=== PATIENT | female | born 1965 | race Caucasian/White ===

== ENCOUNTER → 2020-01-15 15:13 | Outpatient (CLI) | payer OTHER, BC, SELFPAY ==
--- NOTE | 2020-01-15 15:19 | CT_ITS ---
STUDY: CT ABDOMEN AND PELVIS WITHOUT CONTRAST REASON FOR EXAM: Female, 54 years old. LT FLANK PAIN, NAUSEA, HEMATURIA LAST WEEK RADIATION DOSAGE (If Supplied By Facility): CTDIvol = ( 9.90 ) mGy, DLP = ( 459.87 ) mGycm TECHNIQUE: Transaxial images were obtained from the dome of the diaphragm to the symphysis pubis without oral contrast, and without intravenous contrast. Sagittal and coronal images were reconstructed. Individualized dose optimization techniques were used for this CT. COMPARISON: 07/27/2010 FINDINGS: The visualized lung bases are unremarkable. The visualized portions of the heart are within normal limits. Normal liver. The gallbladder is contracted. Normal spleen. Normal pancreas. Normal bilateral adrenal glands. Normal right kidney. 4 mm nonobstructing stone in the midsection of the left kidney. No hydronephrosis, ureteral stone, or ureteral dilatation. Normal visualized stomach. Normal small intestine. Normal colon. The appendix is visualized and appears normal. Normal abdominal aorta. Normal inferior vena cava. Normal retroperitoneum. Normal urinary bladder. Intrauterine device within the uterus. There is a small umbilical hernia containing fat. Dextroscoliosis of the thoracolumbar spine with degenerative disc disease. CT/Abdomen/Pelvis without Cont IMPRESSION: 4 mm nonobstructing stone in the midsection the left kidney. Electronically Signed: Jonh Garduno MD at 16:56 EST Tel , Service support ,
== END ==
PROVIDERS: PCP Internal Medicine; Referring Provider Urology; Visit Provider Urology
DX: R10.9 Unspecified abdominal pain (principal); R11.0 Nausea; Z87.442 Personal history of urinary calculi
CPT/HCPCS: 74176

== ENCOUNTER 2021-02-04 11:11 | Outpatient (RCR) | payer OTHER, BC, SELFPAY ==
[2021-02-04] MEDS: COVID-19 VACC, MRNA(PFIZER)/PF 30 MCG/0.3 ML SYRINGE IM (11:57)
[2021-02-25] MEDS: COVID-19 VACC, MRNA(PFIZER)/PF 30 MCG/0.3 ML SYRINGE IM (12:00)
== END 2021-02-04 23:59 ==
LOC: IMMUN 11:11
PROVIDERS: PCP Internal Medicine; Visit Provider Family Medicine
DX: Z23 Encounter for immunization (principal)
CPT/HCPCS: 0001A; 0002A; 91300

== ENCOUNTER 2024-01-11 18:00 | Outpatient (RCR) | payer OTHER, BC, SELFPAY ==
--- NOTE | 2023-11-07 18:41 | HP.PTEVAL ---
Patient's Visit Information Visit Information Visit Information: LINDA TOWNSEND is a 58 year old F referred to Physical Therapy by SARITA Olmstead with a diagnosis of R knee OA /pain. Date of Evaluation: 11/07/23 Physical Therapist: Basim Friedman, JOET, OCS, CSCS Visit Plan Frequency: 2-3x /Week Duration: 4-6 Weeks Plan: 2-3x/week for 4 weeks for 1. please get I with LE machines for hip and knees, calves, core and postural UE to an I membership. 2. monitor quad stretch she should do on own TENS and ice if needed, Give list for I when able Subjective Subjective: R knee bone spurs patella and OA. It has hurt for 3-4 months now, insidious onset. Pain is anterior up to 5/10 this week, worse with standing, OK WITH SITTING. No regular exercise right now. Was doing PT at [facility] but hours changed. Was dong bike, LE strength, leg press, hip strength. Was doing really well and only feeling it at night which has bothered her. Wakes her up at night. No HEP. 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 Worse after work if moving alot. Hobbies: cleaning. Basic ADLs OK Stopped a weekand a half ago and worsening. Pain anterior R knee: Pain Intensity (Out of 10): 0 Pain Intensity Range: 0 and 5 Objective Objective: [place] R limp first couple steps up from chair then it smooths out to i and no gait deviations. No pain with ambulation. January and heel/toe walk without a problem, butt kicks hurt on R. [facility] chair and bed I without pain. Steps reciprocal without rail but pain descending with R slightly and transiently. R knee AROM 0-108, L knee 0-115, pain end range R knee flexiona dn extension with OP. mod tightness R quad> L, other muscles are OK. hip and ankle AROM WFL. weakness in core and hips with hip flexion testing, 4- hip flexion, 3+ abd and extension, 4- R knee ext and flexion and 4/5 L knee. ankles 4+/5 reflexes 2/3 patella and achilles sensation B LE wnl to gross light touch. - ant drawer adn post sag, + R scour, slight positive bounce home. Balance/Special Test Scores Lower Extremity Functional Score: 33 Goals Goal 1:: Pain in R knee abolished for 3 days Goal Time Frame: 4-6 Weeks Goal 2:: I appropriate HEP for Leg and core strength adn quad stretch to minimize future problems(gym member) Goal Time Frame: 4-6 Weeks Goal 3:: LEFS score 55 Goal Time Frame: 4-6 Weeks Goal 4:: Pain at home 90% decreased with normal activity Goal Time Frame: 4-6 Weeks Rehabilitation Potential Physical Therapy Diagnosis: Limited comfort with walking and gait in R knee pain activity. Rehabilitation Potential: Good Anticipated Interventions Patient/Client Instruction: Educate patient on: Condition and Plan of Care For the Purpose of:: To decrease pain, To increase ROM, To improve nutrient delivery to tissue, To improve muscle performance and motor function, To increase tolerance to activity/condition/position, To improve ability of physical actions for home/community/work/leisure and To improve gait and locomotor functions Therapeutic Exercise to Include: Strength training, Flexibilty training, Passive ROM and Active ROM For the Purpose of:: To decrease pain, To increase ROM, To improve nutrient delivery to tissue, To improve muscle performance and motor function, To improve ability of physical actions for home/community/work/leisure and To improve gait and locomotor functions TENS: Yes Cryotherapy (ice pack, ice massage): Yes For the Purpose of:: To decrease pain and To decrease swelling/inflammation Text: Thank you for the opportunity to evaluate your patient. For Medicare and Medicare HMO plans, please review the plan of care and approve it. It will need to be FAXED BACK to us at [phone] for Medicare purposes. For Medicare only, by signing this I certify the plan of care. Please let me know if there are questions or concerns regarding this plan of care. Physician Signature: Date:
--- NOTE | 2023-12-15 07:51 | HP.PTREVAL ---
Re-Evaluation Intro: SARITA Olmstead, It has been my pleasure to treat LINDA TOWNSEND over the last 9 visits for R knee OA /pain. Please see the progress note below for an update on the physical therapy plan of care! Subjective Subjective: Doing much better. Not as much pain getting up or walking. If on feet alot. Sleep is up a couple times at night to resituate. Stim really helps. Wants to try on her own but hesitant for d/c. Activities:close to normal. Not walking around block at home. Will try. Objective Objective/Function: Walking without pain or antalgia today. Steps reciprocal without rail without pain or antalgia. Good understanding of exercises and weaning process. Appropriate for I trail and f/u in 3 weeks as needed. Plan Plan Plan: f/u 3 weeks as needed to check goals and d/c if doing well. goal is to continue improvements without consistent therapy. Good prognosis with compliance. Balance/Gait/Functional tests Balance/Special Test Scores Lower Extremity Functional Score: 67 Goals Goals Goal 1:: Pain in R knee abolished for 3 days Goal Time Frame: 4-6 Weeks Goal Progress: Progressing Goal 2:: I appropriate HEP for Leg and core strength adn quad stretch to minimize future problems(gym member) Goal Time Frame: 4-6 Weeks Goal Progress: Goal Met Goal 3:: LEFS score 55 Goal Time Frame: 4-6 Weeks Goal Progress: Goal Met Goal 4:: Pain at home 90% decreased with normal activity Goal Time Frame: 4-6 Weeks Goal Progress: Goal Met Anticipated Interventions Anticipated Interventions Patient/Client Instruction: Educate patient on: Condition and Plan of Care For the Purpose of:: To decrease pain, To increase ROM, To improve nutrient delivery to tissue, To improve muscle performance and motor function, To increase tolerance to activity/condition/position, To improve ability of physical actions for home/community/work/leisure and To improve gait and locomotor functions Therapeutic Exercise to Include: Strength training, Flexibilty training, Passive ROM and Active ROM For the Purpose of:: To decrease pain, To increase ROM, To improve nutrient delivery to tissue, To improve muscle performance and motor function, To improve ability of physical actions for home/community/work/leisure and To improve gait and locomotor functions TENS: Yes Cryotherapy (ice pack, ice massage): Yes For the Purpose of:: To decrease pain and To decrease swelling/inflammation Re-Evaluation Ending Re-evaluation ending: Please do not hesitate to contact me at [phone] by phone or if you have questions or concerns regarding this new plan of care! Sincerely, Basim Friedman, DPT, OCS, CSCS
--- NOTE | 2024-01-11 18:14 | HP.PTDCSUM_ITS ---
Discharge Summary D/C summary: It has been my pleasure to treat LINDA TOWNSEND referred by SARITA Olmstead, with the diagnosis of R knee OA /pain for a total of 10 visit(s). Discharge Date: 01/11/24 Please see the following information for a summary of their discharge status. Subjective Subjective: Doing really well and only pain if stretches in middle of night subconscoiously or first 10 steos in am. otherwise doing great. Pain anterior R knee: Pain Intensity (Out of 10): 0 Overall Improvement % Improvement: 95 Objective Objective/Function: Full aROM without pain today, walking normal without antalgia and steps reciprocal without pain or rail. Goals Goal 1:: Pain in R knee abolished for 3 days Goal Progress: Goal Met Goal 2:: I appropriate HEP for Leg and core strength adn quad stretch to mi nimize future problems(gym member) Goal Progress: Goal Met Goal 3:: LEFS score 55 Goal Progress: Goal Met Goal 4:: Pain at home 90% decreased with normal activity Goal Progress: Goal Met Plan Plan: d/c to gym ex. D/C Information Discharge Comments: Will continue with gym exercises adn home management. d/c sentence: If there are questions or concerns regarding this patient's physical therapy, please feel free to call me at [phone]. Thank you for the referral of this patient. Sincerely, Basim Friedman, DPT, OCS, CSCS Balance/Gait/Functional tests Balance/Special Test Scores Lower Extremity Functional Score: 66 Improvement % Improvement: 95
== END 2024-01-11 19:00 | disposition home or self-care (01) ==
LOC: PT 18:00
PROVIDERS: PCP Internal Medicine; Referring Provider Physician Assistant Surgical; Visit Provider Physician Assistant Surgical
DX: M17.11 Unilateral primary osteoarthritis, right knee (principal); M25.561 Pain in right knee
CPT/HCPCS: 97014; 97110; 97161; 97530; G0283

== ENCOUNTER 2024-09-12 05:53 | Day surgery (SDC) | payer OTHER, BC, SELFPAY ==
--- NOTE | 2024-08-28 13:34 | PCM.HP.BLA ---
History and Physical Date of Admission: 09/12/24 HPI: The patient is a 59 year old female presenting for pre-operative visit. She is scheduled for Hysteroscopy D&C, and polyp resection for PMB and endometrial polyp on 09/12/24. Procedure discussed along with risks, benefits and complications. Other alternatives discussed for management. Consent form signed? Yes. PAST MEDICAL HISTORY PAST MEDICAL HISTORY Diagnosis Date ? Abnormal coagulation profile 2 miss carriages ABNORMAL COAGULATION STUDY ? Adjustment disorder with depressed mood ? Dizziness and giddiness ? Dyslipidemia ? Dysmetabolic syndrome X ? Generalized anxiety disorder ? Irritable bowel syndrome ? IUD (intrauterine device) in place 10/31/2013 ? Lab test positive for detection of COVID-19 virus 09/2020 ? Mitral valve disorders ? Myopia with astigmatism and presbyopia 09/03/2018 ? Ocular hypertension 09/03/2018 ? Other abnormal heart sounds ? Other psoriasis ? Premenstrual tension syndromes ? 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 Urinary calculus, unspecified 2009 Renal stones PAST SURGICAL HISTORY PAST SURGICAL HISTORY Procedure Laterality Date ? BREAST BX NEEDLE CORE LEFT 10/2017 benign ? DELIVERY ONLY 08/12/2003 , low cervical ? COLONOSCOPY FLX DX W/COLLJ SPEC WHEN PFRMD 11/03/2016 Colonoscopy ? COLONOSCOPY W/BIOPSY SINGLE/MULTIPLE 06/05/09 Normal appearing colon ? CYSTOURETHROSCOPY renal stones ? KIDNEY SURGERY HX ? TONSILLECTOMY PRIMARY/SECONDARY <AGE 13 Tonsillectomy CURRENT MEDICATIONS Current Outpatient Medications Medication Sig Dispense Refill ? ketoconazole (NIZORAL) 2 % shampoo WASH THE SCALP 3 DAYS A WEEK. MASSAGE INTO SCALP AND LET SIT FOR 5 MINUTES BEFORE RINSING. ? ENSTILAR 0.005-0.064 % foam APPLY TO THE RIGHT TOE NAIL ONCE A DAY FOR 4 WEEKS ? ammonium lactate (LAC-HYDRIN) 12 % cream APPLY TO THE FEET AND LEGS 1-2 TIMES DAILY TOLERATED ? fsjences-xnyqvewjd-aadlkxsxbvcbhm (CORTISPORIN) otic solution APPLY 4 DROP INTO BOTH EARS THREE TIMES A DAY ? rosuvastatin (CRESTOR) 10 mg tablet Take 1 tablet by mouth once daily. 90 tablet 3 ? busPIRone (BUSPAR) 5 mg tablet Take 1 tablet by mouth three times a day as needed. 90 tablet 3 ? clobetasol (TEMOVATE) 0.05 % ointment Apply 1 application to affected area as directed. to affected twice weekly. May use BID for 1-2 weeks prn flares for up to 2 weeks 60 g 1 ? buPROPion XL (WELLBUTRIN XL) 150 mg 24 hr tablet take 1 tablet once daily 90 tablet 3 ? tiZANidine (ZANAFLEX) 2 mg tablet Take 1 tablet by mouth every 8 hours as needed (muscle spasms). 30 tablet 0 ? fluticasone (FLONASE) 50 mcg/actuation nasal spray Use 2 Sprays in each nostril once daily. Rinse mouth after use. 1 Each 3 ? naproxen (NAPROSYN) 500 mg tablet Take 1 tablet by mouth twice daily as needed (for pain/inflammation). Take with food. 15 tablet 0 ? hydrOXYzine HCl (ATARAX) 10 mg tablet Take 1 tablet by mouth three times daily as needed. 30 tablet 0 ? Mometasone (ELOCON) 0.1 % solution Apply 1 application to affected area once daily. for scalp as needed 60 mL 11 ? Aspirin 81 mg Tab Take 1 tablet by mouth once daily. Take with food. ? MULTIVITAMIN TAB Take one(1) tablet daily. 0 No current facility-administered medications for this visit. ALLERGIES: Latex and Penicillins PERSONAL HISTORY: SOCIAL HISTORY Social History Tobacco Use ? Smoking status: Never ? Smokeless tobacco: Never Vaping Use ? Vaping status: Never Used Substance Use Topics ? Alcohol use: Yes Comment: 1x per year ? Drug use: No FAMILY HISTORY: FAMILY HISTORY FAMILY HISTORY Problem Relation Age of Onset ? Diabetes Maternal Grandmother ? Diabetes Maternal Aunt ? Diabetes Maternal Uncle ? Breast Cancer Sister age 39 , now with mets (including to colon) REVIEW OF SYMPTOMS: GENERAL: denies fevers or chills ENDOCRINOLOGY: has not been on steroids Cardiology : denies palpitations or chest pain Respiratory: denies SOB or cough Hematology: denies history of prolonged bleeding or easy bruising or VTE Allergy: Denies history of personal or family history of allergy to anesthesia PHYSICAL EXAMINATION: VITALS: Blood pressure 118/72, pulse 90, height 157.5 cm (5' 2 ), weight 85.7 kg (189 lb), last menstrual period 06/22/2020, SpO2 98%. GENERAL: The patient is well nourished, well hydrated in no acute distress. , The patient is oriented to time, place, and person. NECK: Supple. No lynphadenopathy, normal thyroid, no thyromegaly. LUNGS: Clear to auscultation bilaterally. no wheezes, rhonchi or rales HEART: Regular rate and rhythm, Normal heart sounds, and No murmurs or gallops Pelvic US on 07/18/24 Indication Postmenopausal bleeding- spotting Impression Anteverted fibroid uterus that measures 81 mm x 31 mm x 45 mm. The largest fibroids are described below. Endometrium is heterogeneous and measures 6 mm, which is abnormally thickened in menopause. Both ovaries are visualized and appear normal. No adnexal masses were observed. There is no free fluid visualized in the peritoneal cavity. Recent endometrial biopsy demonstrated presence of an endometrial polyp. Recommendations Recommend hysteroscopic evaluation as clinically indicated. History Medical History Surgery: section x 1 MIDDLE OR [employer] History Other: recent endo bx, pt still having spotting Menstrual History LMP on 11/20/2018 Method Transabdominal, transvaginal, 3D ultrasound examination, Color Doppler examination. View: Adequate visualization Uterus Uterus: Visualized Uterus position: anteverted Description of uterine malformations: none Myometrium: heterogeneous Endometrium: thickened Cervix details: normal Uterus length 81 mm Uterus width 45 mm Uterus height 31 mm Uterus Vol 58.6 cm? Endometrial thickness, total 6.0 mm Uterine fibroid D1 6 mm Uterine fibroid D2 8 mm Uterine fibroid D3 56 mm Uterine fibroid mean 23.5 mm Uterine fibroid vol 1.501 cm? Uterine fibroids findings: Right lateral posterior wall. intramural Right Ovary Rt ovary: Visualized Rt ovary morphology: postmenopausal atrophic Rt ovary D1 21 mm Rt ovary D2 29 mm Rt ovary D3 12 mm Rt ovary Vol 3.9 cm? Left Ovary Lt ovary: Visualized Lt ovary morphology: postmenopausal atrophic Lt ovary D1 16 mm Lt ovary D2 19 mm Lt ovary D3 13 mm Lt ovary Vol 2.0 cm? Cul de Sac Visualized. no free fluid visualized EMB 06/2024 fragment of polyp and atrophic endometrium IMPRESSION: PMB, endometrial polyp PLAN: The risks/benefits/alternatives and personal involved for the planned hysteroscopy D&C with polyp resection were reviewed with the patient. Her questions were answered to her satisfaction and she desires to proceed. Consent was signed. I reviewed with her postop instructions and expectations. I have reviewed and updated past medical and surgical history, medications and allergies Assessment & Plan Assessment/Plan (1) PMB (postmenopausal bleeding): (2) Endometrial polyp:
[2024-09-12] VITALS (8 sets, daily range): BP systolic 111–138; BP diastolic 54–82; PULSE 73–84; RESP 14–16; TEMP 36.2–36.5; O2SAT 90–100; BMI 33.3
--- OUTSIDE RECORDS SUMMARY | 2024-09-12 05:59 | XMS RPT_ITS | CCD ---
Author Organization [facility] Care Team Providers Care Deck Steward Name Role Phone BEN ADAMS Unavailable Unavailable FARID, FLORES S Unavailable Unavailable REFERRED, SELF Unavailable Unavailable NO PRIMARY CARE, Unavailable Unavailable REFERRED, SELF Unavailable Unavailable REFERRED, SELF Unavailable Unavailable NO PRIMARY CARE, Unavailable Unavailable Alejandro TAYLOR, Ben Primary Care Provider Alejandro TAYLOR, Ben Primary Care Provider Ben Adams MD Primary Care Provider Torey Villasenor MD Unavailable Ben Adams MD Primary Care Provider [phone] Jacklyn TAYLOR Torey Unavailable Alejandro TAYLOR, Ben Primary Care Provider GANTA, BEN Primary Care Unavailable POSTLETHWAITCAITLIN Attending Unava ilable VINCENT QUIROS Referring Unavailable GANTA, BEN Primary Care Unavailable GANTA, BEN Primary Care Unavailable HAURY, VINCENT Referring Unavailable HAIVONNE DURANILY Attending Unavailable GANTA, BEN Primary Care Unavailable GANTA, BEN Primary Care Unavailable ASHLEY TURKY Attending Unavailable GANTA, BEN Primary Care Unavailable SELF Referring Unavailable LAURO MAHMOOD Attending Unavailable DEDE KAPLAN Attending Unavailable GANTA, BEN Primary Care Unavailable POSTLETAkiWAITCAITLIN Referring Unavailabl e GANTA, BEN Primary Care Unavailable GANTA, BEN Primary Care Unavailable SARRASACHIN, TOREY Referring Unavailable Allergies Allergy Classification Reported Allergen(s) Allergy Type Date of Onset Reaction(s) Facility (20 sources) Latex; Translations: [LATEX] Propensity to adverse reactions (disorder) 5 [facility] Other [facility] (20 sources) Penicillins; Translations: [PENICILLINS] Propensity to adverse reactions to drug (disorder) 5 [facility] Other [facility] Medications Current Medications Medication Drug Class(es) Dates Sig (Normalized) Sig (Original) aspirin 81 mg oral tablet (20 sources) Platelet Aggregation Inhibitor, Nonsteroidal Anti-inflammatory Drug Start: 02-13-2007 take 1 tablet by mouth once daily at mealtime Aspirin 81 mg Tab Take 1 tablet by mouth once daily. Take with food. 02/13/2007 Active Comment on above: Take 1 tablet by roge th once daily. Take with food. betamethasone dipropionate 0.643 mg/ml / calcipotriene 0.05 mg/ml topical foam (3 sources) Corticosteroid, Vitamin D Analog Start: 07-31-2024 ENSTILAR 0.005-0.064 % foam APPLY TO THE RIGHT TOE NAIL ONCE A DAY FOR 4 WEEKS 07/31/2024 Active 24 hr buPROPion hydrochloride 150 mg extended release oral tablet (20 sources) Aminoketone Start: 10-25-2021 End: 09-25-2023 buPROPion XL (WELLBUTRIN XL) 150 mg 24 hr tablet Indications: Generalized anxiety disorder take 1 tablet once daily 90 tablet 3 09/25/2023 Active Comment on above: Take 1 tablet by roge once daily. TAKE 1 TABLET ONCE D AILY busPIRone hydrochloride 5 mg oral tablet (20 sources) Start: 07-28-2021 End: 01-24-2024 take 1 tablet by mouth three times daily as needed busPIRone (BUSPAR) 5 mg tablet Indications: Generalized anxiety disorder Take 1 tablet by mouth three times a day as needed. 90 tablet 3 01/24/2024 Active Comment on above: Take 1 tablet by roge th three times daily as needed. Take 1 tablet by roge th three times a day as needed. cefdinir 300 mg oral capsule (1 source) Cephalosporin Antibacterial Start: 03-15-2023 End: 03-22-2023 take 1 capsule by mouth twice daily cefdinir (OMNICEF) 300 mg capsule Take 1 capsule by mouth twice daily for 7 days. 14 capsule 0 03/15/2023 03/22/2023 Active Comment on above: Take 1 capsule by mo [facility] twice daily for 7 days. cephalexin 500 mg oral capsule (13 sources) Cephalosporin Antibacterial Start: 05-13-2023 End: 05-20-2023 take 1 capsule by mouth three times daily cephALEXin (KEFLEX) 500 mg capsule Take 1 capsule by mouth three times daily for 7 days. 21 capsule 0 05/13/2023 05/20/2023 Active Start: 09-05-2022 End: 12-26-2022 KEFLEX 500 mg capsule TAKE 1 CAPSULE 3 TIMES A DAY FOR 7 DAYS. 21 capsule 09/05/2022 12/26/2022 Discontinued (Other) Comment on above: Take 1 capsule by [facility] three times daily for 7 days. TAKE 1 CAPSULE 3 JOHNY ES A DAY FOR 7 DAYS. clobetasol propionate 0.0005 mg/mg topical ointment (20 sources) Corticosteroid Start: End: clobetasol (TEMOVATE) 0.05 % ointment Apply 1 application to affected area as directed. to affected twice weekly. May use BID for 1-2 weeks prn flares for up to 2 weeks 60 g 1 01/24/2024 Active Comment on above: Apply 1 application to affected area as directed. to affected twice weekly. May use BID for 1-2 weeks prn flares for up to 2 weeks fluticasone propionate 0.05 mg/actuat metered dose nasal spray (20 sources) Corticosteroid Start: take 2 spray(s) by mouth once daily fluticasone (FLONASE) 50 mcg/actuation nasal spray Use 2 Sprays in each nostril once daily. Rinse mouth after use. 1 Each 3 03/15/2023 Active Comment on above: Use 2 Sprays in each nostril once daily. Rinse mouth after use. hydrocortisone 10 mg/ml / neomycin 3.5 mg/ml / polymyxin b [id number] unt/ml otic solution (3 sources) Aminoglycoside Antibacterial, Polymyxin-class Antibacterial, Corticosteroid Start: [id number]-kcynkqqhe-ri drocortisone (CORTISPORIN) otic solution APPLY 4 DROP INTO BOTH EARS THREE TIMES A DAY 07/18/2024 Active hydrOXYzine hydrochloride 10 mg oral tablet (20 sources) Antihistamine Start: End: take 1 tablet by mouth three times daily as needed hydrOXYzine HCl (ATARAX) 10 mg tablet Indications: Generalized anxiety disorder Take 1 tablet by mouth three times daily as needed. 30 tablet 07/19/2022 Active Comment on above: Take 1 tablet by roge th three times daily as needed. iv contrast (will be provided with radiology test) (2 sources) Start: End: iv contrast (will be provided with radiology test) Indications: Hematuria, unspecified type CT Urogram WO/W Inject, intravenously, once for 1 dose.No IV access, insert saline lock prior to the beginning of sedation, infusion, injection of imaging exam. Discontinue saline lock post exam. If Pt. has a central line or IVAD, may access for administration according to line specific nursing protocol. Once exam is complete flush line and de-access according to line specific nursing protocol in the CT contrast administration guidelines link. 1 Each 07/25/2024 07/26/2024 Active ketoconazole 20 mg/ml medicated shampoo (3 sources) Azole Antifungal Start: ketoconazole (NIZORAL) 2 % shampoo WASH THE SCALP 3 DAYS A WEEK. MASSAGE INTO SCALP AND LET SIT FOR 5 MINUTES BEFORE RINSING. 07/31/2024 Active ammonium lactate 120 mg/ml topical cream (3 sources) Start: ammonium lactate (LAC-HYDRIN) 12 % cream APPLY TO THE FEET AND LEGS 1-2 TIMES DAILY TOLERATED 07/31/2024 Active miSOPROStol 0.2 mg oral tablet (1 source) Prostaglandin E1 Analog Start: End: miSOPROStol (CYTOTEC) 200 mcg tablet Use 2 tablets vaginally one time only for [address] 2 tablets vaginally the morning before surgery. 2 tablet 08/28/2024 08/28/2024 Active mometasone furoate 1 mg/ml topical lotion (20 sources) Corticosteroid Start: End: Mometasone (ELOCON) 0.1 % solution Apply 1 application to affected area once daily. for scalp as needed 60 mL 11 07/19/2022 Active Comment on above: Apply 1 application to affected area once daily. for scalp as needed MULTIVITAMIN TAB (20 sources) Start: MULTIVITAMIN TAB Take one(1) tablet daily. 0 10/25/2005 Active Comment on above: Take one(1) tablet d aily. naproxen 500 mg oral tablet (20 sources) Nonsteroidal Anti-inflammatory Drug Start: take 1 tablet by mouth every twelve hours as needed naproxen (NAPROSYN) 500 mg tablet Take 1 tablet by mouth twice daily as needed (for pain/inflammation). Take with food. 15 tablet 08/19/2022 Active Comment on above: Take 1 tablet by [facility] twice daily as needed (for pain/inflammation). Take with food. nitrofurantoin, macrocrystals 25 mg / nitrofurantoin, monohydrate 75 mg oral capsule (1 source) Nitrofuran Antibacterial Start: End: take 1 capsule by mouth twice daily at mealtime nitrofurantoin monohydrate and macrocrystal (MACROBID) 100 mg capsule Take 1 capsule by mouth twice daily with meals for 5 days. 10 capsule 0 08/19/2022 08/24/2022 Active Comment on above: Take 1 capsule by [facility] twice daily with meals for 5 days. ondansetron 8 mg oral tablet (20 sources) Serotonin-3 Receptor Antagonist Start: End: take 1 tablet by mouth every eight hours as needed ondansetron (ZOFRAN) 8 mg tablet Take 1 tablet by mouth every 8 hours as needed for nausea/vomiting. 30 tablet 0 11/23/2022 12/23/2022 Active Start: 09-27-2022 End: 07-19-2023 take 1 tablet by mouth every eight hours as needed ondansetron (ZOFRAN) 4 mg tablet Take 1 tablet by mouth every 8 hours as needed for nausea/vomiting. 9 tablet 09/27/2022 07/19/2023 Discontinued (Discontinued by Patient) Start: 08-19-2022 End: 03-15-2023 take 1 tablet by mouth every six hours as needed ondansetron orally disintegrating (ZOFRAN ODT) 4 mg disintegrating tablet Take 1 tablet by mouth every 6 hours as needed for nausea/vomiting. 20 tablet 08/19/2022 03/15/2023 Discontinued (Duplicate Entry) Comment on above: Take 1 tablet by roge th every 6 hours as needed for nausea/vomiting. Take 1 tablet by roge th every 8 hours as needed for nausea/vomiting. rosuvastatin calcium 10 mg oral tablet (20 sources) HMG-CoA Reductase Inhibitor Start: End: take 1 tablet by mouth once daily rosuvastatin (CRESTOR) 10 mg tablet Take 1 tablet by mouth once daily. 90 tablet 3 01/24/2024 Active Comment on above: Take 1 tablet by roge th once daily. 1000 ml sodium chloride 9 mg/ml injection (1 source) Start: End: 0.9 % sodium chloride (NACL 0.9%) infusion Indications: Hematuria, unspecified type Administer at rate defined per CT contrast administration specifications. To be provided with radiology test. 150 mL 07/25/2024 07/25/2024 Active tiZANidine 2 mg oral tablet (17 sources) Central alpha-2 Adrenergic Agonist Start: take 1 tablet by mouth every eight hours as needed tiZANidine (ZANAFLEX) 2 mg tablet Take 1 tablet by mouth every 8 hours as needed (muscle spasms). 30 tablet 07/19/2023 Active Comment on above: Take 1 tablet by roge th every 8 hours as needed (muscle spasms). Completed/Discontinued Medications Medication Drug Class(es) Dates Sig (Normalized) Sig (Original) acetaminophen 325 mg / oxyCODONE hydrochloride 5 mg oral tablet (11 sources) Opioid Agonist Start: 09-27-2022 End: 03-15-2023 take 1 tablet by mouth every six hours as needed for pain oxyCODONE-acetamino phen (PERCOCET) 5-325 mg tablet Indications: Renal calculi Take 1 tablet by mouth every 6 hours as needed for pain. 12 tablet 09/27/2022 03/15/2023 Discontinued (Discontinued by Patient) Comment on above: Take 1 tablet by roge th every 6 hours as needed for pain. benzonatate 100 mg oral capsule (20 sources) Non-narcotic Antitussive Start: 09-22-2020 End: 03-15-2023 take 100-200 mg by mouth every eight hours as needed benzonatate (TESSALON PERLES) 100 mg capsule Take 1-2 capsules by mouth three times daily as needed for Cough. 30 capsule 09/22/2020 03/15/2023 Discontinued Comment on above: Take 1-2 capsules by mouth three times daily as needed for Cough. phenazopyridine hydrochloride 200 mg oral tablet (17 sources) Start: 09-27-2022 End: 07-19-2023 take 1 tablet by mouth every eight hours as needed phenazopyridine (PYRIDIUM) 200 mg tablet Take 1 tablet by mouth three times daily as needed. 9 tablet 09/27/2022 07/19/2023 Discontinued Comment on above: Take 1 tablet by roge th three times daily as needed. sulfamethoxazole 800 mg / trimethoprim 160 mg oral tablet (2 sources) Dihydrofolate Reductase Inhibitor Antibacterial, Sulfonamide Antimicrobial Start: 05-12-2023 End: 05-17-2023 take 1 tablet by mouth twice daily sulfamethoxazole-tr imethoprim (BACTRIM DS) 800-160 mg per tablet Take 1 tablet by mouth twice daily for 5 days. 6 tablet 0 05/12/2023 05/13/2023 Discontinued Comment on above: Take 1 tablet by roge twice daily for 5 days. tamsulosin hydrochloride 0.4 mg oral capsule (20 sources) alpha-Adrenergic Spencer Start: 09-27-2022 End: 07-19-2023 take 1 capsule by mouth once daily at bedtime tamsulosin (FLOMAX) 0.4 mg Take 1 capsule by mouth daily at bedtime. 30 capsule 09/27/2022 07/19/2023 Discontinued Start: 08-19-2022 take 1 capsule by mo ut once daily at bedtime tamsulosin (FLOMAX) 0.4 mg Take 1 capsule by mouth daily at bedtime. 30 capsule 0 08/19/2022 Active Comment on above: Take 1 capsule by mo uth daily at bedtime. Problems Active Problems Problem Classification Problem Date Documented Da te Episodic/Chronic Anxiety disorders (20 sources) Generalized anxiety disorder; Translations: [Generalized anxiety disorder] 08-04-2009 Chronic Cancer of cervix (10 sources) Atypical squamous cells of undetermined significance on cervical Papanicolaou smear; Translations: [Atypical squamous cells of undetermined significance on cytologic smear of cervix (ASC-US)] Onset: 07-18-2024 07-18-2024 Episodic Cardiac dysrhythmias (3 sources) Sinus bradycardia; Translations: [Bradycardia, unspecified] Episodic Conditions associated with dizziness or vertigo (1 source) Lightheadedness; Translations: [Dizziness and giddiness] Episodic Diabetes mellitus without complication (3 sources) Hyperglycemia; Translations: [Hyperglycemia, unspecified] Episodic Disorders of lipid metabolism (20 sources) Hyperlipidemia; Translations: [Hyperlipidemia, unspecified] Onset: 09-27-2007 04-25-2009 Chronic Genitourinary symptoms and ill-defined conditions (6 sources) Scalding pain on urination ; Translations: [Dysuria] Onset: 07-25-2024 Episodic Heart valve disorders (20 sources) Rheumatic mitral valve disease, unspecified; Translations: [Mitral valve disorders] 10-25-2005 Chronic Immunizations and screening for infectious disease (1 source) Viral screening status; Translations: [Encounter for screening for other viral diseases] Episodic Menopausal disorders (4 sources) Postmenopausal bleeding; Translations: [Postmenopausal bleeding] Onset: 07-18-2024 07-10-2024 Chronic Nonspecific chest pain (1 source) Chest pain, unspecified; Translations: [Chest pain, unspecified] Onset: 05-16-2018 Episodic Other bone disease and musculoskeletal deformities (20 sources) Adolescent idiopathic scoliosis of thoracolumbar spine; Translations: [Adolescent idiopathic scoliosis, thoracolumbar region] Onset: 10-27-2015 10-27-2015 Chronic Other connective tissue disease (2 sources) Swelling of lower limb; Translations: [Other specified soft tissue disorders] Episodic Other diseases of kidney and ureters (1 source) Abnormal renal function; Translations: [Disorder of kidney and ureter, unspecified] 07-25-2024 Episodic Other diseases of kidney and ureters (1 source) Disorder of kidney and ureter, unspecified; Translations: [Function kidney decreased] Onset: 07-25-2024 Episodic Other female genital disorders (1 source) Vaginal odor; Translations: [Other specified noninflammatory disorders of vagina] 07-10-2024 Episodic Other female genital disorders (1 source) Polyp of corpus uteri; Translations: [Polyp of corpus uteri] 08-28-2024 Episodic Other gastrointestinal disorders (20 sources) Irritable bowel syndrome; Translations: [Irritable bowel syndrome without diarrhea] 04-28-2009 Chronic Other inflammatory condition of skin (20 sources) Psoriasis; Translations: [Other psoriasis] 09-27-2007 Chronic Other lower respiratory disease (1 source) Dyspnea on exertion; Translations: [Other forms of dyspnea] Episodic Other lower respiratory disease (1 source) Cough; Translations: [Acute cough] Episodic Other lower respiratory disease (1 source) Wheezing; Translations: [Wheezing] Episodic Other nutritional; endocrine; and metabolic disorders (20 sources) Metabolic syndrome X; Translations: [Metabolic syndrome] 04-27-2009 Chronic Other nutritional; endocrine; and metabolic disorders (20 sources) Obese class I; Translations: [Obesity, unspecified] Onset: 12-26-2022 Chronic Other nutritional; endocrine; and metabolic disorders (1 source) Body mass index 30+ - obesity; Translations: [Body mass index (BMI) 33.0-33.9, adult] Chronic Other screening for suspected conditions (not mental disorders or infectious disease) (11 sources) Patient encounter status; Translations: [Encounter for screening for lipoid disorders] Episodic Other skin disorders (1 source) Skin lesion; Translations: [Disorder of the skin and subcutaneous tissue, unspecified] Episodic Other skin disorders (1 source) Loss of hair; Translations: [Nonscarring hair loss, unspecified] Episodic Other upper respiratory infections (1 source) Acute sinusitis; Translations: [Acute sinusitis, unspecified] Episodic Past or Other Problems Problem Classification Problem Date Documented Date Episodic/Chronic Abdominal hernia (13 sources) Umbilical hernia; Translations: [Umbilical hernia without obstruction or gangrene] Onset: 8 Resolved: 9 12-25-2018 Episodic Abdominal pain (20 sources) Abdominal pain; Translations: [Unspecified abdominal pain] Onset: 9 07-16-2009 Episodic Calculus of urinary tract (20 sources) History of calculus of kidney; Translations: [Personal history of urinary calculi] Onset: 0 Resolved: 2 Episodic Coagulation and hemorrhagic disorders (13 sources) Hypercoagulability state; Translations: [Other primary thrombophilia] Onset: 7 Resolved: 9 05-30-2024 Chronic Other nutritional; endocrine; and metabolic disorders (20 sources) Overweight; Translations: [Overweight] Onset: 7 06-02-2008 Episodic Residual codes; unclassified (20 sources) Disturbance in sleep behavior; Translations: [Sleep disorder, unspecified] Onset: 8 06-02-2008 Episodic Spondylosis; intervertebral disc disorders; other back problems (20 sources) Neck pain; Translations: [Cervicalgia] Onset: 2 Resolved: 2 03-19-2012 Episodic Results Test Name Value Interpretation Reference Range Facil ity ALBUMIN/CREATININE RATIO, UR INEon 08-30-2024 Albumin DL <= 20 mg/L (U) [Mass/Vol] 46.3 mg/L Normal [facility] Comment on above: Order Comment: Speci men Type: URINE SPECIMENOrdering Facility: [facility] Address: [address] [place] [address] Performed By: #### 2 890-2, UACR ####[facility] LABCLIA [id number] [place] [address] [place] Albumin/Creatinine (U) [Mass ratio] 24 mg/g Normal <30 [facility] Comment on above: Order Comment: Speci men Type: URINE SPECIMENOrdering Facility: [facility] Address: [address] [place] [address] Result Comment: Adul t Male and Female Nephrotic Criteria: <30 mg/g is considered normal to mildly increased 30-300 mg/g is considered moderately increased >300 mg/g is considered severely increased KDIGO. (2013). KDIGO 2012 Clinical Practice Guideline for the Evaluation and Management of Chronic Kidney Disease. Official Journal of the International Society of Nephrology, 3(1), 1-150. Performed By: #### 2 890-2, UACR ####[facility] LABCLIA [id number] [place] [id number] [place] Bacteria Ur Culton 4 Bacteria identified Cx Nom (U) ORGANISM ID: 1 10,000 -<50,000 CFU/ml Normal urogenital maegan Normal [facility] Comment on above: Performed By: #### 6 30-4 ####[facility] LABCLIA [id number] [place] [address] [place] CNOVon 08-30-2024 CNOV Office Visit ([facility] ) VIVIANA TOWNSEND ([id number]) 1965 F Date Time Provider Department 08/30/24 1:00 PM LAURO MAHMOOD [facility] During your visit today, we recorded the following information about you: Lauro Mahmood DO 08/30/2024 2:08 PM Signed NEPHROLOGY CLINIC INITIAL VISIT PATIENT NAME: Viviana Townsend Consultation requested by self for an opinion regarding ckd. My final recommendations will be communicated back to the requesting physician by way of shared Medical record or letter to requesting physician via [place] mail. ASSESSMENT/PLAN 1.Hematuria with x2 small left stones and lower abdominal cramping/flank pain ongoing for months -most recent microscopic urine on 07/25 with + epi's/wbc/Rbc and no proteinuoria in the setting of a ? UTI symptoms somewhat vague (back/flank,Lower abdomen cramp) So hematuria cannot be interpreted. We'll repeat the urine culture today and offer trial of abx indicative, request to avoid penicillin -? If sx persiste speculated dx of IC, defer to urology/ob 2. Elevated Cr not rising to the level of CKD -repeat with cystatin c, Cr stable at 1 for many years. No helen edema today in le 3. Nephrolithiasis -litholink 2 year ago, high urine calcium -continue medical / dietary management as she is. Check pth, vit d. Thiazide theortically could help, but recent trial in [facility] doesn't support this RTC 1 year or sooner if needed SUBJECTIVE chief complaint HPI: 59 year hx of stones 2009, ESWL in 2021, est with urology last month at [facility]. Has received shock wave in the past. Has existing left kidney stones, this was worked up for hematuria - as below the CT showed at least 2 stones, 3mm, left kidney. Overweight, hld, psorias, anxiety, planning for Hysteroscopy DANDC, and polyp resection for PMB and endometrial polyp on 09/12/24 as she's had post menopausal bleeding and follows obgyn closely, still having flank pain and lower abdomen pain that hasn't been clarified as to why Sees or at least has seen cardiology for HLD, due to swelling a pr/cr ratio was checked at that time and found negative. Today she has +le, wbc, protein in urine. RENAL HX Imaging Kidneys and urinary tract: Right: There are no renal calculi or masses. The opacified calices, renal pelvis and ureter are normal without dilation, filling defect, or stricture. Left: At least 2 nonobstructing stones measure up to 0.3 cm. There are no renal solid/enhancing masses. The opacified calices, renal pelvis and ureter are normal without dilation, filling defect, or stricture. Urine Current Outpatient Medications Medication Instructions Aspirin 81 mg, ORAL, DAILY, Take with food. buPROPion XL (WELLBUTRIN XL) 150 mg, ORAL, EVERY AFTERNOON busPIRone (BUSPAR) 5 mg, ORAL, 3 TIMES DAILY NEEDED clobetasol (TEMOVATE) 0.05 % ointment 1 application , TOPICAL, DIRECTED, to affected twice weekly. May use BID for 1-2 weeks prn flares for up to 2 weeks fluticasone (FLONASE) 50 mcg/actuation nasal spray 2 Sprays, EACH NOSTRIL, DAILY, Rinse mouth after use. hydrOXYzine HCl (ATARAX) 10 mg, ORAL, 3 TIMES DAILY NEEDED Mometasone (ELOCON) 0.1 % solution 1 application , TOPICAL, DAILY, for scalp as needed MULTIVITAMIN TAB Take one(1) tablet daily. naproxen (NAPROSYN) 500 mg, ORAL, 2 TIMES DAILY NEEDED, Take with food. rosuvastatin (CRESTOR) 10 mg, ORAL, DAILY tiZANidine (ZANAFLEX) 2 mg, ORAL, EVERY 8 HOURS NEEDED Social History Tobacco Use Smoking status: Never Smokeless tobacco: Never Vaping Use Vaping status: Never Used Substance Use Topics Alcohol use: Yes Comment: 1x per year Drug use: No FAMILY HISTORY Problem Relation Age of Onset Diabetes Maternal Grandmother Diabetes Maternal Aunt Diabetes Maternal Uncle Breast Cancer Sister age 39 , now with mets (including to colon) PAST SURGICAL HISTORY Procedure Laterality Date BREAST BX NEEDLE CORE LEFT 10/2017 benign DELIVERY ONLY 08/12/2003 , low cervical COLONOSCOPY FLX DX W/COLLJ SPEC WHEN PFRMD 11/03/2016 Colonoscopy COLONOSCOPY W/BIOPSY SINGLE/MULTIPLE 06/05/09 Normal appearing colon CYSTOURETHROSCOPY renal stones KIDNEY SURGERY HX TONSILLECTOMY PRIMARY/SECONDARY Tonsillectomy OBJECTIVE PHYSICAL EXAM: BP - standardized method Pulse 1 BP #1: 130/83 Pulse #1: 79 beats/min 2 BP #2 : 121/79 Pulse #2 : 79 beats/min 3 BP #3 : 128/81 Pulse #3 : 78 beats/min Average Average BP: 126/81 Average Pulse: 78 beats/min Orthostatic vitals Supine Sitting Standing BP cuff location BP cuff size Comments for BP values First BP (right) First BP (left) Intake/Output None GENERAL: no distress EXTREMITIES:No edema DATA: Diagnostic tests reviewed for today's visit: Most recent labs and imaging results. CBC, Coags, BMP, Mg, Phos Liver Function, Amylase, AN (more content not included)... Normal [facility] Prot/Creat Uron 08-30-2024 Creatinine (U) [Mass/Vol] 191.3 mg/dL Normal 20.0-300.0 [facility] Comment on above: Order Comment: Speci men Type: URINE SPECIMENOrdering Facility: [facility] Address: [address] [place] [address] Performed By: #### 2 890-2, UACR ####[facility] LABCLIA [id number] [facility] [id number] [address] [place] Protein/Creatinine (U) [Mass ratio] 0.09 mg/mg Normal <0.15 [facility] Comment on above: Order Comment: Speci men Type: URINE SPECIMENOrdering Facility: [facility] Address: [address] [place] [address] Result Comment: Adul t Proteinuria Categories: <0.15 mg/mg is considered normal to mildly increased 0.15 - 0.50 mg/mg is considered moderately increased >0.50 mg/mg is considered severely increased KDIGO. (2013). KDIGO 2012 Clinical Practice Guideline for the Evaluation and Management of Chronic Kidney Disease. Official Journal of the International Society of Nephrology, 3(1), 1-150. Performed By: #### 2 890-2, UACR ####[facility] LABCLIA [id number] [place] [address] [place] Protein/Creatinine (U) [Mass ratio]on 08-30-2024 Protein (U) [Mass/Vol] 18 mg/dL Normal 0-20 [facility] Comment on above: Order Comment: Speci men Type: URINE SPECIMENOrdering Facility: [facility] Address: [address] [place] [address] Performed By: #### 2 890-2, UACR ####[facility] LABCLIA [id number] [address] [place] UA DIP, URINE (POC)on 2023 BILIRUBIN UA (POCT) Negative Negative Gerard [facility] CLARITY UA (POCT) Clear [facility] COLOR UA (POCT) Yellow [facility] GLUCOSE UA (POCT) Negative Negative mg/dL [facility] Hemoglobin Ql (U) Small Abnormal Negative [facility] Interpretation and review of laboratory results Abnormal [facility] KETONE UA (POCT) 15 mg/dL Abnormal Negative [facility] LEUKOCYTES UA (POCT) Moderate Abnormal Negative [facility] NITRITE UA (POCT) Negative Negative [facility] PH UA (POCT) 7.0 4.5 - 8.0 [facility] Protein Ql (U) Negative Negative mg/dL [facility] SPECIFIC GRAVITY UA (POCT) 1.025 1.005 - 1.030 [facility] UROBILINOGEN UA (POCT) 0.2 Normal E.U./dL [facility] Location:[facility], [address], [place], [address] [facility] POINT OF CARE [facility] URINALYSIS, REFLEX MICROSCOP ICon 08-30-2024 Bacteria LM.HPF (Urine sed) [#/Area] Negative Normal Negative [facility] Comment on above: Order Comment: Speci men Type: URINE SPECIMENOrdering Facility: [facility] Address: [address] [place] [address] Performed By: #### L [id number] ####[facility] LABCLIA [id number] [place] [address] [place] Bilirubin Ql (U) Negative Normal Negative [facility] Comment on above: Order Comment: Speci men Type: URINE SPECIMENOrdering Facility: [facility] Address: [address] [place] [address] Performed By: #### L [id number] ####[facility] LABCLIA [id number] [place] [address] [place] Clarity (Unsp spec) Clear Normal Clear [facility] Comment on above: Order Comment: Speci men Type: URINE SPECIMENOrdering Facility: [facility] Address: [address] [place] [address] Performed By: #### L [id number] ####[facility] LABCLIA [id number] [place] [address] [place] Color (U) Yellow Normal Yellow [facility] Comment on above: Order Comment: Speci men Type: URINE SPECIMENOrdering Facility: [facility] Address: [address] [place] [address] Performed By: #### L [id number] ####[facility] LABCLIA [id number] [place] [address] [place] Epithelial cells LM.HPF (Urine sed) [#/Area] Few Normal [facility] Comment on above: Order Comment: Speci men Type: URINE SPECIMENOrdering Facility: [facility] Address: [address] [place] [address] Result Comment: Few Performed By: #### L [id number] ####[facility] LABCLIA [id number] [place] [address] [place] Glucose Test strip (U) [Mass/Vol] Negative Normal Negative [facility] Comment on above: Order Comment: Speci men Type: URINE SPECIMENOrdering Facility: [facility] Address: [address] [place] [address] Performed By: #### L [id number] ####[facility] LABCLIA [id number] [place] [address] [place] Hemoglobin Ql (U) 1+ Abnormal Negative [facility] Comment on above: Order Comment: Speci men Type: URINE SPECIMENOrdering Facility: [facility] Address: [address] [place] [address] Performed By: #### L [id number] ####[facility] LABCLIA [id number] [place] [address] [place] Hyaline casts (Urine sed) [#/Area] 0 /[LPF] Normal 0 /LPF [facility] Comment on above: Order Comment: Speci men Type: URINE SPECIMENOrdering Facility: [facility] Address: [address] [place] [address] Performed By: #### L [id number] ####[facility] LABCLIA [id number] [place] [address] [place] Ketones Ql (U) 1+ Abnormal Negative [facility] Comment on above: Order Comment: Speci men Type: URINE SPECIMENOrdering Facility: [facility] Address: [address] [place] [address] Performed By: #### L [id number] ####[facility] LABCLIA [id number] [place] [address] [place] Leukocyte esterase Test strip Ql (U) 2+ Abnormal Negative [facility] Comment on above: Order Comment: Speci men Type: URINE SPECIMENOrdering Facility: [facility] Address: [address] [place] [address] Performed By: #### L [id number] ####[facility] LABCLIA [id number] [place] [address] [place] Nitrite Ql (U) Negative Normal Negative [facility] Comment on above: Order Comment: Speci men Type: URINE SPECIMENOrdering Facility: [facility] Address: [address] [place] [address] Performed By: #### L [id number] ####[facility] LABIA [id number] [place] [address] [place] pH (U) 7.0 [pH] Normal <8.5 [facility] Comment on above: Order Comment: Speci men Type: URINE SPECIMENOrdering Facility: [facility] Address: [address] [place] [address] Performed By: #### L [id number] ####[facility] LABIA [id number] [place] [address] [place] Protein (U) [Mass/Vol] Trace Abnormal Negative [facility] Comment on above: Order Comment: Speci men Type: URINE SPECIMENOrdering Facility: [facility] Address: [address] [place] [address] Performed By: #### L [id number] ####[facility] LABIA [id number] [place] [address] [place] RBC LM.HPF (Urine sed) [#/Area] 11-20 /HPF Abnormal 0-2 /HPF [facility] Comment on above: Order Comment: Speci men Type: URINE SPECIMENOrdering Facility: [facility] Address: [address] [place] [address] Performed By: #### L [id number] ####[facility] LABIA [id number] [place] [address] [place] Specific gravity (U) [Rel density] 1.023 Normal 1.005-1.030 [facility] Comment on above: Order Comment: Speci men Type: URINE SPECIMENOrdering Facility: [facility] Address: [address] [place] [address] Performed By: #### L [id number] ####[facility] LABIA [id number] [place] [address] [place] Urobilinogen Ql (U) 0.2 EU/dL Normal 0.2-1.0 EU/dL [facility] Comment on above: Order Comment: Speci men Type: URINE SPECIMENOrdering Facility: [facility] Address: [address] [place] [address] Performed By: #### L [id number] ####[facility] LABIA [id number] [place] [address] [place] WBC LM.HPF (Urine sed) [#/Area] /[HPF] Abnormal 0-5 /HPF [facility] Comment on above: Order Comment: Speci men Type: URINE SPECIMENOrdering Facility: [facility] Address: [address] [place] [address] Performed By: #### L [id number] ####[facility] LABIA [id number] [place] [address] [place] CNOVon 08-28-2024 CNOV Office Visit (OBGYWM ) VIVIANA TOWNSEND ([id number]) 1965 F Date Time Provider Department 08/28/24 8:30 AM DEDE KAPLAN OBGYWM During your visit today, we recorded the following information about you: Pulse Blood pressure Weight Height 90/minute 118/72 85.7 kg 1.575 m Dede Kaplan MD 08/28/2024 1:34 PM Signed Pre-Op History and Physical HPI: The patient is a 59 year old female presenting for pre-operative visit. She is scheduled for Hysteroscopy DANWY, and polyp resection for PMB and endometrial polyp on 09/12/24. Procedure discussed along with risks, benefits and complications. Other alternatives discussed for management. Consent form signed? Yes. 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 MASSAGE INTO SCALP AND LET SIT FOR 5 MINUTES BEFORE RINSING. ENSTILAR 0.005-0.064 % foam APPLY TO THE RIGHT TOE NAIL ONCE A DAY FOR 4 WEEKS ammonium lactate (LAC-HYDRIN) 12 % cream APPLY TO THE FEET AND LEGS 1-2 TIMES DAILY TOLERATED ewtfjpor-jrxmdphrr-dj drocortisone (CORTISPORIN) otic solution APPLY 4 DROP INTO BOTH EARS THREE TIMES A DAY rosuvastatin (CRESTOR) 10 mg tablet Take 1 tablet by mouth once daily. 90 tablet 3 busPIRone (BUSPAR) 5 mg tablet Take 1 tablet by mouth three times a day as needed. 90 tablet 3 clobetasol (TEMOVATE) 0.05 % ointment Apply 1 application to affected area as directed. to affected twice weekly. May use BID for 1-2 weeks prn flares for up to 2 weeks 60 g 1 buPROPion XL (WELLBUTRIN XL) 150 mg 24 hr tablet take 1 tablet once daily 90 tablet 3 tiZANidine (ZANAFLEX) 2 mg tablet Take 1 tablet by mouth every 8 hours as needed (muscle spasms). 30 tablet 0 fluticasone (FLONASE) 50 mcg/actuation nasal spray Use 2 Sprays in each nostril once daily. Rinse mouth after use. 1 Each 3 naproxen (NAPROSYN) 500 mg tablet Take 1 tablet by mouth twice daily as needed (for pain/inflammation). Take with food. 15 tablet 0 hydrOXYzine HCl (ATARAX) 10 mg tablet Take 1 tablet by mouth three times daily as needed. 30 tablet 0 Mometasone (ELOCON) 0.1 % solution Apply 1 application to affected area once daily. for scalp as needed 60 mL 11 Aspirin 81 mg Tab Take 1 tablet by mouth once daily. Take with food. MULTIVITAMIN TAB Take one(1) tablet daily. 0 No current facility-administered medications for this visit. ALLERGIES: Latex and Penicillins PERSONAL HISTORY: Social History Tobacco Use Smoking status: Never Smokeless tobacco: Never Vaping Use Vaping status: Never Used Substance Use Topics Alcohol use: Yes Comment: 1x per year Drug use: No FAMILY HISTORY: FAMILY HISTORY Problem Relation Age of Onset Diabetes Maternal Grandmother Diabetes Maternal Aunt Diabetes Maternal Uncle Breast Cancer Sister age 39 , now with mets (including to colon) REVIEW OF SYMPTOMS: GENERAL: denies fevers or chills ENDOCRINOLOGY: has not been on steroids Cardiology : denies palpitations or chest pain Respiratory: denies SOB or cough Hematology: denies history of prolonged bleeding or easy bruising or VTE Allergy: Denies history of personal or family history of allergy to anesthesia PHYSICAL EXAMINATION: VITALS: Blood pressure 118/72, pulse 90, height 157.5 cm (5' 2 ), weight 85.7 kg (189 lb), last menstrual period 06/22/2020, SpO2 98%. GENERAL: The patient is well nourished, well hydrated in no acute distress. , The patient is oriented to time, place, and person. NECK: Supple. No lynphadenopathy, normal thyroid, no thyromegaly. LUNGS: Clear to auscultation bilaterally. no wheezes, rhonchi or rales HEART: Regular rate and rhythm, Normal heart sounds, and No murmurs or gallops Pelvic US on 07/18/24 Indication Postmenopa (more content not included)... Normal [facility] HISTORY PHYSICALon 4 HISTORY PHYSICAL HNO ID: [id number] Author: DEDE KAPLAN MD Service: ? Author Type: Physician Type: H&P Filed: 08/28/2024 13:34 Note Text: Pre-Op History and Physical HPI: The patient is a 59 year old female presenting for pre-operative visit. She is scheduled for Hysteroscopy DANWY, and polyp resection for PMB and endometrial polyp on 09/12/24. Procedure discussed along with risks, benefits and complications. Other alternatives discussed for management. Consent form signed? Yes. 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 MASSAGE INTO SCALP AND LET SIT FOR 5 MINUTES BEFORE RINSING. ENSTILAR 0.005-0.064 % foam APPLY TO THE RIGHT TOE NAIL ONCE A DAY FOR 4 WEEKS ammonium lactate (LAC-HYDRIN) 12 % cream APPLY TO THE FEET AND LEGS 1-2 TIMES DAILY TOLERATED zjyxibwn-agtgzaakh-tt drocortisone (CORTISPORIN) otic solution APPLY 4 DROP INTO BOTH EARS THREE TIMES A DAY rosuvastatin (CRESTOR) 10 mg tablet Take 1 tablet by mouth once daily. 90 tablet 3 busPIRone (BUSPAR) 5 mg tablet Take 1 tablet by mouth three times a day as needed. 90 tablet 3 clobetasol (TEMOVATE) 0.05 % ointment Apply 1 application to affected area as directed. to affected twice weekly. May use BID for 1-2 weeks prn flares for up to 2 weeks 60 g 1 buPROPion XL (WELLBUTRIN XL) 150 mg 24 hr tablet take 1 tablet once daily 90 tablet 3 tiZANidine (ZANAFLEX) 2 mg tablet Take 1 tablet by mouth every 8 hours as needed (muscle spasms). 30 tablet 0 fluticasone (FLONASE) 50 mcg/actuation nasal spray Use 2 Sprays in each nostril once daily. Rinse mouth after use. 1 Each 3 naproxen (NAPROSYN) 500 mg tablet Take 1 tablet by mouth twice daily as needed (for pain/inflammation). Take with food. 15 tablet 0 hydrOXYzine HCl (ATARAX) 10 mg tablet Take 1 tablet by mouth three times daily as needed. 30 tablet 0 Mometasone (ELOCON) 0.1 % solution Apply 1 application to affected area once daily. for scalp as needed 60 mL 11 Aspirin 81 mg Tab Take 1 tablet by mouth once daily. Take with food. MULTIVITAMIN TAB Take one(1) tablet daily. 0 No current facility-administered medications for this visit. ALLERGIES: Latex and Penicillins PERSONAL HISTORY: Social History Tobacco Use Smoking status: Never Smokeless tobacco: Never Vaping Use Vaping status: Never Used Substance Use Topics Alcohol use: Yes Comment: 1x per year Drug use: No FAMILY HISTORY: FAMILY HISTORY Problem Relation Age of Onset Diabetes Maternal Grandmother Diabetes Maternal Aunt Diabetes Maternal Uncle Breast Cancer Sister age 39 , now with mets (including to colon) REVIEW OF SYMPTOMS: GENERAL: denies fevers or chills ENDOCRINOLOGY: has not been on steroids Cardiology : denies palpitations or chest pain Respiratory: denies SOB or cough Hematology: denies history of prolonged bleeding or easy bruising or VTE Allergy: Denies history of personal or family history of allergy to anesthesia PHYSICAL EXAMINATION: VITALS: Blood pressure 118/72, pulse 90, height 157.5 cm (5' 2 ), weight 85.7 kg (189 lb), last menstrual period 06/22/2020, SpO2 98%. GENERAL: The patient is well nourished, well hydrated in no acute distress. , The patient is oriented to time, place, and person. NECK: Supple. No lynphadenopathy, normal thyroid, no thyromegaly. LUNGS: Clear to auscultation bilaterally. no wheezes, rhonchi or rales HEART: Regular rate and rhythm, Normal heart sounds, and No murmurs or gallops Pelvic US on 07/18/24 Indication Postmenopausal bleeding- spotting Impression Anteverted fibroid uterus that measures 81 mm x 31 mm x 45 mm. The largest fibroids are described below. Endometrium is heterogeneous and measures 6 mm, which is abnormally thickened in menopause. Both ovaries are visualized and appear n (more content not included)... Normal [facility] CNPNon 08-16-2024 [employer] [facility] [facility] VIVIANA TOWNSEND ([id number]) 1965 F Date Time Provider Department 08/16/24 CAITLIN PRADHAN During your visit today, we recorded the following information about you: Mei Thompson MA 08/16/2024 1:50 PM Signed ----- Message from Caitlin Pradhan APRN.[employer] sent at 08/16/2024 1:33 PM EDT ----- Please advise patient that her CTU showed stable left non-obstructing kidney stones. No masses, lesions, or hydronephrosis noted. Mei Thompson MA 08/16/2024 1:50 PM Signed Left message notifying pt of results and informed them to call back with any further questions. Mei Thompson MA Allergies As of Date: 08/16/2024 Noted Allergy Reaction LATEX 10/25/2005 PENICILLINS 10/25/2005 Date Reviewed: 08/16/2024 Reviewed by: Krys Soto RT(R) - Fully Assessed Reason for Visit: Results [95] Prescriptions as of 08/16/2024 - rosuvastatin (CRESTOR) 10 mg tablet Take 1 tablet by mouth once daily. - busPIRone (BUSPAR) 5 mg tablet Take 1 tablet by mouth three times a day as needed. - clobetasol (TEMOVATE) 0.05 % ointment Apply 1 application to affected area as directed. to affected twice weekly. May use BID for 1-2 weeks prn flares for up to 2 weeks - buPROPion XL (WELLBUTRIN XL) 150 mg 24 hr tablet take 1 tablet once daily - tiZANidine (ZANAFLEX) 2 mg tablet Take 1 tablet by mouth every 8 hours as needed (muscle spasms). - fluticasone (FLONASE) 50 mcg/actuation nasal spray Use 2 Sprays in each nostril once daily. Rinse mouth after use. - naproxen (NAPROSYN) 500 mg tablet Take 1 tablet by mouth twice daily as needed (for pain/inflammation). Take with food. - hydrOXYzine HCl (ATARAX) 10 mg tablet Take 1 tablet by mouth three times daily as needed. - Mometasone (ELOCON) 0.1 % solution Apply 1 application to affected area once daily. for scalp as needed - Aspirin 81 mg Tab Take 1 tablet by mouth once daily. Take with food. - MULTIVITAMIN TAB Take one(1) tablet daily. Problem List As Of Date 08/16/2024 Noted Resolved IRRITABLE COLON [K58.9] Generalized Anxiety Disorder [F41.1] OTHER PSORIASIS [L40.8] MITRAL VALVE DISORDER [I05.9] DYSMETABOLIC SYNDROME X [E88.810] HYPERLIPIDEMIA NEC/NOS [E78.5] 09/27/2007 OVERWEIGHT [E66.3] 09/27/2007 Primary hypercoagulable state (HCC) [D68.59] 10/01/2007 12/25/2018 Routine general medical examination at [facility]*10/01/2007 09/17/2012 SLEEP DISTURBANCE NOS [G47.9] 06/02/2008 Umbilical hernia without mention of obstruction* 8 12/25/2018 Abdominal Pain, Other Specified Site [R10.9] 05/18/2009 Ureteral stone [N20.1] 08/04/2010 09/17/2012 Cervicalgia [M54.2] 03/19/2012 Lumbago [M54.50] 03/19/2012 09/17/2012 Adolescent idiopathic scoliosis of thoracolumba*10/27/20 15 Obesity, Class I, BMI 30-34.9 [E66.9] 12/26/2022 Atypical squamous cells of undetermined signifi*07/18/2024 Encounter Status:Closed by MEI THOMPSON on 08/16/24 Normal [facility] CT Kidney WO and W contrast Hang 08-16-2024 IMPRESSION: Left nephrolithiasis No ureterolithiasis, gross obstructive uropathy or suspicious renal lesion Help Desk Representative: GEMMA Transcribe Date/Time: Aug 16 2024 12:32P Dictated by : NEETA MUHAMMAD MD This examination was interpreted and the report reviewed and electronically signed by: NEETA MUHAMMAD MD on Aug 16 2024 1:19PM [facility] * * *Final Report* * * DATE OF EXAM: Aug 16 2024 9:42AM [facility] 0560 - CT UROGRAM WO/W IVCON / PROCEDURE REASON: Hematuria, unspecified type * * * * Physician Interpretation * * * * EXAMINATION: CT ABDOMEN AND PELVIS WITHOUT AND WITH IV CONTRAST, INCLUDING EXCRETORY PHASE IMAGING (CT UROGRAM) 3D RECONSTRUCTIONS CLINICAL HISTORY: Hematuria. TECHNIQUE: CT urogram protocol including unenhanced, renal parenchymal phase and excretory phase renal imaging was obtained following IV contrast. Normal saline was also administered IV. No oral contrast was given. 3D image post-processing was performed and archived at the request of the referring physician, on the CT scanner workstation without concurrent physician supervision. MQ: CTU_2 Contrast: IV: 125 ml of Omnipaque 350 IV Saline: 100 ml of 0.9% NACL Solution Oral Contrast: None CT Radiation dose: Integrated dose-length product (DLP) for this visit = 1733 mGy*cm. CT Dose Reduction Employed: Automated exposure control(AEC) and iterative recon COMPARISON: CT scans of 11/23/2022. RESULT: Kidneys and urinary tract: Right: There are no renal calculi or masses. The opacified calices, renal pelvis and ureter are normal without dilation, filling defect, or stricture. Left: At least 2 nonobstructing stones measure up to 0.3 cm. There are no renal solid/enhancing masses. The opacified calices, renal pelvis and ureter are normal without dilation, filling defect, or stricture. Bladder: No filling defect, calculus, focal or diffuse wall thickening. Abdomen and Pelvis: Liver: No mass. Biliary: No bile duct dilation. The gallbladder is unremarkable Spleen: No mass. No splenomegaly. Pancreas: No mass or duct dilation. Adrenals: No mass. GI tract: No dilation or wall thickening. The appendix appears normal Lymph nodes: No abdominal or pelvic lymphadenopathy. Mesentery/Peritoneum: No ascites or mass. Retroperitoneum: No mass. Vasculature: - Abdominal aorta and iliac arteries: No aneurysm. - Celiac and SMA: Patent without stenosis. - Portal venous system (SMV, splenic vein, portal vein and branches): Patent. - Hepatic veins: Patent. Pelvis: No mass, ascites or fluid collection. Bones and Soft Tissues: No significant finding. Small fat-containing umbilical hernia Lower thorax: Unremarkable. Localizer images: No additional findings. DIVISION OF RADIOLOGY Provider, [facility] - 08/16/2024 * * *Final Report* * * DATE OF EXAM: Aug 16 2024 9:42AM [facility] 0560 - CT UROGRAM WO/W IVCON / PROCEDURE REASON: Hematuria, unspecified type * * * * Physician Interpretation * * * * EXAMINATION: CT ABDOMEN AND PELVIS WITHOUT AND WITH IV CONTRAST, INCLUDING EXCRETORY PHASE IMAGING (CT UROGRAM) 3D RECONSTRUCTIONS CLINICAL HISTORY: Hematuria. TECHNIQUE: CT urogram protocol including unenhanced, renal parenchymal phase and excretory phase renal imaging was obtained following IV contrast. Normal saline was also administered IV. No oral contrast was given. 3D image post-processing was performed and archived at the request of the referring physician, on the CT scanner workstation without concurrent physician supervision. MQ: CTU_2 Contrast: IV: 125 ml of Omnipaque 350 IV Saline: 100 ml of 0.9% NACL Solution Oral Contrast: None CT Radiation dose: Integrated dose-length product (DLP) for this visit = 1733 mGy*cm. CT Dose Reduction Employed: Automated exposure control(AEC) and iterative recon COMPARISON: CT scans of 11/23/2022. RESULT: Kidneys and urinary tract: Right: There are no renal calculi or masses. The opacified calices, renal pelvis and ureter are normal without dilation, filling defect, or stricture. Left: At least 2 nonobstructing stones measure up to 0.3 cm. There are no renal solid/enhancing masses. The opacified calices, renal pelvis and ureter are normal without dilation, filling defect, or stricture. Bladder: No filling defect, calculus, focal or diffuse wall thickening. Abdomen and Pelvis: Liver: No mass. Biliary: No bile duct dilation. The gallbladder is unremarkable Spleen: No mass. No splenomegaly. Pancreas: No mass or duct dilation. Adrenals: No mass. GI tract: No dilation or wall thickening. The appendix appears normal Lymph nodes: No abdominal or pelvic lymphadenopathy. Mesentery/Peritoneum: No ascites or mass. Retroperitoneum: No mass. Vasculature: - Abdominal aorta and iliac arteries: No aneurysm. - Celiac and SMA: Patent without stenosis. - Portal venous system (SMV, splenic vein, portal vein and branches): Patent. - Hepatic veins: Patent. Pelvis: No mass, ascites or fluid collection. Bones and Soft Tissues: No significant finding. Small fat-containing umbilical hernia Lower thorax: Unremarkable. Localizer images: No additional findings. IMPRESSION IMPRESSION: Left nephrolithiasis No ureterolithiasis, gross obstructive uropathy or suspicious renal lesion Help Desk Representative: [facility] Transcribe Date/Time: Aug 16 2024 12:32P Dictated by : NEETA MUHAMMAD MD This examination was interpreted and the report reviewed and electronically signed by: NEETA MUHAMMAD MD on Aug 16 2024 1:19PM EST [facility] Radiology Study observation (narrative) [facility] CT Kidney WO and W contrast IVOrdered By: Ccf Provider on 08-16-2024 [facility] CT UROGRAM WO/W IVCONon 07-22 CT UROGRAM WO/W IVCON * * *Final Report* * * DATE OF EXAM: Aug 16 2024 9:42AM [facility] 0560 - CT UROGRAM WO/W IVCON / PROCEDURE REASON: Hematuria, unspecified type * * * * Physician Interpretation * * * * EXAMINATION: CT ABDOMEN AND PELVIS WITHOUT AND WITH IV CONTRAST, INCLUDING EXCRETORY PHASE IMAGING (CT UROGRAM) 3D RECONSTRUCTIONS CLINICAL HISTORY: Hematuria. TECHNIQUE: CT urogram protocol including unenhanced, renal parenchymal phase and excretory phase renal imaging was obtained following IV contrast. Normal saline was also administered IV. No oral contrast was given. 3D image post-processing was performed and archived at the request of the referring physician, on the CT scanner workstation without concurrent physician supervision. MQ: CTU_2 Contrast: IV: 125 ml of Omnipaque 350 IV Saline: 100 ml of 0.9% NACL Solution Oral Contrast: None CT Radiation dose: Integrated dose-length product (DLP) for this visit = 1733 mGy*cm. CT Dose Reduction Employed: Automated exposure control(AEC) and iterative recon COMPARISON: CT scans of 11/23/2022. RESULT: Kidneys and urinary tract: Right: There are no renal calculi or masses. The opacified calices, renal pelvis and ureter are normal without dilation, filling defect, or stricture. Left: At least 2 nonobstructing stones measure up to 0.3 cm. There are no renal solid/enhancing masses. The opacified calices, renal pelvis and ureter are normal without dilation, filling defect, or stricture. Bladder: No filling defect, calculus, focal or diffuse wall thickening. Abdomen and Pelvis: Liver: No mass. Biliary: No bile duct dilation. The gallbladder is unremarkable Spleen: No mass. No splenomegaly. Pancreas: No mass or duct dilation. Adrenals: No mass. GI tract: No dilation or wall thickening. The appendix appears normal Lymph nodes: No abdominal or pelvic lymphadenopathy. Mesentery/Peritoneum: No ascites or mass. Retroperitoneum: No mass. Vasculature: - Abdominal aorta and iliac arteries: No aneurysm. - Celiac and SMA: Patent without stenosis. - Portal venous system (SMV, splenic vein, portal vein and branches): Patent. - Hepatic veins: Patent. Pelvis: No mass, ascites or fluid collection. Bones and Soft Tissues: No significant finding. Small fat-containing umbilical hernia Lower thorax: Unremarkable. Localizer images: No additional findings. IMPRESSION: Left nephrolithiasis No ureterolithiasis, gross obstructive uropathy or suspicious renal lesion Help Desk Representative: GEMMA Transcribe Date/Time: Aug 16 2024 12:32P Dictated by : NEETA MUHAMMAD MD This examination was interpreted and the report reviewed and electronically signed by: NEETA MUHAMMAD MD on Aug 16 2024 1:19PM EST [id number] Normal [facility] Lipid 1996 panelon 4 Cholesterol [Mass/Vol] 151 mg/dL Normal <200 [facility] Comment on above: Order Comment: Speci men Type: BLOOD SPECIMENOrdering Facility: [facility] Address: [address] [place], [place] [id number] Result Comment: <200 mg/dL, Desirable 200-239 mg/dL, Borderline high >239 mg/dL, High Performed By: #### 2 4331-1 ####[facility] LABCLIA [id number] [address] [place] [facility] Cholesterol in HDL [Mass/Vol] 58 mg/dL Normal >39 [facility] Comment on above: Order Comment: Speci men Type: BLOOD SPECIMENOrdering Facility: [facility] Address: [address] [place] [address] Result Comment: 40-5 9 mg/dL, Acceptable >59 mg/dL, High: Negative risk factor for coronary heart disease <40 mg/dL, Low: Positive risk factor for coronary heart disease Performed By: #### 2 4331-1 ####[facility] LABIA [id number] [address] [place] [facility] Cholesterol in LDL [Mass/Vol] 72 mg/dL Normal <100 [facility] Comment on above: Order Comment: Iram gilliland Type: BLOOD SPECIMENOrdering Facility: [facility] Address: [address] [place] [address] Result Comment: <100 mg/dL, Optimal 100-129 mg/dL, Near optimal/above optimal 130-159 mg/dL, Borderline high 160-189 mg/dL, High >189 mg/dL, Very high Secondary prevention optimal LDL Cholesterol levels are recommended to be < 70 mg/dL Performed By: #### 2 4331-1 ####[facility] LABIA [id number] [address] [place] [facility] Cholesterol in LDL/Cholesterol in HDL [Mass ratio] 1.24 {ratio} Normal <2.54 [facility] Comment on above: Order Comment: Jyotii men Type: BLOOD SPECIMENOrdering Facility: [facility] Address: [address] [place] [address] Result Comment: Refe rence: 1. National Cholesterol Education Program ATP III Guideline At-A-Glance Quick Desk Reference: National Heart, Lung, and Blood [place]. National Institutes of Health. 2001: NIH Publication No. 01-3305. 2. An International Atherosclerosis Society position paper: global recommendations for the management of dyslipidemia: executive summary, Atherosclerosis. 2014: 232(2):410-413. Performed By: #### 2 4331-1 ####[facility] LABCLIA [id number] [place] [address] [place] Cholesterol in VLDL [Mass/Vol] 21 mg/dL Normal <30 [facility] Comment on above: Order Comment: Speci men Type: BLOOD SPECIMENOrdering Facility: [facility] Address: [address] [place] [address] Performed By: #### 2 4331-1 ####[facility] LABCLIA [id number] [address] [place] Cholesterol non HDL [Mass/Vol] 93 mg/dL Normal <130 [facility] Comment on above: Order Comment: Iram gilliland Type: BLOOD SPECIMENOrdering Facility: [facility] Address: [address] [place] [address] Result Comment: <130 mg/dL, Optimal 130-159 mg/dL, Near optimal/above optimal 160-189 mg/dL, Borderline high 190-219 mg/dL, High >219 mg/dL, Very high Secondary prevention optimal non HDL Cholesterol levels are recommended to be <100 mg/dL Performed By: #### 2 4331-1 ####[facility] LABCLIA [id number] [place] [address] [place] Cholesterol.total/C holesterol in HDL [Mass ratio] 2.60 {ratio} Normal <5.10 [facility] Comment on above: Order Comment: Iram men Type: BLOOD SPECIMENOrdering Facility: [facility] Address: [address] [place] [address] Performed By: #### 2 4331-1 ####[facility] LABCLIA [id number] [place] [address] [place] FASTING TIME 15 hrs Normal [facility] Comment on above: Order Comment: Speci men Type: BLOOD SPECIMENOrdering Facility: [facility] Address: [address] [place] [address] Performed By: #### 2 4331-1 ####[facility] LABCLIA [id number] [place] [address] [place] Triglyceride [Mass/Vol] 103 mg/dL Normal <150 [facility] Comment on above: Order Comment: Speci men Type: BLOOD SPECIMENOrdering Facility: [facility] Address: [address] [place] [address] Result Comment: <150 mg/dL, Normal 150-199 mg/dL, Borderline high 200-499 mg/dL, High >499 mg/dL, Very high Performed By: #### 2 4331-1 ####[facility] LABCLIA [id number] [address] [place] DAVIDNon 07-26-2024 DAVIDN Telephone (EDOUARDURFJamal) VIVIANA TOWNSEND ([id number]) 1965 F Date Time Provider Department 07/26/24 CAITLIN PRADHAN During your visit today, we recorded the following information about you: Anca Correa MA 07/26/2024 12:52 PM Signed ----- Message from Caitlin Pradhan APRN.STEAM TUNNEL FEEDER sent at 07/26/2024 12:50 PM EDT ----- Please notify patient that their cytology came back negative for high-grade urothelial carcinoma. This is great news! Anca Correa MA 07/26/2024 12:53 PM Signed Patient 's Liam advised-cytology came back negative for high-grade urothelial carcinoma. This is great news! Patient agreed, and verbalized understanding. Anca Correa MA Allergies As of Date: 07/26/2024 Noted Allergy Reaction LATEX 10/25/2005 PENICILLINS 10/25/2005 Date Reviewed: 07/25/2024 Reviewed by: Caitlin Pradhan APRN.STEAM TUNNEL FEEDER - Fully Assessed Prescriptions as of 07/26/2024 - iv contrast (will be provided with radiology test) CT Urogram WO/W Inject, intravenously, once for 1 dose.No IV access, insert saline lock prior to the beginning of sedation, infusion, injection of imaging exam. Discontinue saline lock post exam. If Pt. has a central line or IVAD, may access for administration according to line specific nursing protocol. Once exam is complete flush line and de-access according to line specific nursing protocol in the CT contrast administration guidelines link. - rosuvastatin (CRESTOR) 10 mg tablet Take 1 tablet by mouth once daily. - busPIRone (BUSPAR) 5 mg tablet Take 1 tablet by mouth three times a day as needed. - clobetasol (TEMOVATE) 0.05 % ointment Apply 1 application to affected area as directed. to affected twice weekly. May use BID for 1-2 weeks prn flares for up to 2 weeks - buPROPion XL (WELLBUTRIN XL) 150 mg 24 hr tablet take 1 tablet once daily - tiZANidine (ZANAFLEX) 2 mg tablet Take 1 tablet by mouth every 8 hours as needed (muscle spasms). - fluticasone (FLONASE) 50 mcg/actuation nasal spray Use 2 Sprays in each nostril once daily. Rinse mouth after use. - naproxen (NAPROSYN) 500 mg tablet Take 1 tablet by mouth twice daily as needed (for pain/inflammation). Take with food. - hydrOXYzine HCl (ATARAX) 10 mg tablet Take 1 tablet by mouth three times daily as needed. - Mometasone (ELOCON) 0.1 % solution Apply 1 application to affected area once daily. for scalp as needed - Aspirin 81 mg Tab Take 1 tablet by mouth once daily. Take with food. - MULTIVITAMIN TAB Take one(1) tablet daily. Problem List As Of Date 07/26/2024 Noted Resolved IRRITABLE COLON [K58.9] Generalized Anxiety Disorder [F41.1] OTHER PSORIASIS [L40.8] MITRAL VALVE DISORDER [I05.9] DYSMETABOLIC SYNDROME X [E88.810] HYPERLIPIDEMIA NEC/NOS [E78.5] 09/27/2007 OVERWEIGHT [E66.3] 09/27/2007 Primary hypercoagulable state (HCC) [D68.59] 10/01/2007 12/25/2018 Routine general medical examination at [facility]*10/01/2007 09/17/2012 SLEEP DISTURBANCE NOS [G47.9] 06/02/2008 Umbilical hernia without mention of obstruction* 8 12/25/2018 Abdominal Pain, Other Specified Site [R10.9] 05/18/2009 Ureteral stone [N20.1] 08/04/2010 09/17/2012 Cervicalgia [M54.2] 03/19/2012 Lumbago [M54.50] 03/19/2012 09/17/2012 Adolescent idiopathic scoliosis of thoracolumba*10/27/20 15 Obesity, Class I, BMI 30-34.9 [E66.9] 12/26/2022 Atypical squamous cells of undetermined signifi*07/18/2024 Encounter Status:Closed by ANCA CORREA on 07/26/24 Normal [facility] Bacteria Ur Culton 4 Bacteria identified Cx Nom (U) ORGANISM ID: 1 >=100,000 CFU/ml Streptococcus agalactiae (group b streptococcus) Susceptibility testing not performed on beta hemolytic streptococci due to predictable susceptibility to penicillin and other beta lactams. For testing, call Microbiology within 72 hours. ORGANISM ID: 2 50,000-<100,000 CFU/ml Normal urogenital maegan Normal [facility] Comment on above: Performed By: #### 6 30-4 #### [facility] CLIA [id number] [address] OF [facility] CNOVon 07-25-2024 CNOV Office Visit (AKURFL ) VIVIANA TOWNSEND ([id number]) 1965 F Date Time Provider Department 07/25/24 8:15 AM CAITLIN PRADHAN During your visit today, we recorded the following information about you: Pulse Blood pressure Height 71/minute 120/70 1.575 m Caitlin Pradhan APRN.STEAM TUNNEL FEEDER 07/25/2024 8:42 AM Signed [facility] [place] [facility] Karli UROJamal [facility] ESTABLISHED UROLOGY VISIT 07/25/2024 8:17 AM PATIENT NAME: Viviana Townsend DATE OF : 1965 TODAY'S DATE: 07/25/2024 Referring Provider: No referring provider defined for this encounter. Chief Complaint: Patient presents with: Hematuria History of Present Illness: Ms. Townsend is a 59 year old female who presents to the office regarding nephrolithiasis. Patient with a history of kidney stones. Last seen in office on 11/23/2022. CT flank completed at that time showing non-obstructing stones within the left kidney, no hydro. Today patient c/o bleeding since the beginning of 2023. Recently was seen by OBGYN regarding this. Patient is most-menopausal. Pelvic exam on 07/10/2024 was negative. Endometrial specimen sent at that time were benign. PAP showed ASC-US, negative HPV. Pelvic US showed endometrial polyp which patient is having surgery to remove. Patient unsure if blood when she is wiping is coming from urine. Last stone passage: Unknown Familial history of kidney stones or kidney disease: Dysuria: Occasionally Flank pain: Occasionally Fluid intake: Drinks some water Never a smoker. Prior surgical interventions for kidney stones - 2021- ESWL with Dr. Montes Patient also concerned about kidney function gradually worsening. Cr- 1.03 GFR- 63. Patient states she does not really have PCP. She also reports swelling of her lower limbs but states her research geologist does not attribute it to the heart. No on any diuretics. Review of Systems Constitutional: Negative for chills and fever. Genitourinary: Negative for difficulty urinating, frequency and urgency. See HPI Past Medical History: PAST MEDICAL HISTORY 2 miss carriages : Abnormal coagulation profile Comment: ABNORMAL COAGULATION STUDY No date: Adjustment disorder with depressed mood No date: Dizziness and giddiness No date: Dyslipidemia No date: Dysmetabolic syndrome X No date: Generalized anxiety disorder No date: Irritable bowel syndrome 10/31/2013: IUD (intrauterine device) in place 09/2020: Lab test positive for detection of COVID-19 virus No date: Mitral valve disorders 09/03/2018: Myopia with astigmatism and presbyopia 09/03/2018: Ocular hypertension No date: Other abnormal heart sounds No date: Other psoriasis No date: Premenstrual tension syndromes 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 2009: Urinary calculus, unspecified Comment: Renal stones Past Surgical History: PAST SURGICAL HISTORY 10/2017: BREAST BX NEEDLE CORE LEFT Comment: benign 08/12/2003: DELIVERY ONLY Comment: , low cervical 11/03/2016: COLONOSCOPY FLX DX W/COLLJ SPEC WHEN PFRMD Comment: Colonoscopy 06/05/09: COLONOSCOPY W/BIOPSY SINGLE/MULTIPLE Comment: Normal appearing colon No date: CYSTOURETHROSCOPY Comment: renal stones No date: KIDNEY SURGERY HX No date: TONSILLECTOMY PRIMARY/SECONDARY Comment: Tonsillectomy Social History: Social History Tobacco Use Smoking status: Never Smokeless tobacco: Never Vaping Use Vaping status: Never Used Substance Use Topics Alcohol use: Yes Comment: 1x per year Drug use: No Medications: Prior to Admission medications : Medication rosuvastatin (CRESTOR) 10 mg tablet, Sig Take 1 tablet by mouth once daily., Start Date 01/24/24, End Date , Taking? , Authorizing Provider Delma Turk APRN.STEAM TUNNEL FEEDER Medication busPIRone (BUSPAR) 5 mg tablet, Sig Take 1 tablet by mouth three times a day as needed., Start Date 01/24/24, End Date , Taking? , Authorizing Provider Delma Turk APRN.STEAM TUNNEL FEEDER Medication clobetasol (TEMOVATE) 0.05 % ointment, Sig Apply 1 application to affected area as directed. to affected twice weekly. May use BID for 1-2 weeks prn flares for up to 2 weeks, Start Date 01/24/24, End Date , Taking? , Authorizing Provider Delma Turk APRN.STEAM TUNNEL FEEDER Medication buPROPion XL (WELLBUTRIN XL) 150 mg 24 hr tablet, Sig take 1 tablet once daily, Start Date 09/25/23, End Date , Taking? , Authorizing Provider Jackie Rivera PA-C Medication tiZANidine (ZANAFLEX) 2 mg tablet, Sig Take 1 tablet by mouth every 8 hours as needed (muscle spasms)., Start Date 07/19/23, End Date , Taking? , Authorizing Provider Delma Turk APRN.STEAM TUNNEL FEEDER Medication fluticasone (FLONASE) 50 mcg/actuation nasal spray, Sig Use 2 Sprays in each nostril once daily. Rinse mouth after use., Start Date 03/15/23, End Date , Taking? , Authorizing Provider Delma Turk, (more content not included)... Normal [facility] CYTOLOGY NON-GYNon CASE REPORT Normal [facility] Comment on above: Order Comment: Speci men Type: URINE SPECIMEN [facility] Address: [address] [place] [address] Result Comment: [facility] Cytology Report Case: [id number] Authorizing Provider: Caitlin Pradhan Collected: 07/25/2024 08:34 AM APRN. J LuisSTEAM TUNNEL FEEDER Ordering Location: [facility] Received: 07/26/2024 05:02 AM Pathologist: Zhane Pena MD Specimen: Urine, Midstream Performed By: #### C YTONON #### [facility] CLIA [id number] [address] CLINICAL HISTORY hematuria Normal [facility] Comment on above: Order Comment: Speci men Type: URINE SPECIMEN [facility] Address: [address] [place] [address] Performed By: #### C YTONON #### [facility] CLIA [id number] [address] FINAL DIAGNOSIS Normal [facility] Comment on above: Order Comment: Speci men Type: URINE SPECIMEN [facility] Address: [address] [place] [address] Result Comment: A - Urine, Midstream, Urine Negative for high-grade urothelial carcinoma. Performed By: #### C YTONON #### [facility] CLIA [id number] [address] FINAL PERFORMING LAB Normal [facility] Comment on above: Order Comment: Speci men Type: URINE SPECIMEN [facility] Address: [address] [place] [address] Result Comment: Tech nical component, boring machine operator production screening performed at [facility], [address] [place] [address] CLIA# [id number] Diagnostic interpretation performed at [facility], [address] [place] [address] CLIA# [id number] Transition Program Manager: Basim Arias M.D. Performed By: #### C YTONON #### [facility] CLIA [id number] [address] GROSS DESCRIPTION Normal [facility] Comment on above: Order Comment: Speci men Type: URINE SPECIMEN [facility] Address: [address] [place] [address] Result Comment: A. U rine, Midstream 50 cc clear yellow fluid. ThinPrep prepared. Performed By: #### C YTONON #### [facility] CLIA [id number] [address] [place] UA DIP, URINE (POC)on 2023 BILIRUBIN UA (POCT) Negative Negative [facility] CLARITY UA (POCT) Clear [facility] COLOR UA (POCT) Yellow [facility] GLUCOSE UA (POCT) Negative Negative mg/dL [facility] Hemoglobin Ql (U) Small Abnormal Negative [facility] Interpretation and review of laboratory results Abnormal [facility] KETONE UA (POCT) Negative Negative mg/dL [facility] LEUKOCYTES UA (POCT) Small Abnormal Negative [facility] NITRITE UA (POCT) Negative [facility] (POCT) 7.5 4.5 - 8.0 [facility] Protein Ql (U) Negative Negative mg/dL [facility] SPECIFIC GRAVITY UA (POCT) 1.020 1.005 - 1.030 [facility] UROBILINOGEN UA (POCT) 0.2 Normal E.U./dL [facility] Location:[facility], [address] [place] [address], [address] [place] [address] POINT OF CARE [facility] Urinalysis complete panel (U )on 07-25-2024 Bilirubin Ql (U) Negative Normal Negative [facility] Comment on above: Order Comment: Speci men Type: URINE SPECIMEN [facility] Address: [address] [place] [address] Performed By: #### 2 4356-8 #### [facility] CLIA [id number] [address] [place] Clarity (Unsp spec) Clear Normal Clear [facility] Comment on above: Order Comment: Speci men Type: URINE SPECIMEN [facility] Address: [address] [place] [address] Performed By: #### 2 4356-8 #### [facility] CLIA [id number] [address] [place] Color (U) Light Yellow Normal yellow [facility] Comment on above: Order Comment: Speci men Type: URINE SPECIMEN [facility] Address: [address] [place] [address] Performed By: #### 2 4356-8 #### [facility] CLIA [id number] [address] [place] Epithelial cells LM.HPF (Urine sed) [#/Area] Few Abnormal None [facility]en [facility] [facility] Comment on above: Order Comment: Speci men Type: URINE SPECIMEN [facility]ing Facility[facility] Address: [address] [place] [address] Performed By: #### 2 4356-8 #### [facility] CLIA [id number] [address] [place] Glucose Test strip (U) [Mass/Vol] Negative Normal Trace, Negative [facility] Comment on above: Order Comment: Speci men Type: URINE SPECIMEN Ordering Facility: [facility] Address: [address] [place] [address] Performed By: #### 2 4356-8 #### [facility] CLIA [id number] [address] [place] Hemoglobin Ql (U) 1+ Abnormal Negative, Trace [facility] Comment on above: Order Comment: Speci men Type: URINE SPECIMEN Ordering Facility[facility] Address: [address] [place] [address] Performed By: #### 2 4356-8 #### [facility] CLIA [id number] [address] Ketones Ql (U) Negative Normal Negative, Trace [facility] Comment on above: Order Comment: Speci men Type: URINE SPECIMEN [facility]ing Facility[facility] Address: [address] [place] [address] Performed By: #### 2 4356-8 #### [facility] CLIA [id number] [address] [place] Leukocyte esterase Test strip Ql (U) 500 Chen/uL Abnormal Negative, 25 Chen/uL [facility] Comment on above: Order Comment: Speci men Type: URINE SPECIMEN [facility]ing Facility[facility] Address: [address] [place] [address] Performed By: #### 2 4356-8 #### [facility] CLIA [id number] [address] [place] Nitrite Ql (U) Negative Normal Negative [facility] Comment on above: Order Comment: Speci men Type: URINE SPECIMEN [facility]ing Facility[facility] Address: [address] [place] [address] Performed By: #### 2 4356-8 #### [facility] CLIA [id number] [address] [place] pH (U) 7.0 [pH] Normal 5.0-8.0 [facility] Comment on above: Order Comment: Speci men Type: URINE SPECIMEN [facility]ing [facility] Address: [address] [place] [address] Performed By: #### 2 4356-8 #### [facility] CLIA [id number] [address] Protein (U) [Mass/Vol] Negative Normal Trace, Negative [facility] Comment on above: Order Comment: Speci men Type: URINE SPECIMEN [facility]ing [facility] Address: [address] [place] [address] Performed By: #### 2 4356-8 #### [facility] CLIA [id number] [address] RBC LM.HPF (Urine sed) [#/Area] 11-25 /HPF Abnormal 0-3 /HPF [facility] Comment on above: Order Comment: Speci men Type: URINE SPECIMEN [facility] Address: [address] [place] [address] Performed By: #### 2 4356-8 #### [facility] CLIA [id number] [address] Specific gravity (U) [Rel density] 1.015 Normal 1.005-1.030 [facility] Comment on above: Order Comment: Speci men Type: URINE SPECIMEN Ordering Facility[facility] Address: [address] [place] [address] Performed By: #### 2 4356-8 #### [facility] CLIA [id number] [address] Urobilinogen Ql (U) Normal Normal Normal [facility] Comment on above: Order Comment: Speci men Type: URINE SPECIMEN Ordering Facility[facility] Address: [address] [place] [address] Performed By: #### 2 4356-8 #### [facility] CLIA [id number] [address] WBC LM.HPF (Urine sed) [#/Area] 11-25 /HPF Abnormal 0-5 /HPF [facility] Comment on above: Order Comment: Speci men Type: URINE SPECIMEN Ordering Facility: [facility] Address: [address], [place] [address] Performed By: #### 2 4356-8 #### [facility] CLIA [id number] 1 [place] [address] [place] US Pelvison 07-20-2024 Indication Postmenopausal bleeding- spotting Impression Anteverted fibroid uterus that measures 81 mm x 31 mm x 45 mm. The largest fibroids are described below. Endometrium is heterogeneous and measures 6 mm, which is abnormally thickened in menopause. Both ovaries are visualized and appear normal. No adnexal masses were observed. There is no free fluid visualized in the peritoneal cavity. Recent endometrial biopsy demonstrated presence of an endometrial polyp. Recommendations Recommend hysteroscopic evaluation as clinically indicated. 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 View: Adequate visualization Uterus Uterus: Visualized Uterus position: anteverted Description of uterine malformations: none Myometrium: heterogeneous Endometrium: thickened Cervix details: normal Uterus length 81 mm Uterus width 45 mm Uterus height 31 mm Uterus Vol 58.6 cm Endometrial thickness, total 6.0 mm Uterine fibroid D1 6 mm Uterine fibroid D2 8 mm Uterine fibroid D3 56 mm Uterine fibroid mean 23.5 mm Uterine fibroid vol 1.501 cm Uterine fibroids findings: Right lateral posterior wall. intramural Right Ovary Rt ovary: Visualized Rt ovary morphology: postmenopausal atrophic Rt ovary D1 21 mm Rt ovary D2 29 mm Rt ovary D3 12 mm Rt ovary Vol 3.9 cm Left Ovary Lt ovary: Visualized Lt ovary morphology: postmenopausal atrophic Lt ovary D1 16 mm Lt ovary D2 19 mm Lt ovary D3 13 mm Lt ovary Vol 2.0 cm Cul de Sac Visualized. no free fluid visualized Performed By: Larissa Montiel RDMS Read By: Viviana Smith M.D. MATERNAL MEDICINE [facility] CNCOon 07-18-2024 CNCO Letter Text Normal [facility] US Pelvison 07-18-2024 Radiology Study observation (narrative) [facility] CNPNon 07-12-2024 CNPN Telephone (OBGYWM) VIVIANA TOWNSEND ([id number]) 1965 F Date Time Provider Department 07/12/24 VINCENT QUIROS During your visit today, we recorded the following information about you: Vincent Quiros APRN.DAVID 07/12/2024 12:28 PM Signed Called patient to review benign EMB and labs. Continue to plan for ultrasound. Recommend follow up with operations technician about kidney function noted on CMP. Recommend follow up with PCP about fasting glucose. Viviana verbalizes understanding. Vincent Quiros APRN.DAVID Allergies As of Date: 07/12/2024 Noted Allergy Reaction LATEX 10/25/2005 PENICILLINS 10/25/2005 Date Reviewed: 07/10/2024 Reviewed by: Vincent Quiros APRN.DAVID - Fully Assessed Prescriptions as of 07/12/2024 - rosuvastatin (CRESTOR) 10 mg tablet Take 1 tablet by mouth once daily. - busPIRone (BUSPAR) 5 mg tablet Take 1 tablet by mouth three times a day as needed. - clobetasol (TEMOVATE) 0.05 % ointment Apply 1 application to affected area as directed. to affected twice weekly. May use BID for 1-2 weeks prn flares for up to 2 weeks - buPROPion XL (WELLBUTRIN XL) 150 mg 24 hr tablet take 1 tablet once daily - tiZANidine (ZANAFLEX) 2 mg tablet Take 1 tablet by mouth every 8 hours as needed (muscle spasms). - fluticasone (FLONASE) 50 mcg/actuation nasal spray Use 2 Sprays in each nostril once daily. Rinse mouth after use. - naproxen (NAPROSYN) 500 mg tablet Take 1 tablet by mouth twice daily as needed (for pain/inflammation). Take with food. - hydrOXYzine HCl (ATARAX) 10 mg tablet Take 1 tablet by mouth three times daily as needed. - Mometasone (ELOCON) 0.1 % solution Apply 1 application to affected area once daily. for scalp as needed - Aspirin 81 mg Tab Take 1 tablet by mouth once daily. Take with food. - MULTIVITAMIN TAB Take one(1) tablet daily. Problem List As Of Date 07/12/2024 Noted Resolved IRRITABLE COLON [K58.9] Generalized Anxiety Disorder [F41.1] OTHER PSORIASIS [L40.8] MITRAL VALVE DISORDER [I05.9] DYSMETABOLIC SYNDROME X [E88.810] HYPERLIPIDEMIA NEC/NOS [E78.5] 09/27/2007 OVERWEIGHT [E66.3] 09/27/2007 Primary hypercoagulable state (HCC) [D68.59] 10/01/2007 12/25/2018 Routine general medical examination at [facility]*10/01/2007 09/17/2012 SLEEP DISTURBANCE NOS [G47.9] 06/02/2008 Umbilical hernia without mention of obstruction* 8 12/25/2018 Abdominal Pain, Other Specified Site [R10.9] 05/18/2009 Ureteral stone [N20.1] 08/04/2010 09/17/2012 Cervicalgia [M54.2] 03/19/2012 Lumbago [M54.50] 03/19/2012 09/17/2012 Adolescent idiopathic scoliosis of thoracolumba*10/27/20 15 Obesity, Class I, BMI 30-34.9 [E66.9] 12/26/2022 Encounter Status:Closed by VINCENT QUIROS on 07/12/24 Normal [facility] BACTERIAL VAGINOSIS NAATon 0 07-10-2024 Lactobacillus crispatus+gasseri+j ensenii + Gardnerella vaginalis + Atopobium vaginae rRNA GABRIELE+probe Ql (Vag fld) Negative Normal Negative for bacterial vaginosis [facility] Comment on above: Order Comment: Speci men Type: SWABOrdering Facility: [facility] Address: [address] [place] [address] [place] [address] Performed By: #### C VTV, BVAMP ####[facility] [id number] [facility] [id number] [address] [place] DENIA/TRICHOMONAS NAATon 0 07-10-2024 C. glabrata RNA GABRIELE+probe Ql (Vag fld) Negative Normal Negative for Denia glabrata [facility] Comment on above: Order Comment: Speci men Type: SWABOrdering Facility: [facility] Address: [address] [place] [address] Performed By: #### C VTV, BVAMP ####[facility] [id number] [place] [address] [place] Denia sp DNA GABRIELE+probe Ql (Vag fld) Negative Normal Negative for Denia species [facility] Comment on above: Order Comment: Speci men Type: SWABOrdering Facility: [facility] Address: [address] [place] [address] Performed By: #### C VTV, BVAMP ####[facility] [id number] [address] [place] T. vaginalis DNA GABRIELE+probe Ql (Unsp spec) Negative Normal Negative for Trichomonas vaginalis by amplification [facility] Comment on above: Order Comment: Speci men Type: SWABOrdering Facility: [facility] Address: [address] [place] [address] Performed By: #### C VTV, BVAMP ####[facility] LABCLIA [id number] [place] [address] [place] CBC panel Auto (Bld)on 07-10 Erythrocyte distribution width (RBC) [Ratio] 12.2 % 11.5 - 15.0 % [facility] Hematocrit (Bld) [Volume fraction] 43.6 % 36.0 - 46.0 % [facility] Hemoglobin (Bld) [Mass/Vol] 14.8 g/dL 11.5 - 15.5 g/dL [facility] Interpretation and review of laboratory results Normal [facility] MCH (RBC) [Entitic mass] 31.0 pg 26.0 - 34.0 pg [facility] MCHC (RBC) [Mass/Vol] 33.9 g/dL 30.5 - 36.0 g/dL [facility] MCV (RBC) [Entitic vol] 91.2 fL 80.0 - 100.0 fL [facility] Nucleated RBC (Bld) [#/Vol] NINF [facility] Platelet mean volume (Bld) [Entitic vol] 10.4 fL 9.0 - 12.7 fL [facility] Platelets (Bld) [#/Vol] 262 10*3/uL [facility] RBC (Bld) [#/Vol] 4.78 10*6/uL 3.90 - 5.20 m/uL [facility] WBC (Bld) [#/Vol] 6.90 10*3/uL [facility] Erythrocyte distribution width (RBC) [Ratio] 12.2 % Normal 11.5-15.0 [facility] Comment on above: Order Comment: Speci men Type: BLOOD SPECIMENOrdering Facility: [facility] Address: [address] [place] [address] Performed By: #### 5 8410-2 ####[facility] MARYEZEQUIELCortez [id number] [place] Hematocrit (Bld) [Volume fraction] 43.6 % Normal 36.0-46.0 [facility] Comment on above: Order Comment: Speci men Type: BLOOD SPECIMENOrdering Facility: [facility] Address: [address] [place] [address] Performed By: #### 5 8410-2 ####[facility] MARYASTRID [id number] [place] [address] [place] Hemoglobin (Bld) [Mass/Vol] 14.8 g/dL Normal 11.5-15.5 [facility] Comment on above: Order Comment: Speci men Type: BLOOD SPECIMENOrdering Facility: [facility] Address: [address] [place] [address] Performed By: #### 5 8410-2 ####[facility] MARYNCLI [id number] [place] [address] [place] MCH (RBC) [Entitic mass] 31.0 pg Normal 26.0-34.0 [facility] Comment on above: Order Comment: Speci men Type: BLOOD SPECIMENOrdering Facility: [facility] Address: [address] [place] [address] Performed By: #### 5 8410-2 ####[facility] [id number] [place] [address] [place] MCHC (RBC) [Mass/Vol] 33.9 g/dL Normal 30.5-36.0 [facility] Comment on above: Order Comment: Speci men Type: BLOOD SPECIMENOrdering Facility: [facility] Address: [address] [place] [address] Performed By: #### 5 8410-2 ####[facility] [id number] [place] [address] [place] MCV (RBC) [Entitic vol] 91.2 fL Normal 80.0-100.0 [facility] Comment on above: Order Comment: Speci men Type: BLOOD SPECIMENOrdering Facility: [facility] Address: [address] [place] [address] Performed By: #### 5 8410-2 ####[facility] [id number] [place] [address] [place] Nucleated RBC (Bld) [#/Vol] 10*3/uL Normal <0.01 [facility] Comment on above: Order Comment: Speci men Type: BLOOD SPECIMENOrdering Facility: [facility] Address: [address] [place] [address] Performed By: #### 5 8410-2 ####[facility] [id number] [place] [address] [place] Platelet mean volume (Bld) [Entitic vol] 10.4 fL Normal 9.0-12.7 [facility] Comment on above: Order Comment: Speci men Type: BLOOD SPECIMENOrdering Facility: [facility] Address: [address] [place] [address] Performed By: #### 5 8410-2 ####[facility] KACI JACYNCDMA [id number] [place] [address] [place] [facility] [place] Platelets (Bld) [#/Vol] 262 10*3/uL Normal 150-400 [facility] Comment on above: Order Comment: Speci men Type: BLOOD SPECIMENOrdering Facility: [facility] Address: [address] [place] [address] Performed By: #### 5 8410-2 ####[facility] LAURIEBetiNCLIA [id number] [place] [address] [place] [facility] RBC (Bld) [#/Vol] 4.78 10*6/uL Normal 3.90-5.20 [facility] Comment on above: Order Comment: Speci men Type: BLOOD SPECIMENOrdering Facility: [facility] Address: [address] [place] [address] Performed By: #### 5 8410-2 ####[facility] MARYNCLIA [id number] [place] [address] [place] WBC (Bld) [#/Vol] 6.90 10*3/uL Normal 3.70-11.00 [facility] Comment on above: Order Comment: Speci men Type: BLOOD SPECIMENOrdering Facility: [facility] Address: [address] [place] [address] Performed By: #### 5 8410-2 ####[facility] MARYNCLIA [id number] [address] [facility] CNOVon 07-10-2024 CNOV Office Visit (OBGYWM ) VIVIANA TOWNSEND ([id number]) 1965 F Date Time Provider Department 07/10/24 7:15 AM VINCENT QUIROS During your visit today, we recorded the following information about you: Blood pressure Weight 180/80 86.2 kg Vincent Quiros APRN.CNP 07/10/2024 8:21 AM Addendum Track Watchman offered: Patient declines. Viviana has had postmenopausal bleeding since December. Notices it when she wipes. Has also noted a 15 pound weight gain, nausea, and vaginal odor. LMP 2018. Viviana is a 59 year old who presents today for an endometrial biopsy for post menopausal bleeding. test: n/a UNIVERSAL PROTOCOL / SAFETY CHECKLIST Procedure to be Performed: Endometrial Biopsy Sign In: A Moment of CARE was completed. Personnel directly involved with the procedure wore the appropriate PPE (Personal Protective Equipment). Patient/Surrogate Stated/Verified: PATIENT VERIFIED(optional for EMERGENT procedures): Patient name, Date of , Relevant allergies, and The intended procedure Time Out Communication: Intended patient and procedure match the source documents. Consent documented and matches the intended procedure. Sign Out: SIGN OUT (optional for EMERGENT procedures): All specimen containers correctly labeled. All instruments, equipment, possible retained foreign bodies accounted for. Post-procedure follow-up management communicated and Plan of Care Visit completed when applicable. PROCEDURE: EXTERNAL GENITALIA: Normal in appearance without lesions VAGINA: Normal in appearance without lesions BIOPSY: Speculum placed into the vagina with excellent visualization of the cervix. Cervix cleaned with betadine. Anterior lip of cervix grasped with single toothed tenaculum. Uterus sounded to 8 cm. Pipelle inserted into the uterus without difficulty and endometrial biopsy obtained. Specimen labeled and sent to pathology. Procedure Summary: Patient tolerated procedure well. ASSESSMENT: post menopausal bleeding PLAN: Specimens labeled and sent to Pathology. Will notify patient of results in 1-2 weeks. Post-procedure instructions reviewed and written material given to the patient. BP elevated after procedure. Patient uncomfortable due to procedure. BP usually WNL. ADRIANE Lee [place], MA 07/10/2024 7:19 AM Signed YOUR RECOVERY After your biopsy you may have: Vaginal bleeding (less than a normal menstrual period) Mild cramping Do NOT put anything in the vagina for 1 week after your endometrial biopsy. This includes: tampons douches and refraining from having sexual intercourse If you have any discomfort, you may take an over the counter pain medication (motrin, advil, ibuprofen, tylenol, etc). If this does not relieve your discomfort, contact the office. It is okay to wear a sanitary pad until the discharge and spotting stops. RISKS Although problems seldom occur with endometrial biopsies, there can be some complications. You may feel faint during and shortly after the procedure as well as have some bleeding after the procedure. There is also a risk of infection after the procedure. These complications are rare and can be easily treated. You should contact you doctor is you have any of the following: Heavy bleeding (more than your normal period) Bleeding with clots Severe abdominal pain Fever (more than 100.4F) Foul smelling vaginal discharge RESULTS We will have the results of your biopsy in 1-2 weeks. If you do not hear the results of your biopsy after 2 weeks, please contact the office for the results. If you have any additional questions or concerns please do not hesitate to contact the office. Referring Provider: VINCENT QUIROS [[id number]] Allergies As of Date: 07/10/2024 Noted Allergy Reaction LATEX 10/25/2005 PENICILLINS 10/25/2005 Date Reviewed: 07/10/2024 Reviewed by: Vincent Quiros APRN.STEAM TUNNEL FEEDER - Fully Assessed Reason for Visit: Endometrial Biopsy [7501] Primary Visit Diagnosis:Postmenopau inga bleeding [N95.0] Other Visit Diagnoses:Screening for cervical cancer [Z12.4] Vaginal odor [N89.8] Order(s):ENDOMETRIAL BIOPSY [7000979] Order #: [id number] SURGICAL PATHOLOGY [OLF7659] Order #: [id number]. #:[id number] PAP TEST [[id number]] Order #: [id number]. #:[id number] THYROID STIMULATING HORMONE [SQTSH] Order #: [id number] FUTURE T4 FREE/FREE THYROXINE [SQFT4] Order #: [id number] FUTURE COMPLETE BLOOD COUNT [SQCBC] Order #: [id number] FUTURE COMPREHENSIVE METABOLIC PANEL [SQCMP] Order #: [id number] FUTURE HEMOGLOBIN A1C [RTBCX8L] Order #: [id number] FUTURE FOLLICLE STIMULATING HORMONE [SQFSH] Order #: [id number] FUTURE ESTRADIOL-17B BLD [SQE2] Order #: [id number] FUTURE DENIA/TRICHOMONAS NAAT [SQCVTV] Order #: [id number]. #:[id number] BACTERIAL VAGINOSIS NAAT [SQBVAMP] Order #: [id number] (more content not included)... Normal [facility] metabolic 2000 panelOrdered By: Ree Rutherford on 07-10-2024 Albumin [Mass/Vol] 4.5 g/dL 3.9 - 4.9 g/dL [facility] ALP [Catalytic activity/Vol] 52 U/L 34 - 123 U/L [facility] ALT [Catalytic activity/Vol] 23 U/L 7 - 38 U/L [facility] Anion gap [Moles/Vol] 10 mmol/L 8 - 15 mmol/L [facility] AST [Catalytic activity/Vol] 18 U/L 13 - 35 U/L [facility] Bilirubin [Mass/Vol] 0.4 mg/dL 0.2 - 1.3 mg/dL [facility] Calcium [Mass/Vol] 9.5 mg/dL 8.5 - 10.2 mg/dL [facility] Chloride [Moles/Vol] 105 mmol/L 98 - 107 mmol/L [facility] CO2 [Moles/Vol] 23 mmol/L 22 - 30 mmol/L [facility] Creatinine [Mass/Vol] 1.03 mg/dL High 0.58 - 0.96 mg/dL [facility] GFR/1.73 sq M.predicted among non-blacks MDRD (S/P/Bld) [Vol rate/Area] 63 mL/min/{1.73_m2} - PINF [facility] Comment on above: Estimated Glomerular Filtration Rate (eGFR) is calculated using the 2020 CKD-EPI creatinine equation. This equation utilizes serum creatinine, sex, and age as parameters. The creatinine assay has traceable calibration to isotope dilution-mass spectrometry. Refer to KDIGO guidelines for clinical interpretation. In patients with unstable renal function, e.g. those with acute kidney injury, the eGFR may not accurately reflect actual GFR. Glucose [Mass/Vol] 108 mg/dL High 74 - 99 mg/dL [facility] Comment on above: The [place] Diab[employer] s Association (ADA) provides guidance for cutoff values for fasting glucose and random glucose. The ADA defines fasting as no caloric intake for at least 8 hours. Fasting plasma glucose results between 100 to 125 mg/dL indicate increased risk for diabetes (prediabetes). Fasting plasma glucose results greater than or equal to 126 mg/dL meet the criteria for diagnosis of diabetes. In the absence of unequivocal hyperglycemia, results should be confirmed by repeat testing. In a patient with classic symptoms of hyperglycemia or hyperglycemic crisis, random plasma glucose results greater than or equal to 200 mg/dL meet the criteria for diagnosis of diabetes. Reference: Standards of Medical Care in Diabetes 2016, [place] [employer] Association. Diabetes Care. 2016.39(Suppl 1). Interpretation and review of laboratory results Abnormal [facility] Potassium [Moles/Vol] 4.2 mmol/L 3.7 - 5.1 mmol/L [facility] Protein [Mass/Vol] 7.1 g/dL 6.3 - 8.0 g/dL [facility] Sodium [Moles/Vol] 138 mmol/L 136 - 144 mmol/L [facility] Urea nitrogen [Mass/Vol] 14 mg/dL 7 - 21 mg/dL [facility] Comprehensive metabolic 2000 panelon 07-10-2024 Albumin [Mass/Vol] 4.5 g/dL Normal 3.9-4.9 [facility] Comment on above: Order Comment: Speci men Type: BLOOD SPECIMENOrdering Facility: [facility] Address: [address] [place] [address] Performed By: #### 2 4323-8 ####[facility] [id number] [place] [address] [place] ALP [Catalytic activity/Vol] 52 U/L Normal 34-123 [facility] Comment on above: Order Comment: Speci men Type: BLOOD SPECIMENOrdering Facility: [facility] Address: [address] [place] [address] Performed By: #### 2 4323-8 ####[facility]AMPUSLIA [id number] [place] [address] [place] ALT [Catalytic activity/Vol] 23 U/L Normal 7-38 [facility] Comment on above: Order Comment: Speci men Type: BLOOD SPECIMENOrdering Facility: [facility] Address: [address] [place] [address] Performed By: #### 2 4323-8 ####[facility] KACI MILLWNCLIA [id number] [place] [address] [place] Anion gap [Moles/Vol] 10 mmol/L Normal 8-15 [facility] Comment on above: Order Comment: Speci men Type: BLOOD SPECIMENOrdering Facility: [facility] Address: [address] [place] [address] Performed By: #### 2 4323-8 ####[facility] CAMPUSLIA [id number] [place] [address] [place] AST [Catalytic activity/Vol] 18 U/L Normal 13-35 [facility] Comment on above: Order Comment: Speci men Type: BLOOD SPECIMENOrdering Facility: [facility] Address: [address] [place] [address] Performed By: #### 2 4323-8 ####[facility]AMPUSLIA [id number] [place] [address] [place] Bilirubin [Mass/Vol] 0.4 mg/dL Normal 0.2-1.3 [facility] Comment on above: Order Comment: Speci men Type: BLOOD SPECIMENOrdering Facility: [facility] Address: [address] [place] [address] Performed By: #### 2 4323-8 ####[facility] MARYNCLIA [id number] [place] [address] [place] Calcium [Mass/Vol] 9.5 mg/dL Normal 8.5-10.2 [facility] Comment on above: Order Comment: Speci men Type: BLOOD SPECIMENOrdering Facility: [facility] Address: [address] [place] [address] Performed By: #### 2 4323-8 ####[facility] MARYNCLIA [id number] [place] [address] [place] Chloride [Moles/Vol] 105 mmol/L Normal 98-107 [facility] Comment on above: Order Comment: Speci men Type: BLOOD SPECIMENOrdering Facility: [facility] Address: [address] [place] [address] Performed By: #### 2 4323-8 ####[facility]ARYNCBRIGHAM [facility] [id number] [place] [address] [place] CO2 [Moles/Vol] 23 mmol/L Normal 22-30 [facility] Comment on above: Order Comment: Speci men Type: BLOOD SPECIMENOrdering Facility: [facility] Address: [address] [place] [address] Performed By: #### 2 4323-8 ####[facility] MARYNCLIA [id number] [place] [address] [place] Creatinine [Mass/Vol] 1.03 mg/dL High 0.58-0.96 [facility] Comment on above: Order Comment: Speci men Type: BLOOD SPECIMENOrdering Facility: [facility] Address: [address] [place] [address] Performed By: #### 2 4323-8 ####[facility] MARYNCLIA [id number] [place] [address] [place] Creatinine and Glomerular filtration rate.predicted panel (S/P/Bld) 63 mL/min/1.73m??? Normal >=60 [facility] Comment on above: Order Comment: Speci men Type: BLOOD SPECIMENOrdering Facility: [facility] Address: [address] [place] [address] Result Comment: Sadie mated Glomerular Filtration Rate (eGFR) is calculated using the 2020 CKD-EPI creatinine equation. This equation utilizes serum creatinine, sex, and age as parameters. The creatinine assay has traceable calibration to isotope dilution-mass spectrometry. Refer to KDIGO guidelines for clinical interpretation. In patients with unstable renal function, e.g. those with acute kidney injury, the eGFR may not accurately reflect actual GFR. Performed By: #### 2 4323-8 ####[facility] MARYASTRID [id number] [place] [address] [place] Glucose [Mass/Vol] 108 mg/dL High 74-99 [facility] Comment on above: Order Comment: Iram gilliland Type: BLOOD SPECIMENOrdering Facility: [facility] Address: [address] [place] [address] Result Comment: The [place] Diabetes Association (ADA) provides guidance for cutoff values for fasting glucose and random glucose. The ADA defines fasting as no caloric intake for at least 8 hours. Fasting plasma glucose results between 100 to 125 mg/dL indicate increased risk for diabetes (prediabetes). Fasting plasma glucose results greater than or equal to 126 mg/dL meet the criteria for diagnosis of diabetes. In the absence of unequivocal hyperglycemia, results should be confirmed by repeat testing. In a patient with classic symptoms of hyperglycemia or hyperglycemic crisis, random plasma glucose results greater than or equal to 200 mg/dL meet the criteria for diagnosis of diabetes. Reference: Standards of Medical Care in Diabetes 2016, [place] Diabetes Association. Diabetes Care. 2016.39(Suppl 1). Performed By: #### 2 4323-8 ####[facility]PITALA [id number] [place] [address] [place] Potassium [Moles/Vol] 4.2 mmol/L Normal 3.7-5.1 [facility] Comment on above: Order Comment: Iram gilliland Type: BLOOD SPECIMENOrdering Facility: [facility] Address: [address] [place] [address] Performed By: #### 2 4323-8 ####[facility] MARYASTRID [id number] [place] [address] [place] Protein [Mass/Vol] 7.1 g/dL Normal 6.3-8.0 [facility] Comment on above: Order Comment: Speci men Type: BLOOD SPECIMENOrdering Facility: [facility] Address: [address] [place] [address] Performed By: #### 2 4323-8 ####[facility] KACI MILLTOWNCLIA [id number] [place] [address] [place] Sodium [Moles/Vol] 138 mmol/L Normal 136-144 [facility] Comment on above: Order Comment: Speci men Type: BLOOD SPECIMENOrdering Facility: [facility] Address: [address] [place] [address] Performed By: #### 2 4323-8 ####[facility] MILLWNCLIA [id number] [place] [address] [place] Urea nitrogen [Mass/Vol] 14 mg/dL Normal 7-21 [facility] Comment on above: Order Comment: Speci men Type: BLOOD SPECIMENOrdering Facility: [facility] Address: [address] [place] [address] Performed By: #### 2 4323-8 ####[facility] MARYNCLIA [id number] [place] [address] [place] Estradiol [facility]on [facility]10 E2 [Mass/Vol] pg/mL Normal [facility] Comment on above: Order Comment: Speci men Type: BLOOD SPECIMENOrdering Facility: [facility] Address: [address] [place] [address] Result Comment: This test is not suitable for patients receiving treatment with the drug Fulvestrant (Faslodex). The drug causes an interference leading to falsely elevated estradiol results. Menstrual cycle Estradiol reference ranges: Follicular : < 234 pg/mL Ovulation : 41 to 398 pg/mL Luteal : < 342 pg/mL Estradiol reference ranges vary by gestational period: First trimester : 154 to 3243 pg/mL Second trimester : 1561 to 83219 pg/mL Third trimester : 8285 to >12612 pg/mL Post-menopausal Estradiol reference range: < 41 pg/mL Reference: 1. Estradiol - E2 (Estradiol III) [package insert V 3.0 Austrian]. [facility], [place], [place], April 2016. Performed By: #### 1 5067-2, 3024-7, 2243-4, 3016-3 ####[facility] LABCLIA [id number] [place] [address] [place] FSH SerPl-aCncon 07-10-2024 Follitropin Qn 113.5 m[IU]/mL Normal See comment [facility] Comment on above: Order Comment: Speci men Type: BLOOD SPECIMENOrdering Facility: [facility] Address: [address] [place] [address] Result Comment: Refe rence range: Follicular: 3.5-12.5 mIU/mL Ovulation: 4.7-21.5 mIU/mL Luteal: 1.7-7.7 mIU/mL Postmenopausal: 25.8-134.8 mIU/mL Performed By: #### 1 5067-2, 3024-7, 2243-4, 3016-3 ####[facility] LABCLIA [id number] [address] [place] HIGH RISK HUMAN PAPILLOMA SEE (HPV), PCR FOR DETECTION AND GENOTYPINGon 07-10-2024 HPV 16 Ag Ql (Unsp spec) Not detected Normal Not detected [facility] Comment on above: Order Comment: Speci men Type: FLUID SPECIMENOrdering Facility: [facility] Address: [address] [place] [address] Performed By: #### L [id number] ####[facility]ORYCLIA [id number] [place] [address] [place] AMERICAOH[facility] LABCLIA [id number] [place] [address] [place]#### HPVHRT ####[facility] LABCLIA [id number] [place] [address] [place] HPV 18 Ag Ql (Unsp spec) Not detected Normal Not detected [facility] Comment on above: Order Comment: Speci men Type: FLUID SPECIMENOrdering Facility: [facility] Address: [address] [place] [address] Performed By: #### L [id number] ####[facility]ORATORYCLIA [id number] [place] [address] [place] [facility] LABCLIA [id number] [place] [address] [place]#### HPVHRT ####[facility] LABIA [id number] [place] [address] [place] HPV 31+33+35+39+45+51+5 2+56+58+59+66+68 DNA GABRIELE+probe Ql (Cvx) Not detected Normal Not detected [facility] Comment on above: Order Comment: Speci men Type: FLUID SPECIMENOrdering Facility: [facility] Address: [address] [place] [address] Result Comment: High Risk HPV Other Type includes HPV types 31, 33, 35, 39, 45, 51, 52, 56, 58, 59, 66 and 68. Performed By: #### L [id number] ####[facility] LABORATORYCLIA [id number] [place] [address] [place] [facility] LABCLIA [id number] [place] [address] [place]#### HPVHRT ####[facility] LABIA [id number] [place] [address] [place] HbA1c (Bld)on 07-10-2024 Average glucose Estimated from glycated hemoglobin (Bld) [Mass/Vol] 111 mg/dL Normal [facility] Comment on above: Order Comment: Speci men Type: BLOOD SPECIMENOrdering Facility: [facility] Address: [address] [place] [address] Result Comment: eAG: (Estimated average glucose) is a calculated value from HgbA1c and is agency service representative of the average blood glucose level in the last 2-3 month period. Performed By: #### 5 5454-3 ####[facility] LABCLIA [id number] [place] [address] [place] HbA1c (Bld) [Mass fraction] 5.5 % Normal 4.3-5.6 [facility] Comment on above: Order Comment: Speci men Type: BLOOD SPECIMENOrdering Facility: [facility] Address: [address] [place] [address] Result Comment: [place] Diabetes Association guidelines indicate that patients with HgbA1c in the range 5.7-6.4% are at increased risk for development of diabetes, and intervention by lifestyle modification may be beneficial. HgbA1c greater or equal to 6.5% is considered diagnostic of diabetes. Performed By: #### 5 5454-3 ####[facility] LABCLIA [id number] [place] [address] [place] PAP TESTon 07-10-2024 ADEQUACY Satisfactory for interpretation. Normal [facility] Comment on above: Order Comment: Speci men Type: FLUID SPECIMENOrdering Facility: [facility] Address: [address] [place] [address] Performed By: #### L [id number] ####[facility]ATORYCLIA [id number] [place] [address] [place] [facility] LABCLIA [id number] [place] [address] [place]#### HPVHRT ####[facility] LABCLIA [id number] [place] [address] [place] CASE REPORT Normal [facility] Comment on above: Order Comment: Speci men Type: FLUID SPECIMENOrdering Facility: [facility] Address: [address] [place] [address] Result Comment: Gyne cologic Cytology Report Case: [id number] Authorizing Provider: Vincent Quiros APRN.STEAM TUNNEL FEEDER Collected: 07/10/2024 07:51 AM Ordering Location: OB/Gynecology Received: 07/10/2024 12:09 PM First Screen: Laverne Pimentel, CT, ASCP Pathologist: Anna Chavira MD Specimen: Pap Test, ThinPrep, Cervix Performed By: #### L [id number] ####[facility]ATORYCLIA [id number] [address] STATES OF [facility] LABCLIA [id number] [place] [address] [place]#### HPVHRT ####[facility] LABCLIA [id number] [place] [address] [place] Order Comment: Speci men Type: TISSUE SPECIMENOrdering Facility: [facility] Address: [address] [place] [address] Result Comment: Surg [facility] Pathology Report Case: [id number] Authorizing Provider: Vincent Quiros APRN.STEAM TUNNEL FEEDER Collected: 07/10/2024 07:51 AM Ordering Location: OB/Gynecology Received: 07/10/2024 12:07 PM Pathologist: Rain Sánchez MD Specimen: Endometrium, Biopsy Performed By: #### S ####[facility] LABCLIA [id number] [place] [address] [place] CLINICAL HISTORY, CYTOLOGY, PERCUSSION INSTRUMENT TUNER Post Menopausal Normal [facility] Comment on above: Order Comment: Speci men Type: FLUID SPECIMENOrdering Facility: [facility] Address: [address] [place] [address] Performed By: #### L [id number] ####[facility]ORATORYCLIA [id number] [address] STATES [facility] LABCLIA [id number] [place] [address] [place]#### HPVHRT ####[facility] LABCLIA [id number] [address] [address] [place] FINAL PERFORMING LAB Normal [facility] Comment on above: Order Comment: Speci men Type: FLUID SPECIMENOrdering Facility: [facility] Address: [address] [place], [place] [address] Result Comment: Tech nical component, boring machine operator production screening performed at [facility], [address], [place] [address] CLIA# [id number] Diagnostic interpretation performed at [facility], [address], [place] [address] CLIA# [id number] Transition Program Manager: Kiana Le M.D. Performed By: #### L [id number] ####[facility] LABORATORYCLIA [id number] [place] [address] [place] [facility] LABCLIA [id number] [place] [address] [place]#### HPVHRT ####[facility] LABCLIA [id number] [place] [address] [place] Order Comment: Speci men Type: TISSUE SPECIMENOrdering Facility: [facility] Address: [address] [place], [place] [address] Result Comment: Diag nostic interpretation performed at [facility], [address] [place], [place] [address] CLIA# [id number] Transition Program Manager: Librado Hermosillo M.D. Performed By: #### S ####[facility] LABCLIA [id number] [place] [address] [place] HPV REFLEX Yes HPV Normal [facility] Comment on above: Order Comment: Speci men Type: FLUID SPECIMENOrdering Facility: [facility] Address: [address] [place], [place] [address] Performed By: #### L [id number] ####[facility] LABORATORYCLIA [id number] [place] [address] [place] [facility] LABCLIA [id number] [place] [address] [place]#### HPVHRT ####[facility] LABCLIA [id number] [place] [address] [place] INTERPRETATION, CYTOLOGY, PERCUSSION INSTRUMENT TUNER Abnormal [facility] Comment on above: Order Comment: Speci men Type: FLUID SPECIMENOrdering Facility: [facility] Address: [address] [place] [address] Result Comment: Atyp ical squamous cells of undetermined significance (ASC-US). Performed By: #### L [id number] ####[facility]ORATORYCLIA [id number] [address] STATES [facility] LABCLIA [id number] [place] [address] [place]#### HPVHRT ####[facility] LABCLIA [id number] [place] [address] [place] PAP DISCLAIMER COMMENT The Pap Smear is a screening test for cervical cancer. False negative results occur with all screening tests, emphasizing the need for rescreening at recommended intervals, and clinical correlation. Normal [facility] Comment on above: Order Comment: Speci men Type: FLUID SPECIMENOrdering Facility: [facility] Address: [address] [place] [address] Performed By: #### L [id number] ####[facility]ORATORYCLIA [id number] [address] STATES OF [facility] LABCLIA [id number] [place] [address] [place]#### HPVHRT ####[facility] LABCLIA [id number] [place] [address] [place] PAP GENERAL CATEGORIZATION Epithelial Cell Abnormality Normal [facility] Comment on above: Order Comment: Speci men Type: FLUID SPECIMENOrdering Facility: [facility] Address: [address] [place] [address] Performed By: #### L [id number] ####[facility] LABORATORYCLIA [id number] [address] STATES OF [facility] LABCLIA [id number] [place] [address] [place]#### HPVHRT ####[facility] LABCLIA [id number] [place] [address] [place] PAP HAMMER REPAIRER COMMENT This specimen has been analyzed by the ThinPrep Imaging System, an automated imaging and review system, which assists the laboratory in evaluating cells on ThinPrep Pap tests. Following automated imaging, selected teran from every slide are reviewed by a boring machine operator production. Normal [facility] Comment on above: Order Comment: Speci men Type: FLUID SPECIMENOrdering Facility: [facility] Address: [address] [place] [address] Performed By: #### L [id number] ####[facility] LABORATORYCLIA [id number] [place] [address] [place] [facility] LABCLIA [id number] [place] [address] [place]#### HPVHRT ####[facility] LABCLIA [id number] [place] [address] [place] SURGICAL PATHOLOGYon 024 CLINICAL HISTORY postmenopausal bleeding Normal [facility] Comment on above: Order Comment: Speci men Type: TISSUE SPECIMENOrdering Facility: [facility] Address: [address] [place] [address] Performed By: #### S ####[facility] LABCLIA [id number] [place] [address] [place] FINAL DIAGNOSIS Normal [facility] Comment on above: Order Comment: Speci men Type: TISSUE SPECIMENOrdering Facility: [facility] Address: [address] [place] [address] Result Comment: A. E ndometrium, biopsy: - Fragments of endometrial polyp(s) with hemorrhage/necrosis, in a background of atrophic endometrium - Background benign squamous and endocervical mucosa Performed By: #### S ####[facility] LABCLIA [id number] [address] [place] GROSS DESCRIPTION Normal [facility] Comment on above: Order Comment: Speci men Type: TISSUE SPECIMENOrdering Facility: [facility] Address: [address] [place] [address] Result Comment: A. E ndometrium, Biopsy Received in formalin are multiple singletary-brown, soft feathery segments of tissue admixed with mucinous material aggregating to 2.0 x 0.9 x 0.2 cm. Totally submitted in one cassette. K July 10, 2024 6:55 PM Gross examination performed at [facility], [address] [place] [address] Performed By: #### S ####[facility] LABIA [id number] [place] [address] [place] T4 Free SerPl-mCncon 024 Free T4 [Mass/Vol] 1.0 ng/dL Normal 0.9-1.7 [facility] Comment on above: Order Comment: Speci men Type: BLOOD SPECIMENOrdering Facility: [facility] Address: [address] [place] [address] Performed By: #### 1 5067-2, 3024-7, 2243-4, 3016-3 ####[facility] LABIA [id number] [place] [address] [place] TSH SerPl-aCncon 07-10-2024 TSH Qn 1.850 m[IU]/L Normal 0.270-4.200 [facility] Comment on above: Order Comment: Speci men Type: BLOOD SPECIMENOrdering Facility: [facility] Address: [address] [place] [address] Performed By: #### 1 5067-2, 3024-7, 2243-4, 3016-3 ####[facility] LABCLIA [id number] [id number] [facility] CNOVon 01-24-[facility]24 CNOV Office Visit (INTMWS ) VIVIANA TOWNSEND ([id number]) 1965 F Date Time Provider Department 01/24/24 7:40 AM DELMA TURK INTBEKAH During your visit today, we recorded the following information about you: Pulse Respiration Blood pressure Weight 84/minute 16/minute 118/66 84.8 kg Delma Truk APRN.CNP 01/24/2024 8:09 AM Signed CC: Patient presents with: Recheck: 6 month follow up HPI Viviana Townsend is a 58 year old female who presents today for follow up and annual exam. Anxiety: Controlled with current treatment Sleep: is described as normal Alcohol use: does not drink any alcohol Drug use: No Appetite: good Stresses: under a lot of personal stress Suicidal Thoughts: No suicidal ideation, intent or plan HLD: Takes medication as ordered. Goes to the gym at least twice a week and tries to maintain a healthy diet most of the time and is working on portion control. Denies chest pain, shortness of breath, or exercise intolerance. Did have increased creatinine levels last year. Drinks an average of 40 ounces of water daily, avoids caffeine, and tries to rarely use and over the counter anti-inflammatories. REVIEW OF SYSTEMS General: no fevers, no chills, no night sweats, no recurrent infections, no change in appetite, no change in energy, and no significant changes in weight Respiratory: no cough, no wheezing, no shortness of breath, no hemoptysis Cardiovascular: no chest pain, no chest pressure, no palpitations, and no swelling GI: No nausea, vomiting, or diarrhea : No history of dysuria, frequency or incontinence Psych: PHQ2 is 0 Endocrine: no fatigue, no cold intolerance, no heat intolerance, no polyuria, no polyphagia, and no polydipsia Neurologic: No headache, weakness,dizziness, memory loss, syncope. 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 Urinary calculus, unspecified 2010 Renal stones PAST SURGICAL HISTORY Procedure Laterality Date BREAST BX NEEDLE CORE LEFT 10/2017 benign DELIVERY ONLY 08/12/2003 , low cervical COLONOSCOPY FLX DX W/COLLJ SPEC WHEN PFRMD 11/03/2016 Colonoscopy COLONOSCOPY W/BIOPSY SINGLE/MULTIPLE 06/05/09 Normal appearing colon CYSTOURETHROSCOPY renal stones KIDNEY SURGERY HX TONSILLECTOMY PRIMARY/SECONDARY Tonsillectomy ALLERGIES Latex and Penicillins MEDICATIONS buPROPion XL (WELLBUTRIN XL) 150 mg 24 hr tablet take 1 tablet once daily tiZANidine (ZANAFLEX) 2 mg tablet Take 1 tablet by mouth every 8 hours as needed (muscle spasms). busPIRone (BUSPAR) 5 mg tablet Take 1 tablet by mouth three times daily as needed. fluticasone (FLONASE) 50 mcg/actuation nasal spray Use 2 Sprays in each nostril once daily. Rinse mouth after use. rosuvastatin (CRESTOR) 10 mg tablet Take 1 tablet by mouth once daily. clobetasol (TEMOVATE) 0.05 % ointment Apply 1 application to affected area as directed. to affected twice weekly. May use BID for 1-2 weeks prn flares for up to 2 weeks naproxen (NAPROSYN) 500 mg tablet Take 1 tablet by mouth twice daily as needed (for pain/inflammation). Take with food. hydrOXYzine HCl (ATARAX) 10 mg tablet Take 1 tablet by mouth three times daily as needed. Mometasone (ELOCON) 0.1 % solution Apply 1 application to affected area once daily. for scalp as needed Aspirin 81 mg Tab Take 1 tablet by mouth once daily. Take with food. MULTIVITAMIN TAB Take one(1) tablet daily. FAMILY HISTORY Problem Relation Age of Onset Diabetes Maternal Grandmother Diabetes Maternal Aunt Diabetes Maternal Uncle Breast Cancer Sister age 39 , now with mets (including to colon) Social History Tobacco Use Smoking status: Never Smokeless tobacco: Never Vaping Use Vaping Use: Never used Substance Use Topics Alcohol use: Yes Comment: 1x per year Drug use: No PHYSICAL EXAM BP 118/66 Pulse 84 Resp 16 Wt 84.8 kg (187 lb) LMP 06/22/2020 (Exact Date) SpO2 98% BMI 34.19 kg/m? General Appearance: well appearing, in no acute distress, alert Pysch: mood and affect broad and appropriate Skin: Skin color, texture, turgor normal for age; Eyes: conjunctiva pink and moist, no icterus, sclera white, non-injected Neck: Thyroid normal size and symmetric without palpable nodules, Neck supple, No adenopathy Lymph nodes: No cer (more content not included)... Normal [facility] MELINA SCREENING W TOMOon 07-28 [facility] UA DIP, URINE (POC)on 2022 BILIRUBIN UA (POCT) Negative Negative [facility] CLARITY UA (POCT) Slightly Cloudy Cl [facility] COLOR UA (POCT) Yellow [facility] GLUCOSE UA (POCT) Negative Negative mg/dL [facility] HEMOGLOBIN/BLOOD UA (POCT) Moderate Abnormal Negative [facility] KETONE UA (POCT) Negative Negative mg/dL [facility] LEUKOCYTES UA (POCT) Trace Abnormal Negative [facility] NITRITE UA (POCT) Negative Negative [facility] PH UA (POCT) 5.5 4.5 - 8.0 [facility] Protein Ql (U) Negative Negative mg/dL [facility] SPECIFIC GRAVITY UA (POCT) 1.025 1.005 - 1.030 [facility] UROBILINOGEN UA (POCT) 0.2 E.U./dL Normal E.U./dL [facility] EXERCISE STRESS ECG (WITHOUT IMAGING)on 02-28-2023 [facility] Lipid 1996 panelon 3 Cholesterol [Mass/Vol] 235 mg/dL High <200 mg/dL [facility] Cholesterol in HDL [Mass/Vol] 51 mg/dL >39 mg/dL [facility] Cholesterol in LDL [Mass/Vol] 135 mg/dL High <100 mg/dL [facility] Cholesterol in LDL/Cholesterol in HDL [Mass ratio] 2.65 {ratio} High <2.54 [facility] Cholesterol in VLDL [Mass/Vol] 49 mg/dL High <30 mg/dL [facility] Cholesterol non HDL [Mass/Vol] 184 mg/dL High <130 mg/dL [facility] Cholesterol.total/C holesterol in HDL [Mass ratio] 4.61 {ratio} <5.10 [facility] Fasting Time 3 hrs [facility] Triglyceride [Mass/Vol] 246 mg/dL High <150 mg/dL [facility] NT PRO BNPon 02-21-2023 Natriuretic peptide.B prohormone N-Terminal [Mass/Vol] <125 pg/mL [facility] PROTEIN CREATININE RATIOon 0 02-21-2023 Protein/Creatinine (U) [Mass ratio] 0.10 mg/mg <0.15 mg/mg [facility] Protein/Creatinine (U) [Mass ratio]on 02-21-2023 Creatinine (U) [Mass/Vol] 158.2 mg/dL 20.0 - 300.0 mg/dL [facility] Protein (U) [Mass/Vol] 16 mg/dL 0 - 20 mg/dL [facility] CT FLANK WO IVCONon 11-23-19 23 [facility] UA DIP, URINE (POC)on 2022 BILIRUBIN UA (POCT) Negative Negative [facility] CLARITY UA (POCT) Clear [facility] COLOR UA (POCT) Yellow [facility] GLUCOSE UA (POCT) Negative Negative mg/dL [facility] HEMOGLOBIN/BLOOD UA (POCT) Trace-intact Abnormal Negative [facility] KETONE UA (POCT) Negative Negative mg/dL [facility] LEUKOCYTES UA (POCT) Small Abnormal Negative [facility] NITRITE UA (POCT) Negative Negative [facility] PH UA (POCT) 7.5 4.5 - 8.0 [facility] Protein Ql (U) Negative Negative mg/dL [facility] SPECIFIC GRAVITY UA (POCT) 1.015 1.005 - 1.030 [facility] UROBILINOGEN UA (POCT) 0.2 E.U./dL Normal E.U./dL [facility] XR Abdomen Supine and Uprigh ton 11-01-2022 IMPRESSION: Findings are suggestive of left renal calculi. Help Desk Representative: PSCB Transcribe Date/Time: Nov 01 2022 12:05P Dictated by : NICKI JONES MD This examination was interpreted and the report reviewed and electronically signed by: NICKI JONES MD on Nov 01 2022 12:07PM [facility] * * *Final Report* * * DATE OF EXAM: Oct 31 2022 1:01PM WOX [id number] - XR ABDOMEN 1V SUPINE / PROCEDURE REASON: Renal calculi * * * * Physician Interpretation * * * * EXAM TITLE: XR ABDOMEN 1V SUPINE EXAM DATE/TIME: 10/31/2022 1:01 PM COMPARISON: None. CLINICAL INDICATION/HISTORY: Bilateral flank pain TECHNIQUE: AP views of the abdomen are presented. FINDINGS: No abnormally dilated bowel loops identified. There are 1-3 mm radiopaque opacities overlying the lower pole of the left kidney. No definite radiopaque opacities projecting over the right kidney. There are no abnormal calcifications in the pelvis. The spine shows right-sided curvature. DIVISION OF RADIOLOGY Provider, [facility] - 11/01/2022 * * *Final Report* * * DATE OF EXAM: Oct 31 2022 1:01PM WOX [id number] - XR ABDOMEN 1V SUPINE / PROCEDURE REASON: Renal calculi * * * * Physician Interpretation * * * * EXAM TITLE: XR ABDOMEN 1V SUPINE EXAM DATE/TIME: 10/31/2022 1:01 PM COMPARISON: None. CLINICAL INDICATION/HISTORY: Bilateral flank pain TECHNIQUE: AP views of the abdomen are presented. FINDINGS: No abnormally dilated bowel loops identified. There are 1-3 mm radiopaque opacities overlying the lower pole of the left kidney. No definite radiopaque opacities projecting over the right kidney. There are no abnormal calcifications in the pelvis. The spine shows right-sided curvature. IMPRESSION IMPRESSION: Findings are suggestive of left renal calculi. Help Desk Representative: PSCB Transcribe Date/Time: Nov 01 2022 12:05P Dictated by : NICKI JONES MD This examination was interpreted and the report reviewed and electronically signed by: NICKI JONES MD on Nov 01 2022 12:07PM EST [facility] XR Abdomen Supine and Uprigh tOrdered By: [facility] Provider on 11-01-2022 [facility] XR Abdomen Supine and Uprigh ton 10-31-2022 Radiology Study observation (narrative) [facility] UA DIP, URINE (POC)on 2021 BILIRUBIN UA (POCT) Negative Negative [facility] CLARITY UA (POCT) Clear [facility] COLOR UA (POCT) Yellow [facility] GLUCOSE UA (POCT) Negative Negative mg/dL [facility] HEMOGLOBIN/BLOOD UA (POCT) Small Abnormal Negative [facility] KETONE UA (POCT) Negative Negative mg/dL [facility] LEUKOC[facility]TES UA (POCT) Moderate Abnormal Negative [facility] NITRITE UA (POCT) Negative Negative [facility] PH UA (POCT) 6.5 4.5 - 8.0 [facility] Protein Ql (U) Negative Negative mg/dL [facility] SPECIFIC GRAVITY UA (POCT) 1.010 1.005 - 1.030 [facility] UROBILINOGEN UA (POCT) 0.2 E.U./dL Normal E.U./dL [facility] MELINA SCREENING W TOMOon 08-29 [facility] No Panel Informationon 08-18 [facility] UA DIP, URINE (POC)on 2021 BILIRUBIN UA (POCT) Negative Negative [facility] CLARITY UA (POCT) Clear [facility] COLOR UA (POCT) Yellow [facility] GLUCOSE UA (POCT) Negative Negative mg/dL [facility] HEMOGLOBIN/BLOOD UA (POCT) Negative Negative [facility] KETONE UA (POCT) Negative Negative mg/dL [facility] LEUKOCYTES UA (POCT) Small Abnormal Negative [facility] NITRITE UA (POCT) Negative Negative [facility] PH UA (POCT) 8.5 Abnormal 4.5 - 8.0 [facility] Protein Ql (U) Negative Negative mg/dL [facility] SPECIFIC GRAVITY UA (POCT) 1.020 1.005 - 1.030 [facility] UROBILINOGEN UA (POCT) 0.2 E.U./dL Normal E.U./dL [facility] PROCEDUREon 05-16-2018 PROCEDURE HNO ID: [id number]: Sally Floreservice: Cardiovascular MedicineAuthor Type: PhysicianType: ProceduresFiled: 05/17/2018 2:57 PMNote Text:[facility]- Stress TestVIVIANA TOWNSEND ADOB: 1965 AGE: 52 SEX: FMRN: [id number] ACCTNUM: [id number] SVC: LOCATION:ATTENDING PHYSICIAN:DATE OF STUDY: 05/16/2018STRESS EXERCISE REPORTINDICATION: Chest pain, headache, heartburn. The patient has borderlinehyperlipide mari. Also, mitral valve prolapse was suspected in her 20s.REPORT: Resting blood pressure was 112/74 mmHg. The patient had chestpressure or pain before starting the stress test. It was of mildintensity, 3/10 in severity. Her heart rate was 64 beats per minute withsinus mechanism seen on the EKG. The patient exercised on standard Bruceprotocol for 10 minutes, achieving a maximum heart rate of 171 beats perminute, which is equal to 101% of her maximum predicted for age. Sheachieved a MET level of 11.7. There was no ST-segment depression. Thechest pain resolved during exercise. The patient had shortness of breathfor which exercise was terminated. There was no arrhythmia noted duringthis walking stress test or in the recovery.CONCLUSION:1 . The patient has good exercise capacity and achieved 101% maximumpredicted heart rate without chest pressure or ST-segment depression. 2. Herblood pressure response was normal with blood pressure of 140/82 mmHg recorded with exercise.3. The patient has Lyles treadmill score of +10, which gives her goodprognosis and low probability of coronary artery disease.Sally Cárdenas M.D.CardiologyQS:[id number]: 05/16/2018 16:24:41T: 05/17/2018 02:25:29Job #: [id number] Normal [facility] STRESS TEST (EXERCISE) MOLLYAD Fina 05-16-2018 STRESS TEST (EXERCISE) TREADMILL NAME : VIVIANA TOWNSENDMARISOLD : [id number] : 1965 Gender : FemaleRace : ORD : [id number] Procedure Date : May 16 2018 10:23:11Edit Date : May 22 2018 13:15:44 Protocol Name : BUCKY Time In Exercise Phase : 00:10:00 Max. Systolic BP : 140 mmHgMax Diastolic BP : 82 mmHgMax Heart Rate : 171 BPMMax Predicted Heart Rate : 169 BPMRecovery ECG Response (OLD) : Reason For Termination : Target Heart Rate Achieved Test Reason : HCS Location :[facility] Overread By : MD Avi,QarabEdited By : Laith Jonesferred By : BEN ADAMSAcquired by : GAURI DUKE [facility] 05-15-2018 [facility] Telephone (CDLBME) ----CARYVIVIANA ANGEL ([id number]) 1965 FDate Time Provider Department05/15/18 KEYA MARTINEZ (RN) CDLBME During your visit today, we recorded the following information about you:Keya Martinez RN, RN 05/15/2018 2:58 PM SignedLeft message regarding reminder for stress test tomorrow and given instructionsAllergies As of Date: 05/15/2018 Noted Allergy ReactionLATEX 10/25/2005PENICILLINS 10/25/2005Date Reviewed: 05/02/2018Reviewed by: Hanane Salmeron Ma - Fully AssessedReason for Visit: Reminder Call [[id number]]Prescriptions as of 05/15/2018 Sig: BUSPIRONE 5 MG TABLET Take 1 tablet by mouth three * BUPROPION XL 150 MG TAB Take 1 tablet by mouth once d* CLOBETASOL 0.05 % TOPICAL OIN* Apply 1 application to affect* BENZONATATE 100 MG CAPSULE Take 1 capsule by mouth three* TRIAMCINOLONE ACETONIDE 0.025* Apply 1 application to affect* MOMETASONE 0.1 % TOPICAL SOLU* Apply 1 application to affect* PROMETHAZINE 25 MG TABLET Take 1 tablet by mouth every * HYDROCORTISONE 2.5 % TOPICAL * 1 application by RECTAL route* LEVONORGESTREL 20 MCG/24 HR (* 1 Each by INTRAUTERINE route * ASPIRIN 81 MG TABLET Take 1 tablet by mouth once d* * MULTIVITAMIN TABLET Take one(1) tablet daily.Problem List As Of Date 05/15/2018 Noted Resolved IRRITABLE COLON [K58.9] More... Generalized Anxiety Disorder [F41.1] More... OTHER PSORIASIS [L40.8] More... MITRAL VALVE DISORDER [I05.9] DYSMETABOLIC SYNDROME X [E88.81] More... HYPERLIPIDEMIA NEC/NOS [E78.5] INVALID FOR* More... OVERWEIGHT [E66.3] INVALID FOR* More... Primary hypercoagulable state [D68.59] INVALID FOR* More... Routine general medical examination at a health*INVALID FOR*09/17/2012 More... SLEEP DISTURBANCE NOS [G47.9] INVALID FOR* More... UMBILICAL HERNIA [K42.9] INVALID FOR* More... Abdominal Pain, Other Specified Site [R10.9] INVALID FOR* More... Ureteral stone [N20.1] INVALID FOR*09/17/2012 Cervicalgia [M54.2] INVALID FOR* Lumbago [M54.5] INVALID FOR*09/17/2012 Adolescent idiopathic scoliosis of thoracolumba*INVALID FOR* Status:Closed by KEYA MARTINEZ on 05/15/18 [facility] Vital Signs Date Time Vital Sign Value Performing Clinician Remigio canseco 08-28-2024 08:31-0400 Body height 157.5 cm Dede Kaplan MD Work Phone: [facility] 08-28-2024 08:31-0400 Body mass index (BMI) [Ratio] 34.57 kg/m2 Dede Kaplan MD Work Phone: [facility] 08-28-2024 08:31-0400 Body weight 85.73 kg Dede Kaplan MD Work Phone: [facility] 08-28-2024 08:31-0400 Diastolic blood pressure 72 mm[Hg] Dede Kaplan MD Work Phone: [facility] 08-28-2024 08:31-0400 Heart rate 90 /min Dede Kaplan MD Work Phone: [facility] 08-28-2024 08:31-0400 SaO2% (BldA) [Mass fraction] 98 % Dede Kaplan MD Work Phone: [facility] 08-28-2024 08:31-0400 Systolic blood pressure 118 mm[Hg] Dede Kaplan MD Work Phone: [facility] 07-25-2024 08:15-0400 Body height 157.5 cm Caitlin Postlethwait MANAGER TRAINING.STEAM T[employer]NEL [employer]EDER Work Phone: [facility] 07-25-2024 08:15-0400 Diastolic blood pressure 70 mm[Hg] Caitlin Postlethwait MANAGER TRAINING.STEAM TUNNEL FEEDER Work Phone: [facility] 07-25-2024 08:15-0400 Heart rate 71 /min Caitlin Postlethwait MANAGER TRAINING.STEAM TUNNEL FEEDER Work Phone: [facility] 07-25-2024 08:15-0400 SaO2% (BldA) [Mass fraction] 99 % Caitlin Postlethwait MANAGER TRAINING.STEAM TUNNEL FEEDER Work Phone: [facility] 07-25-2024 08:15-0400 Systolic blood pressure 120 mm[Hg] Caitlin Postlethwait MANAGER TRAINING.STEAM TUNNEL FEEDER Work Phone: [facility] 07-10-2024 07:51-0400 Diastolic blood pressure 80 mm[Hg] Vincent Haury MANAGER TRAINING.STEAM TUNNEL FEEDER Work Phone: [facility] 07-10-2024 07:51-0400 Systolic blood pressure 180 mm[Hg] Vincent Haury MANAGER TRAINING.STEAM TUNNEL FEEDER Work Phone: [facility] 07-10-2024 07:19-0400 Body mass index (BMI) [Ratio] 34.74 kg/m2 Vincent Haury MANAGER TRAINING.STEAM TUNNEL FEEDER Work Phone: [facility] 07-10-2024 07:19-0400 Body weight 86.18 kg Vincent Quiros MANAGER TRAINING.STEAM T[employer]NEL FEEDER Work Phone: [facility] 01-24-2024 07:31-0500 Body weight 84.82 kg Delma Older MANAGER TRAINING.STEAM TUNNEL FEEDER Work Phone: [facility] 01-24-2024 07:31-0500 Diastolic blood pressure 66 mm[Hg] Delma Older MANAGER TRAINING.STEAM TUNNEL FEEDER Work Phone: [facility] 01-24-2024 07:31-0500 Heart rate 84 /min Delma Older MANAGER TRAINING.STEAM TUNNEL FEEDER Work Phone: [facility] 01-24-2024 07:31-0500 Respiratory rate 16 /min Delma Older MANAGER TRAINING.STEAM TUNNEL FEEDER Work Phone: [facility] 01-24-2024 07:31-0500 SaO2% (BldA) [Mass fraction] 98 % Delma Older MANAGER TRAINING.STEAM TUNNEL FEEDER Work Phone: [facility] 01-24-2024 07:31-0500 Systolic blood pressure 118 mm[Hg] Delma Older MANAGER TRAINING.STEAM T[employer]NEL FEEDER Work Phone: [facility] 05-12-2023 07:12-0400 Body temperature 97.81 [degF] Sita Athy PA-C Work Phone: [facility] 05-12-2023 07:12-0400 Body weight 83.46 kg Sita Athy PA-C Work Phone: [facility] 05-12-2023 07:12-0400 Diastolic blood pressure 76 mm[Hg] Sita Athy PA-C Work Phone: [facility] 05-12-2023 07:12-0400 Heart rate 102 /min Sita Athy PA-C Work Phone: [facility] 05-12-2023 07:12-0400 Respiratory rate 18 /min Sita Athy PA-C Work Phone: [facility] 05-12-2023 07:12-0400 SaO2% (BldA) [Mass fraction] 98 % Sita STEIN-Rylee Work Phone: [facility] 05-12-2023 07:12-0400 Systolic blood pressure 122 mm[Hg] Sita STEIN-C Work Phone: [facility] 03-15-2023 11:59-0400 Body temperature 99.19 [degF] Delma Older MANAGER TRAINING.STEAM TUNNEL FEEDER Work Phone: [facility] 03-15-2023 11:59-0400 Body weight 82.1 kg Delma Older MANAGER TRAINING.STEAM TUNNEL FEEDER Work Phone: [facility] 03-15-2023 11:59-0400 Diastolic blood pressure 78 mm[Hg] Delma Older MANAGER TRAINING.STEAM TUNNEL FEEDER Work Phone: [facility] 03-15-2023 11:59-0400 Heart rate 102 /min Delma Older MANAGER TRAINING.STEAM TUNNEL FEEDER Work Phone: [facility] 03-15-2023 11:59-0400 Respiratory rate 16 /min Delma Older MANAGER TRAINING.STEAM TUNNEL FEEDER Work Phone: [facility] 03-15-2023 11:59-0400 SaO2% (BldA) [Mass fraction] 97 % Delma Older MANAGER TRAINING.STEAM TUNNEL FEEDER Work Phone: [facility] 03-15-2023 11:59-0400 Systolic blood pressure 128 mm[Hg] Delma Older MANAGER TRAINING.STEAM TUNNEL FEEDER Work Phone: [facility] 02-28-2023 12:47-0400 Body height 157.5 cm [facility] Work Phone: [facility] 02-28-2023 12:47-0400 Body weight 82.78 kg [facility] Work Phone: [facility] 02-28-2023 12:47-0400 Diastolic blood pressure 68 mm[Hg] [facility] Work Phone: [facility] 02-28-2023 12:47-0400 Heart rate 76 /min [facility] Work Phone: [facility] 02-28-2023 12:47-0400 Systolic blood pressure 110 mm[Hg] [facility] Work Phone: [facility] 02-21-2023 08:00-0400 Diastolic blood pressure 68 mm[Hg] Torey Villasenor MD Work Phone: [facility] 02-21-2023 08:00-0400 Heart rate 83 /min Torey Villasenor MD Work Phone: [facility] 02-21-2023 08:00-0400 Systolic blood pressure 117 mm[Hg] Torey Villasenor MD Work Phone: [facility] 02-21-2023 07:58-0400 Body height 157.5 cm Torey Villasenor MD Work Phone: [facility] 02-21-2023 07:58-0400 Body weight 81.83 kg Torey Villasenor MD Work Phone: [facility] 12-26-2022 13:33-0500 Body height 157.5 cm Dede Kaplan MD Work Phone: [facility] 12-26-2022 13:33-0500 Body weight 83.46 kg Dede Kaplan MD Work Phone: [facility] 12-26-2022 13:33-0500 Diastolic blood pressure 68 mm[Hg] Dede Kaplan MD Work Phone: [facility] 12-26-2022 13:33-0500 Systolic blood pressure 110 mm[Hg] Dede Kaplan MD Work Phone: [facility] 11-23-2022 12:20-0500 Body height 158 cm María Kopipehik PA-C Work Phone: [facility] 11-23-2022 12:20-0500 Body weight 83.01 kg María Downeyhik PA-C Work Phone: [facility] 11-23-2022 12:20-0500 Diastolic blood pressure 70 mm[Hg] María Downeyhik PA-C Work Phone: [facility] 11-23-2022 12:20-0500 Systolic blood pressure 120 mm[Hg] María Kovachik PA-C Work Phone: [facility] 09-05-2022 07:56-0400 Body height 158 cm María Kovachik PA-C Work Phone: [facility] 09-05-2022 07:56-0400 Body weight 83.01 kg María Kovachik PA-C Work Phone: [facility] 09-05-2022 07:56-0400 Diastolic blood pressure 80 mm[Hg] María Kovachik PA-C Work Phone: [facility] 09-05-2022 07:56-0400 Systolic blood pressure 130 mm[Hg] María Kovachik PA-C Work Phone: [facility] 08-18-2022 11:43-0400 Body weight 83.01 kg Delma Older MANAGER TRAINING.STEAM TUNNEL FEEDER Work Phone: [facility] 08-18-2022 11:43-0400 Diastolic blood pressure 86 mm[Hg] Delma Older MANAGER TRAINING.STEAM TUNNEL FEEDER Work Phone: [facility] 08-18-2022 11:43-0400 Heart rate 80 /min Delma Older MANAGER TRAINING.STEAM TUNNEL FEEDER Work Phone: [facility] 08-18-2022 11:43-0400 Respiratory rate 16 /min Delma Older MANAGER TRAINING.STEAM TUNNEL FEEDER Work Phone: [facility] 08-18-2022 11:43-0400 Systolic blood pressure 124 mm[Hg] Delma Older MANAGER TRAINING.STEAM TUNNEL FEEDER Work Phone: [facility] 07-19-2022 13:06-0400 Body height 158 cm Ben Adams MD Work Phone: [facility] 07-19-2022 13:06-0400 Body temperature 97.7 [degF] Ben Adams MD Work Phone: [facility] 07-19-2022 13:06-0400 Body weight 82.1 kg Ben Adams MD Work Phone: [facility] 07-19-2022 13:06-0400 Diastolic blood pressure 78 mm[Hg] Ben Adams MD Work Phone: [facility] 07-19-2022 13:06-0400 Heart rate 80 /min Ben Adams MD Work Phone: [facility] 07-19-2022 13:06-0400 Respiratory rate 16 /min Ben Adams MD Work Phone: [facility] 07-19-2022 13:06-0400 Systolic blood pressure 120 mm[Hg] Ben Adams MD Work Phone: [facility] Encounters Encounter Date Encounter Type Care Provider Facility Start: 08-30-2024 End: 08-30-2024 ambulatory BEN ADAMS Facility:[facility] Start: 08-30-2024 End: 08-30-2024 Office outpatient new 60 minutes Lauro Mahmood DO Work Phone: Kidney Medicine [facility] Comment on above: Microscopic hematuri a (Primary Dx); Nephrolithiasis; Flank pain Start: 08-28-2024 End: 09-02-2024 ambulatory DEDE KAPLAN Facility:[facility] Start: 08-28-2024 End: 08-28-2024 Patient encounter procedure Dede Kaplan MD Work Phone: OB/Gynecology Comment on above: Endometrial polyp (P rimary Dx); PMB (postmenopausal bleeding) Start: 08-16-2024 End: 08-16-2024 Telephone encounter Caitlin Pradhan APRN.CNP Work Phone: [facility] Comment on above: Results Start: 08-16-2024 End: 08-16-2024 ambulatory CAITLIN PRADHAN Facility:[facility] Start: 08-16-2024 End: 08-16-2024 Subsequent hospital visit by physician [facility] (I-Stat) Work Phone: Cat Scan Comment on above: Hematuria, unspecifi ed type [R31.9] Start: 08-08-2024 End: 08-15-2024 E-mail encounter from caregiver Dede Kaplan MD Work Phone: OB/Gynecology Start: 08-08-2024 End: 08-15-2024 Patient encounter procedure Dede Kaplan MD Work Phone: OB/Gynecology Comment on above: Appointment Request Start: 07-27-2024 End: 07-27-2024 [facility] Facility:[facility] Start: 07-26-2024 End: 07-26-2024 Telephone encounter Caitlin Pradhan MANAGER TRAINING.STEAM TUNNEL FEEDER Work Phone: [facility] Start: 07-25-2024 End: 07-25-2024 Patient encounter procedure Caitlin Pradhan MANAGER TRAINING.STEAM TUNNEL FEEDER Work Phone: [facility] Comment on above: Hematuria, unspecifi ed type (Primary Dx); Function kidney decreased Start: 07-25-2024 End: 07-25-2024 [facility] Start: 07-24-2024 End: 08-15-2024 ambulatory Dede Kaplan MD Work Phone: OB/Gynecology Comment on above: Results from tests Start: 07-18-2024 End: 07-18-2024 ambulatory VINCENT QUIROS OB/Gynecology Start: 07-18-2024 End: 07-18-2024 Patient encounter procedure [employer] 1 Privacy Compliance Manager [employer] OB/Gynecology Start: 07-12-2024 End: 07-12-2024 Telephone encounter Vincent Quiros APRN.STEAM TUNNEL FEEDER Work Phone: OB/Gynecology Start: 07-10-2024 End: 07-10-2024 [facility] Facility:[facility] Start: 07-10-2024 End: 07-10-2024 Patient encounter procedure Vincent Quiros MANAGER TRAINING.STEAM TUNNEL FEEDER Work Phone: OB/Gynecology Comment on above: Postmenopausal bleed ing (Primary Dx); Screening for cervical cancer; Vaginal odor Start: 01-24-2024 End: 01-24-2024 [facility] Facility:[facility] Start: 01-24-2024 End: 01-24-2024 Patient encounter procedure Delma Older MANAGER TRAINING.STEAM TUNNEL FEEDER Work Phone: [facility] Comment on above: Annual physical exam (Primary Dx); Hyperlipidemia, unspecified hyperlipidemia type; Generalized anxiety disorder; Elevated serum creatinine Start: 01-03-2024 ambulatory Delma Older MANAGER TRAINING .STEAM TUNNEL FEEDER Work Phone: [facility] Medicine [place] Comment on above: Up coming appt prepa ration Start: 09-25-2023 Refill Delma Older MANAGER TRAINING .STEAM TUNNEL FEEDER Work Phone: [facility] Medicine [place] Comment on above: Refill Request Start: 08-19-2023 End: 08-19-2023 ambulatory Immun[facility] Nurse [facility] Work Phone: Family [facility] Start: 07-28-2023 End: 07-28-2023 Subsequent hospital visit by physician Screen Mammo [facility] Mammogram Comment on above: Breast cancer screen ing by mammogram [Z12.31] Start: 07-17-2023 Refill Dede willams MD Work Phone: OB/Gynecology Comment on above: Refill Request Start: 06-02-2023 End: 06-02-2023 ambulatory Torey Villasenor MD Work Phone: [facility] Comment on above: Hyperlipidemia, unsp ecified hyperlipidemia type (Primary Dx) Start: 06-02-2023 End: 06-02-2023 Telemedicine consultation with patient Torey Villasenor MD Work Phone: [facility] Start: 05-26-2023 Telephone encounter Delma Turk APRN.STEAM TUNNEL FEEDER Work Phone: Internal Medicine [place] Comment on above: Orders Start: 05-13-2023 Telephone encounter Sita llanes PA-C Work Phone: [facility] Comment on above: Results Start: 05-12-2023 End: 05-12-2023 Patient encounter procedure Sita Farley PA-C Work Phone: [facility] Comment on above: Burning with urinati on (Primary Dx) Start: 04-25-2023 ambulatory Torey Villasenor MD Work Phone: [facility]iology Comment on above: Blood work Start: 03-15-2023 End: 03-15-2023 Patient encounter procedure Delma Rosalee VILLAREAL.STEAM TUNNEL FEEDER Work Phone: Internal Medicine [facility] Comment on above: Acute non-recurrent sinusitis, unspecified location (Primary Dx); Acute cough; Wheezing; Hyperlipidemia, unspecified hyperlipidemia type; Annual physical exam; Elevated blood sugar Start: 02-28-2023 End: 02-28-2023 Patient encounter procedure Marlin Flores MANAGER TRAINING.STEAM TUNNEL FEEDER Work Phone: [facility]iology Comment on above: Hyperlipidemia, unsp ecified hyperlipidemia type (Primary Dx); Exercise counseling; Sinus bradycardia; BMI 33.0-33.9,adult; DECKER (dyspnea on exertion); Lightheadedness Start: 02-24-2023 Telephone encounter Torey pacheco MD Work Phone: Prevent[facility] Cardiology Comment on above: Opened In Error Start: 02-21-2023 End: 02-21-2023 ambulatory Arrhythmia [facility] Work Phone: Cardiology Comment on above: Event (Zio patch) Start: 02-21-2023 End: 02-21-2023 Patient encounter procedure Torey Villasenor MD Work Phone: [facility] Comment on above: Hyperlipidemia, unsp ecified hyperlipidemia type (Primary Dx); Sinus bradycardia; Leg swelling Start: 12-26-2022 End: 12-26-2022 Patient encounter procedure Dede Kaplan MD Work Phone: OB/Gynecology Comment on above: Encounter for gyneco logical examination (general) (routine) without abnormal findings (Primary Dx); Encounter for screening mammogram for breast cancer; Obesity, Class I, BMI 30-34.9; Generalized anxiety disorder Start: 12-26-2022 End: 12-26-2022 Patient encounter status Dede Kaplan MD Work Phone: OB/Gynecology Start: 11-23-2022 End: 11-23-2022 Patient encounter procedure María Wilson PA-C Work Phone: [facility] Comment on above: Flank pain, acute (P rimary Dx); Kidney stone Start: 10-31-2022 End: 10-31-2022 Subsequent hospital visit by physician [facility] Work Phone: Radiology Comment on above: Renal calculi [N20.0 ] Start: 10-07-2022 Refill Delma Older MANAGER TRAINING .STEAM TUNNEL FEEDER Work Phone: [facility] Comment on above: Refill Request Start: 09-28-2022 Patient encounter procedure [facility] Provider [facility] Department Start: 09-23-2022 Refill Delma Older MANAGER TRAINING .STEAM TUNNEL FEEDER Work Phone: [facility] Comment on above: Refill Request Start: 09-14-2022 Refill Delma Older MANAGER TRAINING .STEAM TUNNEL FEEDER Work Phone: [facility] Comment on above: Refill Request Start: 09-14-2022 Telephone encounter Kd Montes MD Work Phone: [facility] Comment on above: Patient Update Start: 09-08-2022 Telephone encounter Kd Montes MD Work Phone: [facility] Comment on above: Surgery Scheduled Start: 09-05-2022 Refill María Wilson PA-C Work Phone: [facility] Comment on above: Med Change Request Start: 09-05-2022 Telephone encounter María reyes PA-C Work Phone: [facility] Comment on above: Results Start: 09-05-2022 End: 09-05-2022 Patient encounter procedure María Casillask PA-C Work Phone: [facility] Comment on above: Left flank pain (Jasmyne ladonna Dx); Kidney stone Start: 08-29-2022 Documentation procedure Mammog yuval Coordinator [facility] Start: 08-29-2022 Letter encounter Mammography Coordinator [facility] Department Start: 08-29-2022 End: 08-29-2022 Patient encounter status Screen Wstr Mammogram Start: 08-29-2022 End: 08-29-2022 Subsequent hospital visit by physician Screen Mammo [facility] Mammogram Comment on above: Encounter for gyneco logical examination (general) (routine) without abnormal findings [Z01.419] Start: 08-19-2022 Telephone encounter Delma Turk APRN.CNP Work Phone: [facility] Comment on above: Results - Ct Start: 08-18-2022 ambulatory Ben Israel Work Phone: Internal Medicine [place] Comment on above: intermittent back pa in Start: 08-18-2022 End: 08-18-2022 Subsequent hospital visit by physician Ct [facility] (I-Stat) Work Phone: Cat Scan Comment on above: Right flank pain [R1 0.9] Start: 08-18-2022 End: 08-18-2022 Patient encounter procedure Delma Turk APRN.STEAM TUNNEL FEEDER Work Phone: [facility] Comment on above: Right flank pain (Pr imary Dx); Inguinal pain, unspecified laterality; History of kidney stones; Hair loss Start: 07-19-2022 End: 07-19-2022 Patient encounter procedure Ben Adams MD Work Phone: [facility] Comment on above: Annual physical exam (Primary Dx); Generalized anxiety disorder; Skin lesion; Breast cancer screening by mammogram; Special screening examination for viral disease; Screening for HIV (human immunodeficiency virus) Start: 06-02-2022 Patient encounter procedure Ben Adams MD Work Phone: [facility] Medicine [place] Start: 06-02-2022 Telephone encounter Ben wang MD Work Phone: [facility] [place] Comment on above: Lab Orders Start: 09-30-2018 End: 10-01-2018 Patient encounter procedure SELF REFERRED [facility] Start: 09-22-2018 End: 09-23-2018 Patient encounter procedure SANDRA PARHAMID [facility] Start: 05-16-2018 Ambulatory BEN means Start: 10-01-2007 End: 09-17-2012 Patient encounter status Vincent Quiros APRN.STEAM TUNNEL FEEDER Work Phone: [facility] Procedures Date Procedure Procedure Detail Performing Clinician Start: 08-30-2024 Urnls dip stick/tabl et rgnt auto w/o microscopy Lauro Mahmood DO Work Phone: Start: 08-16-2024 Ct abdomen & pelvis w/o contrst 1/> body re Caitlin Dietz [place] MANAGER TRAINING.STEAM TUNNEL FEEDER Work Phone: Start: 07-27-2024 Lipid 1996 panel - S tatiana or Plasma Xr [place] Work Phone: Start: 07-25-2024 Urnls dip stick/tabl et rgnt auto w/o microscopy Caitlin Dietz [place] MANAGER TRAINING.STEAM TUNNEL FEEDER Work Phone: Start: 07-18-2024 Us pelvic nonobstetr ic real-time image complete Vincent Quiros MANAGER TRAINING.STEAM TUNNEL FEEDER Work Phone: Start: 08-19-2023 INFLUENZA VACCINE, A GE 6 MO - 64 YR, QUADRIVALENT (AFLURIA, FLULAVAL, FLUZONE) Shilo Santiago MD Work Phone: Start: 07-28-2023 Screening digital br east tomosynthesis bi Ben Adams MD Work Phone: Start: 07-01-2023 Lipid 1996 panel - S tatiana or Plasma Immunization [facility] Work Phone: Start: 05-12-2023 Urnls dip stick/tabl et rgnt auto w/o microscopy Sita Farley PA-C Work Phone: Start: 02-28-2023 Cv strs tst xers&/or rx cont ecg trcg only Marlin Flores MANAGER TRAINING.STEAM TUNNEL FEEDER Work Phone: Start: 11-23-2022 Culture bacterial quanttative colony count urine María Wilson PA-C Work Phone: Start: 11-23-2022 Urnls dip stick/tabl et rgnt auto w/o microscopy María Wilson PA-C Work Phone: Start: 10-31-2022 Radiologic exam abdo men 1 view Kd Montes MD Work Phone: Start: 09-05-2022 Urnls dip stick/tabl et rgnt auto w/o microscopy María Wilson PA-C Work Phone: Start: 08-29-2022 MELINA SCREENING W IBIS Crystal Kaplan MD Work Phone: Start: 08-29-2022 Mammography Screen Wst r Start: 08-18-2022 Ct abdomen & pelvis w/o contrast material Delma Older MANAGER TRAINING.STEAM TUNNEL FEEDER Work Phone: Start: 08-18-2022 Urnls dip stick/tabl et rgnt auto w/o microscopy Delma Older MANAGER TRAINING.STEAM TUNNEL FEEDER Work Phone: Start: 10-08-2021 Mammography Ben wang MD Work Phone: Start: 07-22-2021 Adult depression scr eening assessment Ben Adams MD Work Phone: Start: 11-04-2016 Colonoscopy Ben wang MD Work Phone: Plan of Treatment Date Care Activity Detail Author Start: 07-27-2029 Lipid panel Lipid Screening [facility] Start: 07-01-2028 Lipid 1996 panel - Serum or Plasma Lipid Screening [facility] Start: 07-01-2028 Lipid panel Lipid Screening [facility] Start: 07-01-2028 LIPID SCREEN LIPID SCREEN [facility] Start: 05-12-2028 LIPID SCREEN LIPID SCREEN [facility] Start: 02-22-2028 LIPID SCREEN LIPID SCREEN [facility] Start: 07-12-2027 LIPID SCREEN LIPID SCREEN [facility] Start: 07-10-2027 Diabetes Screening Diabetes Screenin [facility] Start: 11-04-2026 Colonoscopy COLONOSCOPY [facility] Start: 11-04-2026 COLORECTAL CANCER SCREENING COLORECTAL CANCER SCREENING [facility] Start: 11-04-2026 Screening for malign ant neoplasm of colon [facility] Start: 08-19-2026 Diabetes Screening Diabetes Screenin g [facility] Start: 07-23-2026 LIPID SCREEN LIPID SCREEN [facility] Start: 07-01-2026 DIABETES SCREEN DIABETES SCREEN [facility] Start: 07-01-2026 Diabetes Screening Diabetes Screenin g [facility] Start: 05-26-2026 DIABETES SCREEN DIABETES SCREEN [facility] Start: 09-02-2025 End: 09-02-2025 Patient encounter procedure 09/02/2025 4:40 PM EDT Office Visit Kidney [facility] [address] [place] [address] [place] [address] [place] [address] F/U Kidney Medicine [facility] Comment on above: F/U Start: 07-12-2025 DIABETES SCREEN DIABETES SCREEN [facility] Start: 07-10-2025 Screening for malign ant neoplasm of cervix Cervical Cancer Screening [facility] Start: 01-01-2025 HPV TESTING HPV TESTING [facility] Start: 01-01-2025 PAP TESTING PAP TESTING [facility] Start: 01-01-2025 Screening for malign ant neoplasm of cervix [facility] Start: 08-30-2024 End: 11-29-2024 25-hydroxyvitamin D3 [Mass/volume] in Serum or Plasma VITAMIN D 25 HYDROXY Lab Routine Nephrolithiasis Expected: 08/30/2024, Expires: 11/29/2024 [facility] Comment on above: Expected: 08/30/2024 , Expires: 11/29/2024 Start: 08-30-2024 End: 11-29-2024 Bacteria identified in Urine by Culture [facility] Comment on above: Expected: 08/30/2024 , Expires: 11/29/2024 Start: 08-30-2024 End: 11-29-2024 Calcium.ionized [Moles/volume] in Blood CALCIUM, IONIZED Lab Routine Nephrolithiasis Expected: 08/30/2024, Expires: 11/29/2024 [facility] Comment on above: Expected: 08/30/2024 , Expires: 11/29/2024 Start: 08-30-2024 End: 11-29-2024 CYSTATIN C CYSTATIN C Lab Routine Microscopic hematuria Expected: 08/30/2024, Expires: 11/29/2024 [facility] Comment on above: Expected: 08/30/2024 , Expires: 11/29/2024 Start: 08-30-2024 End: 11-29-2024 Microalbumin/Creatinine [Mass Ratio] in Urine [facility] Comment on above: Expected: 08/30/2024 , Expires: 11/29/2024 Start: 08-30-2024 End: 11-29-2024 Parathyrin.intact [Mass/volume] in Serum or Plasma PTH INTACT Lab Routine Nephrolithiasis Expected: 08/30/2024, Expires: 11/29/2024 [facility] Comment on above: Expected: 08/30/2024 , Expires: 11/29/2024 Start: 08-30-2024 End: 11-29-2024 Protein/Creatinine [Mass Ratio] in Urine [facility] Comment on above: Expected: 08/30/2024 , Expires: 11/29/2024 Start: 08-30-2024 End: 11-29-2024 URINALYSIS, REFLEX MICROSCOPIC [facility] Work Phone: Comment on above: Expected: 08/30/2024 , Expires: 11/29/2024 Start: 08-30-2024 End: 08-30-2024 Patient encounter procedure 08/30/2024 1:00 PM EDT Office Visit Kidney [facility] [address] [place] [address] [place] [address] [place] [address] Function kidney decreased [N28.9] Kidney Medicine [facility] Comment on above: Function kidney decr eased [N28.9] Start: 08-28-2024 End: 08-28-2024 Patient encounter procedure 08/28/2024 8:30 AM EDT Office Visit OB/Gynecology [address] [place] [id number] Dede Kaplan MD [address] [place] [id number] Surgery 09/12 @[facility] OB/Gynecology Comment on above: Surgery 09/12 @[facility] Start: 08-16-2024 End: 08-16-2024 Patient encounter procedure 08/16/2024 8:40 AM EDT Appointment Cat Scan [address] [place] [address] Hematuria, unspecified type [R31.9] Cat Scan Comment on above: Hematuria, unspecifi ed type [R31.9] Start: 07-28-2024 Mammography Mammogram Screening [facility] Start: 07-28-2024 Screening for malign ant neoplasm of breast Mammogram Screening [facility] Start: 07-27-2024 End: 07-27-2024 ambulatory 07/27/2024 10:15 AM EDT Results Only [facility] Draw Station [address] [address] [facility] Draw Station Start: 07-25-2024 End: 07-25-2024 Patient encounter procedure 07/25/2024 8:15 AM EDT Office Visit [facility] [address] [place] [id number] PostletCaitlin malone APRN.STEAM TUNNEL FEEDER [address] [place] [address] kidney issues [facility] Comment on above: kidney issues Start: 07-23-2024 DIABETES SCREEN DIABETES SCREEN [facility] Start: 07-21-2024 Influenza vaccination Influenza Vacc ine (#1) [facility] Start: 07-19-2024 Covid-19 Vaccine (5 - Pfizer series) Covid-19 Vaccine (5 - Pfizer series) [facility] Comment on above: Postponed from 04/23 (Declined at this time) Start: 07-19-2024 Hepatitis B Vaccine (1 of 3 - 19+ 3-dose series) Hepatitis B Vaccine (1 of 3 - 19+ 3-dose series) [facility] Comment on above: Postponed from 07/05 (Declined at this time) Start: 07-19-2024 Hepatitis B Vaccine (1 of 3 - 3-dose series) Hepatitis B Vaccine (1 of 3 - 3-dose series) [facility] Comment on above: Postponed from 07/05 (Declined at this time) Start: 07-19-2024 Hepatitis C Screening Hepatitis C [facility] Comment on above: Postponed from 07/05 (Declined at this time) Start: 07-19-2024 Hepatitis C screening Hepatitis C [facility] Comment on above: Postponed from 07/05 (Declined at this time) Start: 07-19-2024 HIV Screening HIV Screening [facility] Comment on above: Postponed from 07/05 (Declined at this time) Start: 07-19-2024 HIV screening HIV Screening [facility] Comment on above: Postponed from 07/05 (Declined at this time) Start: 07-19-2024 Shingrix Vaccine (1 of 2) Shingrix Vaccine (1 of 2) [facility] Comment on above: Postponed from 07/05 (Declined at this time) Start: 07-19-2024 Urine microalbumin profile DTaP,Tdap,Td Vaccine (2 - Td or Tdap) [facility] Comment on above: Postponed from 06/26 (Declined at this time) Start: 07-18-2024 End: 07-18-2024 Manual pelvic examination 07/18/2024 8:00 AM EDT Procedure OB/Gynecology [address] [place] [address] PELVIC / TRANSVAGINAL OB/Gynecology Comment on above: PELVIC / TRANSVAGINA L Start: 07-10-2024 End: 10-09-2024 Estradiol (E2) [Mass/volume] in Serum or Plasma [facility] Comment on above: Expected: 07/10/2024 , Expires: 10/09/2024 Start: 07-10-2024 End: 10-09-2024 Follitropin [Units/volume] in Serum or Plasma [facility] Comment on above: Expected: 07/10/2024 , Expires: 10/09/2024 Start: 07-10-2024 End: 10-09-2024 Hemoglobin A1c in Blood [facility] Comment on above: Expected: 07/10/2024 , Expires: 10/09/2024 Start: 07-10-2024 End: 11-20-2024 Thyrotropin [Units/volume] in Serum or Plasma [facility] Comment on above: Expected: 07/10/2024 , Expires: 10/09/2024 Start: 07-10-2024 End: 10-09-2024 Thyroxine (T4) free [Mass/volume] in Serum or Plasma [facility] Comment on above: Expected: 07/10/2024 , Expires: 10/09/2024 Start: 07-10-2024 End: 07-10-2025 US Pelvis PELVIC US [facility] Anc Imaging Routine Postmenopausal bleeding Expected: 07/10/2024, Expires: 07/10/2025 [facility] Comment on above: Expected: 07/10/2024 , Expires: 07/10/2025 Start: 06-02-2024 End: 08-02-2024 Lipid 1996 panel - Serum or Plasma LIPID PANEL BASIC Lab Routine Hyperlipidemia, unspecified hyperlipidemia type Expected: 06/02/2024, Expires: 08/02/2024 [facility] Work Phone: Comment on above: Expected: 06/02/2024 , Expires: 08/02/2024 Start: 01-24-2024 End: 04-24-2024 CBC panel - Blood by Automated count CBC Lab Routine Annual physical exam Expected: 01/24/2024, Expires: 04/24/2024 [facility] Work Phone: Comment on above: Expected: 01/24/2024 , Expires: 04/24/2024 Start: 01-24-2024 End: 04-24-2024 Comprehensive metabolic 2000 panel - Serum or Plasma COMP METABOLIC PANEL Lab Routine Elevated serum creatinine Hyperlipidemia, unspecified hyperlipidemia type Annual physical exam Expected: 01/24/2024, Expires: 04/24/2024 [facility] Work Phone: Comment on above: Expected: 01/24/2024 , Expires: 04/24/2024 Start: 01-24-2024 End: 04-24-2024 Lipid 1996 panel - Serum or Plasma LIPID PANEL BASIC Lab Routine Hyperlipidemia, unspecified hyperlipidemia type Annual physical exam Expected: 01/24/2024, Expires: 04/24/2024 [facility] Work Phone: Comment on above: Expected: 01/24/2024 , Expires: 04/24/2024 Start: 01-22-2024 End: 04-22-2024 Basic metabolic 2000 panel - Serum or Plasma BASIC METABOLIC PNL Lab Routine Elevated serum creatinine Expected: 01/22/2024, Expires: 04/22/2024 [facility] Work Phone: Comment on above: Expected: 01/22/2024 , Expires: 04/22/2024 Start: 11-20-2023 Depression Assessment Depression Ass essment [facility] Start: 08-29-2023 Mammography MAMMOGRAM [facility] Start: 07-21-2023 Covid-19 Vaccine () Covid-19 Vaccine () [facility] Start: 07-21-2023 Influenza vaccination INFLUENZA (#1) [facility] Start: 07-04-2023 End: 09-03-2023 CBC W Auto Differential panel - Blood CBC + DIFF Lab Routine Annual physical exam Expected: 07/04/2023 (Approximate), Expires: 09/03/2023 [facility] Work Phone: Comment on above: Expected: 07/04/2023 (Approximate), Expires: 09/03/2023 Start: 07-04-2023 End: 09-03-2023 Comprehensive metabolic 2000 panel - Serum or Plasma COMP METABOLIC PANEL Lab Routine Annual physical exam Hyperlipidemia, unspecified hyperlipidemia type Expected: 07/04/2023 (Approximate), Expires: 09/03/2023 [facility] Work Phone: Comment on above: Expected: 07/04/2023 (Approximate), Expires: 09/03/2023 Start: 07-04-2023 End: 09-03-2023 Lipid 1996 panel - Serum or Plasma LIPID PANEL BASIC Lab Routine Annual physical exam Hyperlipidemia, unspecified hyperlipidemia type Expected: 07/04/2023 (Approximate), Expires: 09/03/2023 [facility] Work Phone: Comment on above: Expected: 07/04/2023 (Approximate), Expires: 09/03/2023 Start: 06-26-2023 Urine microalbumin profile [facility] Start: 04-26-2023 End: 06-26-2023 Lipid 1996 panel - Serum or Plasma LIPID PANEL BASIC Lab Routine Hyperlipidemia, unspecified hyperlipidemia type Leg swelling Expected: 04/26/2023, Expires: 06/26/2023 [facility] Work Phone: Comment on above: Expected: 04/26/2023 , Expires: 06/26/2023 Start: 04-26-2023 End: 06-26-2023 Lipoprotein a [Mass/volume] in Serum or Plasma LIPOPROTEIN (A) Lab Routine Hyperlipidemia, unspecified hyperlipidemia type Leg swelling Expected: 04/26/2023, Expires: 06/26/2023 [facility] Work Phone: Comment on above: Expected: 04/26/2023 , Expires: 06/26/2023 Start: 03-15-2023 End: 05-15-2023 Hemoglobin A1c in Blood HGB A1C Lab Routine Annual physical exam Elevated blood sugar Expected: 03/15/2023, Expires: 05/15/2023 [facility] Work Phone: Comment on above: Expected: 03/15/2023 , Expires: 05/15/2023 Start: 11-20-2022 DEPRESSION ASSESSMENT DEPRESSION ASS ESSMENT [facility] Start: 10-08-2022 Mammography MAMMOGRAM [facility] Start: 07-22-2022 Adult depression screening assessment DEPRESSION SCREENING [facility] Start: 07-21-2022 Influenza vaccination INFLUENZA (#1) [facility] Start: 07-19-2022 End: 09-18-2022 Hepatitis C virus Ab [Presence] in Serum HEP C AB IA W/CONF SCRN Lab Routine Special screening examination for viral disease Expected: 07/19/2022, Expires: 09/18/2022 [facility] Work Phone: Comment on above: Expected: 07/19/2022 , Expires: 09/18/2022 Start: 07-19-2022 End: 09-18-2022 HIV 1+2 Ab [Presence] in Serum or Plasma by Immunoassay HIV 1 2 COMBO(AG/AB),WITH REFLEX TO DIFFERENTIATION Lab Routine Screening for HIV (human immunodeficiency virus) Expected: 07/19/2022, Expires: 09/18/2022 [facility] Work Phone: Comment on above: Expected: 07/19/2022 , Expires: 09/18/2022 Start: 06-02-2022 End: 08-02-2022 CBC W Auto Differential panel - Blood CBC + DIFF Lab Routine Annual physical exam Expected: 06/02/2022, Expires: 08/02/2022 [facility] Work Phone: Comment on above: Expected: 06/02/2022 , Expires: 08/02/2022 Start: 06-02-2022 End: 08-02-2022 Comprehensive metabolic 2000 panel - Serum or Plasma COMP METABOLIC PANEL Lab Routine Elevated blood sugar Lipid screening Annual physical exam Expected: 06/02/2022, Expires: 08/02/2022 [facility] Work Phone: Comment on above: Expected: 06/02/2022 , Expires: 08/02/2022 Start: 06-02-2022 End: 08-02-2022 Hemoglobin A1c in Blood HGB A1C Lab Routine Elevated blood sugar Expected: 06/02/2022, Expires: 08/02/2022 [facility] Work Phone: Comment on above: Expected: 06/02/2022 , Expires: 08/02/2022 Start: 06-02-2022 End: 08-02-2022 Lipid 1996 panel - Serum or Plasma LIPID PANEL BASIC Lab Routine Lipid screening Annual physical exam Expected: 06/02/2022, Expires: 08/02/2022 [facility] Work Phone: Comment on above: Expected: 06/02/2022 , Expires: 08/02/2022 Start: 04-23-2022 COVID-19 VACCINE (5 - Booster for Pfizer series) COVID-19 VACCINE (5 - Booster for Pfizer series) [facility] Start: 04-23-2022 COVID-19 VACCINE (5 - Pfizer series) COVID-19 VACCINE (5 - Pfizer series) [facility] Start: 11-20-2021 DEPRESSION ASSESSMENT DEPRESSION ASS ESSMENT [facility] Start: 2016 SHINGRIX VACCINE (1 of 2) SHINGRIX VACCINE (1 of 2) [facility] Start: 2011 COLOGUARD (FIT-DNA) COLOGUARD (FIT-D NA) [facility] Start: [address] COLONOGRAPHY [facility] Start: 2011 FECAL OCCULT BLOOD FECAL OCCULT BLOO D [facility] Start: 2011 Screening for malign ant neoplasm of colon [facility] Start: 2011 SIGMOIDOSCOPY SIGMOIDOSCOPY [facility] Start: 1985 Hepatitis B Vaccine (1 of 3 - 19+ 3-dose series) Hepatitis B Vaccine (1 of 3 - 19+ 3-dose series) [facility] Start: 1984 Depression Screening Depression Scre ening [facility] Start: 1984 HEPATITIS C SCREENING HEPATITIS C [facility] Start: 1984 Hepatitis C screening Hepatitis C [facility] Start: 1984 HIV SCREENING HIV SCREENING [facility] Start: 1984 HIV screening HIV Screening [facility] Start: 1966 HEPATITIS B (1 of 3 - 3-dose series) HEPATITIS B (1 of 3 - 3-dose series) [facility] Bacteria identified in Urine by Culture URINE CULTURE Microbiology Routine Right flank pain Inguinal pain, unspecified laterality History of kidney stones 08/18/2022 12:08 PM EDT [facility] Work Phone: Bacteria identified in Urine by Culture URINE CULTURE Microbiology Routine Kidney stone Left flank pain Ordered: 09/05/2022 [facility] Work Phone: Comment on above: Ordered: 09/05/2022 Bacteria identified in Urine by Culture URINE CULTURE Microbiology Routine Flank pain, acute 11/23/2022 12:44 PM EST [facility] Work Phone: Bacteria identified in Urine by Culture URINE CULTURE Microbiology Routine Burning with urination Ordered: 05/12/2023 [facility] Work Phone: Comment on above: Ordered: 05/12/2023 Bacteria identified in Urine by Culture URINE CULTURE Microbiology Routine Hematuria, unspecified type Ordered: 07/25/2024 [facility] Work Phone: Comment on above: Ordered: 07/25/2024 BACTERIAL VAGINOSIS NAAT BACTERIAL VAGINOSIS NAAT Lab Routine Vaginal odor 07/10/2024 7:51 AM EDT [facility] DENIA/TRICHOMONAS NAAT DENIA/TRICHOMONAS NAAT Lab Routine Vaginal odor 07/10/2024 7:51 AM EDT [facility] End: 08-24-2025 CT Kidney WO and W contrast IV CT UROGRAM WO/W IVCON Radiology Routine Hematuria, unspecified type 1 Occurrences starting 07/25/2024 until 08/24/2025 [facility] Comment on above: 1 Occurrences starti ng 07/25/2024 until 08/24/2025 CYTOLOGY NON-PERCUSSION INSTRUMENT TUNER CYTOLOGY NON-GY N Lab Routine Hematuria, unspecified type Ordered: 07/25/2024 [facility] Comment on above: Ordered: 07/25/2024 End: 09-27-2025 DBT Breast - bilateral screening MELINA SCREENING W IBIS Radiology Routine Encounter for screening mammogram for breast cancer 1 Occurrences starting 08/28/2024 until 09/27/2025 [facility] Work Phone: Comment on above: 1 Occurrences starti ng 08/28/2024 until 09/27/2025 Endometrial bx w/wo endocervix bx w/o dilat spx ENDOMETRIAL BIOPSY Procedures Routine Postmenopausal bleeding Ordered: 07/10/2024 [facility] Work Phone: Comment on above: Ordered: 07/10/2024 End: 08-18-2023 MELINA SCREENING W IBIS MELINA SCREENING W IBIS Radiology Routine Breast cancer screening by mammogram 1 Occurrences starting 07/19/2022 until 08/18/2023 [facility] Work Phone: Comment on above: 1 Occurrences starti ng 07/19/2022 until 08/18/2023 End: 01-25-2024 MELINA SCREENING W IBIS MELINA SCREENING W IBIS Radiology Routine Encounter for gynecological examination (general) (routine) without abnormal findings Encounter for screening mammogram for breast cancer 1 Occurrences starting 12/26/2022 until 01/25/2024 [facility] Work Phone: Comment on above: 1 Occurrences starti ng 12/26/2022 until 01/25/2024 OUTSIDE VENDOR CARDI AC OUTPATIENT EXTENDED RHYTHM RECORDING (WITHOUT TELEMETRY) OUTSIDE VENDOR CARDIAC OUTPATIENT EXTENDED RHYTHM RECORDING (WITHOUT TELEMETRY) Holter Routine Sinus bradycardia Ordered: 02/21/2023 [facility] Work Phone: Comment on above: Ordered: 02/21/2023 PAP TEST PAP TEST Lab Rou nelly Postmenopausal bleeding Screening for cervical cancer 07/10/2024 7:51 AM EDT [facility] SURGICAL PATHOLOGY SURGICAL PATH OLOGY Lab Routine Postmenopausal bleeding 07/10/2024 7:51 AM EDT [facility] Urinalysis complete panel - Urine URINALYSIS, WITH MICROSCOPIC Lab Routine Right flank pain Inguinal pain, unspecified laterality History of kidney stones 08/18/2022 12:08 PM EDT [facility] Work Phone: Urinalysis complete panel - Urine URINALYSIS, WITH MICROSCOPIC Lab Routine Kidney stone Left flank pain Ordered: 09/05/2022 [facility] Work Phone: Comment on above: Ordered: 09/05/2022 Urinalysis complete panel - Urine URINALYSIS, WITH MICROSCOPIC Lab Routine Hematuria, unspecified type Ordered: 07/25/2024 [facility] Comment on above: Ordered: 07/25/2024 [facility] Immunizations Immunization Date Immunization Notes Care Provider [facility] 08-19-2023 influenza, injectabl e, quadrivalent, contains preservative Immunization [place] Work Phone: [facility] 08-19-2023 influenza virus vaccine, unspecified formulation Vincent Quiros APRN.CNP Work Phone: [facility] 02-26-2022 COVID-19 vaccine, ag e 12+ yr ([employer]TotumNTEmida - PURPLE TOP) Ben Adams MD Work Phone: [facility] 09-25-2021 influenza, injectabl e, quadrivalent, contains preservative Ben Adams MD Work Phone: [facility] 09-13-2014 influenza, seasonal, injectable Ben Adams MD Work Phone: [facility] 06-26-2013 tetanus toxoid, reduced diphtheria toxoid, and acellular pertussis vaccine, adsorbed Ben Adams MD Work Phone: [facility] 08-18-2011 influenza virus vaccine, live, attenuated, for intranasal use Ben Adams MD Work Phone: [facility] Work Phone: 11-02-2009 novel [id number], all formulations Ben Adams MD Work Phone: [facility] Work Phone: 08-19-2009 influenza virus vaccine, live, attenuated, for intranasal use Ben Adams MD Work Phone: [facility] Work Phone: 09-27-2007 tetanus and diphther ia toxoids, adsorbed, preservative free, for adult use (2 Lf of tetanus toxoid and 2 Lf of diphtheria toxoid) Ben Adams MD Work Phone: [facility] 09-27-2005 influenza virus vaccine, unspecified formulation Ben Adams MD Work Phone: [facility] Work Phone: 09-08-2004 influenza virus vaccine, unspecified formulation Ben Adams MD Work Phone: [facility] Work Phone: Payers Date Payer Category Payer Unknown MMO MMO [employer] [id number] 2018-Present [phone] [address] [place] [address] PPO [id number] 2018 Unknown [id number] 2012 Unknown [employer] BLUE CARD PPO OOS [id number] 2012-Present [phone] [address] [place] [address] PPO [id number] 2012 Unknown [id number] 2012 Unknown [id number] Social History Date Type Detail Facility Start: 07-19-2022 [facility] Start: 12-21-2021 End: 09-27-2022 Alcohol intake Current non-drinker of alcohol (finding) [facility] Start: 09-22-2020 History SDOH Alcohol Std Drinks 98 [facility] Start: 09-22-2020 End: 07-23-2021 History SDOH Alcohol Binge 1 [facility] Start: 09-22-2020 History SDOH Social Connections Phone 5 [facility] Start: 09-22-2020 History SDOH Social Connections Living 3 [facility] Start: 09-22-2020 History SDOH Physica l Activity DPW 4 [facility] Start: 09-22-2020 End: 07-23-2021 History SDOH Physical Activity MPS 2 [facility] Start: 09-22-2020 Education 12 [facility] Start: 1965 Sex Assigned At Not on file [facility] Start: 05-23-2022 End: 09-27-2022 Exposure to SARS-CoV-2 (event) Not sure [facility] Start: 07-19-2022 Tobacco use and exposure Smoke less tobacco non-user [facility] Work Phone: Start: 02-28-2023 End: 08-28-2024 Alcohol intake Current drinker of alcohol (finding) [facility] Start: 02-28-2023 Alcohol Comment 1x per year [facility] Start: 09-22-2020 End: 06-02-2023 [facility] Start: 09-22-2020 End: 06-02-2023 Social connection and isolation panel [facility] Active Member of [facility] bs or Organizations Not on file [facility] Are you now , , , , never or living with a partner? [facility] How often do you hav e 6 or more drinks on 1 occasion? Never [facility] Do you feel stress - tense, restless, nervous, or anxious, or unable to sleep at night because your mind is troubled all the time - these days [OSQ] Only a little [facility] (I/We) worried wheth er (my/our) food would run out before (I/we) got money to buy more. Never true [facility] In the past 12 month s, was there a time when you were not able to pay the mortgage or rent on time? No [facility] Do you feel stress - tense, restless, nervous, or anxious, or unable to sleep at night because your mind is troubled all the time - these days [OSQ] To some extent [facility] Clinical Notes 03-19-2012 to 08-30-2024 Patient InstructionsLauro Mahmood DO - 08/30/2024 1:00 PM Dede Ragsdale MD - 08/28/2024 9:00 AM Dede Ragsdale MD - 08/28/2024 8:12 AM EDTPatient InstructionsPatient Instructions Note Date & Type Note Facility 08-30-2024 Instructions Lauro Mahmood DO - 08/30/2024 1:54 PM EDT The urine findings are very unlikely to be from the kidney itself. We can readdress however after you've sorted out things with OBGYN. We will test your urine for bacteria since there a vague symptoms of UTI we're not sure about, and prescribe a trial of antibiotic if needed. If still having issues with lower abdomen - I'd be curious about interstitial cystitis or bladder irritation but this often at the discretio of OB or Urology Can test Cystatin C to be more certain there is not a kidney problem (blood test) Come back in 1 year if needed. Door is always open documented in this encounter [facility] 08-30-2024 History of Presen t illness Narrative Images from the original note were not included. NEPHROLOGY CLINIC INITIAL VISIT PATIENT NAME: Viviana Townsend Consultation requested by self for an opinion regarding ckd. My final recommendations will be communicated back to the requesting physician by way of shared Medical record or letter to requesting physician via US mail. ASSESSMENT/PLAN 1.Hematuria with x2 small left stones and lower abdominal cramping/flank pain ongoing for months -most recent microscopic urine on 07/25 with + epi's/wbc/Rbc and no proteinuoria in the setting of a ? UTI symptoms somewhat vague (back/flank,Lower abdomen cramp) So hematuria cannot be interpreted. We'll repeat the urine culture today and offer trial of abx indicative, request to avoid penicillin -? If sx persiste speculated dx of IC, defer to urology/ob 2. Elevated Cr not rising to the level of CKD -repeat with cystatin c, Cr stable at 1 for many years. No helen edema today in le 3. Nephrolithiasis -litholink 2 year ago, high urine calcium -continue medical / dietary management as she is. Check pth, vit d. Thiazide theortically could help, but recent trial in [facility] doesn't support this RTC 1 year or sooner if needed SUBJECTIVE chief complaint HPI: 59 year hx of stones 2009, ESWL in 2021, est with urology last month at [facility]. Has received shock wave in the past. Has existing left kidney stones, this was worked up for hematuria - as below the CT showed at least 2 stones, 3mm, left kidney. Overweight, hld, psorias, anxiety, planning for Hysteroscopy D&C, and polyp resection for PMB and endometrial polyp on 09/12/24 as she's had post menopausal bleeding and follows obgyn closely, still having flank pain and lower abdomen pain that hasn't been clarified as to why Sees or at least has seen cardiology for HLD, due to swelling a pr/cr ratio was checked at that time and found negative. Today she has +le, wbc, protein in urine. RENAL HX Imaging Kidneys and urinary tract: Right: There are no renal calculi or masses. The opacified calices, renal pelvis and ureter are normal without dilation, filling defect, or stricture. Left: At least 2 nonobstructing stones measure up to 0.3 cm. There are no renal solid/enhancing masses. The opacified calices, renal pelvis and ureter are normal without dilation, filling defect, or stricture. Urine Current Outpatient Medications Medication Instructions Aspirin 81 mg, ORAL, DAILY, Take with food. buPROPion XL (WELLBUTRIN XL) 150 mg, ORAL, EVERY AFTERNOON busPIRone (BUSPAR) 5 mg, ORAL, 3 TIMES DAILY NEEDED clobetasol (TEMOVATE) 0.05 % ointment 1 application , TOPICAL, DIRECTED, to affected twice weekly. May use BID for 1-2 weeks prn flares for up to 2 weeks fluticasone (FLONASE) 50 mcg/actuation nasal spray 2 Sprays, EACH NOSTRIL, DAILY, Rinse mouth after use. hydrOXYzine HCl (ATARAX) 10 mg, ORAL, 3 TIMES DAILY NEEDED Mometasone (ELOCON) 0.1 % solution 1 application , TOPICAL, DAILY, for scalp as needed MULTIVITAMIN TAB Take one(1) tablet daily. naproxen (NAPROSYN) 500 mg, ORAL, 2 TIMES DAILY NEEDED, Take with food. rosuvastatin (CRESTOR) 10 mg, ORAL, DAILY tiZANidine (ZANAFLEX) 2 mg, ORAL, EVERY 8 HOURS NEEDED Social History Tobacco Use Smoking status: Never Smokeless tobacco: Never Vaping Use Vaping status: Never Used Substance Use Topics Alcohol use: Yes Comment: 1x per year Drug use: No FAMILY HISTORY Problem Relation Age of Onset Diabetes Maternal Grandmother Diabetes Maternal Aunt Diabetes Maternal Uncle Breast Cancer Sister age 39 , now with mets (including to colon) PAST SURGICAL HISTORY Procedure Laterality Date BREAST BX NEEDLE CORE LEFT 10/2017 benign DELIVERY ONLY 08/12/2003 , low cervical COLONOSCOPY FLX DX W/COLLJ SPEC WHEN PFRMD 11/03/2016 Colonoscopy COLONOSCOPY W/BIOPSY SINGLE/MULTIPLE 06/05/09 Normal appearing colon CYSTOURETHROSCOPY renal stones KIDNEY SURGERY HX TONSILLECTOMY PRIMARY/SECONDARY <AGE 12 Tonsillectomy OBJECTIVE PHYSICAL EXAM: BP - standardized method Pulse 1 BP #1: 130/83 Pulse #1: 79 beats/min 2 BP #2 : 121/79 Pulse #2 : 79 beats/min 3 BP #3 : 128/81 Pulse #3 : 78 beats/min Average Average BP: 126/81 Average Pulse: 78 beats/min Orthostatic vitals Supine Sitting Standing BP cuff location BP cuff size Comments for BP values First BP (right) First BP (left) Intake/Output None GENERAL: no distress EXTREMITIES:No edema DATA: Diagnostic tests reviewed for today's visit: Most recent labs and imaging results. CBC, Coags, BMP, Mg, Phos Liver Function, Amylase, & Lipase ABGs SIGNATURE: Lauro Mahmood DO DATE: August 27, 2024 TIME: 12:34 PM During this patient visit I have spent approximately 60 minutes out of 60 in counseling regarding medications, test results, and coordinating care and coordinating care. Medical Decision Making: Medical Decision Making Level: 1 - N/A Complexity: Low (1 stable chronic), moderate (2 stable chronic, 1 with exacerbation), High (severe exacerbation) Amount/Complexity of Data: limited (review prior notes & tests), moderate (review notes & tests or discussion MD/independent review/order test) Extensive (review notes & tests AND discussion MD/independent review/order test) Risk of complication :Moderate (Rx, procedure decision) High (intensive monitoring, immunosuppression, hospitalization,de-escalate care) documented in this encounter [facility] 08-30-2024 Note HNO ID: [id number] Author: LAURO MAHMOOD DO Service: ? Author Type: Physician Type: Progress Notes Filed: 08/30/2024 14:08 Note Text: NEPHROLOGY CLINIC INITIAL VISIT PATIENT NAME: Viviana Townsend Consultation requested by self for an opinion regarding ckd. My final recommendations will be communicated back to the requesting physician by way of shared Medical record or letter to requesting physician via US mail. ASSESSMENT/PLAN 1.Hematuria with x2 small left stones and lower abdominal cramping/flank pain ongoing for months -most recent microscopic urine on 07/25 with + epi's/wbc/Rbc and no proteinuoria in the setting of a ? UTI symptoms somewhat vague (back/flank,Lower abdomen cramp) So hematuria cannot be interpreted. We'll repeat the urine culture today and offer trial of abx indicative, request to avoid penicillin -? If sx persiste speculated dx of IC, defer to urology/ob 2. Elevated Cr not rising to the level of CKD -repeat with cystatin c, Cr stable at 1 for many years. No helen edema today in le 3. Nephrolithiasis -litholink 2 year ago, high urine calcium -continue medical / dietary management as she is. Check pth, vit d. Thiazide theortically could help, but recent trial in [facility] doesn't support this RTC 1 year or sooner if needed SUBJECTIVE chief complaint HPI: 59 year hx of stones 2009, ESWL in 2021, est with urology last month at [facility]. Has received shock wave in the past. Has existing left kidney stones, this was worked up for hematuria - as below the CT showed at least 2 stones, 3mm, left kidney. Overweight, hld, psorias, anxiety, planning for Hysteroscopy DANDC, and polyp resection for PMB and endometrial polyp on 09/12/24 as she's had post menopausal bleeding and follows obgyn closely, still having flank pain and lower abdomen pain that hasn't been clarified as to why Sees or at least has seen cardiology for HLD, due to swelling a pr/cr ratio was checked at that time and found negative. Today she has +le, wbc, protein in urine. RENAL HX Imaging Kidneys and urinary tract: Right: There are no renal calculi or masses. The opacified calices, renal pelvis and ureter are normal without dilation, filling defect, or stricture. Left: At least 2 nonobstructing stones measure up to 0.3 cm. There are no renal solid/enhancing masses. The opacified calices, renal pelvis and ureter are normal without dilation, filling defect, or stricture. Urine Current Outpatient Medications Medication Instructions Aspirin 81 mg, ORAL, DAILY, Take with food. buPROPion XL (WELLBUTRIN XL) 150 mg, ORAL, EVERY AFTERNOON busPIRone (BUSPAR) 5 mg, ORAL, 3 TIMES DAILY NEEDED clobetasol (TEMOVATE) 0.05 % ointment 1 application , TOPICAL, DIRECTED, to affected twice weekly. May use BID for 1-2 weeks prn flares for up to 2 weeks fluticasone (FLONASE) 50 mcg/actuation nasal spray 2 Sprays, EACH NOSTRIL, DAILY, Rinse mouth after use. hydrOXYzine HCl (ATARAX) 10 mg, ORAL, 3 TIMES DAILY NEEDED Mometasone (ELOCON) 0.1 % solution 1 application , TOPICAL, DAILY, for scalp as needed MULTIVITAMIN TAB Take one(1) tablet daily. naproxen (NAPROSYN) 500 mg, ORAL, 2 TIMES DAILY NEEDED, Take with food. rosuvastatin (CRESTOR) 10 mg, ORAL, DAILY tiZANidine (ZANAFLEX) 2 mg, ORAL, EVERY 8 HOURS NEEDED Social History Tobacco Use Smoking status: Never Smokeless tobacco: Never Vaping Use Vaping status: Never Used Substance Use Topics Alcohol use: Yes Comment: 1x per year Drug use: No FAMILY HISTORY Problem Relation Age of Onset Diabetes Maternal Grandmother Diabetes Maternal Aunt Diabetes Maternal Uncle Breast Cancer Sister age 39 , now with mets (including to colon) PAST SURGICAL HISTORY Procedure Laterality Date BREAST BX NEEDLE CORE LEFT 10/2017 benign DELIVERY ONLY 08/12/2003 , low cervical COLONOSCOPY FLX DX W/COLLJ SPEC WHEN PFRMD 11/03/2016 Colonoscopy COLONOSCOPY W/BIOPSY SINGLE/MULTIPLE 06/05/09 Normal appearing colon CYSTOURETHROSCOPY renal stones KIDNEY SURGERY HX TONSILLECTOMY PRIMARY/SECONDARY Tonsillectomy OBJECTIVE PHYSICAL EXAM: BP - standardized method Pulse 1 BP #1: 130/83 Pulse #1: 79 beats/min 2 BP #2 : 121/79 Pulse #2 : 79 beats/min 3 BP #3 : 128/81 Pulse #3 : 78 beats/min Average Average BP: 126/81 Average Pulse: 78 beats/min Orthostatic vitals Supine Sitting Standing BP cuff location BP cuff size Comments for BP values First BP (right) First BP (left) Intake/Output None GENERAL: no distress EXTREMITIES:No edema DATA: Diagnostic tests reviewed for today's visit: Most recent labs and imaging results. CBC, Coags, BMP, Mg, Phos Liver Function, Amylase, AND Lipase ABGs SIGNATURE: Lauro Mahmood DO DATE: August 27, 2024 TIME: 12:34 PM During this patient visit I have spent approximately 60 minutes out of 60 in counseling regarding medicat (more content not included)... [facility] 08-28-2024 Note HNO ID: [id number] Author: DEDE KAPLAN MD Service: ? Author Type: Physician Type: Progress Notes Filed: 08/28/2024 13:34 Note Text: Viviana Townsend is a 59 year old female who presents for problem visit for PMB. HPI: 59 YOF w/ PMB, continues w/ cramping and spotting since EMB. However, has kidney stones as well and being worked up for that so uncertain how much is from that. 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 History LMP: 06/22/2020 (Exact Date), Postmenopausal Age at Menarche: Age at First : Age at Menopause: Environmental Emergencies Planner History Comments: Sexual Activity: Yes; Male Contraception: No contraception data on record 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 Urinary calculus, unspecified 2010 Renal stones PAST SURGICAL HISTORY Procedure Laterality Date BREAST BX NEEDLE CORE LEFT 10/2017 benign DELIVERY ONLY 08/12/2003 , low cervical COLONOSCOPY FLX DX W/COLLJ SPEC WHEN PFRMD 11/03/2016 Colonoscopy COLONOSCOPY W/BIOPSY SINGLE/MULTIPLE 06/05/09 Normal appearing colon CYSTOURETHROSCOPY renal stones KIDNEY SURGERY HX TONSILLECTOMY PRIMARY/SECONDARY Tonsillectomy FAMILY HISTORY Problem Relation Age of Onset Diabetes Maternal Grandmother Diabetes Maternal Aunt Diabetes Maternal Uncle Breast Cancer Sister age 39 , now with mets (including to colon) Social History Tobacco Use Smoking status: Never Smokeless tobacco: Never Vaping Use Vaping status: Never Used Substance Use Topics Alcohol use: Yes Comment: 1x per year Drug use: No Current Outpatient Medications Medication Sig ketoconazole (NIZORAL) 2 % shampoo WASH THE SCALP 3 DAYS A WEEK. MASSAGE INTO SCALP AND LET SIT FOR 5 MINUTES BEFORE RINSING. ENSTILAR 0.005-0.064 % foam APPLY TO THE RIGHT TOE NAIL ONCE A DAY FOR 4 WEEKS ammonium lactate (LAC-HYDRIN) 12 % cream APPLY TO THE FEET AND LEGS 1-2 TIMES DAILY TOLERATED azluirmp-clqizwkhk-olrinsacvyhye e (CORTISPORIN) otic solution APPLY 4 DROP INTO BOTH EARS THREE TIMES A DAY rosuvastatin (CRESTOR) 10 mg tablet Take 1 tablet by mouth once daily. busPIRone (BUSPAR) 5 mg tablet Take 1 tablet by mouth three times a day as needed. clobetasol (TEMOVATE) 0.05 % ointment Apply 1 application to affected area as directed. to affected twice weekly. May use BID for 1-2 weeks prn flares for up to 2 weeks buPROPion XL (WELLBUTRIN XL) 150 mg 24 hr tablet take 1 tablet once daily tiZANidine (ZANAFLEX) 2 mg tablet Take 1 tablet by mouth every 8 hours as needed (muscle spasms). fluticasone (FLONASE) 50 mcg/actuation nasal spray Use 2 Sprays in each nostril once daily. Rinse mouth after use. naproxen (NAPROSYN) 500 mg tablet Take 1 tablet by mouth twice daily as needed (for pain/inflammation). Take with food. hydrOXYzine HCl (ATARAX) 10 mg tablet Take 1 tablet by mouth three times daily as needed. Mometasone (ELOCON) 0.1 % solution Apply 1 application to affected area once daily. for scalp as needed Aspirin 81 mg Tab Take 1 tablet by mouth once daily. Take with food. MULTIVITAMIN TAB Take one(1) tablet daily. miSOPROStol (CYTOTEC) 200 mcg tablet Use 2 tablets vaginally one time only for [address] 2 tablets vaginally the morning before surgery. No current facility-administered medications for this visit. Allergies As of Date: 08/28/2024 Allergen Noted Reaction LATEX 10/25/2005 PENICILLINS 10/25/2005 Fully Assessed 08/28/2024 Allergies and current medication updated:Yes SENSITIVE EXAM: Sensitive exam not performed. EXAM: BP 118/72 Pulse 90 Ht 5' 2 (1.58m) Wt 189 lb (85.7kg) SpO2 98% LMP 06/22/2020 BMI 34.56 kg/(m2). GENERAL: pleasant, female in no apparent distress HASSESSMENT AND PLAN: PMB< endometrial polyp on EMB. I reviewed pap/CBC/CMP and pelvic USand pap/hrhpv decision for surgery today. See HANDP Dede Kaplan MD [facility] 08-28-2024 History of Presen t illness Narrative Viviana Townsend is a 59 year old female who presents for problem visit for PMB. HPI: 59 YOF w/ PMB, continues w/ cramping and spotting since EMB. However, has kidney stones as well and being worked up for that so uncertain how much is from that. 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 History LMP: 06/22/2020 (Exact Date), Postmenopausal Age at Menarche: Age at First : Age at Menopause: Environmental Emergencies Planner History Comments: Sexual Activity: Yes; Male Contraception: No contraception data on record 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 Urinary calculus, unspecified 2010 Renal stones PAST SURGICAL HISTORY Procedure Laterality Date BREAST BX NEEDLE CORE LEFT 10/2017 benign DELIVERY ONLY 08/12/2003 , low cervical COLONOSCOPY FLX DX W/COLLJ SPEC WHEN PFRMD 11/03/2016 Colonoscopy COLONOSCOPY W/BIOPSY SINGLE/MULTIPLE 06/05/09 Normal appearing colon CYSTOURETHROSCOPY renal stones KIDNEY SURGERY HX TONSILLECTOMY PRIMARY/SECONDARY <AGE 13 Tonsillectomy FAMILY HISTORY Problem Relation Age of Onset Diabetes Maternal Grandmother Diabetes Maternal Aunt Diabetes Maternal Uncle Breast Cancer Sister age 39 , now with mets (including to colon) Social History Tobacco Use Smoking status: Never Smokeless tobacco: Never Vaping Use Vaping status: Never Used Substance Use Topics Alcohol use: Yes Comment: 1x per year Drug use: No Current Outpatient Medications Medication Sig ketoconazole (NIZORAL) 2 % shampoo WASH THE SCALP 3 DAYS A WEEK. MASSAGE INTO SCALP AND LET SIT FOR 5 MINUTES BEFORE RINSING. ENSTILAR 0.005-0.064 % foam APPLY TO THE RIGHT TOE NAIL ONCE A DAY FOR 4 WEEKS ammonium lactate (LAC-HYDRIN) 12 % cream APPLY TO THE FEET AND LEGS 1-2 TIMES DAILY TOLERATED ceuovenz-rkhhgdyfd-gzsjnhafqrsvr e (CORTISPORIN) otic solution APPLY 4 DROP INTO BOTH EARS THREE TIMES A DAY rosuvastatin (CRESTOR) 10 mg tablet Take 1 tablet by mouth once daily. busPIRone (BUSPAR) 5 mg tablet Take 1 tablet by mouth three times a day as needed. clobetasol (TEMOVATE) 0.05 % ointment Apply 1 application to affected area as directed. to affected twice weekly. May use BID for 1-2 weeks prn flares for up to 2 weeks buPROPion XL (WELLBUTRIN XL) 150 mg 24 hr tablet take 1 tablet once daily tiZANidine (ZANAFLEX) 2 mg tablet Take 1 tablet by mouth every 8 hours as needed (muscle spasms). fluticasone (FLONASE) 50 mcg/actuation nasal spray Use 2 Sprays in each nostril once daily. Rinse mouth after use. naproxen (NAPROSYN) 500 mg tablet Take 1 tablet by mouth twice daily as needed (for pain/inflammation). Take with food. hydrOXYzine HCl (ATARAX) 10 mg tablet Take 1 tablet by mouth three times daily as needed. Mometasone (ELOCON) 0.1 % solution Apply 1 application to affected area once daily. for scalp as needed Aspirin 81 mg Tab Take 1 tablet by mouth once daily. Take with food. MULTIVITAMIN TAB Take one(1) tablet daily. miSOPROStol (CYTOTEC) 200 mcg tablet Use 2 tablets vaginally one time only for [address] 2 tablets vaginally the morning before surgery. No current facility-administered medications for this visit. Allergies As of Date: 08/28/2024 Allergen Noted Reaction LATEX 10/25/2005 PENICILLINS 10/25/2005 Fully Assessed 08/28/2024 Allergies and current medication updated:Yes SENSITIVE EXAM: Sensitive exam not performed. EXAM: BP 118/72 Pulse 90 Ht 5' 2 (1.58m) Wt 189 lb (85.7kg) SpO2 98% LMP 06/22/2020 BMI 34.56 kg/(m^2). GENERAL: pleasant, female in no apparent distress HASSESSMENT AND PLAN: PMB< endometrial polyp on EMB. I reviewed pap/CBC/CMP and pelvic USand pap/hrhpv decision for surgery today. See H&P Dede Kaplan MD documented in this encounter [facility] 08-28-2024 History and physical note Pre-Op History and Physical HPI: The patient is a 59 year old female presenting for pre-operative visit. She is scheduled for Hysteroscopy D&C, and polyp resection for PMB and endometrial polyp on 09/12/24. Procedure discussed along with risks, benefits and complications. Other alternatives discussed for management. Consent form signed? Yes. 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 MASSAGE INTO SCALP AND LET SIT FOR 5 MINUTES BEFORE RINSING. ENSTILAR 0.005-0.064 % foam APPLY TO THE RIGHT TOE NAIL ONCE A DAY FOR 4 WEEKS ammonium lactate (LAC-HYDRIN) 12 % cream APPLY TO THE FEET AND LEGS 1-2 TIMES DAILY TOLERATED dqjlsokj-lywauweat-idueyarbnsvbo e (CORTISPORIN) otic solution APPLY 4 DROP INTO BOTH EARS THREE TIMES A DAY rosuvastatin (CRESTOR) 10 mg tablet Take 1 tablet by mouth once daily. 90 tablet 3 busPIRone (BUSPAR) 5 mg tablet Take 1 tablet by mouth three times a day as needed. 90 tablet 3 clobetasol (TEMOVATE) 0.05 % ointment Apply 1 application to affected area as directed. to affected twice weekly. May use BID for 1-2 weeks prn flares for up to 2 weeks 60 g 1 buPROPion XL (WELLBUTRIN XL) 150 mg 24 hr tablet take 1 tablet once daily 90 tablet 3 tiZANidine (ZANAFLEX) 2 mg tablet Take 1 tablet by mouth every 8 hours as needed (muscle spasms). 30 tablet 0 fluticasone (FLONASE) 50 mcg/actuation nasal spray Use 2 Sprays in each nostril once daily. Rinse mouth after use. 1 Each 3 naproxen (NAPROSYN) 500 mg tablet Take 1 tablet by mouth twice daily as needed (for pain/inflammation). Take with food. 15 tablet 0 hydrOXYzine HCl (ATARAX) 10 mg tablet Take 1 tablet by mouth three times daily as needed. 30 tablet 0 Mometasone (ELOCON) 0.1 % solution Apply 1 application to affected area once daily. for scalp as needed 60 mL 11 Aspirin 81 mg Tab Take 1 tablet by mouth once daily. Take with food. MULTIVITAMIN TAB Take one(1) tablet daily. 0 No current facility-administered medications for this visit. ALLERGIES: Latex and Penicillins PERSONAL HISTORY: Social History Tobacco Use Smoking status: Never Smokeless tobacco: Never Vaping Use Vaping status: Never Used Substance Use Topics Alcohol use: Yes Comment: 1x per year Drug use: No FAMILY HISTORY: FAMILY HISTORY Problem Relation Age of Onset Diabetes Maternal Grandmother Diabetes Maternal Aunt Diabetes Maternal Uncle Breast Cancer Sister age 39 , now with mets (including to colon) REVIEW OF SYMPTOMS: GENERAL: denies fevers or chills ENDOCRINOLOGY: has not been on steroids Cardiology : denies palpitations or chest pain Respiratory: denies SOB or cough Hematology: denies history of prolonged bleeding or easy bruising or VTE Allergy: Denies history of personal or family history of allergy to anesthesia PHYSICAL EXAMINATION: VITALS: Blood pressure 118/72, pulse 90, height 157.5 cm (5' 2 ), weight 85.7 kg (189 lb), last menstrual period 06/22/2020, SpO2 98%. GENERAL: The patient is well nourished, well hydrated in no acute distress. , The patient is oriented to time, place, and person. NECK: Supple. No lynphadenopathy, normal thyroid, no thyromegaly. LUNGS: Clear to auscultation bilaterally. no wheezes, rhonchi or rales HEART: Regular rate and rhythm, Normal heart sounds, and No murmurs or gallops Pelvic US on 07/18/24 Indication Postmenopausal bleeding- spotting Impression Anteverted fibroid uterus that measures 81 mm x 31 mm x 45 mm. The largest fibroids are described below. Endometrium is heterogeneous and measures 6 mm, which is abnormally thickened in menopause. Both ovaries are visualized and appear normal. No adnexal masses were observed. There is no free fluid visualized in the peritoneal cavity. Recent endometrial biopsy demonstrated presence of an endometrial polyp. Recommendations Recommend hysteroscopic evaluation as clinically indicated. 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 View: Adequate visualization Uterus Uterus: Visualized Uterus position: anteverted Description of uterine malformations: none Myometrium: heterogeneous Endometrium: thickened Cervix details: normal Uterus length 81 mm Uterus width 45 mm Uterus height 31 mm Uterus Vol 58.6 cm Endometrial thickness, total 6.0 mm Uterine fibroid D1 6 mm Uterine fibroid D2 8 mm Uterine fibroid D3 56 mm Uterine fibroid mean 23.5 mm Uterine fibroid vol 1.501 cm Uterine fibroids findings: Right lateral posterior wall. intramural Right Ovary Rt ovary: Visualized Rt ovary morphology: postmenopausal atrophic Rt ovary D1 21 mm Rt ovary D2 29 mm Rt ovary D3 12 mm Rt ovary Vol 3.9 cm Left Ovary Lt ovary: Visualized Lt ovary morphology: postmenopausal atrophic Lt ovary D1 16 mm Lt ovary D2 19 mm Lt ovary D3 13 mm Lt ovary Vol 2.0 cm Cul de Sac Visualized. no free fluid visualized EMB 06/2024 fragment of polyp and atrophic endometrium IMPRESSION: PMB, endometrial polyp PLAN: The risks/benefits/alternatives and personal involved for the planned hysteroscopy D&C with polyp resection were reviewed with the patient. Her questions were answered to her satisfaction and she desires to proceed. Consent was signed. I reviewed with her postop instructions and expectations. I have reviewed and updated past medical and surgical history, medications and allergies Dede Kaplan M.D. [facility] 08-28-2024 History and physical note Pre-Op History and Physical HPI: The patient is a 59 year old female presenting for pre-operative visit. She is scheduled for Hysteroscopy D&C, and polyp resection for PMB and endometrial polyp on 09/12/24. Procedure discussed along with risks, benefits and complications. Other alternatives discussed for management. Consent form signed? Yes. 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 MASSAGE INTO SCALP AND LET SIT FOR 5 MINUTES BEFORE RINSING. ENSTILAR 0.005-0.064 % foam APPLY TO THE RIGHT TOE NAIL ONCE A DAY FOR 4 WEEKS ammonium lactate (LAC-HYDRIN) 12 % cream APPLY TO THE FEET AND LEGS 1-2 TIMES DAILY TOLERATED yuhludtv-efgkuavsf-pncgjrgnvomun e (CORTISPORIN) otic solution APPLY 4 DROP INTO BOTH EARS THREE TIMES A DAY rosuvastatin (CRESTOR) 10 mg tablet Take 1 tablet by mouth once daily. 90 tablet 3 busPIRone (BUSPAR) 5 mg tablet Take 1 tablet by mouth three times a day as needed. 90 tablet 3 clobetasol (TEMOVATE) 0.05 % ointment Apply 1 application to affected area as directed. to affected twice weekly. May use BID for 1-2 weeks prn flares for up to 2 weeks 60 g 1 buPROPion XL (WELLBUTRIN XL) 150 mg 24 hr tablet take 1 tablet once daily 90 tablet 3 tiZANidine (ZANAFLEX) 2 mg tablet Take 1 tablet by mouth every 8 hours as needed (muscle spasms). 30 tablet 0 fluticasone (FLONASE) 50 mcg/actuation nasal spray Use 2 Sprays in each nostril once daily. Rinse mouth after use. 1 Each 3 naproxen (NAPROSYN) 500 mg tablet Take 1 tablet by mouth twice daily as needed (for pain/inflammation). Take with food. 15 tablet 0 hydrOXYzine HCl (ATARAX) 10 mg tablet Take 1 tablet by mouth three times daily as needed. 30 tablet 0 Mometasone (ELOCON) 0.1 % solution Apply 1 application to affected area once daily. for scalp as needed 60 mL 11 Aspirin 81 mg Tab Take 1 tablet by mouth once daily. Take with food. MULTIVITAMIN TAB Take one(1) tablet daily. 0 No current facility-administered medications for this visit. ALLERGIES: Latex and Penicillins PERSONAL HISTORY: Social History Tobacco Use Smoking status: Never Smokeless tobacco: Never Vaping Use Vaping status: Never Used Substance Use Topics Alcohol use: Yes Comment: 1x per year Drug use: No FAMILY HISTORY: FAMILY HISTORY Problem Relation Age of Onset Diabetes Maternal Grandmother Diabetes Maternal Aunt Diabetes Maternal Uncle Breast Cancer Sister age 39 , now with mets (including to colon) REVIEW OF SYMPTOMS: GENERAL: denies fevers or chills ENDOCRINOLOGY: has not been on steroids Cardiology : denies palpitations or chest pain Respiratory: denies SOB or cough Hematology: denies history of prolonged bleeding or easy bruising or VTE Allergy: Denies history of personal or family history of allergy to anesthesia PHYSICAL EXAMINATION: VITALS: Blood pressure 118/72, pulse 90, height 157.5 cm (5' 2 ), weight 85.7 kg (189 lb), last menstrual period 06/22/2020, SpO2 98%. GENERAL: The patient is well nourished, well hydrated in no acute distress. , The patient is oriented to time, place, and person. NECK: Supple. No lynphadenopathy, normal thyroid, no thyromegaly. LUNGS: Clear to auscultation bilaterally. no wheezes, rhonchi or rales HEART: Regular rate and rhythm, Normal heart sounds, and No murmurs or gallops Pelvic US on 07/18/24 Indication Postmenopausal bleeding- spotting Impression Anteverted fibroid uterus that measures 81 mm x 31 mm x 45 mm. The largest fibroids are described below. Endometrium is heterogeneous and measures 6 mm, which is abnormally thickened in menopause. Both ovaries are visualized and appear normal. No adnexal masses were observed. There is no free fluid visualized in the peritoneal cavity. Recent endometrial biopsy demonstrated presence of an endometrial polyp. Recommendations Recommend hysteroscopic evaluation as clinically indicated. 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 View: Adequate visualization Uterus Uterus: Visualized Uterus position: anteverted Description of uterine malformations: none Myometrium: heterogeneous Endometrium: thickened Cervix details: normal Uterus length 81 mm Uterus width 45 mm Uterus height 31 mm Uterus Vol 58.6 cm Endometrial thickness, total 6.0 mm Uterine fibroid D1 6 mm Uterine fibroid D2 8 mm Uterine fibroid D3 56 mm Uterine fibroid mean 23.5 mm Uterine fibroid vol 1.501 cm Uterine fibroids findings: Right lateral posterior wall. intramural Right Ovary Rt ovary: Visualized Rt ovary morphology: postmenopausal atrophic Rt ovary D1 21 mm Rt ovary D2 29 mm Rt ovary D3 12 mm Rt ovary Vol 3.9 cm Left Ovary Lt ovary: Visualized Lt ovary morphology: postmenopausal atrophic Lt ovary D1 16 mm Lt ovary D2 19 mm Lt ovary D3 13 mm Lt ovary Vol 2.0 cm Cul de Sac Visualized. no free fluid visualized EMB 06/2024 fragment of polyp and atrophic endometrium IMPRESSION: PMB, endometrial polyp PLAN: The risks/benefits/alternatives and personal involved for the planned hysteroscopy D&C with polyp resection were reviewed with the patient. Her questions were answered to her satisfaction and she desires to proceed. Consent was signed. I reviewed with her postop instructions and expectations. I have reviewed and updated past medical and surgical history, medications and allergies Dede Kaplan M.D. documented in this encounter [facility] 08-28-2024 Note Patient Outreach (IN [facility]) VIVIANA TOWNSEND Cortez ([id number]) 1965 F Date Time Provider Department 08/28/24 B[facility]AMS During your visit today, we recorded the following information about you: Allergies As of Date: 08/28/2024 Noted Allergy Reaction LATEX 10/25/2005 PENICILLINS 10/25/2005 Date Reviewed: 08/28/2024 Reviewed by: Dede Kaplan MD - Fully Assessed Visit Diagnosis:Encounter for screening mammogram for breast cancer [Z12.31] Order(s):MELINA SCREENING W IBIS [[id number]] Order #: [id number] FUTURE Prescriptions as of 09/02/2024 - ketoconazole (NIZORAL) 2 % shampoo WASH THE SCALP 3 DAYS A WEEK. MASSAGE INTO SCALP AND LET SIT FOR 5 MINUTES BEFORE RINSING. - ENSTILAR 0.005-0.064 % foam APPLY TO THE RIGHT TOE NAIL ONCE A DAY FOR 4 WEEKS - ammonium lactate (LAC-HYDRIN) 12 % cream APPLY TO THE FEET AND LEGS 1-2 TIMES DAILY TOLERATED - vqepgdss-oqxsqfpat-ujqqrhzkzcsxd e (CORTISPORIN) otic solution APPLY 4 DROP INTO BOTH EARS THREE TIMES A DAY - rosuvastatin (CRESTOR) 10 mg tablet Take 1 tablet by mouth once daily. - busPIRone (BUSPAR) 5 mg tablet Take 1 tablet by mouth three times a day as needed. - clobetasol (TEMOVATE) 0.05 % ointment Apply 1 application to affected area as directed. to affected twice weekly. May use BID for 1-2 weeks prn flares for up to 2 weeks - buPROPion XL (WELLBUTRIN XL) 150 mg 24 hr tablet take 1 tablet once daily - tiZANidine (ZANAFLEX) 2 mg tablet Take 1 tablet by mouth every 8 hours as needed (muscle spasms). - fluticasone (FLONASE) 50 mcg/actuation nasal spray Use 2 Sprays in each nostril once daily. Rinse mouth after use. - naproxen (NAPROSYN) 500 mg tablet Take 1 tablet by mouth twice daily as needed (for pain/inflammation). Take with food. - hydrOXYzine HCl (ATARAX) 10 mg tablet Take 1 tablet by mouth three times daily as needed. - Mometasone (ELOCON) 0.1 % solution Apply 1 application to affected area once daily. for scalp as needed - Aspirin 81 mg Tab Take 1 tablet by mouth once daily. Take with food. - MULTIVITAMIN TAB Take one(1) tablet daily. Problem List As Of Date 08/28/2024 Noted Resolved IRRITABLE COLON [K58.9] Generalized Anxiety Disorder [F41.1] OTHER PSORIASIS [L40.8] MITRAL VALVE DISORDER [I05.9] DYSMETABOLIC SYNDROME X [E88.810] HYPERLIPIDEMIA NEC/NOS [E78.5] 09/27/2007 OVERWEIGHT [E66.3] 09/27/2007 Primary hypercoagulable state (HCC) [D68.59] 10/01/2007 12/25/2018 Routine general medical examination at [facility]*10/01/2007 09/17/2012 SLEEP DISTURBANCE NOS [G47.9] 06/02/2008 Umbilical hernia without mention of obstruction*08/19/2008 12/25/2018 Abdominal Pain, Other Specified Site [R10.9] 05/18/2009 Ureteral stone [N20.1] 08/04/2010 09/17/2012 Cervicalgia [M54.2] 03/19/2012 Lumbago [M54.50] 03/19/2012 09/17/2012 Adolescent idiopathic scoliosis of thoracolumba*10/27/2015 Obesity, Class I, BMI 30-34.9 [E66.811] 12/26/2022 Atypical squamous cells of undetermined signifi*07/18/2024 Encounter Status:Closed by YANET HOOVER on 09/02/24 [facility] 08-16-2024 Telephone encounter Note Left message notifying pt of results and informed them to call back with any further questions. Mei Thompson MA [facility] 08-16-2024 Telephone encounter Note ----- Message from Caitlin Pradhan APRN.CNP sent at 08/16/2024 1:33 PM EDT ----- Please advise patient that her CTU showed stable left non-obstructing kidney stones. No masses, lesions, or hydronephrosis noted. [facility] 08-16-2024 Miscellaneous Notes Left message notifying pt of results and informed them to call back with any further questions. Mei Thompson MA ----- Message from Caitlin Pradhan APRN.STEAM TUNNEL FEEDER sent at 08/16/2024 1:33 PM EDT ----- Please advise patient that her CTU showed stable left non-obstructing kidney stones. No masses, lesions, or hydronephrosis noted. documented in this encounter [facility] 08-16-2024 History of Presen t illness Narrative Radiology Service Progress Note DATE OF SERVICE: August 16, 2024 TIME: 2:38 PM PATIENT IDENTITY VERIFICATION COMPLETED USING TWO (2) STANDARD IDENTIFIERS: Name and Date of confirmed by patient verbally. FALL SCREENING: Has the patient had 2 falls in the last year or 1 fall with injury or currently using an Ambulatory Assistive Device (Walker, Cane, Wheelchair, Crutches, etc.)? No PATIENT GENDER DATA: Female. status: : No status: NO. PATIENT RELEVANT IMPLANT DATA REVIEWED: Yes PATIENT PRESENTS WITH AN IMPLANTABLE OR ATTACHED EM PHYSICIAN: No ALLERGIES: Reviewed and unchanged CONTRAST ALLERGY: NO. EXAM: CT -CONTRAST INDUCED NEPHROPATHY RISK FACTORS: Not applicable CREATININE: Creatinine Date Value Ref Range Status 07/10/2024 1.03 (H) 0.58 - 0.96 mg/dL Final 08/19/2023 0.99 (H) 0.58 - 0.96 mg/dL Final 07/01/2023 1.06 (H) 0.58 - 0.96 mg/dL Final Estimated Glomerular Filtration Rate Date Value Ref Range Status 07/10/2024 63 >=60 mL/min/1.73m Final Comment: Estimated Glomerular Filtration Rate (eGFR) is calculated using the 2020 CKD-EPI creatinine equation. This equation utilizes serum creatinine, sex, and age as parameters. The creatinine assay has traceable calibration to isotope dilution-mass spectrometry. Refer to KDIGO guidelines for clinical interpretation. In patients with unstable renal function, e.g. those with acute kidney injury, the eGFR may not accurately reflect actual GFR. eGFR- Date Value Ref Range Status 07/23/2021 >60 Final P.O.C.T. RESULTS: POC done: Yes, See Lab Tab August 16, 2024 TREATMENT: N/A PERIPHERAL IV DATA: Ambulatory: A peripheral IV was started in the Left antecubital site with a Angio cath: 22 gauge. RADIOLOGY DEPARTMENT: CT; Exam(s) Completed: Urogram SIGNATURE: RT Andrew(Emilio) PATIENT NAME: Viviana Townsend DATE: August 16, 2024 TIME: 2:38 PM documented in this encounter [facility] 08-16-2024 Note HNO ID: [id number] Author: KRYS SOTO RT(R) Service: ? Author Type: Can Capper Type: Progress Notes Filed: 08/16/2024 14:38 Note Text: Radiology Service Progress Note DATE OF SERVICE: August 16, 2024 TIME: 2:38 PM PATIENT IDENTITY VERIFICATION COMPLETED USING TWO (2) STANDARD IDENTIFIERS: Name and Date of confirmed by patient verbally. FALL SCREENING: Has the patient had 2 falls in the last year or 1 fall with injury or currently using an Ambulatory Assistive Device (Walker, Cane, Wheelchair, Crutches, etc.)? No PATIENT GENDER DATA: Female. status: : No status: NO. PATIENT RELEVANT IMPLANT DATA REVIEWED: Yes PATIENT PRESENTS WITH AN IMPLANTABLE OR ATTACHED EM PHYSICIAN: No ALLERGIES: Reviewed and unchanged CONTRAST ALLERGY: NO. EXAM: CT -CONTRAST INDUCED NEPHROPATHY RISK FACTORS: Not applicable CREATININE: Creatinine Date Value Ref Range Status 07/10/2024 1.03 (H) 0.58 - 0.96 mg/dL Final 08/19/2023 0.99 (H) 0.58 - 0.96 mg/dL Final 07/01/2023 1.06 (H) 0.58 - 0.96 mg/dL Final Estimated Glomerular Filtration Rate Date Value Ref Range Status 07/10/2024 63 >=60 mL/min/1.73m? Final Comment: Estimated Glomerular Filtration Rate (eGFR) is calculated using the 2020 CKD-EPI creatinine equation. This equation utilizes serum creatinine, sex, and age as parameters. The creatinine assay has traceable calibration to isotope dilution-mass spectrometry. Refer to KDIGO guidelines for clinical interpretation. In patients with unstable renal function, e.g. those with acute kidney injury, the eGFR may not accurately reflect actual GFR. eGFR- Date Value Ref Range Status 07/23/2021 >60 Final P.O.C.T. RESULTS: POC done: Yes, See Lab Tab August 16, 2024 TREATMENT: N/A PERIPHERAL IV DATA: Ambulatory: A peripheral IV was started in the Left antecubital site with a Angio cath: 22 gauge. RADIOLOGY DEPARTMENT: CT; Exam(s) Completed: Urogram SIGNATURE: Krys Winchester RT(R) PATIENT NAME: Viviana Townsend DATE: August 16, 2024 TIME: 2:38 PM [facility] 07-26-2024 Telephone encounter Note Patient 's Liam advised-cytology came back negative for high-grade urothelial carcinoma. This is great news! Patient agreed, and verbalized understanding. Anca Correa MA [facility] 07-26-2024 Miscellaneous Notes Patient 's Liam advised-cytology came back negative for high-grade urothelial carcinoma. This is great news! Patient agreed, and verbalized understanding. Anca Correa MA ----- Message from Caitlin Pradhan APRN.CNP sent at 07/26/2024 12:50 PM EDT ----- Please notify patient that their cytology came back negative for high-grade urothelial carcinoma. This is great news! documented in this encounter [facility] 07-26-2024 Telephone encounter Note ----- Message from Caitlin Pradhan APRN.CNP sent at 07/26/2024 12:50 PM EDT ----- Please notify patient that their cytology came back negative for high-grade urothelial carcinoma. This is great news! [facility] 07-25-2024 History of Presen t illness Narrative Images from the original note were not included. [facility] [place] [facility] [place] [facility] VIS[facility] 07/25/2024 8:17 AM PATIENT NAME: Viviana Townsend DATE OF : 1965 TODAY'S DATE: 07/25/2024 Referring Provider: No referring provider defined for this encounter. Chief Complaint: Patient presents with: Hematuria History of Present Illness: Ms. Townsend is a 59 year old female who presents to the office regarding nephrolithiasis. Patient with a history of kidney stones. Last seen in office on 11/23/2022. CT flank completed at that time showing non-obstructing stones within the left kidney, no hydro. Today patient c/o bleeding since the beginning of 2023. Recently was seen by OBGYN regarding this. Patient is most-menopausal. Pelvic exam on 07/10/2024 was negative. Endometrial specimen sent at that time were benign. PAP showed ASC-US, negative HPV. Pelvic US showed endometrial polyp which patient is having surgery to remove. Patient unsure if blood when she is wiping is coming from urine. Last stone passage: Unknown Familial history of kidney stones or kidney disease: Dysuria: Occasionally Flank pain: Occasionally Fluid intake: Drinks some water Never a smoker. Prior surgical interventions for kidney stones - 2021- ESWL with Dr. Montes Patient also concerned about kidney function gradually worsening. Cr- 1.03 GFR- 63. Patient states she does not really have PCP. She also reports swelling of her lower limbs but states her research geologist does not attribute it to the heart. No on any diuretics. Review of Systems Constitutional: Negative for chills and fever. Genitourinary: Negative for difficulty urinating, frequency and urgency. See HPI Past Medical History: PAST MEDICAL HISTORY 2 miss carriages : Abnormal coagulation profile Comment: ABNORMAL COAGULATION STUDY No date: Adjustment disorder with depressed mood No date: Dizziness and giddiness No date: Dyslipidemia No date: Dysmetabolic syndrome X No date: Generalized anxiety disorder No date: Irritable bowel syndrome 10/31/2013: IUD (intrauterine device) in place 09/2020: Lab test positive for detection of COVID-19 virus No date: Mitral valve disorders 09/03/2018: Myopia with astigmatism and presbyopia 09/03/2018: Ocular hypertension No date: Other abnormal heart sounds No date: Other psoriasis No date: Premenstrual tension syndromes 2005: 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 2010: Urinary calculus, unspecified Comment: Renal stones Past Surgical History: PAST SURGICAL HISTORY 10/2017: BREAST BX NEEDLE CORE LEFT Comment: benign 08/12/2003: DELIVERY ONLY Comment: , low cervical 11/03/2016: COLONOSCOPY FLX DX W/COLLJ SPEC WHEN PFRMD Comment: Colonoscopy 06/05/09: COLONOSCOPY W/BIOPSY SINGLE/MULTIPLE Comment: Normal appearing colon No date: CYSTOURETHROSCOPY Comment: renal stones No date: KIDNEY SURGERY HX No date: TONSILLECTOMY PRIMARY/SECONDARY <AGE 13 Comment: Tonsillectomy Social History: Social History Tobacco Use Smoking status: Never Smokeless tobacco: Never Vaping Use Vaping status: Never Used Substance Use Topics Alcohol use: Yes Comment: 1x per year Drug use: No Medications: Prior to Admission medications : Medication rosuvastatin (CRESTOR) 10 mg tablet, Sig Take 1 tablet by mouth once daily., Start Date 01/24/24, End Date , Taking? , Authorizing Provider Delma Turk APRN.STEAM TUNNEL FEEDER Medication busPIRone (BUSPAR) 5 mg tablet, Sig Take 1 tablet by mouth three times a day as needed., Start Date 01/24/24, End Date , Taking? , Authorizing Provider Delma Turk APRN.STEAM TUNNEL FEEDER Medication clobetasol (TEMOVATE) 0.05 % ointment, Sig Apply 1 application to affected area as directed. to affected twice weekly. May use BID for 1-2 weeks prn flares for up to 2 weeks, Start Date 01/24/24, End Date , Taking? , Authorizing Provider Delma Turk APRN.STEAM TUNNEL FEEDER Medication buPROPion XL (WELLBUTRIN XL) 150 mg 24 hr tablet, Sig take 1 tablet once daily, Start Date 09/25/23, End Date , Taking? , Authorizing Provider Jackie Rivera PA-C Medication tiZANidine (ZANAFLEX) 2 mg tablet, Sig Take 1 tablet by mouth every 8 hours as needed (muscle spasms)., Start Date 07/19/23, End Date , Taking? , Authorizing Provider Delma Turk APRN.STEAM TUNNEL FEEDER Medication fluticasone (FLONASE) 50 mcg/actuation nasal spray, Sig Use 2 Sprays in each nostril once daily. Rinse mouth after use., Start Date 03/15/23, End Date , Taking? , Authorizing Provider Delma Turk APRN.STEAM TUNNEL FEEDER Medication naproxen (NAPROSYN) 500 mg tablet, Sig Take 1 tablet by mouth twice daily as needed (for pain/inflammation). Take with food., Start Date 08/19/22, End Date , Taking? , Authorizing Provider Delma Turk APRN.STEAM TUNNEL FEEDER Medication hydrOXYzine HCl (ATARAX) 10 mg tablet, Sig Take 1 tablet by mouth three times daily as needed., Start Date 07/19/22, End Date , Taking? , Authorizing Provider Ben Adams MD Medication Mometasone (ELOCON) 0.1 % solution, Sig Apply 1 application to affected area once daily. for scalp as needed, Start Date 07/19/22, End Date , Taking? , Authorizing Provider Ben Adams MD Medication Aspirin 81 mg Tab, Sig Take 1 tablet by mouth once daily. Take with food., Start Date 02/13/07, End Date , Taking? , Authorizing Provider Sariah Abdullahi MD Medication MULTIVITAMIN TAB, Sig Take one(1) tablet daily., Start Date 10/25/05, End Date , Taking? , Authorizing Provider Hans Taveras MD ALLERGIES Allergen Reactions Latex Penicillins Problem List Reviewed: Yes Prior Notes Reviewed: Yes Vitals: BP 120/70 Pulse 71 Ht 157.5 cm (5' 2 ) LMP 06/22/2020 (Exact Date) SpO2 99% BMI 34.75 kg/m Physical Exam Vitals reviewed. Constitutional: Appearance: Normal appearance. Skin: General: Skin is warm and dry. Neurological: Mental Status: She is alert and oriented to person, place, and time. Psychiatric: Mood and Affect: Mood normal. Behavior: Behavior normal. Labs: Creatinine Date Value Ref Range Status 07/10/2024 1.03 (H) 0.58 - 0.96 mg/dL Final Color (no units) Date Value 09/05/2022 Colorless Clarity (no units) Date Value 09/05/2022 Clear Glucose, Urine Date Value 09/05/2022 Negative 10/22/2015 neg mg/dL Bilirubin, Urine (no units) Date Value 09/05/2022 Negative 10/22/2015 neg Ketones, Urine (no units) Date Value 09/05/2022 Negative 10/22/2015 neg Specific [place], Ur (no units) Date Value 09/05/2022 1.007 10/22/2015 1.005 Hemoglobin/Blood,Ur (no units) Date Value 09/05/2022 Trace 10/22/2015 large pH, Urine (no units) Date Value 09/05/2022 6.5 10/22/2015 7.5 Protein, Urine Date Value 09/05/2022 Negative 10/22/2015 300 mg/dL Urobilinogen (no units) Date Value 09/05/2022 Normal Nitrites (no units) Date Value 09/05/2022 Negative 10/22/2015 neg Leuk Esterase (no units) Date Value 09/05/2022 500 Chen/mL URINE POC GLUCOSE UA (POCT) Negative 07/25/2024 BILIRUBIN UA (POCT) Negative 07/25/2024 KETONE UA (POCT) Negative 07/25/2024 SPECIFIC GRAVITY UA (POCT) 1.020 07/25/2024 HEMOGLOBIN/BLOOD UA (POCT) Small 07/25/2024 PH UA (POCT) 7.5 07/25/2024 PROTEIN UA (POCT) Negative 07/25/2024 UROBILINOGEN UA (POCT) 0.2 07/25/2024 NITRITE UA (POCT) Negative 07/25/2024 LEUKOCYTES UA (POCT) Small 07/25/2024 COLOR UA (POCT) Yellow 07/25/2024 CLARITY UA (POCT) Clear 07/25/2024 Radiology Review: PELVIC US [facility] - 07/18/2024 Indication Postmenopausal bleeding- spotting Impression Anteverted fibroid uterus that measures 81 mm x 31 mm x 45 mm. The largest fibroids are described below. Endometrium is heterogeneous and measures 6 mm, which is abnormally thickened in menopause. Both ovaries are visualized and appear normal. No adnexal masses were observed. There is no free fluid visualized in the peritoneal cavity. Recent endometrial biopsy demonstrated presence of an endometrial polyp. Procedure: N/A ASSESSMENT/PLAN: 1. Hematuria, unspecified type - ICD9: 599.70, ICD10: R31.9. - Patient unsure if she has post-menopausal bleeding vs gross hematuria - UA DIP, URINE (POC) - positive for blood and leuks, plan for culture and UA. - URINE CULTURE- notify with results - URINALYSIS, WITH MICROSCOPIC - notify with results - CT UROGRAM WO/W IVCON - notify with results - IV CONTRAST (RADIOLOGY PROCEDURE) - SODIUM CHLORIDE 0.9 % INTRAVENOUS SOLUTION - CYTOLOGY NON-PERCUSSION INSTRUMENT TUNER - notify with results - Plan to hold off on cystoscopy at this time due to likely gynecologic origin of bleeding. If CT urogram worrisome or UA positive for blood without presence of infection will proceed with cysto. - Call with results. 2. Function kidney decreased - ICD9: 593.9, ICD10: N28.9 - Patient with ongoing decreased kidney function. - Does not follow with a PCP or family medicine doctor. Was suggested by OBGYN to also follow-up regarding this. Patient also with fluid retention, negative cardiology workup. Plan for consult to nephrology. - CONSULT TO KIDNEY MEDICINE - Advised patient to elevate lower limbs to aid in swelling. Caitlin Pradhan APRN.STEAM TUNNEL FEEDER documented in this encounter [facility] 07-25-2024 Note HNO ID: [id number] Author: CAITLIN PRADHAN APRN.DAVID Service: ? Author Type: Nurse Practitioner Type: Progress Notes Filed: 07/25/2024 08:42 Note Text: [facility] [place] [facility] [place] [facility] ESTABLISHED UROLOGY VISIT 07/25/2024 8:17 AM PATIENT NAME: Viviana Townsend DATE OF : 1965 TODAY'S DATE: 07/25/2024 Referring Provider: No referring provider defined for this encounter. Chief Complaint: Patient presents with: Hematuria History of Present Illness: Ms. Townsend is a 59 year old female who presents to the office regarding nephrolithiasis. Patient with a history of kidney stones. Last seen in office on 11/23/2022. CT flank completed at that time showing non-obstructing stones within the left kidney, no hydro. Today patient c/o bleeding since the beginning of 2023. Recently was seen by OBGYN regarding this. Patient is most-menopausal. Pelvic exam on 07/10/2024 was negative. Endometrial specimen sent at that time were benign. PAP showed ASC-US, negative HPV. Pelvic US showed endometrial polyp which patient is having surgery to remove. Patient unsure if blood when she is wiping is coming from urine. Last stone passage: Unknown Familial history of kidney stones or kidney disease: Dysuria: Occasionally Flank pain: Occasionally Fluid intake: Drinks some water Never a smoker. Prior surgical interventions for kidney stones - 2021- ESWL with Dr. Montes Patient also concerned about kidney function gradually worsening. Cr- 1.03 GFR- 63. Patient states she does not really have PCP. She also reports swelling of her lower limbs but states her research geologist does not attribute it to the heart. No on any diuretics. Review of Systems Constitutional: Negative for chills and fever. Genitourinary: Negative for difficulty urinating, frequency and urgency. See HPI Past Medical History: PAST MEDICAL HISTORY 2 miss carriages : Abnormal coagulation profile Comment: ABNORMAL COAGULATION STUDY No date: Adjustment disorder with depressed mood No date: Dizziness and giddiness No date: Dyslipidemia No date: Dysmetabolic syndrome X No date: Generalized anxiety disorder No date: Irritable bowel syndrome 10/31/2013: IUD (intrauterine device) in place 09/2020: Lab test positive for detection of COVID-19 virus No date: Mitral valve disorders 09/03/2018: Myopia with astigmatism and presbyopia 09/03/2018: Ocular hypertension No date: Other abnormal heart sounds No date: Other psoriasis No date: Premenstrual tension syndromes 2005: 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 2010: Urinary calculus, unspecified Comment: Renal stones Past Surgical History: PAST SURGICAL HISTORY 10/2017: BREAST BX NEEDLE CORE LEFT Comment: benign 08/12/2003: DELIVERY ONLY Comment: , low cervical 11/03/2016: COLONOSCOPY FLX DX W/COLLJ SPEC WHEN PFRMD Comment: Colonoscopy 06/05/09: COLONOSCOPY W/BIOPSY SINGLE/MULTIPLE Comment: Normal appearing colon No date: CYSTOURETHROSCOPY Comment: renal stones No date: KIDNEY SURGERY HX No date: TONSILLECTOMY PRIMARY/SECONDARY Comment: Tonsillectomy Social History: Social History Tobacco Use Smoking status: Never Smokeless tobacco: Never Vaping Use Vaping status: Never Used Substance Use Topics Alcohol use: Yes Comment: 1x per year Drug use: No Medications: Prior to Admission medications : Medication rosuvastatin (CRESTOR) 10 mg tablet, Sig Take 1 tablet by mouth once daily., Start Date 01/24/24, End Date , Taking? , Authorizing Provider Delma Turk APRN.STEAM TUNNEL FEEDER Medication busPIRone (BUSPAR) 5 mg tablet, Sig Take 1 tablet by mouth three times a day as needed., Start Date 01/24/24, End Date , Taking? , Authorizing Provider Delma Turk APRN.STEAM TUNNEL FEEDER Medication clobetasol (TEMOVATE) 0.05 % ointment, Sig Apply 1 application to affected area as directed. to affected twice weekly. May use BID for 1-2 weeks prn flares for up to 2 weeks, Start Date 01/24/24, End Date , Taking? , Authorizing Provider Delma Turk APRN.STEAM TUNNEL FEEDER Medication buPROPion XL (WELLBUTRIN XL) 150 mg 24 hr tablet, Sig take 1 tablet once daily, Start Date 09/25/23, End Date , Taking? , Authorizing Provider Jackie Rivera PA-C Medication tiZANidine (ZANAFLEX) 2 mg tablet, Sig Take 1 tablet by mouth every 8 hours as needed (muscle spasms)., Start Date 07/19/23, End Date , Taking? , Authorizing Provider Delma Turk APRN.STEAM TUNNEL FEEDER Medication fluticasone (FLONASE) 50 mcg/actuation nasal spray, Sig Use 2 Sprays in each nostril once daily. Rinse mouth after use., Start Date 03/15/23, End Date , Taking? , Authorizing Provider Delma Turk APRN.STEAM TUNNEL FEEDER Medication naproxen (NAPROSYN) 500 mg tablet, Sig Take 1 tablet by mouth twice daily as needed (for pain/inflammation). Take with food., Start Date 08/19/22, End Date , Taking? , Authorizing Provider Delma Turk APRN.STEAM TUNNEL FEEDER Medication hydrOXY (more content not included)... [facility] 07-20-2024 Note HNO ID: [id number] Author: VIVIANA SMITH MD Service: ? Author Type: Physician Type: Progress Notes Filed: 07/20/2024 11:43 Note Text: Viviana Townsend is a 59 year old female who presented for obstetrician/gynecologist ultrasound today. Encounter Diagnosis ICD-10-CM 1. Postmenopausal bleeding N95.0 Please see report under imaging tab. Viviana Smith MD July 20, 2024 11:40 AM [facility] 07-20-2024 History of Presen t illness Narrative Viviana Townsend is a 59 year old female who presented for obstetrician/gynecologist ultrasound today. Encounter Diagnosis ICD-10-CM 1. Postmenopausal bleeding N95.0 Please see report under imaging tab. Viviana Smith MD July 20, 2024 11:40 AM documented in this encounter [facility] 07-12-2024 Telephone encounter Note Called patient to review benign EMB and labs. Continue to plan for ultrasound. Recommend follow up with operations technician about kidney function noted on CMP. Recommend follow up with PCP about fasting glucose. Viviana verbalizes understanding. Vincent Quiros APRN.STEAM TUNNEL FEEDER [facility] 07-12-2024 Miscellaneous Notes Called patient to review benign EMB and labs. Continue to plan for ultrasound. Recommend follow up with operations technician about kidney function noted on CMP. Recommend follow up with PCP about fasting glucose. Viviana verbalizes understanding. Vincent Quiros APRN.CNP documented in this encounter [facility] 07-10-2024 Instructions Serenity Yusuf MA - 07/10/2024 7:19 AM EDT YOUR RECOVERY After your biopsy you may have: Vaginal bleeding (less than a normal menstrual period) Mild cramping Do NOT put anything in the vagina for 1 week after your endometrial biopsy. This includes: tampons douches and refraining from having sexual intercourse If you have any discomfort, you may take an over the counter pain medication (motrin, advil, ibuprofen, tylenol, etc). If this does not relieve your discomfort, contact the office. It is okay to wear a sanitary pad until the discharge and spotting stops. RISKS Although problems seldom occur with endometrial biopsies, there can be some complications. You may feel faint during and shortly after the procedure as well as have some bleeding after the procedure. There is also a risk of infection after the procedure. These complications are rare and can be easily treated. You should contact you doctor is you have any of the following: Heavy bleeding (more than your normal period) Bleeding with clots Severe abdominal pain Fever (more than 100.4F) Foul smelling vaginal discharge RESULTS We will have the results of your biopsy in 1-2 weeks. If you do not hear the results of your biopsy after 2 weeks, please contact the office for the results. If you have any additional questions or concerns please do not hesitate to contact the office. documented in this encounter [facility] 07-10-2024 Note HNO ID: [id number] Author: VINCENT UQIROS APRN.DAVID Service: ? Author Type: Nurse Practitioner Type: Progress Notes Filed: 07/10/2024 08:21 Note Text: Track Watchman offered: Patient declines. Viviana has had postmenopausal bleeding since December. Notices it when she wipes. Has also noted a 15 pound weight gain, nausea, and vaginal odor. LMP 2019. Viviana is a 59 year old who presents today for an endometrial biopsy for post menopausal bleeding. test: n/a UNIVERSAL PROTOCOL / SAFETY CHECKLIST Procedure to be Performed: Endometrial Biopsy Sign In: A Moment of CARE was completed. Personnel directly involved with the procedure wore the appropriate PPE (Personal Protective Equipment). Patient/Surrogate Stated/Verified: PATIENT VERIFIED(optional for EMERGENT procedures): Patient name, Date of , Relevant allergies, and The intended procedure Time Out Communication: Intended patient and procedure match the source documents. Consent documented and matches the intended procedure. Sign Out: SIGN OUT (optional for EMERGENT procedures): All specimen containers correctly labeled. All instruments, equipment, possible retained foreign bodies accounted for. Post-procedure follow-up management communicated and Plan of Care Visit completed when applicable. PROCEDURE: EXTERNAL GENITALIA: Normal in appearance without lesions VAGINA: Normal in appearance without lesions BIOPSY: Speculum placed into the vagina with excellent visualization of the cervix. Cervix cleaned with betadine. Anterior lip of cervix grasped with single toothed tenaculum. Uterus sounded to 8 cm. Pipelle inserted into the uterus without difficulty and endometrial biopsy obtained. Specimen labeled and sent to pathology. Procedure Summary: Patient tolerated procedure well. ASSESSMENT: post menopausal bleeding PLAN: Specimens labeled and sent to Pathology. Will notify patient of results in 1-2 weeks. Post-procedure instructions reviewed and written material given to the patient. BP elevated after procedure. Patient uncomfortable due to procedure. BP usually WNL. Vincent Quiros APRN.DAVID [facility] 07-10-2024 History of Presen t illness Narrative Track Watchman offered: Patient declines. Viviana has had postmenopausal bleeding since December. Notices it when she wipes. Has also noted a 15 pound weight gain, nausea, and vaginal odor. LMP 2019. Viviana is a 59 year old who presents today for an endometrial biopsy for post menopausal bleeding. test: n/a UNIVERSAL PROTOCOL / SAFETY CHECKLIST Procedure to be Performed: Endometrial Biopsy Sign In: A Moment of CARE was completed. Personnel directly involved with the procedure wore the appropriate PPE (Personal Protective Equipment). Patient/Surrogate Stated/Verified: PATIENT VERIFIED(optional for EMERGENT procedures): Patient name, Date of , Relevant allergies, and The intended procedure Time Out Communication: Intended patient and procedure match the source documents. Consent documented and matches the intended procedure. Sign Out: SIGN OUT (optional for EMERGENT procedures): All specimen containers correctly labeled. All instruments, equipment, possible retained foreign bodies accounted for. Post-procedure follow-up management communicated and Plan of Care Visit completed when applicable. PROCEDURE: EXTERNAL GENITALIA: Normal in appearance without lesions VAGINA: Normal in appearance without lesions BIOPSY: Speculum placed into the vagina with excellent visualization of the cervix. Cervix cleaned with betadine. Anterior lip of cervix grasped with single toothed tenaculum. Uterus sounded to 8 cm. Pipelle inserted into the uterus without difficulty and endometrial biopsy obtained. Specimen labeled and sent to pathology. Procedure Summary: Patient tolerated procedure well. ASSESSMENT: post menopausal bleeding PLAN: Specimens labeled and sent to Pathology. Will notify patient of results in 1-2 weeks. Post-procedure instructions reviewed and written material given to the patient. BP elevated after procedure. Patient uncomfortable due to procedure. BP usually WNL. Vincent Quiros APRN.CNP documented in this encounter [facility] 01-24-2024 Instructions Delma Turk APRN.CNP - 01/24/2024 7:52 AM EST Diclofenac gel for any joint arthritic pain. documented in this encounter [facility] 01-24-2024 Note HNO ID: [id number] Author: DELMA TURK APRN.CNP Service: ? Author Type: Nurse Practitioner Type: Progress Notes Filed: 01/24/2024 08:09 Note Text: CC: Patient presents with: Recheck: 6 month follow up HPI Viviana Townsend is a 58 year old female who presents today for follow up and annual exam. Anxiety: Controlled with current treatment Sleep: is described as normal Alcohol use: does not drink any alcohol Drug use: No Appetite: good Stresses: under a lot of personal stress Suicidal Thoughts: No suicidal ideation, intent or plan HLD: Takes medication as ordered. Goes to the gym at least twice a week and tries to maintain a healthy diet most of the time and is working on portion control. Denies chest pain, shortness of breath, or exercise intolerance. Did have increased creatinine levels last year. Drinks an average of 40 ounces of water daily, avoids caffeine, and tries to rarely use and over the counter anti-inflammatories. REVIEW OF SYSTEMS General: no fevers, no chills, no night sweats, no recurrent infections, no change in appetite, no change in energy, and no significant changes in weight Respiratory: no cough, no wheezing, no shortness of breath, no hemoptysis Cardiovascular: no chest pain, no chest pressure, no palpitations, and no swelling GI: No nausea, vomiting, or diarrhea : No history of dysuria, frequency or incontinence Psych: PHQ2 is 0 Endocrine: no fatigue, no cold intolerance, no heat intolerance, no polyuria, no polyphagia, and no polydipsia Neurologic: No headache, weakness,dizziness, memory loss, syncope. 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 Urinary calculus, unspecified 2010 Renal stones PAST SURGICAL HISTORY Procedure Laterality Date BREAST BX NEEDLE CORE LEFT 10/2017 benign DELIVERY ONLY 08/12/2003 , low cervical COLONOSCOPY FLX DX W/COLLJ SPEC WHEN PFRMD 11/03/2016 Colonoscopy COLONOSCOPY W/BIOPSY SINGLE/MULTIPLE 06/05/09 Normal appearing colon CYSTOURETHROSCOPY renal stones KIDNEY SURGERY HX TONSILLECTOMY PRIMARY/SECONDARY Tonsillectomy ALLERGIES Latex and Penicillins MEDICATIONS buPROPion XL (WELLBUTRIN XL) 150 mg 24 hr tablet take 1 tablet once daily tiZANidine (ZANAFLEX) 2 mg tablet Take 1 tablet by mouth every 8 hours as needed (muscle spasms). busPIRone (BUSPAR) 5 mg tablet Take 1 tablet by mouth three times daily as needed. fluticasone (FLONASE) 50 mcg/actuation nasal spray Use 2 Sprays in each nostril once daily. Rinse mouth after use. rosuvastatin (CRESTOR) 10 mg tablet Take 1 tablet by mouth once daily. clobetasol (TEMOVATE) 0.05 % ointment Apply 1 application to affected area as directed. to affected twice weekly. May use BID for 1-2 weeks prn flares for up to 2 weeks naproxen (NAPROSYN) 500 mg tablet Take 1 tablet by mouth twice daily as needed (for pain/inflammation). Take with food. hydrOXYzine HCl (ATARAX) 10 mg tablet Take 1 tablet by mouth three times daily as needed. Mometasone (ELOCON) 0.1 % solution Apply 1 application to affected area once daily. for scalp as needed Aspirin 81 mg Tab Take 1 tablet by mouth once daily. Take with food. MULTIVITAMIN TAB Take one(1) tablet daily. FAMILY HISTORY Problem Relation Age of Onset Diabetes Maternal Grandmother Diabetes Maternal Aunt Diabetes Maternal Uncle Breast Cancer Sister age 39 , now with mets (including to colon) Social History Tobacco Use Smoking status: Never Smokeless tobacco: Never Vaping Use Vaping Use: Never used Substance Use Topics Alcohol use: Yes Comment: 1x per year Drug use: No PHYSICAL EXAM BP 118/66 Pulse 84 Resp 16 Wt 84.8 kg (187 lb) LMP 06/22/2020 (Exact Date) SpO2 98% BMI 34.19 kg/m? General Appearance: well appearing, in no acute distress, alert Pysch: mood and affect broad and appropriate Skin: Skin color, texture, turgor normal for age; Eyes: conjunctiva pink and moist, no icterus, sclera white, non-injected Neck: Thyroid normal size and symmetric without palpable nodules, Neck supple, No adenopathy Lymph nodes: No cervical lymphadenopathy and No supraclavicular lymphadenopathy Lungs: Lungs clear to auscultation. No wheezing, rhonchi, rales. Heart: RRR without murmur, gallop, or rubs. No ectopy Abdomen: Abdomen soft, non-tender. Bowel sounds normal. No masses, organo (more content not included)... [facility] 01-24-2024 History of Presen t illness Narrative CC: Patient presents with: Recheck: 6 month follow up HPI Viviana Townsend is a 58 year old female who presents today for follow up and annual exam. Anxiety: Controlled with current treatment Sleep: is described as normal Alcohol use: does not drink any alcohol Drug use: No Appetite: good Stresses: under a lot of personal stress Suicidal Thoughts: No suicidal ideation, intent or plan HLD: Takes medication as ordered. Goes to the gym at least twice a week and tries to maintain a healthy diet most of the time and is working on portion control. Denies chest pain, shortness of breath, or exercise intolerance. Did have increased creatinine levels last year. Drinks an average of 40 ounces of water daily, avoids caffeine, and tries to rarely use and over the counter anti-inflammatories. REVIEW OF SYSTEMS General: no fevers, no chills, no night sweats, no recurrent infections, no change in appetite, no change in energy, and no significant changes in weight Respiratory: no cough, no wheezing, no shortness of breath, no hemoptysis Cardiovascular: no chest pain, no chest pressure, no palpitations, and no swelling GI: No nausea, vomiting, or diarrhea : No history of dysuria, frequency or incontinence Psych: PHQ2 is 0 Endocrine: no fatigue, no cold intolerance, no heat intolerance, no polyuria, no polyphagia, and no polydipsia Neurologic: No headache, weakness,dizziness, memory loss, syncope. 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 Urinary calculus, unspecified 2010 Renal stones PAST SURGICAL HISTORY Procedure Laterality Date BREAST BX NEEDLE CORE LEFT 10/2017 benign DELIVERY ONLY 08/12/2003 , low cervical COLONOSCOPY FLX DX W/COLLJ SPEC WHEN PFRMD 11/03/2016 Colonoscopy COLONOSCOPY W/BIOPSY SINGLE/MULTIPLE 06/05/09 Normal appearing colon CYSTOURETHROSCOPY renal stones KIDNEY SURGERY HX TONSILLECTOMY PRIMARY/SECONDARY <AGE 12 Tonsillectomy ALLERGIES Latex and Penicillins MEDICATIONS buPROPion XL (WELLBUTRIN XL) 150 mg 24 hr tablet take 1 tablet once daily tiZANidine (ZANAFLEX) 2 mg tablet Take 1 tablet by mouth every 8 hours as needed (muscle spasms). busPIRone (BUSPAR) 5 mg tablet Take 1 tablet by mouth three times daily as needed. fluticasone (FLONASE) 50 mcg/actuation nasal spray Use 2 Sprays in each nostril once daily. Rinse mouth after use. rosuvastatin (CRESTOR) 10 mg tablet Take 1 tablet by mouth once daily. clobetasol (TEMOVATE) 0.05 % ointment Apply 1 application to affected area as directed. to affected twice weekly. May use BID for 1-2 weeks prn flares for up to 2 weeks naproxen (NAPROSYN) 500 mg tablet Take 1 tablet by mouth twice daily as needed (for pain/inflammation). Take with food. hydrOXYzine HCl (ATARAX) 10 mg tablet Take 1 tablet by mouth three times daily as needed. Mometasone (ELOCON) 0.1 % solution Apply 1 application to affected area once daily. for scalp as needed Aspirin 81 mg Tab Take 1 tablet by mouth once daily. Take with food. MULTIVITAMIN TAB Take one(1) tablet daily. FAMILY HISTORY Problem Relation Age of Onset Diabetes Maternal Grandmother Diabetes Maternal Aunt Diabetes Maternal Uncle Breast Cancer Sister age 39 , now with mets (including to colon) Social History Tobacco Use Smoking status: Never Smokeless tobacco: Never Vaping Use Vaping Use: Never used Substance Use Topics Alcohol use: Yes Comment: 1x per year Drug use: No PHYSICAL EXAM BP 118/66 Pulse 84 Resp 16 Wt 84.8 kg (187 lb) LMP 06/22/2020 (Exact Date) SpO2 98% BMI 34.19 kg/m General Appearance: well appearing, in no acute distress, alert Pysch: mood and affect broad and appropriate Skin: Skin color, texture, turgor normal for age; Eyes: conjunctiva pink and moist, no icterus, sclera white, non-injected Neck: Thyroid normal size and symmetric without palpable nodules, Neck supple, No adenopathy Lymph nodes: No cervical lymphadenopathy and No supraclavicular lymphadenopathy Lungs: Lungs clear to auscultation. No wheezing, rhonchi, rales. Heart: RRR without murmur, gallop, or rubs. No ectopy Abdomen: Abdomen soft, non-tender. Bowel sounds normal. No masses, organomegaly BUE Extremities: No deformities, edema, skin discoloration, clubbing or cyanosis. Good capillary refill. Health maintenance reviewed with patient: Covid-19 Vaccine(2022- season) due on 07/21/2023 Depression Assessment due on 11/20/2023 DTaP,Tdap,Td Vaccine(2 - Td or Tdap) due on 07/19/2024 Hepatitis B Vaccine(1 of 3 - 3-dose series) due on 07/19/2024 Hepatitis C Screening due on 07/19/2024 HIV Screening due on 07/19/2024 Shingrix Vaccine(1 of 2) due on 07/19/2024 Mammogram Screening due on 07/28/2024 Pap Testing due on 01/01/2025 HPV Testing due on 01/01/2025 Diabetes Screening due on 08/19/2026 Colorectal Cancer Screening due on 11/04/2026 Lipid Screening due on 07/01/2028 Influenza Vaccine Completed DATA REVIEWED: No new labs ASSESSMENT/PLAN: 1. Annual physical exam - ICD9: V70.0, ICD10: Z00.00 (primary diagnosis) - Counseled on healthy diet and regular exercise - Calcium intake with supplements or by diet of 1000 mg/day for under 50, 9562-9915 mg/day for 50+ - Discussed need and benefit for weight loss. BMI 34.19 kg/(m^2) - Depression screening tool completed and reviewed with patient. Based on score and interview, patient is already diagnosed with depression and recommended no further intervention at this time. - Follow up for annual exam in one year - COMP METABOLIC PANEL - LIPID PANEL BASIC - CBC 2. Hyperlipidemia, unspecified hyperlipidemia type - ICD9: 272.4, ICD10: E78.5 - Control undetermined, due for labs - Continue current medications - Counseled on healthy diet and regular exercise - Discussed need for and benefit of weight loss. BMI 34.19 kg/(m^2) - COMP METABOLIC PANEL - LIPID PANEL BASIC 3. Generalized anxiety disorder - ICD9: 300.02, ICD10: F41.1 Controlled at this time - BUSPIRONE 5 MG TABLET - Reviewed concept of neurochemical imbalance [facility] depression/anxiety, treatment options and benefits of counseling in combination with medication. Also reviewed benefits of sleep hygeine, diet and exercise - Instructed patient to contact office or [id number] after-hours promptly should condition worsen or any new symptoms appear. - Counseling Center [facility] and after hours crisis line 4. Elevated serum creatinine - ICD9: 790.99, ICD10: R79.89 - increase water intake to stay hydrated - avoid and anti-inflammatories - can use diclofenac gel if needed for any knee or other joint pain. - COMP METABOLIC PANEL Prescription instructions reviewed with patient as applicable. Potential red flag symptoms discussed with the patient. Reviewed appropriate action plan to take if red flag symptoms occur. Patient agreeable to treatment plan. Delma Turk APRN.CNP documented in this encounter [facility] 09-25-2023 Miscellaneous Notes Patient has been identified by name and date of : No Patient phones for refill(s): Requested Prescriptions Pending Prescriptions Disp Refills buPROPion XL (WELLBUTRIN XL) 150 mg 24 hr tablet [Pharmacy Med Name: BUPROP 24 XL TAB 150MG(W)] 90 tablet 3 Sig: take 1 tablet once daily Date of last office visit in primary care: 07/19/2023 Date of next office visit in primary care: 01/24/2024 Last 2 Encounter Wt Readings: Date: Wt: 07/19/2023 83.5 kg (184 lb) 05/12/2023 83.5 kg (184 lb) Previous labs/tests for medication: Not applicable Please advise. Thank you. Teresa Nieves. documented in this encounter [facility] 07-28-2023 History of Presen t illness Narrative Radiology Service Progress Note PATIENT NAME: Viviana Townsend DATE OF SERVICE: July 28, 2023 TIME: 8:03 AM PATIENT IDENTITY VERIFICATION COMPLETED USING TWO (2) IDENTIFIERS: Name and Date of confirmed by patient verbally. FALL SCREENING: Has the patient had 2 falls in the last year or 1 fall with injury or currently using an Ambulatory Assistive Device (Walker, Cane, Wheelchair, Crutches, etc.)? No PATIENT GENDER DATA: Female. status: : No status: NO. PATIENT RELEVANT IMPLANT DATA REVIEWED: Yes RADIOLOGY DEPARTMENT: Mammography PERIPHERAL IV DATA: Not applicable SIGNED BY: RT Amairani(R) July 28, 2023 8:03 AM documented in this encounter [facility] 07-28-2023 Miscellaneous Notes Negative, 1 year screening documented in this encounter [facility] 07-18-2023 Miscellaneous Notes See pt's mychart refill request below. Pt was last seen in the office 12/26/22. Please advise. Krys Baca LPN documented in this encounter [facility] 06-02-2023 History of Presen t illness Narrative Images from the original note were not included. Heart, Vascular, and Thoracic [place] Jul[facility] Dixon Department of Cardiovascular Medicine SECTION OF PREVENTIVE CARDIOLOGY I have communicated my name and active licensure. The patient's identity and physical location were verified at the time of this visit. Either the patient or their legal agency service representative has been informed of the risks and benefits of -- and alternatives to -- treatment through a remote evaluation and consents to proceed with the evaluation remotely. Viviana Townsend 06/02/23 CHIEF COMPLAINT: No chief complaint on file. HISTORY OF PRESENT CARDIOVASCULAR ILLNESS: Viviana Townsend is a 57 year old female with a PMH significant for hyperlipidemia, elevated BMI. Presents for evaluation of hyperlipidemia and preventive risk factors. In interim: -[place]an without significant arrhythmias or concerns -LDL has improved nicely on statins -Has lost 5 lbs since last time in February -NT pro Bnp normal Labs done locally 02/10/23: total chol 228, LDL 148, HDL 54, TG 127 BP 104/70 at that time BMI was 32.8 at that time Family History: Uncle - [place] in 70s Mother - cholesterol medicine at 79 years old Grandmother - [place], 52 years old Aunt - atrial fibrillation One other aunt may have had heart issues Exercise 3-4x/week, they last 45 minutes, cardio activities, goes to [facility] Also does [employer] classes Notes heart rate warning of HR in high 40s/low 50s daily, sometimes feel more tired than usual during these times Also has swelling in her ankles and legs at night. No PND, orthopnea. Resolves during day. Was told of blood clots causing miscarriage previously, on aspirin since. Upon cardiovascular review of systems the patient denies chest pain, SOB, palpitations, syncope, light-headednes, PND , orthopnea, intermittent claudication. CARDIAC RISK FACTORS: Dyslipidemia : Not specified Exercise: Three to five times per week Family History of CAD: Positive (male<55, female<65) 45 minutes cardio on treadmill or workout classes, 4-5 times per week Uncle - [place] in 70s Mother - cholesterol medicine at 79 years old Grandmother - OR, 52 years old Aunt - atrial fibrillation Avg. Sleep Hours Per Night?: 7.5 STATIN INTOLERANCE: Adverse Effect Current Statin Freq: None USE OF PCSK9 INHIBITORS: CARDIOVASCULAR DISEASE HISTORY: Atherosclerosis by ALT Imaging: Yes 11/23/22 Valve Disease: None Arrythmias: None HEART FAILURE/CARDIOMYOPATHY: None RELATED DISEASE HISTORY: Psychiatric Disease : CURRENT MEDS: Current Outpatient Medications Medication Sig benzonatate (TESSALON PERLES) 100 mg capsule Take 1-2 capsules by mouth three times daily as needed for cough. (Patient not taking: Reported on 05/12/2023) fluticasone (FLONASE) 50 mcg/actuation nasal spray Use 2 Sprays in each nostril once daily. Rinse mouth after use. rosuvastatin (CRESTOR) 10 mg tablet Take 1 tablet by mouth once daily. clobetasol (TEMOVATE) 0.05 % ointment Apply 1 application to affected area as directed. to affected twice weekly. May use BID for 1-2 weeks prn flares for up to 2 weeks busPIRone (BUSPAR) 5 mg tablet Take 1 tablet by mouth three times daily as needed. buPROPion XL (WELLBUTRIN XL) 150 mg 24 hr tablet TAKE 1 TABLET ONCE DAILY tamsulosin (FLOMAX) 0.4 mg Take 1 capsule by mouth daily at bedtime. phenazopyridine (PYRIDIUM) 200 mg tablet Take 1 tablet by mouth three times daily as needed. ondansetron (ZOFRAN) 4 mg tablet Take 1 tablet by mouth every 8 hours as needed for nausea/vomiting. naproxen (NAPROSYN) 500 mg tablet Take 1 tablet by mouth twice daily as needed (for pain/inflammation). Take with food. hydrOXYzine HCl (ATARAX) 10 mg tablet Take 1 tablet by mouth three times daily as needed. Mometasone (ELOCON) 0.1 % solution Apply 1 application to affected area once daily. for scalp as needed Aspirin 81 mg Tab Take 1 tablet by mouth once daily. Take with food. MULTIVITAMIN TAB Take one(1) tablet daily. No current facility-administered medications for this visit. ALLERGIES: ALLERGIES Allergen Reactions Latex Penicillins FAMILY AND SOCIAL HISTORY: Lifestyle Employer And Job Title: [employer] (No job title specified) Years Of Education Completed: Not specified Marital Status: to liam with 1 child Tobacco use in the last year: No Alcohol Use: Yes (1x per year) REVIEW OF SYSTEMS: CONSTITUTIONAL: No Changes. HEENT:Negative for frequent or significant headaches, No changes in hearing or vision, no nose bleeds or other nasal problems RESPIRATORY: Negative for cough, hemoptysis, wheezing, COPD, dyspnea or shortness of breath CARDIOVASCULAR: Negative for chest pain, leg swelling, hypertension, CHF or palpitations Otherwise not reviewed PHYSICAL EXAMINATION: Vital Signs and General Appearance [facility] 06/22/2020 (Exact Date) Average Blood Pressure: 117/68 No weight on file for this encounter. Well developed, well nourished, alert, active 57 year old female in no apparent distress. CLINICAL TESTING RESULTS: I have personally reviewed the following: Most recent ECG Tracing: which I independently visualized. Other recent cardiac testing: CT Flank 11/23/22 excerpt: Vasculature: Arterial atherosclerotic disease without aneurysm. Ziopatch; Brand Representative Patient had a min HR of 57 bpm, max HR of 184 bpm, and avg HR of 88 bpm. Predominant underlying rhythm was Sinus Rhythm. 2 non-sustained Supraventricular Tachycardia runs occurred, the run with the fastest interval lasting 4 beats with a max rate of 160 bpm, the longest lasting 8 beats with an avg rate of 127 bpm. Isolated SVEs were rare (<1.0%), SVE Couplets were rare (<1.0%), and no SVE Triplets were present. Isolated VEs were rare (<1.0%), VE Couplets were rare (<1.0%), and no VE Triplets were present. Symptoms correlate with sinus rhythm, sinus rhythm with SVEs. Independently reviewed and verified Obed Devries MD March 14, 2023 8:14 AM SVE = supraventricular ectopic (PAC) VE = ventricular ectopic (PVC) Patient Name: Viviana Townsend : 1965 Ordering Provider: TOREY VILLASENOR Indication: R00.1 Bradycardia, unspecified Type of Monitor: Extended Monitoring-Zio Patch Enrollment Dates: 02/21/2023-03/07/2023 ETT 02/28/23: Stress Observations: Resting HR: 70 bpm Peak HR: 184 bpm (113% MPHR) Resting BP: 104 / 78 mmHg Peak BP: 120 / 76 mmHg Total exercise time: 10 minutes 30 seconds METS achieved: 7.6 Chronotropic response index (CRI): 1.22 Heart rate recovery (HRR): 18 bpm Rate Pressure Product (RPP): 67866 Stress Exercise Observations: Reason for test termination: general fatigue, Symptoms during test: No symptoms provoked during stress, Heart rate response: Adequate heart rate response, Normal CRI (>0.8 Not on B Spencer) and Normal HRR (>12 or >[address]/EC), Blood pressure response: Normal BP response, ST segment and T wave changes: No ST changes, Lyles Treadmill Score: Normal Lyles Treadmill Score (>=5) and Arrhythmias: No arrhythmias LABS: Glucose (mg/dL) Date Value 07/12/2022 96 BUN (mg/dL) Date Value 07/12/2022 22 (H) Creatinine (mg/dL) Date Value 07/12/2022 0.96 Sodium (mmol/L) Date Value 07/12/2022 139 Potassium (mmol/L) Date Value 07/12/2022 3.8 Chloride (mmol/L) Date Value 07/12/2022 104 CO2 (mmol/L) Date Value 07/12/2022 23 Protein, Total (g/dL) Date Value 07/12/2022 6.6 Albumin (g/dL) Date Value 07/12/2022 4.3 Calcium, Total (mg/dL) Date Value 07/12/2022 8.8 Alkaline Phosphatase (U/L) Date Value 07/12/2022 51 Bilirubin, Total (mg/dL) Date Value 07/12/2022 0.5 AST (U/L) Date Value 07/12/2022 18 ALT (U/L) Date Value 07/12/2022 21 WBC (k/uL) Date Value 07/12/2022 7.01 RBC (m/uL) Date Value 07/12/2022 4.71 Hemoglobin (g/dL) Date Value 07/12/2022 14.7 Hematocrit (%) Date Value 07/12/2022 42.8 MCV (fL) Date Value 07/12/2022 90.9 MCH (pg) Date Value 07/12/2022 31.2 MCHC (g/dL) Date Value 07/12/2022 34.3 RDW-CV (%) Date Value 07/12/2022 12.0 Platelet Count (k/uL) Date Value 07/12/2022 270 MPV (fL) Date Value 07/12/2022 10.5 No results found for: INR Cholesterol, Total Date Value Ref Range Status 05/12/2023 143 <200 mg/dL Final Comment: <200 mg/dL, Desirable 200-239 mg/dL, Borderline high >239 mg/dL, High HDL Cholesterol Date Value Ref Range Status 05/12/2023 53 >39 mg/dL Final Comment: 40-59 mg/dL, Acceptable >59 mg/dL, High: Negative risk factor for coronary heart disease <40 mg/dL, Low: Positive risk factor for coronary heart disease LDL Cholesterol Date Value Ref Range Status 05/12/2023 69 <100 mg/dL Final Comment: <100 mg/dL, Optimal 100-129 mg/dL, Near optimal/above optimal 130-159 mg/dL, Borderline high 160-189 mg/dL, High >189 mg/dL, Very high Secondary prevention optimal LDL Cholesterol levels are recommended to be < 70 mg/dL Triglyceride Date Value Ref Range Status 05/12/2023 106 <150 mg/dL Final Comment: <150 mg/dL, Normal 150-199 mg/dL, Borderline high 200-499 mg/dL, High >499 mg/dL, Very high PATIENT ENTERED QUESTIONNAIRE SCORES PHQ-9 02/27/2023 Score 2 KYLE - 7 SCORES 02/27/2023 KYLE-7 Score 3 PROMIS Global Health - (T-Scores - the mean of general population = 50. Five points is a clinically meaningful difference.) 02/27/2023 11/20/2022 09/04/2022 Physical T-Score 57.7 47.7 42.3 Mental T-Score 56 45.8 48.3 This consultation was requested by Self for an opinion regarding hyperlipidemia , and my final recommendations will be communicated back to the requesting physician and primary care provider by way of shared medical record or letter summarizing my evaluation. ASSESSMENT AND PLAN: In addition to the above history and physical exam, the results of prior labs and testing, were reviewed. The following plans and goals have been established to address current medical problems and optimize control of cardiovascular risk factors to reduce the risk of future heart disease: Active Medical Problems: 1) Hyperlipidemia Report of aortic plaques on non-dedicated CT Flank 11/2022. Most ideal LDL-c goal is < 70 mg/dl and being on appropriate statin therapy and receiving associated risk reduction benefits is important as well LDL-c is at goal most recently, Lp (a) normal Continue current statin therapy, rosuvastatin 10 mg daily Lifestyle modification as below 2) Obesity Janitor referral to discuss dietary approaches, completed, on mediterranean diet Exercise prescription completed, ETT unremarkable 3) LE swelling, intermittent NT pro BNP ok Urine protein/creatinine ok 4) Bradycardia Reported ETT with normal chronotropy, Ziopatch without significant findings Reassurance FOLLOW UP: We recommend a 1 year follow-up The medical decision making for this patient encounter was of moderate complexity I provided Viviana Townsend with my contact information at this visit (or a prior visit.) This information includes my office phone number, office fax number, SynGen instructions, and my work email address. Viviana Townsend was strongly encouraged to use [employer] for communication if possible, but my email address was provided if needed. Torey Villasenor MD AMBULATORY PATIENT EDUCATION Topic: Hyperlipidemia Instruction Provided To: Patient Barriers: None Motivation to Learn: Interested Methods of Instruction: Verbal instruction and/or handouts. Patient Leans Best By: Multiple Methods Patient Verbalized: Understanding documented in this encounter [facility] 05-26-2023 Miscellaneous Notes A1c not drawn with other labs so reordered. Delma Turk APRN.STEAM TUNNEL FEEDER documented in this encounter [facility] 05-13-2023 Miscellaneous Notes Urine culture shows strep species, patient not improving on the Bactrim. I did call in [facility] [place]. She will pick that up today. documented in this encounter [facility] 05-12-2023 History of Presen t illness Narrative This note was created using [employer]. Subjective Viviana Townsend is a 57 year old female. HPI Patient presents with urinary frequency, dysuria and hematuria. She had not noticed this off and on for a week and it seemed to worsen yesterday. She does have a history of kidney stones. Denies any flank pain. She denies vomiting or diarrhea. No fever. Denies vaginal itching or discharge. Review of Systems Constitutional: Negative. HENT: Negative. Respiratory: Negative. Cardiovascular: Negative. Gastrointestinal: Negative. Genitourinary: Positive for dysuria, frequency, hematuria and urgency. Musculoskeletal: Negative. All other systems reviewed and are negative. 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 Rinse mouth after use. 1 Each 3 rosuvastatin (CRESTOR) 10 mg tablet Take 1 tablet by mouth once daily. 90 tablet 3 clobetasol (TEMOVATE) 0.05 % ointment Apply 1 application to affected area as directed. to affected twice weekly. May use BID for 1-2 weeks prn flares for up to 2 weeks 60 g 1 busPIRone (BUSPAR) 5 mg tablet Take 1 tablet by mouth three times daily as needed. 90 tablet 1 buPROPion XL (WELLBUTRIN XL) 150 mg 24 hr tablet TAKE 1 TABLET ONCE DAILY 90 tablet 3 tamsulosin (FLOMAX) 0.4 mg Take 1 capsule by mouth daily at bedtime. 30 capsule 0 phenazopyridine (PYRIDIUM) 200 mg tablet Take 1 tablet by mouth three times daily as needed. 9 tablet 0 ondansetron (ZOFRAN) 4 mg tablet Take 1 tablet by mouth every 8 hours as needed for nausea/vomiting. 9 tablet 0 naproxen (NAPROSYN) 500 mg tablet Take 1 tablet by mouth twice daily as needed (for pain/inflammation). Take with food. 15 tablet 0 hydrOXYzine HCl (ATARAX) 10 mg tablet Take 1 tablet by mouth three times daily as needed. 30 tablet 0 Mometasone (ELOCON) 0.1 % solution Apply 1 application to affected area once daily. for scalp as needed 60 mL 11 Aspirin 81 mg Tab Take 1 tablet by mouth once daily. Take with food. MULTIVITAMIN TAB Take one(1) tablet daily. 0 sulfamethoxazole-trimethoprim (BACTRIM DS) 800-160 mg per tablet Take 1 tablet by mouth twice daily for 5 days. 6 tablet 0 benzonatate (TESSALON PERLES) 100 mg capsule Take 1-2 capsules by mouth three times daily as needed for cough. (Patient not taking: Reported on 05/12/2023) 15 capsule 0 No current facility-administered medications for this visit. PAST SURGICAL HISTORY Procedure Laterality Date BREAST BX NEEDLE CORE LEFT 10/2017 benign DELIVERY ONLY 08/12/2003 , low cervical COLONOSCOPY FLX DX W/COLLJ SPEC WHEN PFRMD 11/03/2016 Colonoscopy COLONOSCOPY W/BIOPSY SINGLE/MULTIPLE 06/05/09 Normal appearing colon CYSTOURETHROSCOPY renal stones KIDNEY SURGERY HX TONSILLECTOMY PRIMARY/SECONDARY <AGE 13 Tonsillectomy FAMILY HISTORY Problem Relation Age of Onset Diabetes Maternal Grandmother Diabetes Maternal Aunt Diabetes Maternal Uncle Breast Cancer Sister age 39 , now with mets (including to colon) Social History Tobacco Use Smoking status: Never Smokeless tobacco: Never Vaping Use Vaping Use: Never used Substance Use Topics Alcohol use: Yes Comment: 1x per year Drug use: No Objective BP 122/76 Pulse 102 Temp 36.6 C (97.8 F) (Tympanic) Resp 18 Wt 83.5 kg (184 lb) LMP 06/22/2020 (Exact Date) SpO2 98% BMI 33.65 kg/m Physical Exam Vitals reviewed. Constitutional: Appearance: Normal appearance. HENT: Head: Normocephalic and atraumatic. Cardiovascular: Rate and Rhythm: Normal rate and regular rhythm. Heart sounds: Normal heart sounds. Pulmonary: Effort: Pulmonary effort is normal. Breath sounds: Normal breath sounds. Abdominal: General: Abdomen is flat. Palpations: Abdomen is soft. Tenderness: There is no abdominal tenderness. There is no right CVA tenderness, left CVA tenderness or guarding. Skin: General: Skin is warm and dry. Neurological: Mental Status: She is alert. Assessment and Plan ASSESSMENT/PLAN: 1. Burning with urination - ICD9: 788.1, ICD10: R30.0 acute - UA positive for chen esterase and hematuria - Send urine for culture - Begin treatment with Bactrim DS BID for 5 days - UA DIP, URINE (POC) - URINE CULTURE Sita Farley PA-C documented in this encounter [facility] 03-15-2023 History of Presen t illness Narrative CC: Patient presents with: Chest Congestion: Chest congestion, cough, wheezing HPI Viviana Townsend is a 57 year old female who presents today for congestion. Was helping her daughter move from college last Monday which was moldy and she helped roll up a large dirty rug. Later that night, started with a nonproductive cough, but since more symptoms have occurred and cough has deepened. Currently have sinus congestion, cough producing green sputum, feels like she is wheezing when she first wakes but at no other times during the day, dizziness, slight increase in being tired, and sinus pressure type headache intermittently Taking severe cold and flu medicine but not helping very much. Nyquil seemed to help. Feels symptoms are worsening. Denies any shortness of breath, fever, chills, sore throat, vomiting or diarrhea. Denies history of asthma and does not smoke, but reports getting bronchitis yearly for most of her life. REVIEW OF SYSTEMS General: no fevers, no chills, no night sweats, no recurrent infections, no change in appetite, and no significant changes in weight HEENT: no frequent or significant headaches, no changes in hearing, no visual changes, no nose bleeds Respiratory: no shortness of breath, no hemoptysis Cardiovascular: no chest pain, no chest pressure, no palpitations, and no swelling GI: See HPI Neurologic: No weakness, syncope. 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 clobetasol (TEMOVATE) 0.05 % ointment Apply 1 application to affected area as directed. to affected twice weekly. May use BID for 1-2 weeks prn flares for up to 2 weeks busPIRone (BUSPAR) 5 mg tablet Take 1 tablet by mouth three times daily as needed. buPROPion XL (WELLBUTRIN XL) 150 mg 24 hr tablet TAKE 1 TABLET ONCE DAILY tamsulosin (FLOMAX) 0.4 mg Take 1 capsule by mouth daily at bedtime. phenazopyridine (PYRIDIUM) 200 mg tablet Take 1 tablet by mouth three times daily as needed. ondansetron (ZOFRAN) 4 mg tablet Take 1 tablet by mouth every 8 hours as needed for nausea/vomiting. oxyCODONE-acetaminophen (PERCOCET) 5-325 mg tablet Take 1 tablet by mouth every 6 hours as needed for pain. naproxen (NAPROSYN) 500 mg tablet Take 1 tablet by mouth twice daily as needed (for pain/inflammation). Take with food. ondansetron orally disintegrating (ZOFRAN ODT) 4 mg disintegrating tablet Take 1 tablet by mouth every 6 hours as needed for nausea/vomiting. hydrOXYzine HCl (ATARAX) 10 mg tablet Take 1 tablet by mouth three times daily as needed. Mometasone (ELOCON) 0.1 % solution Apply 1 application to affected area once daily. for scalp as needed benzonatate (TESSALON PERLES) 100 mg capsule Take 1-2 capsules by mouth three times daily as needed for Cough. Aspirin 81 mg Tab Take 1 tablet by mouth once daily. Take with food. MULTIVITAMIN TAB Take one(1) tablet daily. FAMILY HISTORY Problem Relation Age of Onset Diabetes Maternal Grandmother Diabetes Maternal Aunt Diabetes Maternal Uncle Breast Cancer Sister age 39 , now with mets (including to colon) Social History Tobacco Use Smoking status: Never Smokeless tobacco: Never Vaping Use Vaping Use: Never used Substance Use Topics Alcohol use: Yes Comment: 1x per year Drug use: No PHYSICAL EXAM BP 128/78 Pulse 102 Temp 37.3 C (99.2 F) (Temporal) Resp 16 Wt 82.1 kg (181 lb) LMP 06/22/2020 (Exact Date) SpO2 97% BMI 33.10 kg/m General Appearance: well appearing, in no acute distress, alert Skin: Skin color, texture, turgor normal for age; Eyes: conjunctiva pink and moist, no icterus, sclera white, non-injected Ears: external ears normal to inspection and palpation, canals clear, Left tympanic membrane normal. , Right tympanic membrane normal bilateral ears with cerumen buildup so TM not fully examines. Nose/sinus: Nares normal. Septum midline. Mucosa normal. No drainage., No sinus tenderness Neck: Thyroid normal size and symmetric without palpable nodules, Neck supple, No adenopathy Oropharynx: tongue midline and normal, soft palate, uvula, and tonsils normal, palpation of salivary glands negative Lymph nodes: No cervical lymphadenopathy and No supraclavicular lymphadenopathy Lungs: Lungs clear to auscultation. No wheezing, rhonchi, rales. Heart: RRR without murmur, gallop, or rubs. No ectopy Health maintenance reviewed with patient: HEPATITIS B(1 of 3 - 3-dose series) Never done HEPATITIS C SCREENING Never done HIV SCREENING Never done SHINGRIX VACCINE(1 of 2) Never done COVID-19 VACCINE(5 - Booster for Pfizer series) due on 04/23/2022 DEPRESSION ASSESSMENT Never done DTAP,TDAP,TD(2 - Td or Tdap) due on 06/26/2023 MAMMOGRAM due on 08/29/2023 PAP TESTING due on 01/01/2025 HPV TESTING due on 01/01/2025 DIABETES SCREEN due on 07/12/2025 COLORECTAL CANCER SCREENING due on 11/04/2026 LIPID SCREEN due on 02/22/2028 INFLUENZA Completed ASSESSMENT/PLAN: 1. Acute non-recurrent sinusitis, unspecified location - ICD9: 461.9, ICD10: J01.90 (primary diagnosis) - as symptoms are worsening to the point patient had to call off today, will start on cefdinir - with the irritation possibly from mold and inflammation will also start on steroid nasal inhaler - cough due to sinus drainage, lungs are currently clear - no need for imaging at this time, benzonatate ordered prn for cough - Will begin treatment with as per antibiotic as written, see orders - Supportive care with plenty of fluids, rest, and analgesia prn. - Follow up in 3-5 days if symptoms persist or worsen. 2. Acute cough - ICD9: 786.2, ICD10: R05.1 See above 3. Wheezing - ICD9: 786.07, ICD10: R06.2 - lungs clear on exam and feel wheezing is related to sinus drainage as it is only noted when waking up and laying flat. Discussed with patient if this continues or occurs at other times, please let me know and we would do an chest xray. - see #1 4. Hyperlipidemia, unspecified hyperlipidemia type - ICD9: 272.4, ICD10: E78.5 - not reviewed in appointment today, lab work ordered to be reviewed at future annual exam. - COMP METABOLIC PANEL - LIPID PANEL BASIC 5. Annual physical exam - ICD9: V70.0, ICD10: Z00.00 - not reviewed in appointment today, lab work ordered to be reviewed at future annual exam. - CBC + DIFF - COMP METABOLIC PANEL - LIPID PANEL BASIC - HGB A1C 6. Elevated blood sugar - ICD9: 790.29, ICD10: R73.9 - HGB A1C Prescription instructions reviewed with patient as applicable. Potential red flag symptoms discussed with the patient. Reviewed appropriate action plan to take if red flag symptoms occur. Patient agreeable to treatment plan. Delma Turk APRN.CNP documented in this encounter [facility] 02-28-2023 Instructions Earl Child, Humanities Department Chair - 02/28/2023 2:38 PM EDT EXERCISE: The patient was advised to initiate the exercise prescription as outlined below: Aerobic Activity: Frequency: Continue with 4 times per week for the next month, if able to adhere to 4x/week without any significant orthopedic issues, please increase by one day to 5x/week. If this is going well for an additional month, then consider increasing to 6 days per week. Your goal is 4-6x/week of some type of aerobic/cardiovascular exercise. Mode: Treadmill/outdoor walking HR: 138-150 bpm Speed: 3.5-4.0 mph Grade: 2.5-3% grade Duration: Begin with a 3-5 minute warm up by progressively increasing the pace/workload, then maintain the above heart rate range for 30 minutes (conditioning phase of exercise), finish with a 3-5 minute progressive cool down. Every 2-3 weeks, add 5 minutes to the conditioning phase until able to complete 40-45 minutes. Exercise Precautions: If needed you can increase the warm up and cool down time up to 10 minutes each. On non-exercise days, continue to remain physically active with leisure time activity. If you develop symptoms such as chest pain/pressure, excessive shortness of breath, palpitations that do not stop, significant lightheadedness/dizziness or near fainting, please stop exercise and consult your research geologist. Please remember to stay well hydrated before, during and after exercise by drinking water throughout the day and during your exercise session. Aim for 64 oz of water daily. Resistance Training: Continue low resistance/high repetition muscle toning exercise to large muscle groups of upper and lower extremities as well as core. For each exercise outlined, use weights that can be lifted 10 to 15 repetitions to local fatigue. 1 to 2 sets of each exercise/session, 2 to 3 times per week on nonconsecutive days. Avoid straining and holding breath while lifting. Control rate of lifting and lowering weights. documented in this encounter [facility] 02-28-2023 History of Presen t illness Narrative Images from the original note were not included. [facility] [place] [facility] Department of Cardiovascular Medicine SECTION OF PREVENTIVE CARDIOLOGY 02/28/2023 Viviana Townsend CHIEF COMPLAINT Viviana Townsend is a 57 year old White female seen today. Patient presents with: Exercise Prescription : Hyperlipidemia 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 clobetasol (TEMOVATE) 0.05 % ointment Apply 1 application to affected area as directed. to affected twice weekly. May use BID for 1-2 weeks prn flares for up to 2 weeks busPIRone (BUSPAR) 5 mg tablet Take 1 tablet by mouth three times daily as needed. buPROPion XL (WELLBUTRIN XL) 150 mg 24 hr tablet TAKE 1 TABLET ONCE DAILY tamsulosin (FLOMAX) 0.4 mg Take 1 capsule by mouth daily at bedtime. phenazopyridine (PYRIDIUM) 200 mg tablet Take 1 tablet by mouth three times daily as needed. ondansetron (ZOFRAN) 4 mg tablet Take 1 tablet by mouth every 8 hours as needed for nausea/vomiting. oxyCODONE-acetaminophen (PERCOCET) 5-325 mg tablet Take 1 tablet by mouth every 6 hours as needed for pain. naproxen (NAPROSYN) 500 mg tablet Take 1 tablet by mouth twice daily as needed (for pain/inflammation). Take with food. ondansetron orally disintegrating (ZOFRAN ODT) 4 mg disintegrating tablet Take 1 tablet by mouth every 6 hours as needed for nausea/vomiting. hydrOXYzine HCl (ATARAX) 10 mg tablet Take 1 tablet by mouth three times daily as needed. Mometasone (ELOCON) 0.1 % solution Apply 1 application to affected area once daily. for scalp as needed benzonatate (TESSALON PERLES) 100 mg capsule Take 1-2 capsules by mouth three times daily as needed for Cough. Aspirin 81 mg Tab Take 1 tablet by mouth once daily. Take with food. MULTIVITAMIN TAB Take one(1) tablet daily. No current facility-administered medications for this visit. ALLERGIES ALLERGIES Allergen Reactions Latex Penicillins PAST FAMILY AND SOCIAL HISTORY FAMILY HISTORY Problem Relation Age of Onset Diabetes Maternal Grandmother Diabetes Maternal Aunt Diabetes Maternal Uncle Breast Cancer Sister age 39 , now with mets (including to colon) Social History Tobacco Use Smoking status: Never Smokeless tobacco: Never Vaping Use Vaping Use: Never used Alcohol use: Yes Comment: 1x per year Drug use: No PATIENT ENTERED QUESTIONNAIRE SCORES PHQ-9 02/27/2023 Score 2 KYLE - 7 SCORES 02/27/2023 KYLE-7 Score 3 PROMIS Global Health - (T-Scores - the mean of general population = 50. Five points is a clinically meaningful difference.) 02/27/2023 11/20/2022 09/04/2022 Physical T-Score 57.7 47.7 42.3 Mental T-Score 56 45.8 48.3 LIFESTYLE: Tobacco Use: Never DIET Current Diet: balanced diet, admits to consuming too much sugar Compliance: Based on review of the patient's diet history, reported compliance is Regular. Rediness for Change:Preparation (intent to change in <1 month). To see LEIGHA RD on 03/08/23 Barriers: loves sweets, candy and ice cream EXERCISE History: Regular exercise >10 years ago. Currently exercising 4 times per week at gym on treadmill or does exercise class, light weight lifting Treadmill ~4 mph, 5.5% (30 minutes). apple watch shows HR ~120 bpm on treadmill Classes: mostly Gurvinder (45 minutes) Will also walk dog [place] if she does not get to gym at least 4 days per week Readiness for change:Action (making current changes in behavior) Access to Exercise Equipment:Exercise Club Membership Barriers: time WEIGHT MANAGEMENT: History: > 10 lb weight gain in the past year, was ~175 lbs last year and around holidays went up to 191 lbs. Has lost 11 lbs since. Weight management strategies:Diet (portion sizes, cut out red meat and ice cream) and Exercise Readiness to change: Action (making current changes in behavior) Barriers: stress CLINICAL TESTING RESULTS Lab Results: Cholesterol, Total Date Value Ref Range Status 02/21/2023 235 (H) <200 mg/dL Final Comment: <200 mg/dL, Desirable 200-239 mg/dL, Borderline high >239 mg/dL, High Triglyceride Date Value Ref Range Status 02/21/2023 246 (H) <150 mg/dL Final Comment: <150 mg/dL, Normal 150-199 mg/dL, Borderline high 200-499 mg/dL, High >499 mg/dL, Very high HDL Cholesterol Date Value Ref Range Status 02/21/2023 51 >39 mg/dL Final Comment: 40-59 mg/dL, Acceptable >59 mg/dL, High: Negative risk factor for coronary heart disease <40 mg/dL, Low: Positive risk factor for coronary heart disease LDL Cholesterol Date Value Ref Range Status 02/21/2023 135 (H) <100 mg/dL Final Comment: <100 mg/dL, Optimal 100-129 mg/dL, Near optimal/above optimal 130-159 mg/dL, Borderline high 160-189 mg/dL, High >189 mg/dL, Very high Secondary prevention optimal LDL Cholesterol levels are recommended to be < 70 mg/dL Hemoglobin A1C Date Value Ref Range Status 07/12/2022 5.4 4.3 - 5.6 % Final Comment: [place] Diabetes Association guidelines indicate that patients with HgbA1c in the range 5.7-6.4% are at increased risk for development of diabetes, and intervention by lifestyle modification may be beneficial. HgbA1c greater or equal to 6.5% is considered diagnostic of diabetes. ALT Date Value Ref Range Status 07/12/2022 21 7 - 38 U/L Final AST Date Value Ref Range Status 07/12/2022 18 13 - 35 U/L Final Glucose Date Value Ref Range Status 07/12/2022 96 74 - 99 mg/dL Final Comment: The [place] Diabetes Association (ADA) provides guidance for cutoff values for fasting glucose and random glucose. The ADA defines fasting as no caloric intake for at least 8 hours. Fasting plasma glucose results between 100 to 125 mg/dL indicate increased risk for diabetes (prediabetes). Fasting plasma glucose results greater than or equal to 126 mg/dL meet the criteria for diagnosis of diabetes. In the absence of unequivocal hyperglycemia, results should be confirmed by repeat testing. In a patient with classic symptoms of hyperglycemia or hyperglycemic crisis, random plasma glucose results greater than or equal to 200 mg/dL meet the criteria for diagnosis of diabetes. Reference: Standards of Medical Care in Diabetes 2016, [place] Diabetes Association. Diabetes Care. 2016.39(Suppl 1). TSH Date Value Ref Range Status 07/28/2021 0.861 0.270 - 4.200 uU/mL Final Exercise Test: Today's exercise test demonstrated a peak exercise capacity of 7.6 METS free from signs and symptoms of ischemia up to a peak HR of 184 bpm (on no heart rate limiting medications). Exercise guidelines were developed based on the GXT results, patient interest and comorbidities. Details outlined below. Viviana Townsend was instructed on monitoring their target heart rate range to guide intensity and progression of exercise. EXERCISE: The patient was advised to initiate the exercise prescription as outlined below: Aerobic Activity: Frequency: Continue with 4 times per week for the next month, if able to adhere to 4x/week without any significant orthopedic issues, please increase by one day to 5x/week. If this is going well for an additional month, then consider increasing to 6 days per week. Your goal is 4-6x/week of some type of aerobic/cardiovascular exercise. Mode: Treadmill/outdoor walking HR: 138-150 bpm Speed: 3.5-4.0 mph Grade: 2.5-3% grade Duration: Begin with a 3-5 minute warm up by progressively increasing the pace/workload, then maintain the above heart rate range for 30 minutes (conditioning phase of exercise), finish with a 3-5 minute progressive cool down. Every 2-3 weeks, add 5 minutes to the conditioning phase until able to complete 40-45 minutes. Exercise Precautions: If needed you can increase the warm up and cool down time up to 10 minutes each. On non-exercise days, continue to remain physically active with leisure time activity. If you develop symptoms such as chest pain/pressure, excessive shortness of breath, palpitations that do not stop, significant lightheadedness/dizziness or near fainting, please stop exercise and consult your research geologist. Please remember to stay well hydrated before, during and after exercise by drinking water throughout the day and during your exercise session. Aim for 64 oz of water daily. Resistance Training: Continue low resistance/high repetition muscle toning exercise to large muscle groups of upper and lower extremities as well as core. For each exercise outlined, use weights that can be lifted 10 to 15 repetitions to local fatigue. 1 to 2 sets of each exercise/session, 2 to 3 times per week on nonconsecutive days. Avoid straining and holding breath while lifting. Control rate of lifting and lowering weights. Other relevant recommendations/instructions given to the patient: The patient has been educated on issues and indices which are relevant to her particular history and findings. A letter will also be sent to the referring provider discussing the findings of this visit. SUMMARY In summary, Ms. Townsend is a 57 year old female who was referred by Dr. Villasenor for exercise guidelines due to hyperlipidemia, bradycardia, BMI of 33 and sub optimal exercise guidelines. Exercise test results from today were reviewed and exercise guidelines as noted above. Mrs. Townsend plans to follow up with Dr. Villasenor as scheduled. Earl Child MS, [facility] [place] Humanities Department Chair Chief Complaint: Patient presents with: Exercise Prescription : Hyperlipidemia PHYSICAL EXAM: BP 110/68 Pulse 76 Ht 157.5 cm (5' 2.01 ) Wt 82.8 kg (182 lb 8 oz) LMP 06/22/2020 (Exact Date) BMI 33.37 kg/m Heart sounds: S1/S2, RRR Lung sounds: CTA bilaterally Extremities: no LE edema ASSESSMENT: hyperlipidemia PLAN The results of this assessment were discussed with the patient. We have mutually agreed upon the following plans and goals: Exercise and lifestyle guidance as above per museum host/hostess. I have reviewed the documentation obtained and documented by the EP and have reviewed and updated the problem list as appropriate. I have personally performed a face to face assessment of the patient and have personally participated in the george components. I have discussed the case and management of the patient's care. Marlin Flores APRN.[employer] AMBULATORY PATIENT EDUCATION Topic: Exercise Instruction Provided To: Patient Discipline: EP Instructed By: Earl Child Humanities Department Chair Motivation to Learn: Eager Family/SO Support: Unable to assess Cognitive Ability: Alert/Oriented Learning Preference: Individual Instructions Barriers: None Diagnosis: Primary Prevention Lifestyle Changes: Exercise Understanding: Performs Skill Independently Follow up: Complete Methods of Instruction: Verbal instruction and/or handouts. documented in this encounter [facility] 02-24-2023 Miscellaneous Notes error documented in this encounter [facility] 02-21-2023 History of Presen t illness Narrative EVENT MONITOR DISPOSABLE PATCH INSTRUCTIONS Patient Name: Viviana Townsend [facility] Number: [id number] Skin prepped and cleansed with alcohol Patch secured to prepped area Monitor Activated Serial #: [id number] Patient Instructed: Prescribed order timeframe Bathing guidelines Usage of event button and diary documentation Return of monitor at the end of prescribed order Call with problems [phone] or [phone]. [phone] Patient expresses a good understanding of instructions Gloria Moreno documented in this encounter [facility] 02-21-2023 Instructions Torey Villasenor MD - 02/21/2023 8:50 AM EDT Nutrition visit Exercise prescription Ziopatch (heart monitor) after the exercise prescription Start statin medication See us back in approximately 3 months or so documented in this encounter [facility] 02-21-2023 History of Presen t illness Narrative Images from the original note were not included. Heart, Vascular, and Thoracic [place] [facility] Department of Cardiovascular Medicine SECTION OF PREVENTIVE CARDIOLOGY Viviana Townsend 02/21/2023 CHIEF COMPLAINT: No chief complaint on file. HISTORY OF PRESENT CARDIOVASCULAR ILLNESS: Viviana Townsend is a 57 year old female with a PMH significant for hyperlipidemia, elevated BMI. Presents for evaluation of hyperlipidemia and preventive risk factors. Labs done locally 02/10/23: total chol 228, LDL 148, HDL 54, TG 127 BP 104/70 at that time BMI was 32.8 at that time Family History: Uncle - [place] in 70s Mother - cholesterol medicine at 79 years old Grandmother - [place], 52 years old Aunt - atrial fibrillation One other aunt may have had heart issues Exercise 3-4x/week, they last 45 minutes, cardio activities, goes to [facility] Also does Gurvinder classes Notes heart rate warning of HR in high 40s/low 50s daily, sometimes feel more tired than usual during these times Also has swelling in her ankles and legs at night. No PND, orthopnea. Resolves during day. Was told of blood clots causing miscarriage previously, on aspirin since. Upon cardiovascular review of systems the patient denies chest pain, SOB, palpitations, syncope, light-headednes, PND , orthopnea, intermittent claudication. CARDIAC RISK FACTORS: Not specified Exercise: Three to five times per week Family History of CAD: Positive (male<55, female<65) Uncle - [place] in 70s Mother - cholesterol medicine at 79 years old Grandmother - [place], 52 years old Aunt - atrial fibrillation STATIN INTOLERANCE: Adverse Effect Current Statin Freq: None USE OF PCSK9 INHIBITORS: CARDIOVASCULAR DISEASE HISTORY: Atherosclerosis by ALT Imaging: Yes 11/23/22 Valve Disease: None Arrythmias: None HEART FAILURE/CARDIOMYOPATHY: None RELATED DISEASE HISTORY: Psychiatric Disease : CURRENT MEDS: Current Outpatient Medications Medication Sig clobetasol (TEMOVATE) 0.05 % ointment Apply 1 application to affected area as directed. to affected twice weekly. May use BID for 1-2 weeks prn flares for up to 2 weeks busPIRone (BUSPAR) 5 mg tablet Take 1 tablet by mouth three times daily as needed. buPROPion XL (WELLBUTRIN XL) 150 mg 24 hr tablet TAKE 1 TABLET ONCE DAILY tamsulosin (FLOMAX) 0.4 mg Take 1 capsule by mouth daily at bedtime. phenazopyridine (PYRIDIUM) 200 mg tablet Take 1 tablet by mouth three times daily as needed. ondansetron (ZOFRAN) 4 mg tablet Take 1 tablet by mouth every 8 hours as needed for nausea/vomiting. oxyCODONE-acetaminophen (PERCOCET) 5-325 mg tablet Take 1 tablet by mouth every 6 hours as needed for pain. naproxen (NAPROSYN) 500 mg tablet Take 1 tablet by mouth twice daily as needed (for pain/inflammation). Take with food. ondansetron orally disintegrating (ZOFRAN ODT) 4 mg disintegrating tablet Take 1 tablet by mouth every 6 hours as needed for nausea/vomiting. hydrOXYzine HCl (ATARAX) 10 mg tablet Take 1 tablet by mouth three times daily as needed. Mometasone (ELOCON) 0.1 % solution Apply 1 application to affected area once daily. for scalp as needed benzonatate (TESSALON PERLES) 100 mg capsule Take 1-2 capsules by mouth three times daily as needed for Cough. Aspirin 81 mg Tab Take 1 tablet by mouth once daily. Take with food. MULTIVITAMIN TAB Take one(1) tablet daily. rosuvastatin (CRESTOR) 10 mg tablet Take 1 tablet by mouth once daily. No current facility-administered medications for this visit. ALLERGIES: ALLERGIES Allergen Reactions Latex Penicillins FAMILY AND SOCIAL HISTORY: Lifestyle Employer And Job Title: [employer] (No job title specified) Years Of Education Completed: Not specified Marital Status: to liam with 1 child Tobacco use in the last year: No Alcohol Use: No REVIEW OF SYSTEMS: CONSTITUTIONAL: No Changes. HEENT:Negative for frequent or significant headaches, No changes in hearing or vision, no nose bleeds or other nasal problems RESPIRATORY: Negative for cough, hemoptysis, wheezing, COPD, dyspnea or shortness of breath CARDIOVASCULAR: Negative for chest pain, leg swelling, hypertension, CHF or palpitations Otherwise not reviewed PHYSICAL EXAMINATION: Vital Signs and General Appearance BP 117/68 (BP Site: Left Arm, BP Position: Sitting, BP Cuff Size: Regular Adult) Pulse 83 Ht 157.5 cm (5' 2 ) Wt 81.8 kg (180 lb 6.4 oz) LMP 06/22/2020 (Exact Date) BMI 33.00 kg/m Average Blood Pressure: 117/68 BMI 33.00 kg/(m^2) Well developed, well nourished, alert, active 57 year old female in no apparent distress. Eyes: Normal, PERRLA Skin: Xanthomas - none Neck: Normal, supple with full range of motion Lungs: Clear to auscultation and percussion Lower Extremities: Normal exam of the extremities Neurological:Oriented to person, place and time and No focal motor or sensory deficits Pulses: Carotid: Left: 2+, Right: 2+, Bruit: No Posterior Tibial:Right 2+, Posterior Tibial:Left 2+, Heart Sounds: S1: Normal S2: Normal S3: Absent S4: Absent Murmurs: Systolic Murmur Present: No Diastolic Murmur Present: No Xanthomas: No CLINICAL TESTING RESULTS: I have personally reviewed the following: Most recent ECG Tracing: which I independently visualized. Other recent cardiac testing: CT Flank 11/23/22 excerpt: Vasculature: Arterial atherosclerotic disease without aneurysm. LABS: Glucose (mg/dL) Date Value 07/12/2022 96 BUN (mg/dL) Date Value 07/12/2022 22 (H) Creatinine (mg/dL) Date Value 07/12/2022 0.96 Sodium (mmol/L) Date Value 07/12/2022 139 Potassium (mmol/L) Date Value 07/12/2022 3.8 Chloride (mmol/L) Date Value 07/12/2022 104 CO2 (mmol/L) Date Value 07/12/2022 23 Protein, Total (g/dL) Date Value 07/12/2022 6.6 Albumin (g/dL) Date Value 07/12/2022 4.3 Calcium, Total (mg/dL) Date Value 07/12/2022 8.8 Alkaline Phosphatase (U/L) Date Value 07/12/2022 51 Bilirubin, Total (mg/dL) Date Value 07/12/2022 0.5 AST (U/L) Date Value 07/12/2022 18 ALT (U/L) Date Value 07/12/2022 21 WBC (k/uL) Date Value 07/12/2022 7.01 RBC (m/uL) Date Value 07/12/2022 4.71 Hemoglobin (g/dL) Date Value 07/12/2022 14.7 Hematocrit (%) Date Value 07/12/2022 42.8 MCV (fL) Date Value 07/12/2022 90.9 MCH (pg) Date Value 07/12/2022 31.2 MCHC (g/dL) Date Value 07/12/2022 34.3 RDW-CV (%) Date Value 07/12/2022 12.0 Platelet Count (k/uL) Date Value 07/12/2022 270 MPV (fL) Date Value 07/12/2022 10.5 No results found for: INR Cholesterol, Total Date Value Ref Range Status 07/12/2022 248 (H) <200 mg/dL Final Comment: <200 mg/dL, Desirable 200-239 mg/dL, Borderline high >239 mg/dL, High HDL Cholesterol Date Value Ref Range Status 07/12/2022 55 >39 mg/dL Final Comment: 40-59 mg/dL, Acceptable >59 mg/dL, High: Negative risk factor for coronary heart disease <40 mg/dL, Low: Positive risk factor for coronary heart disease LDL Cholesterol Date Value Ref Range Status 07/12/2022 169 (H) <100 mg/dL Final Comment: <100 mg/dL, Optimal 100-129 mg/dL, Near optimal/above optimal 130-159 mg/dL, Borderline high 160-189 mg/dL, High >189 mg/dL, Very high Secondary prevention optimal LDL Cholesterol levels are recommended to be < 70 mg/dL Triglyceride Date Value Ref Range Status 07/12/2022 118 <150 mg/dL Final Comment: <150 mg/dL, Normal 150-199 mg/dL, Borderline high 200-499 mg/dL, High >499 mg/dL, Very high PATIENT ENTERED QUESTIONNAIRE SCORES PROMIS Global Health - (T-Scores - the mean of general population = 50. Five points is a clinically meaningful difference.) 11/20/2022 09/04/2022 07/22/2021 Physical T-Score 47.7 42.3 47.7 Mental T-Score 45.8 48.3 48.3 This consultation was requested by Self for an opinion regarding hyperlipidemia , and my final recommendations will be communicated back to the requesting physician and primary care provider by way of shared medical record or letter summarizing my evaluation. ASSESSMENT AND PLAN: In addition to the above history and physical exam, the results of prior labs and testing, were reviewed. The following plans and goals have been established to address current medical problems and optimize control of cardiovascular risk factors to reduce the risk of future heart disease: Active Medical Problems: 1) Hyperlipidemia Report of aortic plaques on non-dedicated CT Flank 11/2022. Will initiate statin therapy, rosuvastatin 10 mg PO daily to start. Discussed risk/benefits/side effect profile. Most ideal LDL-c goal is < 70 mg/dl but being on appropriate statin therapy and receiving risk reduction benefits is probably as important as achieving a specific LDL-c goal Check Lp (a) Repear LDL-c in 3 months 2) Obesity Janitor referral to discuss dietary approaches. Current plan is either Mediterranean or PSMF, she will discuss with our axle inspector team more. If we proceed with PSMF, will need standing lab orders and supplementation Exercise prescription 3) LE swelling, intermittent Exam ok in clinic today NT pro BNP Urine protein/creatinine 4) Bradycardia Exercise prescription will have an ECG treadmill stress which will help confirm rhythm and chronotropy Ziopatch afterwards to rule out clinically meaningful bradyarrhythmias FOLLOW UP: We recommend a 3 month follow-up The medical decision making for this patient encounter was of moderate complexity I provided Viviana Townsend with my contact information at this visit (or a prior visit.) This information includes my office phone number, office fax number, SynGen instructions, and my work email address. Viviana Townsend was strongly encouraged to use [employer] for communication if possible, but my email address was provided if needed. Torey Villasenor MD AMBULATORY PATIENT EDUCATION Topic: Hyperlipidemia Instruction Provided To: Patient Barriers: None Motivation to Learn: Interested Methods of Instruction: Verbal instruction and/or handouts. Patient Leans Best By: Multiple Methods Patient Verbalized: Understanding documented in this encounter [facility] 12-26-2022 History of Presen t illness Narrative Viviana is a 57 year old who presents for an annual gynecologic exam without complaints. Postmenopausal: yes HRT use: No. Last Pap: 01/07/2020 normal HPV: 01/06/2020 negative History of abnormal pap: No Last mammogram: 2019 normal History of abnormal mammogram: No Sexually active: not currently but is getting med for ED and will likely try this soon OB History T0 L1 SAB2 IAB0 Ectopic0 Multiple0 Live Births0 Environmental Emergencies Planner History LMP: 06/22/2020 (Exact Date), Postmenopausal Age at Menarche: Age at First : Age at Menopause: Environmental Emergencies Planner History Comments: Sexual Activity: Yes; Male Contraception: No contraception data on record PAST MEDICAL HISTORY Diagnosis Date Abnormal coagulation profile 2 miss carriages ABNORMAL COAGULATION STUDY Adjustment disorder with depressed mood Dizziness and giddiness Dysmetabolic syndrome X Generalized anxiety disorder Irritable bowel syndrome IUD (intrauterine device) in place 10/31/2013 Lab test positive for detection of COVID-19 virus 09/2020 Mitral valve disorders Myopia with astigmatism and presbyopia 09/03/2018 Ocular hypertension 09/03/2018 Other abnormal heart sounds Other psoriasis Premenstrual tension syndromes 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 Urinary calculus, unspecified 2010 Renal stones PAST SURGICAL HISTORY Procedure Laterality Date BREAST BX NEEDLE CORE LEFT 10/2017 benign DELIVERY ONLY 08/12/2003 , low cervical COLONOSCOPY FLX DX W/COLLJ SPEC WHEN PFRMD 11/03/2016 Colonoscopy COLONOSCOPY W/BIOPSY SINGLE/MULTIPLE 06/05/09 Normal appearing colon CYSTOURETHROSCOPY renal stones KIDNEY SURGERY HX TONSILLECTOMY PRIMARY/SECONDARY <AGE 12 Tonsillectomy FAMILY HISTORY Problem Relation Age of Onset Diabetes Maternal Grandmother Diabetes Maternal Aunt Diabetes Maternal Uncle Breast Cancer Sister age 39 , now with mets (including to colon) SOCIAL HISTORY Social History Tobacco Use Smoking status: Never Smokeless tobacco: Never Vaping Use Vaping Use: Never used Substance Use Topics Alcohol use: No Drug use: No REVIEW OF SYSTEMS Abdomen: No abdominal pain, nausea, vomiting, diarrhea, or constipation. No bloating, early satiety, indigestion, or increased flatulence. Bladder: No dysuria, gross hematuria, urinary frequency, urinary urgency, or incontinence Breast: No breast lumps, nipple d/c, overlying skin changes, redness or skin retraction Allergies and current medication updated:Yes EXAM: BP 110/68 Ht 5' 2 (1.58m) Wt 184 lb (83.5kg) LMP 06/22/2020 BMI 33.65 kg/(m^2). GENERAL: pleasant, female in no apparent distress HEENT: Normocephalic, atraumatic, mucus membranes moist, and no lesions NECK: Supple, full range of motion, no adenopathy, and thyroid normal DERMATOLOGY: Normal, without lesions, non-icteric, and non-hirsute BREAST: soft, non-tender, symmetric, no dominant mass, normal nipple-areolar complex, no lymphadenopathy, and no nipple discharge CHEST: Normal inspiratory effort ABDOMEN: soft, non-tender, and no masses PELVIC: normal Bartholin's glands, urethra, Rushmore's glands, no vulvar lesions, no cervical lesions, good vaginal support, physiologic discharge present, normal appearing perineal body and perianal region, thin white skin near perinuem, no hyperpigmention or fissures or ulcerations BIMANUAL: uterus normal size, shape and consistency, no adnexal masses, and non-tender RECTOVAGINAL: deferred. NEURO: alert and oriented x3,exam grossly non-focal EXTREMITIES: normal ASSESSMENT/PLAN: 1) Health maintenance: Pap/HPV up to date. Mammogram ordered Colon cancer screening: up to date with screening 2) Follow up one year or sooner as needed lichen sclerosis- use steroid prn some situational anxiety, buspar helps and doing well on wellbutrin. Refill for buspar prn Dede Kaplan MD documented in this encounter [facility] 11-23-2022 History of Presen t illness Narrative ESTABLISHED PATIENT OFFICE VISIT HISTORY OF PRESENT ILLNESS: Viviana Townsend is a 57 year old female, Ht 158 cm (5' 2.2 ) BMI 33.26 kg/m2 with a PMH significant for litholink follow up. KUB shows 1-3 left kidney stones. Pt reports having flank pain, starting on right, and is across her back now. No fever,chills. LAB: Creatinine Date Value Ref Range Status 07/12/2022 0.96 0.58 - 0.96 mg/dL Final No results found for: PSA Glucose, Urine Date Value 09/05/2022 Negative 10/22/2015 neg mg/dL Bilirubin, Urine (no units) Date Value 09/05/2022 Negative 10/22/2015 neg Ketones, Urine (no units) Date Value 09/05/2022 Negative 10/22/2015 neg Specific [place], Ur (no units) Date Value 09/05/2022 1.007 10/22/2015 1.005 Hemoglobin/Blood,Ur (no units) Date Value 09/05/2022 Trace 10/22/2015 large pH, Urine (no units) Date Value 09/05/2022 6.5 10/22/2015 7.5 Protein, Urine Date Value 09/05/2022 Negative 10/22/2015 300 mg/dL Urobilinogen, Urine (EU) Date Value 10/22/2015 normal Nitrites (no units) Date Value 09/05/2022 Negative 10/22/2015 neg Leukocytes (no units) Date Value 10/22/2015 trace WBC, Urine (no units) Date Value 09/05/2022 6-10 /HPF Color/Appearance (comment:) Date Value 10/22/2015 yellow/clear MEDICATIONS: buPROPion XL (WELLBUTRIN XL) 150 mg 24 hr tablet TAKE 1 TABLET ONCE DAILY phenazopyridine (PYRIDIUM) 200 mg tablet Take 1 tablet by mouth three times daily as needed. ondansetron (ZOFRAN) 4 mg tablet Take 1 tablet by mouth every 8 hours as needed for nausea/vomiting. oxyCODONE-acetaminophen (PERCOCET) 5-325 mg tablet Take 1 tablet by mouth every 6 hours as needed for pain. naproxen (NAPROSYN) 500 mg tablet Take 1 tablet by mouth twice daily as needed (for pain/inflammation). Take with food. ondansetron orally disintegrating (ZOFRAN ODT) 4 mg disintegrating tablet Take 1 tablet by mouth every 6 hours as needed for nausea/vomiting. busPIRone (BUSPAR) 5 mg tablet Take 1 tablet by mouth three times daily as needed. hydrOXYzine HCl (ATARAX) 10 mg tablet Take 1 tablet by mouth three times daily as needed. Mometasone (ELOCON) 0.1 % solution Apply 1 application to affected area once daily. for scalp as needed clobetasol (TEMOVATE) 0.05 % ointment Apply 1 application to affected area as directed. to affected twice weekly. May use BID for 1-2 weeks prn flares for up to 2 weeks benzonatate (TESSALON PERLES) 100 mg capsule Take 1-2 capsules by mouth three times daily as needed for Cough. Aspirin 81 mg Tab Take 1 tablet by mouth once daily. Take with food. MULTIVITAMIN TAB Take one(1) tablet daily. ondansetron (ZOFRAN) 8 mg tablet Take 1 tablet by mouth every 8 hours as needed for nausea/vomiting. tamsulosin (FLOMAX) 0.4 mg Take 1 capsule by mouth daily at bedtime. (Patient not taking: Reported on 11/23/2022) KEFLEX 500 mg capsule TAKE 1 CAPSULE 3 TIMES A DAY FOR 7 DAYS. (Patient not taking: Reported on 11/23/2022) Review of Systems HISTORIES PAST MEDICAL HISTORY Diagnosis Date Abnormal coagulation profile 2 miss carriages ABNORMAL COAGULATION STUDY Adjustment disorder with depressed mood Dizziness and giddiness Dysmetabolic syndrome X Generalized anxiety disorder Irritable bowel syndrome IUD (intrauterine device) in place 10/31/2013 Lab test positive for detection of COVID-19 virus 09/2020 Mitral valve disorders Myopia with astigmatism and presbyopia 09/03/2018 Ocular hypertension 09/03/2018 Other abnormal heart sounds Other psoriasis Premenstrual tension syndromes 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 ASSESSMENT/PLAN: 1. Flank pain, acute - ICD9: 789.09, 338.19, ICD10: R10.9 (primary diagnosis) - URINE CULTURE - CT FLANK WO IVCON Results to dr. Montes when available 2. Kidney stone - ICD9: 592.0, ICD10: N20.0 See above Litholink results discussed María Wilson PA-C documented in this encounter [facility] 10-31-2022 History of Presen t illness Narrative Radiology Service Progress Note PATIENT NAME: Viviana Townsend DATE OF SERVICE: October 31, 2022 TIME: 12:58 PM PATIENT IDENTITY VERIFICATION COMPLETED USING TWO (2) IDENTIFIERS: Name and Date of confirmed by patient verbally. FALL SCREENING: Has the patient had 2 falls in the last year or 1 fall with injury or currently using an Ambulatory Assistive Device (Walker, Cane, Wheelchair, Crutches, etc.)? No PATIENT GENDER DATA: Female. status: : No status: NO. PATIENT RELEVANT IMPLANT DATA REVIEWED: Not Applicable RADIOLOGY DEPARTMENT: General X-ray: Exam(s) Completed: Abdomen X-Ray: Abdomen PERIPHERAL IV DATA: Not applicable SIGNED BY: RT Sd(R) October 31, 2022 12:58 PM documented in this encounter [facility] 10-07-2022 Miscellaneous Notes Patient has been identified by name and date of : Yes Patient phones for refill(s): Requested Prescriptions Pending Prescriptions Disp Refills buPROPion XL (WELLBUTRIN XL) 150 mg 24 hr tablet [Pharmacy Med Name: BUPROP 24 XL TAB 150MG] 90 tablet 3 Sig: TAKE 1 TABLET ONCE DAILY Date of last office visit in primary care: 08/18/2022 Last 2 Encounter Wt Readings: Date: Wt: 09/05/2022 83 kg (183 lb) 08/18/2022 83 kg (183 lb) Previous labs/tests for medication: Not applicable Please advise. Thank you. Teresa Mccallum LPN documented in this encounter [facility] 09-14-2022 Miscellaneous Notes Pt states she is having cold symptoms and tested positive for Covid today. Tomorrow's ESWL rescheduled to 09/27/22. Will you want another urine culture prior? Please advise. Thanks, Ree MILLER documented in this encounter [facility] 09-08-2022 Miscellaneous Notes Pt is scheduled for Lt ESWL with Dr Montes at [facility] on 09/15/22 2 12:45 (10:45 arrival). Pt to do urine culture prior. Pt given date, time, prep and arrival instructions over the phone on 09/06/22. [employer] message sent also. Ree MILLER documented in this encounter [facility] 09-05-2022 Miscellaneous Notes Pharmacy called requesting the following refill. Requested Prescriptions Pending Prescriptions Disp Refills KEFLEX 500 mg capsule [Pharmacy Med Name: KEFLEX CAP 500MG] 21 capsule 0 Sig: TAKE 1 CAPSULE 3 TIMES A DAY FOR 7 DAYS. Patient last appointment: 09/05/2022 Patient Phone numbers: [phone] (home) [phone] (work) Request is for script(s) to be escript to pharmacy. Robert Pappas Ma documented in this encounter [facility] 09-05-2022 Miscellaneous Notes Please review the ct scan, pt having flank pain. María Wilson PA-C documented in this encounter [facility] 09-05-2022 History of Presen t illness Narrative NEW PATIENT HISTORY AND PHYSICAL EXAM PATIENT INFO: Viviana Townsend 57 year old REFERRING PROVIDER: Data Unavailable PCP: Ben Adams MD HPI Viviana Townsend is a 57 year old female with recent bout of right sided flank pain radiating to left. Ct scan shows two kidney stones, largest 9mm, 3mm. Pt has had two stone episodes in the past, needed surgery for one (obstructing in ureter) and passed the other stone. Pt states she is having flushing with pain, nausea. No hematuria or dysuria, was on antibiotics, urine dip + for uti today. Discussed ESWL, procedure and complications. Review of Systems LAB: Creatinine Date Value Ref Range Status 07/12/2022 0.96 0.58 - 0.96 mg/dL Final No results found for: PSA Glucose, Urine Date Value 08/18/2022 Negative 10/22/2015 neg mg/dL Bilirubin, Urine (no units) Date Value 08/18/2022 Negative 10/22/2015 neg Ketones, Urine (no units) Date Value 08/18/2022 Negative 10/22/2015 neg Specific [place], Ur (no units) Date Value 08/18/2022 1.015 10/22/2015 1.005 Hemoglobin/Blood,Ur (no units) Date Value 08/18/2022 Negative 10/22/2015 large pH, Urine (no units) Date Value 08/18/2022 8.0 10/22/2015 7.5 Protein, Urine Date Value 08/18/2022 Negative 10/22/2015 300 mg/dL Urobilinogen, Urine (EU) Date Value 10/22/2015 normal Nitrites (no units) Date Value 08/18/2022 Negative 10/22/2015 neg Leukocytes (no units) Date Value 10/22/2015 trace WBC, Urine (no units) Date Value 08/18/2022 11-25 /HPF Color/Appearance (comment:) Date Value 10/22/2015 yellow/clear MEDICATIONS: naproxen (NAPROSYN) 500 mg tablet Take 1 tablet by mouth twice daily as needed (for pain/inflammation). Take with food. ondansetron orally disintegrating (ZOFRAN ODT) 4 mg disintegrating tablet Take 1 tablet by mouth every 6 hours as needed for nausea/vomiting. busPIRone (BUSPAR) 5 mg tablet Take 1 tablet by mouth three times daily as needed. hydrOXYzine HCl (ATARAX) 10 mg tablet Take 1 tablet by mouth three times daily as needed. Mometasone (ELOCON) 0.1 % solution Apply 1 application to affected area once daily. for scalp as needed clobetasol (TEMOVATE) 0.05 % ointment Apply 1 application to affected area as directed. to affected twice weekly. May use BID for 1-2 weeks prn flares for up to 2 weeks buPROPion XL (WELLBUTRIN XL) 150 mg 24 hr tablet Take 1 tablet by mouth once daily. benzonatate (TESSALON PERLES) 100 mg capsule Take 1-2 capsules by mouth three times daily as needed for Cough. Aspirin 81 mg Tab Take 1 tablet by mouth once daily. Take with food. MULTIVITAMIN TAB Take one(1) tablet daily. cephALEXin (KEFLEX) 500 mg capsule Take 1 capsule by mouth three times daily for 7 days. tamsulosin (FLOMAX) 0.4 mg Take 1 capsule by mouth daily at bedtime. 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 Constitutional: Well appearing, alert, in no acute distress, and well-hydrated, well nourished Skin: Skin color, texture, turgor normal, no suspicious rashes or lesions Eyes: Normocephalic, no masses, lesions, tenderness or abnormalities Neuro: Not examined Respiratory: +effort Cardiovascular: Not examined Gastrointestinal: Negative CVA tenderness Musculoskeletal: Extremities normal. No deformities, edema, or skin discoloration. Genitourinary: FEMALE EXAM: Exam NOT Indicated ASSESSMENT/PLAN: 1. Left flank pain - ICD9: 789.09, ICD10: R10.9 (primary diagnosis) - URINALYSIS, WITH MICROSCOPIC - URINE CULTURE Pt has naprosyn and tamsulosin 2. Kidney stone - ICD9: 592.0, ICD10: N20.0 - URINALYSIS, WITH MICROSCOPIC - URINE CULTURE Note to dr. Simon Wilson PA-C I spent a total of 45 minutes on the date of the service which included preparing to see the patient, [id number] patient care, completing clinical documentation, counseling and educating the patient/family/caregiver, and ordering medications, tests, or procedures. documented in this encounter [facility] 08-29-2022 Miscellaneous Notes August 29, 2022 PID: [id number] Viviana Townsend [address] [place] [address] Dear Ms. Townsend, We are pleased to inform you that the results of your recent breast imaging exam on 08/29/2022 are normal. Your mammogram demonstrates that you have dense breast tissue, which could hide abnormalities. Dense breast tissue, in and of itself, is a relatively common condition. Therefore, this information is not provided to cause undue concern; rather, it is to raise your awareness and promote discussion with your health care provider regarding the presence of dense breast tissue in addition to other risk factors. Early detection of cancer is very important. We also understand recommendations regarding breast cancer screening are controversial. Please discuss with your primary care provider which strategy is best for you and whether a mammogram is right for you. Your imaging studies and report will be kept on file at [facility] as part of your permanent medical record and are available for your continuing care. Thank you for allowing us to help in meeting your health care needs. Sincerely, Dr. Barton Interpreting Radiologist [facility] (Normal over 40) documented in this encounter [facility] 08-29-2022 History of Presen t illness Narrative Radiology Service Progress Note PATIENT NAME: Viviana Townsend DATE OF SERVICE: August 29, 2022 TIME: 12:50 PM PATIENT IDENTITY VERIFICATION COMPLETED USING TWO (2) IDENTIFIERS: Name and Date of confirmed by patient verbally. FALL SCREENING: Has the patient had 2 falls in the last year or 1 fall with injury or currently using an Ambulatory Assistive Device (Walker, Cane, Wheelchair, Crutches, etc.)? No PATIENT GENDER DATA: Female. status: : No status: NO. PATIENT RELEVANT IMPLANT DATA REVIEWED: Not Applicable RADIOLOGY DEPARTMENT: Mammography PERIPHERAL IV DATA: Not applicable SIGNED BY: RT Daljit(R) August 29, 2022 12:50 PM documented in this encounter [facility] 08-19-2022 Miscellaneous Notes Patient notified. Please let patient know antibiotic has been sent but I also added naproxen for the pain, zofran for the nausea, and since one of the kidney stones is 9mm adding tamsulosin. Tamsulosin should relax her ureters so if the stone begins to pass hopefully would have less resistance. Thank you Delma Turk APRN.DAVID Patient notified, [facility] pended. Patient states pain level is 3 today but has some nausea. Please assist patient is scheduling with Urology. Please let patient know I am ordering a consult to urology for non obstructing kidney stone. Also she has what looks like the start of a urinary tract infection so am ordering an antibiotic for her. I do not have the urine culture yet but do not want her to wait to start an antibiotic. Which pharmacy should I send prescription to? How is the pain? Thank you Delma Turk APRN.DAVID Patient calling asking for CT results please. Please advise 08/18/2022 3:01 PM - Radiology, [place] In Impression IMPRESSION: Nonobstructing LEFT nephrolithiasis. Help Desk Representative: GEMMA Transcribe Date/Time: Aug 18 2022 2:46P Dictated by : MADIHA PERALES DO This examination was interpreted and the report reviewed and electronically signed by: MADIHA PERALES DO on Aug 18 2022 2:59PM EST Results-Findings * * *Final Report* * * DATE OF EXAM: Aug 18 2022 2:23PM [facility] [id number] - CT ABD/PEL WO IVCON / PROCEDURE REASON: multiple diagnoses * * * * Physician Interpretation * * * * EXAMINATION: CT ABDOMEN AND PELVIS WITHOUT IV CONTRAST PATIENT/TECHNOLOGIST PROVIDED HISTORY: Hx dimas flank pain, CLINICAL INFORMATION: 57 years old Female with Right flank pain. History of kidney stones. TECHNIQUE: Non-IV contrast imaging of the abdomen and pelvis was performed using standard technique, scanning from just above the dome of the diaphragm to the symphysis pubis. Unenhanced imaging is limited for the evaluation of some intra-abdominal and pelvic pathology. MQ: [id number] Contrast: IV: None Oral: None. CT Radiation dose: Integrated Dose-length product (DLP) for this visit = 472 mGy*cm. CT Dose Reduction Employed: Automated exposure control(AEC) and iterative recon COMPARISON: CT flank 10/22/2015 RESULT: Abdomen / Pelvis: Unenhanced imaging is limited for the evaluation of some intra-abdominal and pelvic pathology. Liver: Within normal limits of unenhanced exam. Biliary: The gallbladder is unremarkable. Spleen: No splenomegaly. Pancreas: Within normal limits of unenhanced exam. Adrenals: Nodular thickening LEFT adrenal gland, unchanged since 2015. Normal RIGHT adrenal gland. Kidneys: Two adjacent calculi in the LEFT midpole conglomerate measuring 9 mm and 3 mm calculus in the LEFT lower pole. No ureterolithiasis or hydronephrosis. No contour deforming mass in the unenhanced kidney. GI Tract: No bowel dilation. Normal appendix. Lymph Nodes: No lymphadenopathy. Mesentery/peritoneum: No ascites. Retroperitoneum: No mass. Vasculature: No abdominal aortic or iliac artery aneurysm. Pelvis: No mass or ascites. Bones/Soft Tissues: Dextroscoliosis and degenerative changes in the thoracolumbar spine. Bilateral L5 pars defects. Small fat containing periumbilical hernia. Lower thorax: Unremarkable. Active Directory Specialist (topogram) images: No additional findings. documented in this encounter [facility] 08-18-2022 History of Presen t illness Narrative Radiology Service Progress Note PATIENT NAME: Viviana Townsend DATE OF SERVICE: August 18, 2022 TIME: 2:52 PM PATIENT IDENTITY VERIFICATION COMPLETED USING TWO (2) IDENTIFIERS: Name and Date of confirmed by patient verbally. FALL SCREENING: Has the patient had 2 falls in the last year or 1 fall with injury or currently using an Ambulatory Assistive Device (Walker, Cane, Wheelchair, Crutches, etc.)? No PATIENT GENDER DATA: Female. status: : No status: NO. PATIENT RELEVANT IMPLANT DATA REVIEWED: Yes RADIOLOGY DEPARTMENT: CT; Exam(s) Completed: Abdomen/Pelvis PERIPHERAL IV DATA: Not applicable SIGNED BY: RT Andrew(R) August 18, 2022 2:52 PM documented in this encounter [facility] 08-18-2022 History of Presen t illness Narrative CC: Patient presents with: Back Pain: Upper back pain, across the back x 3 weeks HPI Viviana Townsend is a 57 year old female who presents with mid back pain and a history of kidney stones. 3 weeks ago woke up with severe right flank pain that was stabbing cramping. Was there for 20 min to a half hour and it gradually self resolved. This has occurred 4-5 times since original occurrence. Pain is still a stabbing cramp that is so severe she cannot move and becomes nauseated. Will often radiate across back or wrap around to Right side of abdomen. Last episode was yesterday but still with cramp pain this morning. History of kidney stones that required surgical removal in 2009. Also has bilateral groin pain when standing up for the last few weeks but has been assuming it happens if she sits too long. States she always loses her hair when she has kidney stones and started with this last week. Denies any current or previous back injury, numbness, tingling, decreased ROM, weakness, fever, saddle anesthesia. stool incontinence, pain incontinence, or difficulty urinating. Has tried ibuprofen for pain but with the pain randomly coming and going doesn't know if it is helpful or not. Has no identifiable position or activity that will precipitate or relieve pain. REVIEW OF SYSTEMS General: no fevers, no chills, no night sweats, no recurrent infections, no change in appetite, no change in energy, and no significant changes in weight Respiratory: Negative for Cough; Wheezing, Shortness of breath Cardiovascular: Negative for: no chest pain, no chest pressure, no palpitations, and no swelling GI: no vomiting diarrhea, or change in bowel habits. Nausea only occurs with the intense pain. 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 hydrOXYzine HCl (ATARAX) 10 mg tablet Take 1 tablet by mouth three times daily as needed. Mometasone (ELOCON) 0.1 % solution Apply 1 application to affected area once daily. for scalp as needed clobetasol (TEMOVATE) 0.05 % ointment Apply 1 application to affected area as directed. to affected twice weekly. May use BID for 1-2 weeks prn flares for up to 2 weeks buPROPion XL (WELLBUTRIN XL) 150 mg 24 hr tablet Take 1 tablet by mouth once daily. benzonatate (TESSALON PERLES) 100 mg capsule Take 1-2 capsules by mouth three times daily as needed for Cough. Aspirin 81 mg Tab Take 1 tablet by mouth once daily. Take with food. MULTIVITAMIN TAB Take one(1) tablet daily. FAMILY HISTORY Problem Relation Age of Onset Diabetes Maternal Grandmother Diabetes Maternal Aunt Diabetes Maternal Uncle Breast Cancer Sister age 39 , now with mets (including to colon) Social History Tobacco Use Smoking status: Never Smokeless tobacco: Never Vaping Use Vaping Use: Never used Substance Use Topics Alcohol use: No Drug use: No PHYSICAL EXAM BP 124/86 Pulse 80 Resp 16 Wt 83 kg (183 lb) LMP 06/22/2020 (Exact Date) BMI 33.25 kg/m General Appearance: well appearing, in no acute distress, alert Skin: Skin color, texture, turgor normal for age; Back: normal to inspection. No tenderness with palpation of spine or paraspinal muscles. ROM: normal. Reflexes:2+ and symmetric. Muscle strength: 5/5 lower, bilaterally Lungs: Lungs clear to auscultation. No wheezing, rhonchi, rales. Heart: RRR without murmur, gallop, or rubs. No ectopy Abdomen: Abdomen soft, non-tender. Bowel sounds normal. No masses, organomegaly, Negative CVA tenderness Extremities: No deformities, edema, skin discoloration, clubbing or cyanosis. Good capillary refill. Musculoskeletal: No joint swelling, deformity, or tenderness DATA REVIEWED: No new labs ASSESSMENT/PLAN: 1. Right flank pain - ICD9: 789.09, ICD10: R10.9 (primary diagnosis) - with history of kidney stones and normal musculoskeletal exam, patient needs CT to check for kidney stones. - UA DIP, URINE (POC) - URINALYSIS, WITH MICROSCOPIC - URINE CULTURE - CT ABD/PEL WO IVCON - treatment, medications, and follow up depending on results. 2. Inguinal pain, unspecified laterality - ICD9: 789.09, ICD10: R10.30 As above - UA DIP, URINE (POC) - small amount of leukocytes - URINALYSIS, WITH MICROSCOPIC - URINE CULTURE - CT ABD/PEL WO IVCON 3. History of kidney stones - ICD9: V13.01, ICD10: Z87.442 - UA DIP, URINE (POC) - URINALYSIS, WITH MICROSCOPIC - URINE CULTURE - CT ABD/PEL WO IVCON 4. Hair loss - ICD9: 704.00, ICD10: L65.9 - patient unconcerned with this at the moment. States it grows back after kidney stone pain resolves - follow up for further evaluation if this does not resolve, continues, or you have any other concerns. Prescription instructions reviewed with patient as applicable. Potential red flag symptoms discussed with the patient. Reviewed appropriate action plan to take if red flag symptoms occur. Patient agreeable to treatment plan. Delma Turk APRN.CNP documented in this encounter [facility] 08-18-2022 Miscellaneous Notes Noted. Will review at appointment today. Delma Turk APRN.CNP Triage Protocol Recommended to Patient: See provider within 24 hours for evaluation. Appt made with Delma Turk for 11:20 am today. Please call patient on her cell # if provider has other instructions. Thank you. Reason for Disposition [1] MODERATE back pain (e.g., interferes with normal activities) AND [2] present > 3 days Answer Assessment - Initial Assessment Questions Patient calling with main complaint of mid-back pain that is going across. Started about 2-3 weeks ago in mostly her right side and has worsened over time-goes across completely now. Rate pain as a 6 out of 10 currently. Not taking and OTC pain medication at this time. Reports she had kidney stone removed a couple years ago and had other stones present at that time-thinks maybe it is a kidney stone. Denies chest pain, chest pressure, SOB, or abdominal pain. No front pain . Denies any urinary symptoms. States urine is yellow. Drinking fluids well. No fever or chills. 1. ONSET: as above 2. LOCATION: as above 3. SEVERITY: moderate 4. PATTERN: intermittent 5. RADIATION: does not radiate any where else 6. CAUSE: Patient thinks maybe kidney stones 7. BACK OVERUSE: no injury 8. MEDICATIONS: tried ibuprofen-does not relieve pain much 9. NEUROLOGIC SYMPTOMS: No weakness, no numbness, no problems with bowel/bladder control. Last BM was Monday-states typical for her. No abdominal pain. 10. OTHER SYMPTOMS: No fever, no abdominal pain, no burning with urination, no blood in urine 11. : no Protocols used: Back [id number] documented in this encounter [facility] 07-19-2022 History of Presen t illness Narrative Reason for Visit Patient presents with: Physical Viviana Townsend is a 57 year old female who presents here today for CPE. Health Maintenance HEPATITIS B(1 of 3 - 3-dose series) HEPATITIS C SCREENING HIV SCREENING SHINGRIX VACCINE(1 of 2) MAMMOGRAM HPI Reviewed blood work, patient was fasting for her tests. The 10-year ASCVD risk score (Los CAMARENA, et al., 2019) is: 2.4% Values used to calculate the score: Age: 57 years Sex: Female Is Non- : No Diabetic: No Tobacco smoker: No Systolic Blood Pressure: 120 mmHg Is BP treated: No HDL Cholesterol: 55 mg/dL Total Cholesterol: 248 mg/dL Hyperlipidemia: ldl is 169- patient eats beef, pork and chicken, drinks 2 percent milk, a glass a day. Patient eats a lot of meat recently, eats a hamburger or steak, almost every day but can work on her diet. She does not eat much butter or cheese or yogurt. She was exercising till April and had a lot to do and that ultimately got better. She has a small papular lesion on the breast, the upper abdomen below the breast and the back in the midline. The back midline area, hurts her like a pressure but nothing on there when we look at it. It does not itch, feels like a stretch. For exercise she used to [facility]. Doing the treadmill Will get back to it. Anxiety depression: the patient is well controlled on buspar and wellbutrin and her symptoms are over all well controlled No problem-specific Assessment & Plan notes found for this encounter. 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 Urinary calculus, unspecified 2010 Renal stones PAST SURGICAL HISTORY Procedure Laterality Date BREAST BX NEEDLE CORE LEFT 10/2017 benign DELIVERY ONLY 08/12/2003 , low cervical COLONOSCOPY FLX DX W/COLLJ SPEC WHEN PFRMD 11/03/2016 Colonoscopy COLONOSCOPY W/BIOPSY SINGLE/MULTIPLE 06/05/09 Normal appearing colon CYSTOURETHROSCOPY renal stones KIDNEY SURGERY HX TONSILLECTOMY PRIMARY/SECONDARY <AGE 12 Tonsillectomy FAMILY HISTORY Problem Relation Age of Onset Diabetes Maternal Grandmother Diabetes Maternal Aunt Diabetes Maternal Uncle Breast Cancer Sister age 39 , now with mets (including to colon) Social History Tobacco Use Smoking status: Never Smokeless tobacco: Never Vaping Use Vaping Use: Never used Substance Use Topics Alcohol use: No Drug use: No Past medical history, appointments, medications, allergies reviewed. Pertinent Lab/Diagnostic Studies are reviewed and discussed today Current Outpatient Medications: clobetasol (TEMOVATE) 0.05 % ointment buPROPion XL (WELLBUTRIN XL) 150 mg 24 hr tablet busPIRone (BUSPAR) 5 mg tablet Mometasone (ELOCON) 0.1 % solution hydrOXYzine HCl (ATARAX) 10 mg tablet benzonatate (TESSALON PERLES) 100 mg capsule Aspirin 81 mg Tab MULTIVITAMIN TAB Review of Systems CONSTITUTIONAL: No fevers, chills, nightsweats, unintended weight loss HEENT: Denies frequent or severe heaches, nasal congestion/sinus symptoms, problematic allergy problems. EYES: No diplopia or blurry vision. CARDIOVASCULAR: No chest pain, dyspnea, palpitations, orthopnea, PND, ankle edema. PULM: No dyspnea, unexplained cough. GI: No dysphagia/odynophagia, problematic reflux, constipation, diarrhea, changes in stool habits, hematochezia, melena. : No new urinary complaints, including dysuria, gross hematuria or pyuria. NEURO: No new balance problems, peripheral weakness/paresthesias or numbness of concern. MUSC-SKEL: No new joint pain, swelling, or erythema. PSY: No concerns regarding depression, anxiety or panic. INTEGUMENTARY: No new skin changes (rash, new or changing mole, new growth) Physical Exam BP 120/78 (BP Site: Left Arm, BP Position: Sitting, BP Cuff Size: Large Adult) Pulse 80 Temp 36.5 C (97.7 F) (Temporal) Resp 16 Ht 158 cm (5' 2.21 ) Wt 82.1 kg (181 lb) LMP 06/22/2020 (Exact Date) BMI 32.89 kg/m General appearance: Well appearing, alert, in no acute distress, well-hydrated, well nourished. Skin: papular , red lesion on the right breast near the nipple, and a stuck on appearance lesion on the upper upper abdomen, right side. Head: Normocephalic, no masses, lesions, tenderness or abnormalities Eyes: Anicteric sclera. Pupils are equally round and reactive to light. Extraocular movements are intact. Ears: External ears normal, canals clear Nose/Sinuses: Nares normal, septum midline, mucosa normal, no drainage or sinus tenderness Oropharynx: Lips, mucosa, and tongue normal, teeth and gums normal, oropharynx normal Neck: Supple, no adenopathy; thyroid symmetric, normal size, no bruits Back: Normal exam Lungs: Lungs clear to auscultation. No wheezing, rhonchi, rales Heart: RRR without murmur, gallop, or rubs. No ectopy Abdomen: Normal abdominal exam, Abdomen soft, non-tender. Bowel sounds normal. No masses, organomegaly Extremities: No deformities, edema, skin discoloration, clubbing or cyanosis. Good capillary refill. Musculoskeletal: No joint swelling, deformity, or tenderness Peripheral pulses: Normal Neuro: Gait normal. Reflexes normal and symmetric. Sensation grossly intact. ASSESSMENT/PLAN: 1. Annual physical exam - ICD9: V70.0, ICD10: Z00.00 (primary diagnosis) Need to work on lipids 2. Generalized anxiety disorder - ICD9: 300.02, ICD10: F41.1 - BUSPIRONE 5 MG TABLET - HYDROXYZINE HCL 10 MG TABLET 3. Skin lesion - ICD9: 709.9, ICD10: L98.9 - CONSULT TO DERMATOLOGY 4. Breast cancer screening by mammogram - ICD9: V76.12, ICD10: Z12.31 - MELINA SCREENING W IBIS 5. Special screening examination for viral disease - ICD9: V73.99, ICD10: Z11.59 - HEP C AB IA W/CONF SCRN 6. Screening for HIV (human immunodeficiency virus) - ICD9: V73.89, ICD10: Z11.4 - HIV 1 2 COMBO(AG/AB),WITH REFLEX TO DIFFERENTIATION Ben Adams MD documented in this encounter [facility] 06-02-2022 Miscellaneous Notes Patient notified. Fasting lab work has been placed. Thank you Delma Turk APRN.DAVID Pt called in and reports she has an appointment with provider on 07/19/22 and was asking if provider could put in lab orders. Please call once placed. documented in this encounter [facility] 03-19-2012 History of Past i llness Narrative Problem Noted Date Resolved Date Lumbago 03/19/2012 09/17/2012 Ureteral stone 08/04/2010 09/17/2012 Umbilical hernia without mention of obstruction or gangrene 08/19/2008 12/25/2018 Overview: Reproduced LLQ symptoms with probing as of 07-28 Primary hypercoagulable state 10/01/2007 Overview: C section 08-12-[address] 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 Willams ([facility]) Routine general medical exam [facility] [facility] 10/01/2007 09/17/2012 Overview: Rubella not immune 07-[address] [facility] [address] Jacob HBsAg, RPR, HIV negative in 07-26 E-mail 10-05-07 noted immprovement in her eye symptoms (was seen for sinus issues in 09-26) HCT 42% in 05-27 Incidental finding of spondylolisthesis in LS spine by CT of abd in 04-28 documented as of this encounter (statuses as of 06/02/2022) [facility] History of Past illness Narrative* Problem Noted Date Resolved Date Lumbago 03/19/2012 09/17/2012 Ureteral stone 08/04/2010 09/17/2012 Umbilical hernia without mention of obstruction or gangrene 08/19/2008 12/25/2018 Overview: Reproduced LLQ symptoms with probing as of 07-28 Primary hypercoagulable state 10/01/2007 Overview: C section 08-12-[address] 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 Willams ([facility]) Routine general medical exam ination at a health care facility 10/01/2007 09/17/2012 Overview: Rubella not immune 07-[address] [facility] [address] Jacob HBsAg, RPR, HIV negative in 07-26 E-mail 10-05-07 noted immprovement in her eye symptoms (was seen for sinus issues in 09-26) HCT 42% in 05-27 Incidental finding of spondylolisthesis in LS spine by CT of abd in 04-28 documented as of this encounter (statuses as of 07/19/2022) [facility] History of Past illness Narrative* Problem Noted Date Resolved Date Lumbago 03/19/2012 09/17/2012 Ureteral stone 08/04/2010 09/17/2012 Umbilical hernia without mention of obstruction or gangrene 08/19/2008 12/25/2018 Overview: Reproduced LLQ symptoms with probing as of 07-28 Primary hypercoagulable state 10/01/2007 Overview: C section 08-12-[address] 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 Willams ([facility]) Routine general medical exam ination at a health care facility 10/01/2007 09/17/2012 Overview: Rubella not immune 07-[address] [facility] [address] Jacob HBsAg, RPR, HIV negative in 07-26 E-mail 10-05-07 noted immprovement in her eye symptoms (was seen for sinus issues in 09-26) HCT 42% in 05-27 Incidental finding of spondylolisthesis in LS spine by CT of abd in 04-28 documented as of this encounter (statuses as of 08/18/2022) [facility] History of Past illness Narrative* Problem Noted Date Resolved Date Lumbago 03/19/2012 09/17/2012 Ureteral stone 08/04/2010 09/17/2012 Umbilical hernia without mention of obstruction or gangrene 08/19/2008 12/25/2018 Overview: Reproduced LLQ symptoms with probing as of 07-28 Primary hypercoagulable state 10/01/2007 Overview: C section 08-12-[address] 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 Willams ([facility]) Routine [facility] exam [facility] 10/01/2007 09/17/2012 Overview: Rubella not immune 07-[address] [facility] [address] Jacob HBsAg, RPR, HIV negative in 07-26 E-mail 10-05-07 noted immprovement in her eye symptoms (was seen for sinus issues in 09-26) HCT 42% in 05-27 Incidental finding of spondylolisthesis in LS spine by CT of abd in 04-28 documented as of this encounter (statuses as of 08/18/2022) [facility] History of Past illness Narrative* Problem Noted Date Resolved Date Lumbago 03/19/2012 09/17/2012 Ureteral stone 08/04/2010 09/17/2012 Umbilical hernia without mention of obstruction or gangrene 08/19/2008 12/25/2018 Overview: Reproduced LLQ symptoms with probing as of 07-28 Primary hypercoagulable state 10/01/2007 Overview: C section 08-12-[address] 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 Willams ([facility]) Routine general medical exam ination at a health care facility 10/01/2007 09/17/2012 Overview: Rubella not immune 07-[address] [facility] [address] Jacob HBsAg, RPR, HIV negative in 07-26 E-mail 10-05-07 noted immprovement in her eye symptoms (was seen for sinus issues in 09-26) HCT 42% in 05-27 Incidental finding of spondylolisthesis in LS spine by CT of abd in 04-28 documented as of this encounter (statuses as of 08/19/2022) [facility] History of Past illness Narrative* Problem Noted Date Resolved Date Lumbago 03/19/2012 09/17/2012 Ureteral stone 08/04/2010 09/17/2012 Umbilical hernia without mention of obstruction or gangrene 08/19/2008 12/25/2018 Overview: Reproduced LLQ symptoms with probing as of 07-28 Primary hypercoagulable state 10/01/2007 Overview: C section 08-12-[address] 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 Willams ([facility]) Routine general medical exam ination at a health care facility 10/01/2007 09/17/2012 Overview: Rubella not immune 07-[address] [facility] [address] Jacob HBsAg, RPR, HIV negative in 07-26 E-mail 10-05-07 noted immprovement in her eye symptoms (was seen for sinus issues in 09-26) HCT 42% in 05-27 Incidental finding of spondylolisthesis in LS spine by CT of abd in 04-28 documented as of this encounter (statuses as of 08/19/2022) [facility] History of Past illness Narrative* Problem Noted Date Resolved Date Lumbago 03/19/2012 09/17/2012 Ureteral stone 08/04/2010 09/17/2012 Umbilical hernia without mention of obstruction or gangrene 08/19/2008 12/25/2018 Overview: Reproduced LLQ symptoms with probing as of 07-28 Primary hypercoagulable state 10/01/2007 Overview: C section 08-12-[address] 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 Willams ([facility]) Routine general medical exam ination at a health care facility 10/01/2007 09/17/2012 Overview: Rubella not immune 07-[address] [facility] [address] Jacob HBsAg, RPR, HIV negative in 07-26 E-mail 10-05-07 noted immprovement in her eye symptoms (was seen for sinus issues in 09-26) HCT 42% in 05-27 Incidental finding of spondylolisthesis in LS spine by CT of abd in 04-28 documented as of this encounter (statuses as of 08/19/2022) [facility] History of Past illness Narrative* Problem Noted Date Resolved Date Lumbago 03/19/2012 09/17/2012 Ureteral stone 08/04/2010 09/17/2012 Umbilical hernia without mention of obstruction or gangrene 08/19/2008 12/25/2018 Overview: Reproduced LLQ symptoms with probing as of 07-28 Primary hypercoagulable state 10/01/2007 Overview: C section 08-12-[address] 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 Willams ([facility]) [facility] 10/01/2007 09/17/2012 Overview: Rubella not immune 07-[address] [facility] [address] Jacob HBsAg, RPR, HIV negative in 07-26 E-mail 10-05-07 noted immprovement in her eye symptoms (was seen for sinus issues in 09-26) HCT 42% in 05-27 Incidental finding of spondylolisthesis in LS spine by CT of abd in 04-28 documented as of this encounter (statuses as of 08/30/2022) [facility] History of Past illness Narrative* Problem Noted Date Resolved Date Lumbago 03/19/2012 09/17/2012 Ureteral stone 08/04/2010 09/17/2012 Umbilical hernia without mention of obstruction or gangrene 08/19/2008 12/25/2018 Overview: Reproduced LLQ symptoms with probing as of 07-28 Primary hypercoagulable state 10/01/2007 Overview: C section 08-12-[address] 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 Willams ([facility]) Routine general medical exam ination at a health care facility 10/01/2007 09/17/2012 Overview: Rubella not immune 07-[address] [facility] [address] Jacob HBsAg, RPR, HIV negative in 07-26 E-mail 10-05-07 noted immprovement in her eye symptoms (was seen for sinus issues in 09-26) HCT 42% in 05-27 Incidental finding of spondylolisthesis in LS spine by CT of abd in 04-28 documented as of this encounter (statuses as of 08/31/2022) [facility] History of Past illness Narrative* Problem Noted Date Resolved Date Lumbago 03/19/2012 09/17/2012 Ureteral stone 08/04/2010 09/17/2012 Umbilical hernia without mention of obstruction or gangrene 08/19/2008 12/25/2018 Overview: Reproduced LLQ symptoms with probing as of 07-28 Primary hypercoagulable state 10/01/2007 Overview: C section 08-12-[address] 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 Willams ([facility]) Routine general medical exam ination at a health care facility 10/01/2007 09/17/2012 Overview: Rubella not immune 07-[address] [facility] [address] Jacob HBsAg, RPR, HIV negative in 07-26 E-mail 10-05-07 noted immprovement in her eye symptoms (was seen for sinus issues in 09-26) HCT 42% in 05-27 Incidental finding of spondylolisthesis in LS spine by CT of abd in 04-28 documented as of this encounter (statuses as of 09/05/2022) [facility] History of Past illness Narrative* Problem Noted Date Resolved Date Lumbago 03/19/2012 09/17/2012 Ureteral stone 08/04/2010 09/17/2012 Umbilical hernia without mention of obstruction or gangrene 08/19/2008 12/25/2018 Overview: Reproduced LLQ symptoms with probing as of 07-28 Primary hypercoagulable state 10/01/2007 Overview: C section 08-12-[address] 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 Willams ([facility]) Routine [facility] 10/01/2007 09/17/2012 Overview: Rubella not immune 07-[address] [facility] [address] Jacob HBsAg, RPR, HIV negative in 07-26 E-mail 10-05-07 noted immprovement in her eye symptoms (was seen for sinus issues in 09-26) HCT 42% in 05-27 Incidental finding of spondylolisthesis in LS spine by CT of abd in 04-28 documented as of this encounter (statuses as of 09/05/2022) [facility] History of Past illness Narrative* Problem Noted Date Resolved Date Lumbago 03/19/2012 09/17/2012 Ureteral stone 08/04/2010 09/17/2012 Umbilical hernia without mention of obstruction or gangrene 08/19/2008 12/25/2018 Overview: Reproduced LLQ symptoms with probing as of 07-28 Primary hypercoagulable state 10/01/2007 Overview: C section 08-12-[address] 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 Willams ([facility]) Routine general medical exam ination at a health care facility 10/01/2007 09/17/2012 Overview: Rubella not immune - at [facility] with Dr. Jacob HBsAg, RPR, HIV negative in 07-26 E-mail 10-05-07 noted immprovement in her eye symptoms (was seen for sinus issues in 09-26) HCT 42% in 05-27 Incidental finding of spondylolisthesis in LS spine by CT of abd in 04-28 documented as of this encounter (statuses as of 09/05/2022) [facility] History of Past illness Narrative* Problem Noted Date Resolved Date Lumbago 03/19/2012 09/17/2012 Ureteral stone 08/04/2010 09/17/2012 Umbilical hernia without mention of obstruction or gangrene 08/19/2008 12/25/2018 Overview: Reproduced LLQ symptoms with probing as of 07-28 Primary hypercoagulable state 10/01/2007 Overview: C section 08-12-[address] 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 Willams ([facility]) Routine general medical exam ination at a health care facility 10/01/2007 09/17/2012 Overview: Rubella not immune 07-[address] [facility] [address] Jacob HBsAg, RPR, HIV negative in 07-26 E-mail 10-05-07 noted immprovement in her eye symptoms (was seen for sinus issues in 09-26) HCT 42% in 05-27 Incidental finding of spondylolisthesis in LS spine by CT of abd in 04-28 documented as of this encounter (statuses as of 09/08/2022) [facility] History of Past illness Narrative* Problem Noted Date Resolved Date Lumbago 03/19/2012 09/17/2012 Ureteral stone 08/04/2010 09/17/2012 Umbilical hernia without mention of obstruction or gangrene 08/19/2008 12/25/2018 Overview: Reproduced LLQ symptoms with probing as of 07-28 Primary hypercoagulable state 10/01/2007 Overview: C section 08-12-[address] 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 Willams ([place]) [facility] 10/01/2007 09/17/2012 Overview: Rubella not immune 07-[address] [facility] [address] Jacob HBsAg, RPR, HIV negative in 07-26 E-mail 10-05-07 noted immprovement in her eye symptoms (was seen for sinus issues in 09-26) HCT 42% in 05-27 Incidental finding of spondylolisthesis in LS spine by CT of abd in 04-28 documented as of this encounter (statuses as of 09/14/2022) [facility] History of Past illness Narrative* Problem Noted Date Resolved Date Lumbago 03/19/2012 09/17/2012 Ureteral stone 08/04/2010 09/17/2012 Umbilical hernia without mention of obstruction or gangrene 08/19/2008 12/25/2018 Overview: Reproduced LLQ symptoms with probing as of 07-28 Primary hypercoagulable state 10/01/2007 Overview: C section 08-12-[address] 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 Willams ([place]) Routine general medical exam ination at a health care facility 10/01/2007 09/17/2012 Overview: Rubella not immune 07-[address] [facility] [address] Jacob HBsAg, RPR, HIV negative in 07-26 E-mail 10-05-07 noted immprovement in her eye symptoms (was seen for sinus issues in 09-26) HCT 42% in 05-27 Incidental finding of spondylolisthesis in LS spine by CT of abd in 04-28 documented as of this encounter (statuses as of 09/23/2022) [facility] History of Past illness Narrative* Problem Noted Date Resolved Date Lumbago 03/19/2012 09/17/2012 Ureteral stone 08/04/2010 09/17/2012 Umbilical hernia without mention of obstruction or gangrene 08/19/2008 12/25/2018 Overview: Reproduced LLQ symptoms with probing as of 07-28 Primary hypercoagulable state 10/01/2007 Overview: C section 08-12-[address] 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 Willams ([place]) Routine general medical exam ination at a health care facility 10/01/2007 09/17/2012 Overview: Rubella not immune 07-[address] [facility] [address] Jacob HBsAg, RPR, HIV negative in 07-26 E-mail 10-05-07 noted immprovement in her eye symptoms (was seen for sinus issues in 09-26) HCT 42% in 05-27 Incidental finding of spondylolisthesis in LS spine by CT of abd in 04-28 documented as of this encounter (statuses as of 09/28/2022) [facility] History of Past illness Narrative* Problem Noted Date Resolved Date Lumbago 03/19/2012 09/17/2012 Ureteral stone 08/04/2010 09/17/2012 Umbilical hernia without mention of obstruction or gangrene 08/19/2008 12/25/2018 Overview: Reproduced LLQ symptoms with probing as of 07-28 Primary hypercoagulable state 10/01/2007 Overview: C section 08-12-[address] 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 Willams ([place]) [facility] 10/01/2007 09/17/2012 Overview: Rubella not immune 07-[address] [facility] [address] Jacob HBsAg, RPR, HIV negative in 07-26 E-mail 10-05-07 noted immprovement in her eye symptoms (was seen for sinus issues in 09-26) HCT 42% in 05-27 Incidental finding of spondylolisthesis in LS spine by CT of abd in 04-28 documented as of this encounter (statuses as of 09/28/2022) [facility] History of Past illness Narrative* Problem Noted Date Resolved Date Lumbago 03/19/2012 09/17/2012 Ureteral stone 08/04/2010 09/17/2012 Umbilical hernia without mention of obstruction or gangrene 08/19/2008 12/25/2018 Overview: Reproduced LLQ symptoms with probing as of 07-28 Primary hypercoagulable state 10/01/2007 Overview: C section 08-12-[address] Jacob: baby girl loss 09-16-05: Karyotype 46 XX (probably Mom's tissue as few placental villi) Given RhoGAM 08-07-06 per [facility] as pt was Rh negative-rec eval for second loss Factor V/Prothrom NL, Cardiolip/Lupus anticoag neg, VINNY-/Factor 13 heterozy , Dr. Willams ([place]) Routine general medical exam ination at a health care facility 10/01/2007 09/17/2012 Overview: Rubella not immune 07-[address] [facility] [address] Jacob HBsAg, RPR, HIV negative in 07-26 E-mail 10-05-07 noted immprovement in her eye symptoms (was seen for sinus issues in 09-26) HCT 42% in 05-27 Incidental finding of spondylolisthesis in LS spine by CT of abd in 04-28 documented as of this encounter (statuses as of 10/07/2022) [facility] History of Past illness Narrative* Problem Noted Date Resolved Date Lumbago 03/19/2012 09/17/2012 Ureteral stone 08/04/2010 09/17/2012 Umbilical hernia without mention of obstruction or gangrene 08/19/2008 12/25/2018 Overview: Reproduced LLQ symptoms with probing as of 07-28 Primary hypercoagulable state 10/01/2007 Overview: C section 08-12-[address] 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 Willams ([place]) Routine general medical exam ination at a health care facility 10/01/2007 09/17/2012 Overview: Rubella not immune - at [facility] with Dr. Jacob HBsAg, RPR, HIV negative in 07-26 E-mail 10-05-07 noted immprovement in her eye symptoms (was seen for sinus issues in 09-26) HCT 42% in 05-27 Incidental finding of spondylolisthesis in LS spine by CT of abd in 04-28 documented as of this encounter (statuses as of 11/25/2022) [facility] History of Past illness Narrative* Problem Noted Date Resolved Date Lumbago 03/19/2012 09/17/2012 Ureteral stone 08/04/2010 09/17/2012 Umbilical hernia without mention of obstruction or gangrene 08/19/2008 12/25/2018 Overview: Reproduced LLQ symptoms with probing as of 07-28 Primary hypercoagulable state 10/01/2007 Overview: C section 08-12-[address] 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 Willams ([place]) Routine general medical exam ination at a health care facility 10/01/2007 09/17/2012 Overview: Rubella not immune 07-[address] [facility] [address] Jacob HBsAg, RPR, HIV negative in 07-26 E-mail 10-05-07 noted immprovement in her eye symptoms (was seen for sinus issues in 09-26) HCT 42% in 05-27 Incidental finding of spondylolisthesis in LS spine by CT of abd in 04-28 documented as of this encounter (statuses as of 12/26/2022) [facility] History of Past illness Narrative* Problem Noted Date Resolved Date Lumbago 03/19/2012 09/17/2012 Ureteral stone 08/04/2010 09/17/2012 Umbilical hernia without mention of obstruction or gangrene 08/19/2008 12/25/2018 Overview: Reproduced LLQ symptoms with probing as of 07-28 Primary hypercoagulable state 10/01/2007 Overview: C section 08-12-[address] Jacob: baby girl loss 09-16-05: Karyotype 46 XX (probably Mom's tissue as few placental villi) Given RhoGAM -18-06 per Will[facility] as pt was Rh negative-rec eval for second loss Factor V/Prothrom NL, Cardiolip/Lupus anticoag neg, VINNY-/Factor 13 heterozy , Dr. Willams ([place]) Routine general medical exam ination at a health care facility 10/01/2007 09/17/2012 Overview: Rubella not immune 07-[address] [facility] [address] Jacob HBsAg, RPR, HIV negative in 07-26 E-mail 10-05-07 noted immprovement in her eye symptoms (was seen for sinus issues in 09-26) HCT 42% in 05-27 Incidental finding of spondylolisthesis in LS spine by CT of abd in 04-28 documented as of this encounter (statuses as of 02/21/2023) [facility] History of Past illness Narrative* Problem Noted Date Resolved Date Lumbago 03/19/2012 09/17/2012 Ureteral stone 08/04/2010 09/17/2012 Umbilical hernia without mention of obstruction or gangrene 08/19/2008 12/25/2018 Overview: Reproduced LLQ symptoms with probing as of 07-28 Primary hypercoagulable state 10/01/2007 Overview: C section 08-12-[address] Jacob: baby girl loss 09-16-05: Karyotype 46 XX (probably Mom's tissue as few placental villi) Given RhoGAM 18-06 per [facility] as pt was Rh negative-rec eval for second loss Factor V/Prothrom NL, Cardiolip/Lupus anticoag neg, VINNY-/Factor 13 heterozy , Dr. Willams ([place]) Routine general medical exam ination at a health care facility 10/01/2007 09/17/2012 Overview: Rubella not immune 07-[address] [facility] [address] Jacob HBsAg, RPR, HIV negative in 07-26 E-mail 10-05-07 noted immprovement in her eye symptoms (was seen for sinus issues in 09-26) HCT 42% in 05-27 Incidental finding of spondylolisthesis in LS spine by CT of abd in 04-28 documented as of this encounter (statuses as of 02/21/2023) [facility] History of Past illness Narrative* Problem Noted Date Resolved Date Lumbago 03/19/2012 09/17/2012 Ureteral stone 08/04/2010 09/17/2012 Umbilical hernia without mention of obstruction or gangrene 08/19/2008 12/25/2018 Overview: Reproduced LLQ symptoms with probing as of 07-28 Primary hypercoagulable state 10/01/2007 Overview: C section 08-12-[address] 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 Willams ([place]) Routine general medical exam ination at a health care facility 10/01/2007 09/17/2012 Overview: Rubella not immune 07-[address] [facility] [address] Jacob HBsAg, RPR, HIV negative in 07-26 E-mail 10-05-07 noted immprovement in her eye symptoms (was seen for sinus issues in 09-26) HCT 42% in 05-27 Incidental finding of spondylolisthesis in LS spine by CT of abd in 04-28 documented as of this encounter (statuses as of 02/25/2023) [facility] History of Past illness Narrative* Problem Noted Date Resolved Date Lumbago 03/19/2012 09/17/2012 Ureteral stone 08/04/2010 09/17/2012 Umbilical hernia without mention of obstruction or gangrene 08/19/2008 12/25/2018 Overview: Reproduced LLQ symptoms with probing as of 07-28 Primary hypercoagulable state 10/01/2007 Overview: C section 08-12-[address] 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 Willams ([place]) Routine general medical exam ination at a health care facility 10/01/2007 09/17/2012 Overview: Rubella not immune 07-[address] [facility] [address] Jacob HBsAg, RPR, HIV negative in 07-26 E-mail 10-05-07 noted immprovement in her eye symptoms (was seen for sinus issues in 09-26) HCT 42% in 05-27 Incidental finding of spondylolisthesis in LS spine by CT of abd in 04-28 documented as of this encounter (statuses as of 03/01/2023) [facility] History of Past illness Narrative* Problem Noted Date Resolved Date Lumbago 03/19/2012 09/17/2012 Ureteral stone 08/04/2010 09/17/2012 Umbilical hernia without mention of obstruction or gangrene 08/19/2008 12/25/2018 Overview: Reproduced LLQ symptoms with probing as of 07-28 Primary hypercoagulable state 10/01/2007 Overview: C section 08-12-[address] 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 Willams ([place]) Routine general medical exam ination at a health care facility 10/01/2007 09/17/2012 Overview: Rubella not immune - at [facility] with Dr. Jacob HBsAg, RPR, HIV negative in 07-26 E-mail 10-05-07 noted immprovement in her eye symptoms (was seen for sinus issues in 09-26) HCT 42% in 05-27 Incidental finding of spondylolisthesis in LS spine by CT of abd in 04-28 documented as of this encounter (statuses as of 03/15/2023) [facility] History of Past illness Narrative* Problem Noted Date Resolved Date Lumbago 03/19/2012 09/17/2012 Ureteral stone 08/04/2010 09/17/2012 Umbilical hernia without mention of obstruction or gangrene 08/19/2008 12/25/2018 Overview: Reproduced LLQ symptoms with probing as of 07-28 Primary hypercoagulable state 10/01/2007 Overview: C section 08-12-[address] 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 Willams ([place]) Routine general medical exam ination at a health care facility 10/01/2007 09/17/2012 Overview: Rubella not immune - at [facility] with Dr. Jacob HBsAg, RPR, HIV negative in 07-26 E-mail 10-05-07 noted immprovement in her eye symptoms (was seen for sinus issues in 09-26) HCT 42% in 05-27 Incidental finding of spondylolisthesis in LS spine by CT of abd in 04-28 documented as of this encounter (statuses as of 04/27/2023) [facility] History of Past illness Narrative* Problem Noted Date Resolved Date Lumbago 03/19/2012 09/17/2012 Ureteral stone 08/04/2010 09/17/2012 Umbilical hernia without mention of obstruction or gangrene 08/19/2008 12/25/2018 Overview: Reproduced LLQ symptoms with probing as of 07-28 Primary hypercoagulable state 10/01/2007 Overview: C section 08-12-[address] 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 Willams ([place]) Routine [facility] exam [facility] 10/01/2007 09/17/2012 Overview: Rubella not immune 07-[address] [facility] [address] Jacob HBsAg, RPR, HIV negative in 07-26 E-mail 10-05-07 noted immprovement in her eye symptoms (was seen for sinus issues in 09-26) HCT 42% in 05-27 Incidental finding of spondylolisthesis in LS spine by CT of abd in 04-28 documented as of this encounter (statuses as of 05/12/2023) [facility] History of Past illness Narrative* Problem Noted Date Resolved Date Lumbago 03/19/2012 09/17/2012 Ureteral stone 08/04/2010 09/17/2012 Umbilical hernia without mention of obstruction or gangrene 08/19/2008 12/25/2018 Overview: Reproduced LLQ symptoms with probing as of 07-28 Primary hypercoagulable state 10/01/2007 Overview: C section 08-12-[address] 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 Willams ([place]) Routine general medical exam ination at a health care facility 10/01/2007 09/17/2012 Overview: Rubella not immune - at [facility] with Dr. Jacob HBsAg, RPR, HIV negative in 07-26 E-mail 10-05-07 noted immprovement in her eye symptoms (was seen for sinus issues in 09-26) HCT 42% in 05-27 Incidental finding of spondylolisthesis in LS spine by CT of abd in 04-28 documented as of this encounter (statuses as of 05/13/2023) [facility] History of Past illness Narrative* Problem Noted Date Resolved Date Lumbago 03/19/2012 09/17/2012 Ureteral stone 08/04/2010 09/17/2012 Umbilical hernia without mention of obstruction or gangrene 08/19/2008 12/25/2018 Overview: Reproduced LLQ symptoms with probing as of 07-28 Primary hypercoagulable state 10/01/2007 Overview: C section 08-12-[address] 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 Willams ([place]) Routine general medical exam ination at a health care facility 10/01/2007 09/17/2012 Overview: Rubella not immune - at [facility] with Dr. Jacob HBsAg, RPR, HIV negative in 07-26 E-mail 10-05-07 noted immprovement in her eye symptoms (was seen for sinus issues in 09-26) HCT 42% in 05-27 Incidental finding of spondylolisthesis in LS spine by CT of abd in 04-28 documented as of this encounter (statuses as of 05/26/2023) [facility] History of Past illness Narrative* Problem Noted Date Diagnosed Date Resolved Date Lumbago 03/19/2012 09/17/2012 Ureteral stone 08/04/2010 09/17/2012 Umbilical hernia without men tion of obstruction or gangrene 08/19/2008 12/25/2018 Overview: Reproduced LLQ symptoms with probing as of 07-28 Primary hypercoagulable state 10/01/2007 12/25/2018 Overview: C section 08-12-[address] 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 Willams ([place]) [facility] 10/01/2007 09/17/2012 Overview: Rubella not immune 07-[address] [facility] [address] Jacob HBsAg, RPR, HIV negative in 07-26 E-mail 10-05-07 noted immprovement in her eye symptoms (was seen for sinus issues in 09-26) HCT 42% in 05-27 Incidental finding of spondylolisthesis in LS spine by CT of abd in 04-28 documented as of this encounter (statuses as of 06/03/2023) [facility] History of Past illness Narrative* Problem Noted Date Diagnosed Date Resolved Date Lumbago 03/19/2012 09/17/2012 Ureteral stone 08/04/2010 09/17/2012 Umbilical hernia without men tion of obstruction or gangrene 08/19/2008 12/25/2018 Overview: Reproduced LLQ symptoms with probing as of 07-28 Primary hypercoagulable state 10/01/2007 12/25/2018 Overview: C section 08-12-[address] Jacob: baby girl loss 09-16-05: Karyotype 46 XX (probably Mom's tissue as few placental villi) Given RhoGAM 08-07-06 per [facility] as pt was Rh negative-rec eval for second loss Factor V/Prothrom NL, Cardiolip/Lupus anticoag neg, VINNY-/Factor 13 heterozy , Dr. Willams ([place]) Routine general medical exam ination at a health care facility 10/01/2007 09/17/2012 Overview: Rubella not immune 07-[address] [facility] [address] Jacob HBsAg, RPR, HIV negative in 07-26 E-mail 10-05-07 noted immprovement in her eye symptoms (was seen for sinus issues in 09-26) HCT 42% in 05-27 Incidental finding of spondylolisthesis in LS spine by CT of abd in 04-28 documented as of this encounter (statuses as of 07/18/2023) [facility] History of Past illness Narrative* Problem Noted Date Diagnosed Date Resolved Date Lumbago 03/19/2012 09/17/2012 Ureteral stone 08/04/2010 09/17/2012 Umbilical hernia without men tion of obstruction or gangrene 08/19/2008 12/25/2018 Overview: Reproduced LLQ symptoms with probing as of 07-28 Primary hypercoagulable state 10/01/2007 12/25/2018 Overview: C section 08-12-[address] Jacob: baby girl loss 09-16-05: Karyotype 46 XX (probably Mom's tissue as few placental villi) Given RhoGAM 08-07-06 per [facility] as pt was Rh negative-rec eval for second loss Factor V/Prothrom NL, Cardiolip/Lupus anticoag neg, VINNY-/Factor 13 heteroz[place]addha , Dr. Willams ([place]) Routine general medical exam ination at a health care facility 10/01/2007 09/17/2012 Overview: Rubella not immune - at [facility] with Dr. Jacob HBsAg, RPR, HIV negative in 07-26 E-mail 10-05-07 noted immprovement in her eye symptoms (was seen for sinus issues in 09-26) HCT 42% in 05-27 Incidental finding of spondylolisthesis in LS spine by CT of abd in 04-28 documented as of this encounter (statuses as of 08/19/2023) [facility] History of Past illness Narrative* Problem Noted Date Diagnosed Date Resolved Date Lumbago 03/19/2012 09/17/2012 Ureteral stone 08/04/2010 09/17/2012 Umbilical hernia without men tion of obstruction or gangrene 08/19/2008 12/25/2018 Overview: Reproduced LLQ symptoms with probing as of 07-28 Primary hypercoagulable state 10/01/2007 12/25/2018 Overview: C section 08-12-[address] 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 Willams ([place]) Routine general medical exam ination at a health care facility 10/01/2007 09/17/2012 Overview: Rubella not immune 07-[address] [facility] [address] Jacob HBsAg, RPR, HIV negative in 07-26 E-mail 10-05-07 noted immprovement in her eye symptoms (was seen for sinus issues in 09-26) HCT 42% in 05-27 Incidental finding of spondylolisthesis in LS spine by CT of abd in 04-28 documented as of this encounter (statuses as of 09/24/2023) [facility] History of Past illness Narrative* Problem Noted Date Diagnosed Date Resolved Date Lumbago 03/19/2012 09/17/2012 Ureteral stone 08/04/2010 09/17/2012 Umbilical hernia without men tion of obstruction or gangrene 08/19/2008 12/25/2018 Overview: Reproduced LLQ symptoms with probing as of 07-28 Primary hypercoagulable state 10/01/2007 12/25/2018 Overview: C section 08-12-[address] 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 Willams ([place]) Routine general medical exam ination at a health care facility 10/01/2007 09/17/2012 Overview: Rubella not immune 07-[address] [facility] [address] Jacob HBsAg, RPR, HIV negative in 07-26 E-mail 10-05-07 noted immprovement in her eye symptoms (was seen for sinus issues in 09-26) HCT 42% in 05-27 Incidental finding of spondylolisthesis in LS spine by CT of abd in 04-28 documented as of this encounter (statuses as of 09/26/2023) [facility] History of Past illness Narrative* Problem Noted Date Diagnosed Date Resolved Date Lumbago 03/19/2012 09/17/2012 Ureteral stone 08/04/2010 09/17/2012 Umbilical hernia without men tion of obstruction or gangrene 08/19/2008 12/25/2018 Overview: Reproduced LLQ symptoms with probing as of 07-28 Primary hypercoagulable state 10/01/2007 12/25/2018 Overview: C section 08-12-[address] 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 Willams ([facility]) Routine general medical exam ination at a health care facility 10/01/2007 09/17/2012 Overview: Rubella not immune 07-[address] [facility] [address] Jacob HBsAg, RPR, HIV negative in 07-26 E-mail 10-05-07 noted immprovement in her eye symptoms (was seen for sinus issues in 09-26) HCT 42% in 05-27 Incidental finding of spondylolisthesis in LS spine by CT of abd in 04-28 documented as of this encounter (statuses as of 01/22/2024) [facility] History of Past illness Narrative* Problem Noted Date Diagnosed Date Resolved Date Lumbago 03/19/2012 09/17/2012 Ureteral stone 08/04/2010 09/17/2012 Umbilical hernia without men tion of obstruction or gangrene 08/19/2008 12/25/2018 Overview: Reproduced LLQ symptoms with probing as of 07-28 Primary hypercoagulable state 10/01/2007 12/25/2018 Overview: C section 08-12-[address] 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 Willams ([place]) Routine general medical exam ination at a health care facility 10/01/2007 09/17/2012 Overview: Rubella not immune 07-[address] [facility] [address] Jacob HBsAg, RPR, HIV negative in 07-26 E-mail 10-05-07 noted immprovement in her eye symptoms (was seen for sinus issues in 09-26) HCT 42% in 05-27 Incidental finding of spondylolisthesis in LS spine by CT of abd in 04-28 documented as of this encounter (statuses as of 01/24/2024) [facility] Diagnosis Elevated blood sugar- Primary Other abnormal glucose Lipid screening Screening for lipoid disorders Annual physical exam Routine general medical examination at a health care facility [facility] Diagnosis Annual physical exam- Primary Routine general medical examination at a health care facility Generalized anxiety disorder Skin lesion Unspecified disorder of skin and subcutaneous tissue Breast cancer screening by mammogram Special screening examination for viral disease Special screening examination for unspecified viral disease Screening for HIV (human immunodeficiency virus) Special screening examination for other specified viral diseases documented [facility] this [facility] Diagnosis Right flank pain- Primary Abdominal pain, unspecified site Inguinal pain, unspecified laterality History of kidney stones Personal history of urinary calculi Hair loss Alopecia, unspecified documented [facility] this encounter [facility] Diagnosis Right flank pain Abdominal pain, unspecified site History of kidney stones Personal history of urinary calculi Inguinal pain, unspecified laterality [facility] Diagnosis Kidney stone- Primary Calculus of kidney [facility] Diagnosis Encounter for gynecological examination (general) (routine) without abnormal findings Encounter for screening mammogram for breast cancer [facility]* Diagnosis Left flank pain- Primary Abdominal pain, unspecified site Kidney stone Calculus of kidney [facility] Diagnosis Generalized anxiety disorder [facility] Diagnosis Flank pain, acute- Primary Abdominal pain, unspecified site Kidney stone Calculus of kidney [facility] Diagnosis Encounter for gynecological examination (general) (routine) without abnormal findings- Primary Encounter for screening mammogram for breast cancer Obesity, Class I, BMI 30-34.9 Obesity, unspecified Generalized anxiety disorder documented [facility] this encounter [facility] Diagnosis Hyperlipidemia, unspecified hyperlipidemia type- Primary Sinus bradycardia Other specified cardiac dysrhythmias Leg swelling Swelling of limb [facility] Diagnosis Sinus bradycardia- Primary Other specified cardiac dysrhythmias [facility]* Diagnosis Hyperlipidemia, unspecified hyperlipidemia type- Primary Exercise counseling Sinus bradycardia Other specified cardiac dysrhythmias BMI 33.0-33.9,adult Body Mass Index 33.0-33.9, adult DECKER (dyspnea on exertion) Other dyspnea and respiratory abnormality Lightheadedness Dizziness and giddiness documented [facility] this encounter [facility] Diagnosis Acute non-recurrent sinusitis, unspecified location- Primary Acute cough Wheezing Hyperlipidemia, unspecified hyperlipidemia type Annual physical exam Routine general medical examination at a health care facility Elevated blood sugar Other abnormal glucose documented [facility] this [facility] Diagnosis Hyperlipidemia, unspecified hyperlipidemia type- Primary Leg swelling Swelling of limb [facility] Diagnosis Burning with urination- Primary Dysuria documented in this encounter [facility] Diagnosis Elevated blood sugar- Primary Other abnormal glucose documented in this encounter [facility] Diagnosis Hyperlipidemia, unspecified hyperlipidemia type- Primary documented in this encounter [facility] Diagnosis Generalized anxiety disorder documented in this encounter [facility] Diagnosis Breast cancer screening by mammogram documented in this encounter [facility] Diagnosis Generalized anxiety disorder documented in this encounter [facility] Diagnosis Elevated serum creatinine- Primary Other nonspecific findings on examination of blood documented in this encounter [facility] Diagnosis Annual physical exam- Primary Routine general medical examination at a health care facility Hyperlipidemia, unspecified hyperlipidemia type Generalized anxiety disorder Elevated serum creatinine Other nonspecific findings on examination of blood documented in this encounter [facility] Diagnosis Mild depression- Primary Depressive disorder, not elsewhere classified Routine health maintenance Routine general medical examination at a health care facility Generalized anxiety disorder Other and unspecified hyperlipidemia Postmenopausal bleeding- Primary Screening for cervical cancer Screening for malignant neoplasm of the cervix Vaginal odor Unspecified symptom associated with female genital organs documented in this encounter [facility] Diagnosis Mild depression- Primary Depressive disorder, not elsewhere classified Routine health maintenance Routine general medical examination at a health care facility Generalized anxiety disorder Other and unspecified hyperlipidemia Postmenopausal bleeding documented in this encounter [facility] Diagnosis Mild depression- Primary Depressive disorder, not elsewhere classified Routine health maintenance Routine general medical examination at a health care facility Generalized anxiety disorder Other and unspecified hyperlipidemia Hematuria, unspecified type- Primary Function kidney decreased Unspecified disorder of kidney and ureter documented in this encounter [facility] Diagnosis Mild depression- Primary Depressive disorder, not elsewhere classified Routine health maintenance Routine general medical examination at a health care facility Generalized anxiety disorder Other and unspecified hyperlipidemia Renal calculi Calculus of kidney documented in this encounter [facility] Diagnosis Mild depression- Primary Depressive disorder, not elsewhere classified Routine health maintenance Routine general medical examination at a health care facility Generalized anxiety disorder Other and unspecified hyperlipidemia Hematuria, unspecified type documented in this encounter [facility] Diagnosis Mild depression- Primary Depressive disorder, not elsewhere classified Routine health maintenance Routine general medical examination at a health care facility Generalized anxiety disorder Other and unspecified hyperlipidemia Endometrial polyp- Primary Polyp of corpus uteri PMB (postmenopausal bleeding) Postmenopausal bleeding documented in this encounter [facility] Diagnosis Mild depression- Primary Depressive disorder, not elsewhere classified Routine health maintenance Routine general medical examination at a health care facility Generalized anxiety disorder Other and unspecified hyperlipidemia Microscopic hematuria- Primary Nephrolithiasis Calculus of kidney Flank pain Abdominal pain, unspecified site documented [facility] this encounter [facility] Diagnosis Mild depression- Primary Depressive disorder, not elsewhere classified Routine health maintenance Routine general medical examination at a health care facility Generalized anxiety disorder Other and unspecified hyperlipidemia Encounter for screening mammogram for breast cancer documented in this encounter [facility] for referral (narrative)* Diagnostic Procedure Only (Routine) - Closed Specialty Diagnoses / Procedures Referred By Adeola fulton Referred To Contact [facility] Diagnoses Encounter for gynecological examination (general) (routine) without abnormal findings Encounter for screening mammogram for breast cancer Procedures MELINA SCREENING W IBIS SCREENING DIGITAL BREAST TOMOSYNTHESIS BI SCREENING MAMMOGRAPHY BI 2-VIEW BREAST INC Dede Grossman MD [address] [place] [address] [facility] [address] [place] [address] Referral ID Status Reason Start Date Expiration Date V isits Requested Visits Authorized [id number] Closed Auto-Generate d Referral 12/21/2021 01/20/2023 1 1 [facility] for referral (narrative)* Diagnostic Procedure Only (Routine) - Pending Review Specialty Diagnoses / Procedures Referred By Adeola fulton Referred To Contact [facility] Diagnoses Encounter for gynecological examination (general) (routine) without abnormal findings Encounter for screening mammogram for breast cancer Procedures MELINA SCREENING W IBIS SCREENING DIGITAL BREAST TOMOSYNTHESIS BI SCREENING MAMMOGRAPHY BI 2-VIEW BREAST INC Dede Grossman MD [address] [place] [address] [facility] [address] [place] [address] Referral ID Status Reason Start Date Expiration Date Visits Requested Visits Authorized [id number] Pending Review Auto-Generat ed Referral 12/26/2022 01/25/2024 1 1 [facility] for referral (narrative)* Diagnostic Procedure Only (Routine) - Closed Specialty Diagnoses / Procedures Referred By Contac t Referred To Contact [facility] Diagnoses Breast cancer screening by mammogram Procedures MELINA SCREENING W IBIS SCREENING DIGITAL BREAST TOMOSYNTHESIS BI SCREENING MAMMOGRAPHY BI 2-VIEW BREAST INC Ben Sanchez MD [address] [place] [address] [facility] [address] [place] [address] Referral ID Status Reason Start Date Expiration Date V isits Requested Visits Authorized [id number] Closed Auto-Generate d Referral 07/19/2022 08/18/2023 1 1 [facility] for referral (narrative)* Diagnostic Procedure Only (Routine) - Authorized Specialty Diagnoses / Procedures Referred By Contac t Referred To Contact [facility] Diagnoses Postmenopausal bleeding Procedures PELVIC US WHI US PELVIC NONOBSTETRIC REAL-TIME IMAGE COMPLETE Vincent Quiros APRN.CNP [address] [place] [address] [facility] [address] [place] [address] Referral ID Status Reason Start Date Expiration Date Visits Requested Visits Authorized [id number] Authorized Auto-Generat ed Referral 07/10/2024 07/10/2025 1 1 * Outpatient Procedure (Routine) - Closed Specialty Diagnoses / Procedures Referred By Contac t Referred To Contact [facility] Diagnoses Postmenopausal bleeding Procedures ENDOMETRIAL BIOPSY ENDOMETRIAL BX W/WO ENDOCERVIX BX W/O DILAT SPX Vincent Quiros APRN.CNP [address] [place] [address] [facility] [address] [place] [address] Referral ID Status Reason Start Date Expiration Date V isits Requested Visits Authorized [id number] Closed Auto-Generate d Referral 07/10/2024 11/19/2024 1 1 [facility] for referral (narrative)* Diagnostic Procedure Only (Routine) - Closed Specialty Diagnoses / Procedures Referred By Adeola fulton Referred To Contact [facility] Diagnoses Renal calculi Procedures XR ABDOMEN 1V SUPINE RADIOLOGIC EXAM ABDOMEN 1 VIEW Kd Montes MD [address] [place] [address] [place] [id number] Referral ID Status Reason Start Date Expiration Date V isits Requested Visits Authorized [id number] Closed Auto-Generate d Referral 09/27/2022 10/27/2023 1 1 [facility] for referral (narrative)* Diagnostic Procedure Only (Routine) - New Request Specialty Diagnoses / Procedures Referred By Adeola fulton Referred To Contact [facility] Diagnoses Encounter for screening mammogram for breast cancer Procedures MELINA SCREENING W IBIS SCREENING DIGITAL BREAST TOMOSYNTHESIS BI SCREENING MAMMOGRAPHY BI 2-VIEW BREAST INC CAD Ben Adams MD [address] [place] [address] [facility] [address] [place] [address] Referral ID Status Reason Start Date Expiration Date Visits Requested Visits Authorized [id number] New Request Auto-Generat ed Referral 08/28/2024 09/27/2025 1 1 [facility] for visit Narrative* Diagnostic Procedure Only (Routine) - Closed Specialty Diagnoses / Procedures Referred By Adeola fulton Referred To Contact [facility] Diagnoses Encounter for gynecological examination (general) (routine) without abnormal findings Encounter for screening mammogram for breast cancer Procedures MELINA SCREENING W IBIS SCREENING DIGITAL BREAST TOMOSYNTHESIS BI SCREENING MAMMOGRAPHY BI 2-VIEW BREAST INC CAD Dede Kaplan MD [address] [place] [address] [facility] [address] [place] [address] Referral ID Status Reason Start Date Expiration Date V isits Requested Visits Authorized [id number] Closed Auto-Generate d Referral 12/21/2021 01/20/2023 1 1 [facility] for visit Narrative* Diagnostic Procedure Only (Routine) - Closed Specialty Diagnoses / Procedures Referred By Allegraac t Referred To Contact [facility] Diagnoses Breast cancer screening by mammogram Procedures MELINA SCREENING W IBIS SCREENING DIGITAL BREAST TOMOSYNTHESIS BI SCREENING MAMMOGRAPHY BI 2-VIEW BREAST INC CAD Ben Adams MD [address] [place] [address] [facility] [address] [place] [address] Referral ID Status Reason Start Date Expiration Date V isits Requested Visits Authorized [id number] Closed Auto-Generate d Referral 07/19/2022 08/18/2023 1 1 [facility] for visit Narrative* Diagnostic Procedure Only (Routine) - Closed Specialty Diagnoses / Procedures Referred By Adeola fulton Referred To Contact [facility] Diagnoses Postmenopausal bleeding Procedures PELVIC US I US PELVIC NONOBSTETRIC REAL-TIME IMAGE COMPLETE Vincent Quiros APRN.STEAM TUNNEL FEEDER [address] [place] [address] [facility] [address] [place] [address] Referral ID Status Reason Start Date Expiration Date V isits Requested Visits Authorized [id number] Closed Auto-Generate d Referral 07/10/2024 07/10/2025 1 1 [facility] for visit Narrative* Diagnostic Procedure Only (Routine) - Closed Specialty Diagnoses / Procedures Referred By Adeola t Referred To Contact XR IMAGING Diagnoses Renal calculi Procedures XR ABDOMEN 1V SUPINE RADIOLOGIC EXAM ABDOMEN 1 VIEW Kd Montes MD [address] [place] [address] [place] [id number] Referral ID Status Reason Start Date Expiration Date V isits Requested Visits Authorized [id number] Closed Auto-Generate d Referral 09/27/2022 10/27/2023 1 1 [facility] Summary Purpose Family History No Family History Records FoundNo Family History Records FoundNo Family History Records FoundNo Family History Records Found Advance Directives Documents on File Type Date Recorded Patient Educational Consultant 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 anation Advance Directive(s) 11/03/2016 11:31 AM Reason for Referral Specialty Diagnoses / Procedures Referred By Contac t Referred To Contact Dermatology Diagnoses Skin lesion Procedures CONSULT TO DERMATOLOGY Ben Adams MD [address] [place] [address] Referral ID Status Reason Start Date Expiration Date Visits Requested Visits Authorized [id number] Ref Not Required PCP Requested Referral 07/19/2022 07/19/2023 1 1 Specialty Diagnoses / Procedures Referred By Contac t Referred To Contact [facility] Diagnoses Breast cancer screening by mammogram Procedures MELINA SCREENING W IBIS SCREENING DIGITAL BREAST TOMOSYNTHESIS BI SCREENING MAMMOGRAPHY BI 2-VIEW BREAST INC CAD Ben Adams MD [address] [place] [address] [facility] [address] [facility] [place] [address] Referral ID Status Reason Start Date Expiration Date Visits Requested Visits Authorized [id number] Pending Review Auto-Generat ed Referral 07/19/2022 08/18/2023 1 1 Specialty Diagnoses / Procedures Referred By Contac t Referred To Contact CT IMAGING Diagnoses Right flank pain History of kidney stones Inguinal pain, unspecified laterality Procedures CT ABD/PEL WO IVCON CT ABD & PELVIS W/O CONTRAST Delma Turk, MONO.STEAM TUNNEL FEEDER [address] [place] [address] Ct Imaging Referral ID Status Reason Start Date Expiration Date V isits Requested Visits Authorized [id number] Closed Auto-Generate d Referral 08/18/2022 10/02/2022 1 1 Specialty Diagnoses / Procedures Referred By Contac t Referred To Contact Urology Diagnoses Kidney stone Procedures CONSULT TO UROLOGY OFFICE/OUTPATIENT NEW HIGH MDM 60-74 MINUTES Delma Turk APRN.STEAM T[employer]NEL FEEDER [address] [place] [address] Referral ID Status Reason Start Date Expiration Date Visits Requested Visits Authorized [id number] Authorized PCP Requested Referral 08/19/2022 08/19/2023 1 1 Specialty Diagnoses / Procedures Referred By Contac t Referred To Contact CT IMAGING Diagnoses Flank pain, acute Procedures CT FLANK WO IVCON CT ABD & PELVIS W/O CONTRAST María Wilson PA-C [address] [place] [id number] [facility] Referral ID Status Reason Start Date Expiration Date V isits Requested Visits Authorized [id number] Closed Auto-Generate d Referral 11/23/2022 12/23/2023 1 1 Specialty Diagnoses / Procedures Referred By Contac t Referred To Contact Diagnoses Hyperlipidemia, unspecified hyperlipidemia type Procedures CARD PREV EXERCISE PRESCRIPTION OFFICE/OUTPATIENT [facility] 60-74 MINUTES Torey Villasenor MD [address] [place] [address] Referral ID Status Reason Start Date Expiration Date Visits Requested Visits Authorized [id number] Authorized PCP Requested Referral 02/21/2023 02/21/2024 1 1 Specialty Diagnoses / Procedures Referred By Contac t Referred To Contact Nephrology Diagnoses Function kidney decreased Procedures CONSULT TO KIDNEY MEDICINE OFFICE/OUTPATIENT [facility] 60 MINUTES Postlethedward, Caitlin Dietz APRN.STEAM TUNNEL FEEDER [address] [place] [address] Referral ID Status Reason Start Date Expiration Date Visits Requested Visits Authorized [id number] Authorized PCP Requested Referral 07/25/2024 07/25/2025 1 1 Specialty Diagnoses / Procedures Referred By Contac t Referred To Contact CT IMAGING Diagnoses Hematuria, unspecified type Procedures CT UROGRAM WO/W IVCON CT ABD & PELVIS W/WO CONTRST 1+ BODY REGNS Postlethaguilait, Caitlin Dietz, MONO.STEAM TUNNEL FEEDER [address] [place] [address] Ct [facility] [place] [address] Referral ID Status Reason Start Date Expiration Date Visits Requested Visits Authorized [id number] Authorized Auto-Generat ed Referral 07/25/2024 08/24/2025 1 1 Specialty Diagnoses / Procedures Referred By Contac t Referred To Contact CT IMAGING Diagnoses Hematuria, unspecified type Procedures CT UROGRAM WO/W IVCON CT ABD & PELVIS W/WO CONTRST 1+ BODY REGNS Postlethwait, Caitlin Dietz, MANAGER TRAINING.STEAM TUNNEL FEEDER [address] [place] [address] [place] [id number] Referral ID Status Reason Start Date Expiration Date V isits Requested Visits Authorized [id number] Closed Auto-Generate d Referral 07/25/2024 08/24/2025 1 1 Additional Source Comments INFORMATION SOURCE (unrecogn ized section and content) DATE CREATED AUTHOR 05/22/2018 [facility] DATE CREATED AUTHOR AUTHOR'S ORGANIZ ATION 10/28/2018 [facility] DATE CREATED AUTHOR AUTHOR'S ORGANIZ ATION 08/17/2024 [facility] DATE CREATED AUTHOR AUTHOR'S ORGANIZ ATION 09/03/2024 [facility] Source Comments (unrecognize d section and content) In the event this informatio n is protected by the Federal Confidentiality of Alcohol and Drug Abuse Patient Records regulations: The Federal rules restrict any use of the information to criminally investigate or prosecute any alcohol or drug abuse patient.[facility] the event this information is protected by the Federal Confidentiality of Alcohol and Drug Abuse Patient Records regulations: The Federal rules restrict any use of the information to criminally investigate or prosecute any alcohol or drug abuse patient.[facility] the event this information is protected by the Federal Confidentiality of Alcohol and Drug Abuse Patient Records regulations: The Federal rules restrict any use of the information to criminally investigate or prosecute any alcohol or drug abuse patient.[facility] the event this information is protected by the Federal Confidentiality of Alcohol and Drug Abuse Patient Records regulations: The Federal rules restrict any use of the information to criminally investigate or prosecute any alcohol or drug abuse patient.[facility] the event this information is protected by the Federal Confidentiality of Alcohol and Drug Abuse Patient Records regulations: The Federal rules restrict any use of the information to criminally investigate or prosecute any alcohol or drug abuse patient.[facility] the event this information is protected by the Federal Confidentiality of Alcohol and Drug Abuse Patient Records regulations: The Federal rules restrict any use of the information to criminally investigate or prosecute any alcohol or drug abuse patient.[facility] Hospital[facility] the event this information is protected by the Federal Confidentiality of Alcohol and Drug Abuse Patient Records regulations: The Federal rules restrict any use of the information to criminally investigate or prosecute any alcohol or drug abuse patient.[facility] Hospital[facility] the event this information is protected by the Federal Confidentiality of Alcohol and Drug Abuse Patient Records regulations: The Federal rules restrict any use of the information to criminally investigate or prosecute any alcohol or drug abuse patient.[facility] HospitalIn the event this information is protected by the Federal Confidentiality of Alcohol and Drug Abuse Patient Records regulations: The Federal rules restrict any use of the information to criminally investigate or prosecute any alcohol or drug abuse patient.[facility] HospitalIn the event this information is protected by the Federal Confidentiality of Alcohol and Drug Abuse Patient Records regulations: The Federal rules restrict any use of the information to criminally investigate or prosecute any alcohol or drug abuse patient.[facility] HospitalIn the event this information is protected by the Federal Confidentiality of Alcohol and Drug Abuse Patient Records regulations: The Federal rules restrict any use of the information to criminally investigate or prosecute any alcohol or drug abuse patient.[facility] HospitalIn the event this information is protected by the Federal Confidentiality of Alcohol and Drug Abuse Patient Records regulations: The Federal rules restrict any use of the information to criminally investigate or prosecute any alcohol or drug abuse patient.[facility] HospitalIn the event this information is protected by the Federal Confidentiality of Alcohol and Drug Abuse Patient Records regulations: The Federal rules restrict any use of the information to criminally investigate or prosecute any alcohol or drug abuse patient.[facility] HospitalIn the event this information is protected by the Federal Confidentiality of Alcohol and Drug Abuse Patient Records regulations: The Federal rules restrict any use of the information to criminally investigate or prosecute any alcohol or drug abuse patient.[facility] HospitalIn the event this information is protected by the Federal Confidentiality of Alcohol and Drug Abuse Patient Records regulations: The Federal rules restrict any use of the information to criminally investigate or prosecute any alcohol or drug abuse patient.[facility] HospitalIn the event this information is protected by the Federal Confidentiality of Alcohol and Drug Abuse Patient Records regulations: The Federal rules restrict any use of the information to criminally investigate or prosecute any alcohol or drug abuse patient.[facility] HospitalIn the event this information is protected by the Federal Confidentiality of Alcohol and Drug Abuse Patient Records regulations: The Federal rules restrict any use of the information to criminally investigate or prosecute any alcohol or drug abuse patient.[facility] HospitalIn the event this information is protected by the Federal Confidentiality of Alcohol and Drug Abuse Patient Records regulations: The Federal rules restrict any use of the information to criminally investigate or prosecute any alcohol or drug abuse patient.[facility] the event this information is protected by the Federal Confidentiality of Alcohol and Drug Abuse Patient Records regulations: The Federal rules restrict any use of the information to criminally investigate or prosecute any alcohol or drug abuse patient.[facility] HospitalIn the event this information is protected by the Federal Confidentiality of Alcohol and Drug Abuse Patient Records regulations: The Federal rules restrict any use of the information to criminally investigate or prosecute any alcohol or drug abuse patient.[facility] HospitalIn the event this information is protected by the Federal Confidentiality of Alcohol and Drug Abuse Patient Records regulations: The Federal rules restrict any use of the information to criminally investigate or prosecute any alcohol or drug abuse patient.[facility] HospitalIn the event this information is protected by the Federal Confidentiality of Alcohol and Drug Abuse Patient Records regulations: The Federal rules restrict any use of the information to criminally investigate or prosecute any alcohol or drug abuse patient.[facility] HospitalIn the event this information is protected by the Federal Confidentiality of Alcohol and Drug Abuse Patient Records regulations: The Federal rules restrict any use of the information to criminally investigate or prosecute any alcohol or drug abuse patient.[facility] HospitalIn the event this information is protected by the Federal Confidentiality of Alcohol and Drug Abuse Patient Records regulations: The Federal rules restrict any use of the information to criminally investigate or prosecute any alcohol or drug abuse patient.[facility] HospitalIn the event this information is protected by the Federal Confidentiality of Alcohol and Drug Abuse Patient Records regulations: The Federal rules restrict any use of the information to criminally investigate or prosecute any alcohol or drug abuse patient.[facility] HospitalIn the event this information is protected by the Federal Confidentiality of Alcohol and Drug Abuse Patient Records regulations: The Federal rules restrict any use of the information to criminally investigate or prosecute any alcohol or drug abuse patient.[facility] HospitalIn the event this information is protected by the Federal Confidentiality of Alcohol and Drug Abuse Patient Records regulations: The Federal rules restrict any use of the information to criminally investigate or prosecute any alcohol or drug abuse patient.[facility] HospitalIn the event this information is protected by the Federal Confidentiality of Alcohol and Drug Abuse Patient Records regulations: The Federal rules restrict any use of the information to criminally investigate or prosecute any alcohol or drug abuse patient.[facility] HospitalIn the event this information is protected by the Federal Confidentiality of Alcohol and Drug Abuse Patient Records regulations: The Federal rules restrict any use of the information to criminally investigate or prosecute any alcohol or drug abuse patient.[facility] HospitalIn the event this information is protected by the Federal Confidentiality of Alcohol and Drug Abuse Patient Records regulations: The Federal rules restrict any use of the information to criminally investigate or prosecute any alcohol or drug abuse patient.[facility] HospitalIn the event this information is protected by the Federal Confidentiality of Alcohol and Drug Abuse Patient Records regulations: The Federal rules restrict any use of the information to criminally investigate or prosecute any alcohol or drug abuse patient.[facility] HospitalIn the event this information is protected by the Federal Confidentiality of Alcohol and Drug Abuse Patient Records regulations: The Federal rules restrict any use of the information to criminally investigate or prosecute any alcohol or drug abuse patient.[facility] HospitalIn the event this information is protected by the Federal Confidentiality of Alcohol and Drug Abuse Patient Records regulations: The Federal rules restrict any use of the information to criminally investigate or prosecute any alcohol or drug abuse patient.[facility] HospitalIn the event this information is protected by the Federal Confidentiality of Alcohol and Drug Abuse Patient Records regulations: The Federal rules restrict any use of the information to criminally investigate or prosecute any alcohol or drug abuse patient.[facility] HospitalIn the event this information is protected by the Federal Confidentiality of Alcohol and Drug Abuse Patient Records regulations: The Federal rules restrict any use of the information to criminally investigate or prosecute any alcohol or drug abuse patient.[facility] HospitalIn the event this information is protected by the Federal Confidentiality of Alcohol and Drug Abuse Patient Records regulations: The Federal rules restrict any use of the information to criminally investigate or prosecute any alcohol or drug abuse patient.[facility] HospitalIn the event this information is protected by the Federal Confidentiality of Alcohol and Drug Abuse Patient Records regulations: The Federal rules restrict any use of the information to criminally investigate or prosecute any alcohol or drug abuse patient.[facility] HospitalIn the event this information is protected by the Federal Confidentiality of Alcohol and Drug Abuse Patient Records regulations: The Federal rules restrict any use of the information to criminally investigate or prosecute any alcohol or drug abuse patient.[facility] HospitalIn the event this information is protected by the Federal Confidentiality of Alcohol and Drug Abuse Patient Records regulations: The Federal rules restrict any use of the information to criminally investigate or prosecute any alcohol or drug abuse patient.[facility] HospitalIn the event this information is protected by the Federal Confidentiality of Alcohol and Drug Abuse Patient Records regulations: The Federal rules restrict any use of the information to criminally investigate or prosecute any alcohol or drug abuse patient.[facility] HospitalIn the event this information is protected by the Federal Confidentiality of Alcohol and Drug Abuse Patient Records regulations: The Federal rules restrict any use of the information to criminally investigate or prosecute any alcohol or drug abuse patient.[facility] HospitalIn the event this information is protected by the Federal Confidentiality of Alcohol and Drug Abuse Patient Records regulations: The Federal rules restrict any use of the information to criminally investigate or prosecute any alcohol or drug abuse patient.[facility] HospitalIn the event this information is protected by the Federal Confidentiality of Alcohol and Drug Abuse Patient Records regulations: The Federal rules restrict any use of the information to criminally investigate or prosecute any alcohol or drug abuse patient.[facility] HospitalIn the event this information is protected by the Federal Confidentiality of Alcohol and Drug Abuse Patient Records regulations: The Federal rules restrict any use of the information to criminally investigate or prosecute any alcohol or drug abuse patient.[facility] HospitalIn the event this information is protected by the Federal Confidentiality of Alcohol and Drug Abuse Patient Records regulations: The Federal rules restrict any use of the information to criminally investigate or prosecute any alcohol or drug abuse patient.[facility] HospitalIn the event this information is protected by the Federal Confidentiality of Alcohol and Drug Abuse Patient Records regulations: The Federal rules restrict any use of the information to criminally investigate or prosecute any alcohol or drug abuse patient.[facility] HospitalIn the event this information is protected by the Federal Confidentiality of Alcohol and Drug Abuse Patient Records regulations: The Federal rules restrict any use of the information to criminally investigate or prosecute any alcohol or drug abuse patient.[facility] HospitalIn the event this information is protected by the Federal Confidentiality of Alcohol and Drug Abuse Patient Records regulations: The Federal rules restrict any use of the information to criminally investigate or prosecute any alcohol or drug abuse patient.[facility] HospitalIn the event this information is protected by the Federal Confidentiality of Alcohol and Drug Abuse Patient Records regulations: The Federal rules restrict any use of the information to criminally investigate or prosecute any alcohol or drug abuse patient.[facility] Reason for Visit (unrecogniz ed section and content) Reason Comments Lab Orders Reason Comments Physical Reason Comments intermittent back pain Reason Comments Back Pain Upper back pain, acr oss the back x [address] weeks Reason Comments [address] Specialty Diagnoses / Procedures Referred By Adeola t Referred To Contact CT IMAGING Diagnoses Right flank pain History of kidney stones Inguinal pain, unspecified laterality Procedures CT ABD/PEL WO IVCON CT ABD & PELVIS W/O CONTRAST Delma Turk APRN.[employer]ED[employer] [address] [place] [address] Ct Imaging Referral ID Status Reason Start Date Expiration Date V isits Requested Visits Authorized [id number] Closed Auto-Generate d Referral 08/18/2022 10/02/2022 1 1 Reason Comments Results - Ct Reason Comments Kidney Stones Specialty Diagnoses / Procedures Referred By Contac t Referred To Contact Urology Diagnoses Kidney stone Procedures CONSULT TO UROLOGY OFFICE/OUTPATIENT NEW HIGH MDM 60-74 MINUTES Delma Turk APRN.[employer] [address] [place] [address] Referral ID Status Reason Start Date Expiration Date V isits Requested Visits Authorized [id number] Closed PCP Requested Referral 08/19/2022 08/19/2023 1 1 Reason Comments Results Reason Comments Med Change Request Reason Comments Surgery Scheduled Reason Comments Refill Request Reason Comments Patient Update Reason Comments post op Reason Comments Yearly Exam Reason Comments Event Zio patch Reason Comments Opened In Error Reason Comments Exercise Prescription Hyperlipidemia Specialty Diagnoses / Procedures Referred By Contac t Referred To Contact Diagnoses Hyperlipidemia, unspecified hyperlipidemia type Procedures CARD PREV EXERCISE PRESCRIPTION OFFICE/OUTPATIENT NEW [facility] MDM 60-74 MINUTES Torey Villasenor MD [address] [place] [id number] Referral ID Status Reason Start Date Expiration Date V isits Requested Visits Authorized [id number] Closed PCP Requested Referral 02/21/2023 02/21/2024 1 1 Reason Comments Chest Congestion Chest congestion, co ugh, wheezing Reason Comments Urinary Problem Pt reported hematuri a, frequency, x1 wk. Reason Comments Orders Reason Comments Follow Up Reason Onset Date Comments Refill Request 07/17/2023 Reason Comments Recheck 6 month follow up Reason Comments Endometrial Biopsy Specialty Diagnoses / Procedures Referred By Contac t Referred To Contact [facility] Diagnoses Postmenopausal bleeding Procedures ENDOMETRIAL BIOPSY ENDOMETRIAL BX W/WO ENDOCERVIX BX W/O DILAT SPX Vincent Quiros, MANAGER TRAINING.[employer] [address] [place] [address] [facility]ly [facility] [address] [place] [address] Referral ID Status Reason Start Date Expiration Date V isits Requested Visits Authorized [id number] Closed Auto-Generate d Referral 07/10/2024 11/19/2024 1 1 Reason Comments kidney issues Patient states bleed ing has been going on since the beginning of this year. PERCUSSION INSTRUMENT TUNER did workup on patient recently. Specialty Diagnoses / Procedures Referred By Contcal t Referred To Contact CT IMAGING Diagnoses Hematuria, unspecified type Procedures CT UROGRAM WO/W IVCON CT ABD & PELVIS W/WO CONTRST 1+ BODY REGNS Caitlin Pradhan, MANAGER TRAINING.STE[employer] T[employer]NEL [employer]EDER [address] [place] [address] Ct Imaging [id number] Referral ID Status Reason Start Date Expiration Date V isits Requested Visits Authorized [id number] Closed Auto-Generate d Referral 07/25/2024 08/24/2025 1 1 Reason Comments Pre-Op Visit Reason Comments Consult Function kidney decr eased [N28.9] Care Teams (unrecognized sec tion and content) Deck Steward Relationship Specialty Start Date End Date Ben Adams MD [address] [place] [address] PCP - General Internal Medicine 01/10/17 Deck Steward Relationship Specialty Start Date End Date Ben Adams MD [address] [place] [address] PCP - General Internal Medicine 01/10/17 Deck Steward Relationship Specialty Start Date End Date Ben Adams MD [address] [place] [address] PCP - General Internal Medicine 01/10/17 Deck Steward Relationship Specialty Start Date End Date Ben Adams MD [address] [place] [address] PCP - General Internal Medicine 01/10/17 Deck Steward Relationship Specialty Start Date End Date Ben Adams MD [address] [place] [address] PCP - General Internal Medicine 01/10/17 Deck Steward Relationship Specialty Start Date End Date Ben Adams MD [address] [place] [address] PCP - General Internal Medicine 01/10/17 Deck Steward Relationship Specialty Start Date End Date Ben Adams MD [address] [place] [address] PCP - General Internal Medicine 01/10/17 Deck Steward Relationship Specialty Start Date End Date Ben Adams MD [address] [place] [address] PCP - General Internal Medicine 01/10/17 Deck Steward Relationship Specialty Start Date End Date Ben Adams MD [address] [place] [address] PCP - General Internal Medicine 01/10/17 Deck Steward Relationship Specialty Start Date End Date Ben Adams MD [address] [place] [address] PCP - General Internal Medicine 01/10/17 Deck Steward Relationship Specialty Start Date End Date Ben Adams MD [address] [facility] [place] [address] PCP - General Internal Medicine 01/10/17 Deck Steward Relationship Specialty Start Date End Date Ben Adams MD [address] [facility] [place] [address] PCP - General Internal Medicine 01/10/17 Deck Steward Relationship Specialty Start Date End Date Ben Adams MD [address] [facility] [place] [address] PCP - General Internal Medicine 01/10/17 Deck Steward Relationship Specialty Start Date End Date Ben Adams MD [address] [facility] [place] [address] PCP - General Internal Medicine 01/10/17 Deck Steward Relationship Specialty Start Date End Date Ben Adams MD [address] [facility] [place] [address] PCP - General Internal Medicine 01/10/17 Deck Steward Relationship Specialty Start Date End Date Ben Adams MD [address] [place] [address] PCP - General Internal Medicine 01/10/17 Deck Steward Relationship Specialty Start Date End Date Ben Adams MD [address] [place] [place] [address] PCP - General Internal Medicine 01/10/17 Deck Steward Relationship Specialty Start Date End Date Ben Adams MD [address] [place] [address] PCP - General Internal Medicine 01/10/17 Torey Villasenor MD [address] [place] [address] Primary Staff Physician Cardiology 02/21/23 Deck Steward Relationship Specialty Start Date End Date Ben Adams MD [address] [place] [place] [address] PCP - General Internal Medicine 01/10/17 Torey Villasenor MD [address] [place] [address] [place] [address] Primary Staff Physician Cardiology 02/21/23 Deck Steward Relationship Specialty Start Date End Date Ben Adams MD [address] [place] [address] PCP - General Internal Medicine 01/10/17 Torey Villasenor MD [address] [place] [address] Primary Staff Physician Cardiology 02/21/23 Deck Steward Relationship Specialty Start Date End Date Ben Adams MD [address] [place] [address] PCP - General Internal Medicine 01/10/17 Torey Villasenor MD [address] [place] [address] [place] [address] Primary Staff Physician Cardiology 02/21/23 Deck Steward Relationship Specialty Start Date End Date Ben Adams MD [address] [place] [address] PCP - General Internal Medicine 01/10/17 Torey Villasenor MD [address] [facility] [place] [address] Primary Staff Physician Cardiology 02/21/23 Deck Steward Relationship Specialty Start Date End Date Ben Adams MD [address] [place] [address] PCP - General Internal Medicine 01/10/17 Torey Villasenor MD [address] [place], [place] [id number] Primary Staff Physician Cardiology 02/21/23 Deck Steward Relationship Specialty Start Date End Date Ben Adams MD [address] [place] [address] PCP - General Internal Medicine 01/10/17 Torey Villasenor MD [address] [place] [address] Primary Staff Physician Cardiology 02/21/23 Deck Steward Relationship Specialty Start Date End Date Ben Adams MD [address] [place] [address] PCP - General Internal Medicine 01/10/17 Torey Villasenor MD [address] [place] [address] Primary Staff Physician Cardiology 02/21/23 Deck Steward Relationship Specialty Start Date End Date Ben Adams MD [address] [place], [place] [address] PCP - General Internal Medicine 01/10/17 Torey Villasenor MD [address] [place] [address] Primary Staff Physician Cardiology 02/21/23 Deck Steward Relationship Specialty Start Date End Date Ben Adams MD [address] [place] [address] PCP - General Internal Medicine 01/10/17 Torey Villasenor MD [address] [place] [address] Primary Staff Physician Cardiology 02/21/23 Deck Steward Relationship Specialty Start Date End Date Ben Adams MD [address] [place] [address] PCP - General Internal Medicine 01/10/17 Torey Villasenor MD [address] [place] [address] Primary Staff Physician Cardiology 02/21/23 Deck Steward Relationship Specialty Start Date End Date Ben Adams MD [address] [place] [address] PCP - General Internal Medicine 01/10/17 Torey Villasenor MD [address] [place] [address] Primary Staff Physician Cardiology 02/21/23 Deck Steward Relationship Specialty Start Date End Date Ben Adams MD [address] [place] [address] PCP - General Internal Medicine 01/10/17 Torey Villasenor MD [address] [place] [address] Primary Staff Physician Cardiology 02/21/23 Deck Steward Relationship Specialty Start Date End Date Ben Adams MD [address] [place] [address] PCP - General Internal Medicine 01/10/17 Torey Villasenor MD [address] [place] [address] Primary Staff Physician Cardiology 02/21/23 Deck Steward Relationship Specialty Start Date End Date Ben Adams MD [address] [place] [address] PCP - General Internal Medicine 01/10/17 Torey Villasenor MD [address] [place] [address] Primary Staff Physician Cardiology 02/21/23 Deck Steward Relationship Specialty Start Date End Date Ben Adams MD [address] [place] [address] PCP - General Internal Medicine 01/10/17 Torey Villasenor MD [address] [place] [address] Primary Staff Physician Cardiology 02/21/23 Deck Steward Relationship Specialty Start Date End Date Ben Adams MD [address] [place] [address] PCP - General Internal Medicine 01/10/17 Torey Villasenor MD [address] [place] [address] Primary Staff Physician Cardiology 02/21/23 Deck Steward Relationship Specialty Start Date End Date Ben Adams MD [address] [place] [address] PCP - General Internal Medicine 01/10/17 Deck Steward Relationship Specialty Start Date End Date Ben Adams MD [address] [place] [address] PCP - General Internal Medicine 01/10/17 Torey Villasenor MD [address] [place] [id number] Primary Staff Physician Cardiology 02/21/23 Deck Steward Relationship Specialty Start Date End Date Ben Adams MD [address] [place] [address] PCP - General Internal Medicine 01/10/17 Torey Villasenor MD [address] [place] [id number] Primary Staff Physician Cardiology 02/21/23 Deck Steward Relationship Specialty Start Date End Date Ben Adams MD [address] [place] [address] PCP - General Internal Medicine 01/10/17 Torey Villasenor MD [address] [place] [address] [id number] Primary Staff Physician Cardiology 02/21/23 Deck Steward Relationship Specialty Start Date End Date Ben Adams MD [address] [place], [place] [id number] PCP - General Internal Medicine 01/10/17 Torey Villasenor MD [address] [place] [id number] Primary Staff Physician Cardiology 02/21/23 FOR RECORDS PERTAINING TO PATIENTS WHO ARE OR HAVE BEEN ENROLLED IN A CHEMICAL DEPENDENCY/SUBSTANCEABUSE PROGRAM, SOME INFORMATION MAY BE OMITTED. This clinical summary was aggregated from multiple sources. Caution should be exercised in using it in the provision of clinical care. This summary normalizes information from multiple sources, and as a consequence, information in this document may materially change the coding, format and clinical context of patient data. In addition, data may be omitted in some cases. CLINICAL DECISIONS SHOULD BE BASED ON THE PRIMARY CLINICAL RECORDS. [facility] [employer] [facility]. provides no warranty or guarantee of the accuracy or completeness of information in this document.
[2024-09-12] MEDS: miSOPROStol 200 MCG Tablet VAGINAL (06:18)
[2024-09-12] MEDS: Acetaminophen 500 MG Tablet 1000 MG PO (06:21)
[2024-09-12] MEDS: Ketorolac 30 MG/ML Syringe IV (06:21)
--- NOTE | 2024-09-12 06:43 | PRE.ANES_ITS ---
ASA Classification* ASA Classification ASA Classification: 2 Assessment & Plan Anesthesia* Anesthesia Assessment Anesthesia Assessment: Discussed sedation and/or anesthesia options, risks, benefits, and alternatives with patient/parents/legal guardian/POA. Questions invited. The patient/parents/legal guardian/POA seems to understand and agrees to proceed with anesthesia plan. Reviewed the physical assessment, medical history, allergy history and patient home medications list prior to surgery/procedure/anesthetic and documented any changes. Performed airway and anesthesia risk assessments. Anesthesia Type Anesthesia Type: MAC Anesthesia Focused Assessment* Temperature: 97.3 F Pulse Rate: 73 Blood Pressure: 111/54 Respiratory Rate: 16 Pulse Ox: 100 Airway Assessment Mouth opens: >3 cm Mallampati Score: II Focused Labs Anesthesia Preop lab: CBC CHEMISTRY COAG Pre-Assessment Diagnosis/Proposed Procedure Planned Operative Procedure(s): HYSTEROSCOPY D&C POLYP RESECTION Anesthesia History Anesthesia History - environmental property assessor: Anesthesia History - environmental property assessor Hx Hospitalization No 08/27/24 13:23 Any Problems With Anesthesia No 08/27/24 13:23 Cholinesterase deficiency No 08/27/24 13:23 You/Your Family Experience No 08/27/24 13:23 fever (hyperthermia) with Relationship Recent Exposure to Contagious No 09/12/24 06:17 Disease Does patient have nerve No 08/27/24 13:23 stimulator Patient instructed to have device shut off --Does patient have Pacemaker No 09/12/24 06:17 or ICD? When Was Last Pacemaker Check QUESTION #4 FULL TEXT: You/Your Family Experience fever (hyperthermia) with Anesthesia Last Oral Intake Last Oral intake: Last Oral Intake NPO since Meds taken in AM with sips of water? Meds patient instructed to take am of surgery PONV PONV - environmental property assessor: PONV - environmental property assessor Female Yes 08/27/24 13:23 HX of Motion Sickness No 08/27/24 13:23 HX of N/V After Surgery No 08/27/24 13:23 Non-Smoker Yes 08/27/24 13:23 Duration of Surgery greater No 08/27/24 13:23 than 60 minutes Number of Risk Factors 2 08/27/24 13:23 PONV Score Moderate Risk 08/27/24 13:23 Height & Weight Height & Weight: Anesthesia: Height & Weight Height 5 ft 3 in 09/12/24 06:17 Weight: 85.5 kg 09/12/24 06:17 Body Mass Index (BMI) 33.3 09/12/24 06:17 Respiratory Assessment Respiratory Assessment - environmental property assessor: Respiratory Tract Infection Hx - environmental property assessor Hx Respiratory Tract Infection No 08/27/24 13:23 STOP Sleep Apnea STOP Sleep Apnea - environmental property assessor: STOP Sleep Apnea - environmental property assessor Hx Hypertension No 08/27/24 13:23 Hx Sleep Apnea No 08/27/24 13:23 CPAP BIPAP Do you snore loudly (louder No 08/27/24 13:23 than talking or can be heard Do you often feel tired/ No 08/27/24 13:23 fatigued/ sleepy during daytime? Has anyone observed you stop No 08/27/24 13:23 breathing during sleep? STOP Results Negative 08/27/24 13:23 QUESTION #5 FULL TEXT : Do you snore loudly (louder than talking or can be heard through closed doors)? Tobacco Use History Tobacco Use History - environmental property assessor: Tobacco Use History - environmental property assessor Tobacco Use Smoking Status Never smoker 08/27/24 13:23 Hx Tobacco Use No 08/27/24 13:23 Years Smoking Packs Smoked per Day Smoking Cessation Date was within the last 15 years Hx Smoking Cessation Date Hx Smoking Cessation Counseling Hematologic Medial History Hematologic Hx - environmental property assessor: Hematologic Medical Hx - sawsmith Hx of Blood Transfusion No 08/27/24 13:23 Hx of Transfusion in last 3 No 08/27/24 13:23 Months Date of Last Transfusion (if within last 3 months) Ever experience any problems No 08/27/24 13:23 with transfusion(s)? Specify any problems Hx of Preganancy in last 3 No 08/27/24 13:23 Months Nurse Filling Out Transfusion DSCHRIBER 08/27/24 13:23 & Questions: Date: 08/27/24 08/27/24 13:23 Time: 13:24 08/27/24 13:23 Patient unable to answer at this time (ie. confused, unrespo /Reproduction History /Reproductive History - environmental property assessor: /Reproductive Hx- environmental property assessor Hx Now No 08/27/24 13:23 Gestational Age (in weeks): EDC: Hx Hx Para Hx Section SAB No 08/27/24 13:23 Active Medications Active Medications: Current Medications Generic Name Dose Route Start Last Admin Trade Name Kenny PRN Reason Stop Dose Admin Acetaminophen 1,000 mg 09/12/24 07:30 09/12/24 06:21 Acetaminophen 500 Mg Tablet PO 09/12/24 07:31 1,000 mg PREOP ONE Administration Ketorolac Tromethamine 30 mg 09/12/24 07:30 09/12/24 06:21 Ketorolac 30 Mg/Ml Syringe IV 09/12/24 07:31 30 mg PREOP ONE Administration PFS Medical History Wears glasses Post-menopausal Depression Anxiety Fatty liver Back pain History of IBS Non-smoker History of edema Cardiology follow-up encounter History of stress test COVID-19 Home Medications ?Medication ?Instructions ?Recorded ?Last Taken ?Type aspirin 81 mg tablet,delayed 81 mg PO DAILY 05/20/22 09/07/24 History release bupropion HCl 150 mg 24 hr tablet, 150 mg PO DAILY 05/20/22 Unknown History extended release buspirone 5 mg tablet 5 mg PO DAILY 08/27/24 Unknown History rosuvastatin 10 mg tablet 10 mg PO DAILY 08/27/24 Unknown History Allergy/AdvReac Type Severity Reaction Status Date / Time latex Allergy Intermediate Hives Verified 09/12/24 06:17 Penicillins AdvReac Intermediate Nausea/Vom/ Verified 09/12/24 06:17 Diarrhea Surgical History Hx of lithotripsy Hx of dilation and curettage History of tonsillectomy Hx of section Social History Smoking Status: Never smoker Review of Systems (Anesthesia) ROS Narrative System reviewed and no additional complaints, except as documented.
--- NOTE | 2024-09-12 07:30 | EMB_PTH ---
PATHOLOGY RESULTS PATIENT: LINDA TOWNSEND LOC: [facility] [place] U#:[id number] AGE/SX: 59/F ROOM: RE09/12/[address]: Dr. Rashida Shepherd MD : 1965 BED: DIS: 09/12/2024 SPEC #: [id number] RECD: 09/12/24 10:42 STATUS: ELVIE ARENAS #: [id number] JOHNATHAN: 09/12/24 07:[address]: Rashida Shepherd DEPT: SURGICAL PATHOLOGY RECD BY: Armida Linn ENTERED: 09/12/24 11:43 SP TYPE: ENDOM BX/C DELBERT DR: Dr. Sandra Allen MD Tissues: Endometrium, NOS Procedures: Surgery Specimen Level IV HEADER OPERATION: Hysteroscopy, D&C, polyp resection PRE-OP DIAGNOSIS: Post menopausal bleeding, endometrial polyp TISSUE SUBMITTED: Endometrial curettings and polyp MICROSCOPIC DIAGNOSIS Endometrial curettings and polyp: Polypoid fragments of simple endometrial hyperplasia without atypia. Fragments of benign myometrium. Focal changes suspicious for adenomyosis. AM 09/13/2024 MICROSCOPIC DESCRIPTION Slides are reviewed. GROSS DESCRIPTION Received in fixative is one container labeled with the patient's name and designated Endometrial curettings and polyp. The specimen consists of multiple elongated fragments of singletary soft tissue that in aggregate measure 9.0 x 2.5 x 0.2 cm. The specimen is totally submitted in one cassette. 09/12/2024 TC:5 CPT:70543
--- NOTE | 2024-09-12 07:50 | DCINST_ITS ---
Discharge Instructions Diet Discharge Diet: No restrictions Activity Discharge Activity: May Drive (09/12) and May Take a Tub Bath (in 1 week) Return to work on:: 09/13/24 May shower in (days): 1 May resume sexual activity in: 2 weeks Lifting Restrictions: none Dressing / Incision Call your doctor if your incision/area has: Sudden Increased Bleeding and Foul Smelling Discharge Call your doctor if you observe: Fever of 101 or Higher and Using more than 1 pad per hour (for 2 hrs in a row) Follow Up Care Please Follow Up With: Rashida Shepherd MD When: You do not need a postop appointment we will contact you next week with the pathology. [phone] call or send a [facility] message for nonurgent questions Test Results: Test results from this visit will be discussed in further detail at your follow- up appointment, if applicable. Discharge Plan Admission Primary Reason for Your Visit: Hysteroscsopy D&C Attending Provider: Rashida Shepherd Primary Care Provider: Sandra Allen Instructions Print Language: Irish Discharge Orders/Prescriptions Prescriptions: New ondansetron HCl 4 mg tablet 4 mg PO Q8H PRN (Reason: nausea and vomiting) 10 Days Qty: 10 0RF Continued bupropion HCl 150 mg tablet extended release 24 hr 150 mg PO DAILY aspirin 81 mg tablet,delayed release (DR/EC) 81 mg PO DAILY buspirone 5 mg tablet 5 mg PO DAILY rosuvastatin 10 mg tablet 10 mg PO DAILY Referrals / Follow Up: Sandra Allen MD [Primary Care Provider] - Disposition Disposition (needs filled in before D/C Order can be placed): Home, Self Care
[2024-09-12] MEDS: Vasopressin 20 UNITS/ML Vial (08:05)
[2024-09-12] MEDS: 0.9% Normal Saline (Pres. free 10 ML Vial (08:07)
--- NOTE | 2024-09-12 08:11 | OP.PCM_ITS ---
Problems Associated Problem List Diagnoses (1) Endometrial polyp: (2) PMB (postmenopausal bleeding): Operative Report (Standard) Operative Information Surgery/Procedure Performed: Hysteroscopy D&C with polyp resection Surgeon: Rashida Shepherd Date of Procedure: 09/12/24 Procedure Start Time: 07:55 Procedure Stop Time: 08:08 Pre-Operative Diagnosis: endometrial polyp, PMB Post-Operative Diagnosis: same Select all DRAINS/GRAFTS/IMPLANTS that apply: None Type of Anesthesia: MAC Special Medications: vasopressin injected into cervix Estimated Blood Loss: 10 Fluids Replaced: 0 Specimen collected: Yes Description of specimen(s) removed: endometrial curettings and polyp Description of surgery: The patient was taken to the OR where she was prepped and draped in dorsal lithotomy position. The weighted speculum was placed in the vagina and the anterior lip of the cervix was grasped with a single-tooth tenaculum. A 5 cc of dilute vasopressin solution were injected into the cervix. The vasopressin solution was 20 units of vasopressin and 20 cc of injectable saline. The cervix was dilated serially with Hegar dilators. The Symphion hysteroscope was placed into the uterine cavity and the above findings were noted. Bilateral tubal ostia were identified. The Symphion resection device was placed and the polyp resected in its entirity and a visual D&C done of the endometrial cavity. No other focal abnormalities were noted. The instruments were removed from the vagina. The specimen was handed off and sent to pathology. All sponge and needle counts were correct. Vaginal sweep was performed by me. The patient was awakened and taken to the recovery room in stable condition. Calculated fluid deficit was 320 cc of normal saline Surgical Findings: normal cervix and vagina, endometrium thin w/ a large polyp Dietary Aide Cook softwood faller: Yes Plumber'S Helper: Josh Zhong MS3 Tasks completed by instructional support assistant: Retracting Complications Complications: No Admit VTE Documentation VTE Present on Admission: No VTE Mechan Device Prophylaxis: SCD's
--- NOTE | 2024-09-12 08:16 | PCM.POST.ANE ---
Anesthesia: Postop Eval I Current Vital Signs Temperature: 97.7 F Pulse Rate: 78 Blood Pressure: 126/82 Respiratory Rate: 16 Pulse Ox: 93 Oxygen Delivery Method: Room Air Assessment Airway patent: Yes Spontaneous unlabored respirations: Yes Mental status: Awake and Calm nausea: No Vomiting: No Anesthesia Complication: No Fluid Hydration Crystalloid volume administer (ml): 10 Total IV fluid infused: 10 Progress Note Anesthesia document: Postop Eval 1 completed: Yes
--- NOTE | 2024-09-12 08:37 | POSTOPAN2_ITS ---
Anesthesia Postop Eval I Sum Postop Eval Completion status Anesthesia document: Postop Eval 1 completed: Yes Anesthesia Postop Eval I Summary Anesthesia Postop Eval I Summary: Anesthesia Postop Eval I: Assessment Summary Airway patent Yes 09/12/24 08:17 RECYCLABLE MATERIALS DISTRIBUTOR.LACHOOBChato Spontaneous unlabored Yes 09/12/24 08:17 RECYCLABLE MATERIALS DISTRIBUTOR.MUKUND respirations Mental status Awake,Calm 09/12/24 08:17 RECYCLABLE MATERIALS DISTRIBUTOR.MUKUND nausea No 09/12/24 08:17 RECYCLABLE MATERIALS DISTRIBUTOR.MUKUND Vomiting No 09/12/24 08:17 RECYCLABLE MATERIALS DISTRIBUTORSOFIA Anesthesia Postop Eval I: Fluid Summary Crystalloid volume administer 10 09/12/24 08:17 RECYCLABLE MATERIALS DISTRIBUTOR.MUKUND (ml) Colloids volume administered ( ml) Blood Product volume administered (ml) Total IV fluid infused 10 09/12/24 08:17 RECYCLABLE MATERIALS DISTRIBUTORSOFIA Anesthesia Postop Eval I: Summary Notes Anesthesia Complication No 09/12/24 08:17 JORDANA Anesthesia Complication Comment: Post-operative progress note Anesthesia: Postop Eval II Evaluation Mental status: Awake Pain Level: 0 nausea: No Vomiting: No
--- NOTE | 2024-09-12 08:37 | PCM.POSTANE2 ---
Anesthesia Postop Eval I Sum Postop Eval Completion status Anesthesia document: Postop Eval 1 completed: Yes Anesthesia Postop Eval I Summary Anesthesia Postop Eval I Summary: Anesthesia Postop Eval I: Assessment Summary Airway patent Yes 09/12/24 08:17 DIRECTOR OF OUTREACH.LACHOOBChato Spontaneous unlabored Yes 09/12/24 08:17 DIRECTOR OF OUTREACH.MUKUND respirations Mental status Awake,Calm 09/12/24 08:17 DIRECTOR OF OUTREACH.MUKUND nausea No 09/12/24 08:17 DIRECTOR OF OUTREACH.MUKUND Vomiting No 09/12/24 08:17 DIRECTOR OF OUTREACHSOFIA Anesthesia Postop Eval I: Fluid Summary Crystalloid volume administer 10 09/12/24 08:17 DIRECTOR OF OUTREACH.MUKUND (ml) Colloids volume administered ( ml) Blood Product volume administered (ml) Total IV fluid infused 10 09/12/24 08:17 DIRECTOR OF OUTREACHSOFIA Anesthesia Postop Eval I: Summary Notes Anesthesia Complication No 09/12/24 08:17 JORDANA Anesthesia Complication Comment: Post-operative progress note Anesthesia: Postop Eval II Evaluation Mental status: Awake Pain Level: 0 nausea: No Vomiting: No
== END 2024-09-12 09:34 | disposition home or self-care (01) ==
LOC: SDC 05:56 → AC 06:33
PROVIDERS: PCP Internal Medicine; Referring Provider Obstetrics & Gynecology; Visit Provider Obstetrics & Gynecology
PROC: 0UB98ZZ Excision of Uterus, Via Natural or Artificial Opening Endoscopic (ICD-10-PCS; CPT 58558; principal; 2024-09-12 07:15)
DX: N85.01 Benign endometrial hyperplasia (principal); N95.0 Postmenopausal bleeding; E78.5 Hyperlipidemia, unspecified; F32.A Depression, unspecified; F41.1 Generalized anxiety disorder; Z79.82 Long term (current) use of aspirin; Z79.899 Other long term (current) drug therapy; Z86.16 Personal history of COVID-19
CPT/HCPCS: 58558; 00952; 88305; A4216; J3490